=== PATIENT | female | born 1950 | race Two or more races ===

== ENCOUNTER 2016-11-23 17:18 | Inpatient (IN) | payer OTHER ==
[~2016-11-23] VITALS: Ht 149.9 cm; Wt 98.1 kg
[~2016-11-23 17:18] MED LIST: ASPI-482 PO; CHOL200044 PO; CRESTOR10 MG PO; FERR-26 PO; FOLI400T2 PO; HYDR-2666 PO; INSU100I11 SQ; INSU100V13 SQ; LABE50DI IV; LEVO100T5 PO; PANT40TA5 PO; TORS20TA2 PO; WARF1TAB7 PO; WARF2TAB7 PO
[2016-11-23 19:59] LABS: BASO % 0 % (0-3); EOS % 3 % (0-3); HEMATOCRIT 30.9 % (36.0-47.0); HEMOGLOBIN 10.4 g/dL (12.0-15.5); LYMPH # 0.9 x10^3/uL (1.0-4.8); LYMPH % 7 % (24-48); MEAN CORPUSCULAR HEMOGLOBIN 34 pg (25-35); MEAN CORPUSCULAR HGB CONC 34 g/dL (31-37); MEAN CORPUSCULAR VOLUME 101 fL (79-100); MONO % 6 % (0-9); NEUT % 85 % (31-73); PLATELET COUNT 206 x10^3/uL (140-400); RED BLOOD COUNT 3.06 x10^6/uL (3.50-5.40); RED CELL DISTRIBUTION WIDTH 13.7 % (11.5-14.5); WHITE BLOOD COUNT 13.1 x10^3/uL (4.0-11.0)
[2016-11-23 20:12] LABS: CALCIUM 7.7 mg/dL (8.5-10.1); CREATININE 8.5 mg/dL (0.6-1.0); GFR 4.7; POTASSIUM 3.7 mmol/L (3.5-5.1)
--- NOTE | 2016-11-23 20:47 | PHYS DOC ---
Past Medical History Past Medical History: CAD, Diabetes-Type II, Hypertension, Additional Disease Additional Past Medical Histor: KIDNEY FAILURE, DIALSYS PT Past Surgical History: Other Additional Past Surgical Histo: CABG, L ARM FISTULA, R ANTERIOR CHEST DIALYSIS SHUNT Alcohol Use: None Drug Use: None Adult General Chief Complaint Chief Complaint: DIALYSIS PROBLEM HPI HPI Patient is a 66 year old female who presents with clotted dialysis AV fistula. Patient went to her dialysis session this afternoon, however the nurses were not able to access to fistula in her left upper arm as it is apparently clotted. Her only complaint at this time is fatigue. She did have full dialysis session on Saturday. Review of Systems Review of Systems Constitutional: Fatigue. Denies fever or chills Respiratory: Denies cough or shortness of breath Cardiovascular: Denies chest pain GI: Denies abdominal pain, nausea, vomiting, or diarrhea Musculoskeletal: Denies back pain or joint pain Neurologic: Denies headache, focal weakness or sensory changes Allergies Allergies Allergies Coded Allergies Type Severity Reaction Last Updated Verified No Known Drug Allergies 07/10/13 No Physical Exam Physical Exam Constitutional: Well developed, well nourished, no acute distress, non-toxic appearance HENT: Normocephalic, atraumatic, bilateral external ears normal Eyes: EOMI, conjunctiva normal, no discharge Neck: Normal range of motion, no stridor Cardiovascular: Heart rate normal, regular rhythm, no murmur; AV fisutla L upper arm, no thrill appreciated; 2+ L radial pulse, sensation to light touch and motor function fully preserved Lungs & Thorax: Bilateral breath sounds clear to auscultation Abdomen: Bowel sounds normal, soft, non-distended, no TTP Skin: Warm, dry, no erythema, no rash Extremities: No obvious deformity, no edema Neurologic: Alert and oriented X 3, no gross deficits noted Current Patient Data Vital Signs Vital Signs Date Time Temp Pulse Resp B/P Pulse Ox O2 Delivery O2 Flow Rate FiO2 11/23/16 20:30 72 16 92 Room Air 11/23/16 20:00 126/56 11/23/16 17:35 97.5 97.5 Lab Values Laboratory Tests Test 11/23/16 19:55 White Blood Count 13.1x10^3/uL (4.0-11.0) H Red Blood Count 3.06x10^6/uL (3.50-5.40) L Hemoglobin 10.4g/dL (12.0-15.5) L Hematocrit 30.9% (36.0-47.0) L Mean Corpuscular Volume 101fL (79-100) H Mean Corpuscular Hemoglobin 34pg (25-35) Mean Corpuscular Hemoglobin Concent 34g/dL (31-37) Red Cell Distribution Width 13.7% (11.5-14.5) Platelet Count 206x10^3/uL (140-400) Neutrophils (%) (Auto) 85% (31-73) H Lymphocytes (%) (Auto) 7% (24-48) L Monocytes (%) (Auto) 6% (0-9) Eosinophils (%) (Auto) 3% (0-3) Basophils (%) (Auto) 0% (0-3) Neutrophils # (Auto) 11.1x10^3uL (1.8-7.7) H Lymphocytes # (Auto) 0.9x10^3/uL (1.0-4.8) L Monocytes # (Auto) 0.7x10^3/uL (0.0-1.1) Eosinophils # (Auto) 0.4x10^3/uL (0.0-0.7) Basophils # (Auto) 0.0x10^3/uL (0.0-0.2) Sodium Level 137mmol/L (136-145) Potassium Level 3.7mmol/L (3.5-5.1) Chloride Level 98mmol/L (98-107) Carbon Dioxide Level 24mmol/L (21-32) Anion Gap 15 (6-14) H Blood Urea Nitrogen 74mg/dL (7-20) H Creatinine 8.5mg/dL (0.6-1.0) H Estimated GFR (Cockcroft-Gault) 4.7 Glucose Level 115mg/dL (70-99) H Calcium Level 7.7mg/dL (8.5-10.1) L Laboratory Tests 11/23/16 19:55 Laboratory Tests 11/23/16 19:55 EKG EKG [] Radiology/Procedures Radiology/Procedures [] Course & Med Decision Making Course & Med Decision Making Pertinent Labs and Imaging studies reviewed. (See chart for details) Patient is 66-year-old female who presents with AV fistula problem. Basic labs ordered; potassium within normal limits. I discussed with Dr. 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 Discussed plan with patient, who is agreeable. I spoke with Dr. Arauz, will admit under his care for further evaluation and treatment. Dragon Disclaimer Dragon Disclaimer This electronic medical record was generated, in whole or in part, using a voice recognition dictation system. Departure Departure Impression: Primary Impression: Dialysis AV fistula malfunction Disposition: ADMITTED INPATIENT Admitting Physician: Irena Arauz Condition: STABLE Referrals: ELIAS EAGLE MD (PCP) RUDY LUO MD Nov 23, 2016 20:47
[2016-11-23] MEDS ORDERED: ACETAMINOPHEN 325 MG TABLET. PO PRN (21:00)
[2016-11-23] MEDS ORDERED: MORPHINE SULFATE 2 MG/ML DISP.SYRIN. IV PRN (21:00)
[2016-11-23] MEDS ORDERED: ONDANSETRON PF 4 MG/2 ML VIAL. IV PRN (21:00)
[2016-11-23] MEDS ORDERED: LEVO75TA5 PO (22:29)
[2016-11-23] MEDS ORDERED: INSU100V13 SQ ×2 (22:29)
[2016-11-23] MEDS ORDERED: INSU100V SQ (22:29)
--- NOTE | 2016-11-23 22:31 | PDOC1 ---
History and Physical Date of Admission Date of Admission DATE: 11/23/16 TIME: 22:29 Source Source: Chart review, Patient History of Present Illness History of Present Illness pt came to ER when she was unable to have dialysis today, Left upper arm fistula was unable to flow, thrill very diminished, thought clotted, sent to the ER< no pain, some dyspnea, she reports 4 kg over dry weight, little urine output, does not normally take lasix Renal MD winsome Linn s Past Medical History Cardiovascular: HTN, Mitral valve stenosis ([facility] valve) GI: Diverticulosis Musculoskeletal: low back pain Renal/: Chronic renal failure, UTI Endocrine: Diabetes Past Surgical History Past Surgical History: Hysterectomy, Other (mechanical heart valve) Family History Family History: No Significant Social History Smoke: No ALCOHOL: none Drugs: Ecstasy Current Problem List Problem List Problems Medical Problems: (1) Dialysis AV fistula malfunction Status: Acute Problems: Current Medications Current Medications Current Medications Ondansetron HCl (Zofran) 4 mg PRN Q8HRS PRN IV NAUSEA/VOMITING; Start 11/23/16 at 21:00; Stop 11/24/16 at 20:59 Morphine Sulfate 2 mg PRN Q2HR PRN IV PAIN; Start 11/23/16 at 21:00; Stop 11/24 at 20:59 Acetaminophen (Tylenol) 650 mg PRN Q4HRS PRN PO FEVER; Start 11/23/16 at 21:00 ; Stop 11/24/16 at 20:59 Active Scripts Active Reported Aspir 81 (Aspirin) 81 Mg Tablet.dr 81 Mg PO DAILY D3-2000 (Cholecalciferol (Vitamin D3)) 2,000 Unit Capsule 2,000 Unit PO DAILY Ferrous Sulfate 325 Mg Tablet 325 Mg PO BID Humalog (Insulin Lispro) 100 Unit/1 Ml Insuln.pen 12 Unit SQ TIDAC Levemir (Insulin Detemir) 100 Unit/1 Ml Vial 45 Unit SQ HS Hydrocodon-Acetaminophen 5-325 (Hydrocodone Bit/Acetaminophen) 1 Each Tablet 1 Each PO Q6HRS PRN Levothyroxine Sodium 100 Mcg Tablet 100 Mcg PO DAILY Pantoprazole Sodium 40 Mg Tablet.dr 40 Mg PO BID Warfarin Sodium 2 Mg Tablet 2 Mg PO DAILY Warfarin Sodium 1 Mg Tablet 1 Mg PO DAILY Crestor (Rosuvastatin Calcium) 10 Mg Tablet 10 Mg PO DAILY 30 Days Labetalol Hcl 50 Mg/10 Ml Disp.syrin 50 Mg IV BID 30 Days Torsemide 20 Mg Tablet 20 Mg PO DAILY B-Complex With Vit C Caplet (Folic Acid/Vitamin B Comp W-C) 400 Mcg Tablet 400 Mcg PO DAILY 7 Days Allergies Allergies: Coded Allergies: No Known Drug Allergies (Unverified , 07/10/13) ROS General: No: Appetite, Chills, Fatigue, Malaise, Night Sweats, Other PSYCHOLOGICAL ROS: No: Anxiety, Behavioral Disorder, Concentration difficultie , Decreased libido, Depression, Disorientation, Hallucinations, Hostility, Irritablity, Memory difficulties, Mood Swings, Obsessive thoughts, Other, Physical abuse, Sexual abuse, Sleep disturbances, Suicidal ideation Eyes: No Blurry vision, No Decreased vision, No Double vision, No Dry eyes, No Excessive tearing, No Eye Pain, No Itchy Eyes, No Loss of vision, No Other, No Photophobia, No Scotomata, No Uses contacts, No Uses glasses HEENT: No: Epistaxis, Heacaches, Hearing change, Nasal congestion, Nasal discharge, Oral lesions, Other, Sinus pain, Sneezing, Snoring, Sore Throat, Tinnitus, Vertigo, Visual Changes, Vocal changes Respiratory: No: Cough, Hemoptysis, Orthopnea, Other, Pleuritic Pain, SOB with excertion, Shortness of breath, Sputum Changes, Stridor, Tachypnea, Wheezing Cardiovascular: No Chest Pain, No Edema, No Lt Headedness, No Orthopnea, No Other, No Palpitations, No Paroxysmal Noc. Dyspnea Gastrointestinal: No Abdominal Pain, No Constipation, No Diarrhea, No Hematochezia, No Melena, No Nausea, No Other, No Vomiting Genitourinary: No , No , No , No , No , No , No , No Discharge, No Dysuria, No Flank Pain, No Frequency, No Hematuria, No Incontinence, No Other, No Pain, No Retention, No Urgency Musculoskeletal: No Gait Disturbance, No Joint Pain, No Joint Stiffness, No Joint Swelling, No Muscle Pain, No Muscular Weakness, No Other, No Pain In:, No Swelling In: Neurological: No Behavorial Changes, No Bowel/Bladder ControlChng, No Confusion , No Dizziness, No Gait Disturbance, No Headaches, No Impaired Coord/balance, No Memory Loss, No Numbness/Tingling, No Other, No Seizures, No Speech Problems , No Tremors, No Visual Changes, No Weakness Skin: No Acne, No Dry Skin, No Eczema, No Hair Changes, No Lumps, No Mole Changes, No Mottling, No Nail Changes, No Other, No Pruritus, No Rash, No Skin Lesion Changes Physical Exam General: Alert, Oriented X3, Cooperative, No acute distress HEENT: Atraumatic, PERRLA, EOMI, Mucous membr. moist/pink Lungs: Clear to auscultation, Normal air movement Heart: no gallops, no murmurs, other (mechanical click) Abdomen: Normal bowel sounds, Soft (obese, ) Rectal Exam: not examined, deferred Extremities: No clubbing, No edema, Normal pulses Skin: No rashes, No significant lesion Neuro: Normal speech, Normal tone, Cranial nerves 3-12 NL Psych/Mental Status: Mental status NL, Mood NL Vitals Vitals Vital Signs Date Time Temp Pulse Resp B/P Pulse Ox O2 Delivery O2 Flow Rate FiO2 11/23/16 21:45 72 22 127/60 96 Room Air 11/23/16 17:35 97.5 97.5 Labs Labs Laboratory Tests Test 11/23/16 19:55 White Blood Count 13.1x10^3/uL (4.0-11.0) Red Blood Count 3.06x10^6/uL (3.50-5.40) Hemoglobin 10.4g/dL (12.0-15.5) Hematocrit 30.9% (36.0-47.0) Mean Corpuscular Volume 101fL (79-100) Mean Corpuscular Hemoglobin 34pg (25-35) Mean Corpuscular Hemoglobin Concent 34g/dL (31-37) Red Cell Distribution Width 13.7% (11.5-14.5) Platelet Count 206x10^3/uL (140-400) Neutrophils (%) (Auto) 85% (31-73) Lymphocytes (%) (Auto) 7% (24-48) Monocytes (%) (Auto) 6% (0-9) Eosinophils (%) (Auto) 3% (0-3) Basophils (%) (Auto) 0% (0-3) Neutrophils # (Auto) 11.1x10^3uL (1.8-7.7) Lymphocytes # (Auto) 0.9x10^3/uL (1.0-4.8) Monocytes # (Auto) 0.7x10^3/uL (0.0-1.1) Eosinophils # (Auto) 0.4x10^3/uL (0.0-0.7) Basophils # (Auto) 0.0x10^3/uL (0.0-0.2) Sodium Level 137mmol/L (136-145) Potassium Level 3.7mmol/L (3.5-5.1) Chloride Level 98mmol/L (98-107) Carbon Dioxide Level 24mmol/L (21-32) Anion Gap 15 (6-14) Blood Urea Nitrogen 74mg/dL (7-20) Creatinine 8.5mg/dL (0.6-1.0) Estimated GFR (Cockcroft-Gault) 4.7 Glucose Level 115mg/dL (70-99) Calcium Level 7.7mg/dL (8.5-10.1) Laboratory Tests Test 11/23/16 19:55 White Blood Count 13.1x10^3/uL (4.0-11.0) Red Blood Count 3.06x10^6/uL (3.50-5.40) Hemoglobin 10.4g/dL (12.0-15.5) Hematocrit 30.9% (36.0-47.0) Mean Corpuscular Volume 101fL (79-100) Mean Corpuscular Hemoglobin 34pg (25-35) Mean Corpuscular Hemoglobin Concent 34g/dL (31-37) Red Cell Distribution Width 13.7% (11.5-14.5) Platelet Count 206x10^3/uL (140-400) Neutrophils (%) (Auto) 85% (31-73) Lymphocytes (%) (Auto) 7% (24-48) Monocytes (%) (Auto) 6% (0-9) Eosinophils (%) (Auto) 3% (0-3) Basophils (%) (Auto) 0% (0-3) Neutrophils # (Auto) 11.1x10^3uL (1.8-7.7) Lymphocytes # (Auto) 0.9x10^3/uL (1.0-4.8) Monocytes # (Auto) 0.7x10^3/uL (0.0-1.1) Eosinophils # (Auto) 0.4x10^3/uL (0.0-0.7) Basophils # (Auto) 0.0x10^3/uL (0.0-0.2) Sodium Level 137mmol/L (136-145) Potassium Level 3.7mmol/L (3.5-5.1) Chloride Level 98mmol/L (98-107) Carbon Dioxide Level 24mmol/L (21-32) Anion Gap 15 (6-14) Blood Urea Nitrogen 74mg/dL (7-20) Creatinine 8.5mg/dL (0.6-1.0) Estimated GFR (Cockcroft-Gault) 4.7 Glucose Level 115mg/dL (70-99) Calcium Level 7.7mg/dL (8.5-10.1) VTE Prophylaxis Ordered VTE Prophylaxis Devices: No VTE Pharmacological Prophylaxi: Yes Assessment/Plan Assessment/Plan CHF, acute on chronic diastolic , fluid overload from ESRD ESRD, 4kg over dry, will give large dose IV lasix, fluid restrict, consult IR, consult renal consult , [facility] valve, on coumadin, check INR in AM morbid obesity, BMI 43 gap acidosis, uremia leukocytosis, NOS, not SIRS, tachypnea from above check UA, CXR admit GIANCARLO SAVAGE MD Nov 23, 2016 22:31
[2016-11-23 23:00] VITALS: BP 113/50
[2016-11-23] MEDS ORDERED: FUROSEMIDE 100 MG/10 ML VIAL. IVP ONE (23:15)
[2016-11-24 05:24] LABS: BASO # 0.1 x10^3/uL (0.0-0.2); BASO % 1 % (0-3); EOS % 3 % (0-3); HEMATOCRIT 28.3 % (36.0-47.0); HEMOGLOBIN 9.5 g/dL (12.0-15.5); LYMPH # 0.7 x10^3/uL (1.0-4.8); LYMPH % 6 % (24-48); MEAN CORPUSCULAR HEMOGLOBIN 34 pg (25-35); MEAN CORPUSCULAR HGB CONC 34 g/dL (31-37); MEAN CORPUSCULAR VOLUME 101 fL (79-100); MONO % 7 % (0-9); NEUT % 84 % (31-73); PLATELET COUNT 176 x10^3/uL (140-400); RED CELL DISTRIBUTION WIDTH 13.8 % (11.5-14.5); WHITE BLOOD COUNT 12.3 x10^3/uL (4.0-11.0)
[2016-11-24 05:26] LABS: INR 2.5 (0.8-1.1); PROTHROMBIN TIME PATIENT 25.7 SEC (11.7-14.0)
[2016-11-24] MEDS: LEVOTHYROXINE 75 MCG TABLET PO SCH (05:36)
[2016-11-24 05:37] LABS: CALCIUM 7.5 mg/dL (8.5-10.1); GFR 4.4; POTASSIUM 4.2 mmol/L (3.5-5.1)
[2016-11-24 05:46] LABS: MAGNESIUM 2.7 mg/dL (1.8-2.4); PHOSPHORUS 8.3 mg/dL (2.6-4.7)
[2016-11-24 06:51] LABS: BILIRUBIN,URINE MODERATE (NEG); GLUCOSE,URINE NEGATIVE (NEG); NITRITE,URINE NEGATIVE (NEG); PROTEIN,URINE 100 mg/dL (NEG-TRACE)
[2016-11-24 07:00] VITALS: BP 138/63
[2016-11-24 07:26] LABS: BACTERIA,URINE FEW /HPF (0-FEW); SQUAMOUS EPITHELIAL CELL,UR MANY /LPF; WBC,URINE >40 /HPF (0-4); YEAST,URINE PRESENT /HPF
[2016-11-24] MEDS: INSULIN ASPART 300 UNITS/3 ML INSULN.PEN SQ SCH ×6 (07:30→17:00)
[2016-11-24] MEDS ORDERED: DEXTROSE 50% 25 GM / 50ML DISP.SYRIN. IV PRN (07:30)
--- NOTE | 2016-11-24 08:37 | PDOC ---
PROGRESS NOTES Chief Complaint Chief Complaint 1. Clotted AV fistula, left arm 2. ESRD on HD MWF 3. Hypothyroidism 4. DYslipidemia on statin 5. DM 2 History of Present Illness History of Present Illness Missed Sat HD bec of clotted access Was not able to finish sat session per pt account HAs happened before, nov? in [facility] Claims her face is now swollen bec she has missed HD WBC 12.3, CRea 9.o VS ok Pulses good on left arm, hard to appreciate palpable bruit PLAN: Ir consulted, Renal on board Resume home meds SSI Vitals Vitals Vital Signs Date Time Temp Pulse Resp B/P Pulse Ox O2 Delivery O2 Flow Rate FiO2 11/24/16 07:00 97.4 82 16 138/63 92 Room Air 97.4 Physical Exam General: Alert, Oriented X3, Cooperative, No acute distress Abdomen: Normal bowel sounds, Soft (obese, ) Extremities: No clubbing, No edema, Normal pulses Skin: No rashes, No significant lesion Labs LABS Laboratory Tests Test 11/23/16 19:55 11/23/16 23:24 11/24/16 02:00 11/24/16 03:33 White Blood Count 13.1x10^3/uL (4.0-11.0) Red Blood Count 3.06x10^6/uL (3.50-5.40) Hemoglobin 10.4g/dL (12.0-15.5) Hematocrit 30.9% (36.0-47.0) Mean Corpuscular Volume 101fL (79-100) Mean Corpuscular Hemoglobin 34pg (25-35) Mean Corpuscular Hemoglobin Concent 34g/dL (31-37) Red Cell Distribution Width 13.7% (11.5-14.5) Platelet Count 206x10^3/uL (140-400) Neutrophils (%) (Auto) 85% (31-73) Lymphocytes (%) (Auto) 7% (24-48) Monocytes (%) (Auto) 6% (0-9) Eosinophils (%) (Auto) 3% (0-3) Basophils (%) (Auto) 0% (0-3) Neutrophils # (Auto) 11.1x10^3uL (1.8-7.7) Lymphocytes # (Auto) 0.9x10^3/uL (1.0-4.8) Monocytes # (Auto) 0.7x10^3/uL (0.0-1.1) Eosinophils # (Auto) 0.4x10^3/uL (0.0-0.7) Basophils # (Auto) 0.0x10^3/uL (0.0-0.2) Sodium Level 137mmol/L (136-145) 138mmol/L (136-145) Potassium Level 3.7mmol/L (3.5-5.1) 4.2mmol/L (3.5-5.1) Chloride Level 98mmol/L (98-107) 98mmol/L (98-107) Carbon Dioxide Level 24mmol/L (21-32) 23mmol/L (21-32) Anion Gap 15 (6-14) 17 (6-14) Blood Urea Nitrogen 74mg/dL (7-20) 76mg/dL (7-20) Creatinine 8.5mg/dL (0.6-1.0) 9.0mg/dL (0.6-1.0) Estimated GFR (Cockcroft-Gault) 4.7 4.4 Glucose Level 115mg/dL (70-99) 168mg/dL (70-99) Calcium Level 7.7mg/dL (8.5-10.1) 7.5mg/dL (8.5-10.1) Glucose (Fingerstick) 187mg/dL (70-99) Urine Collection Type Unknown Urine Color Sindhu Urine Clarity Turbid Urine pH 5.0 Urine Specific Sarita 1.020 Urine Protein 100mg/dL (NEG-TRACE) Urine Glucose (UA) Negativemg/dL (NEG) Urine Ketones (Stick) Tracemg/dL (NEG) Urine Blood Moderate (NEG) Urine Nitrite Negative (NEG) Urine Bilirubin Moderate (NEG) Urine Urobilinogen Dipstick 1.0mg/dL (0.2 mg/dL) Urine Leukocyte Esterase Moderate (NEG) Urine RBC 6-10/HPF (0-2) Urine WBC >40/HPF (0-4) Urine Squamous Epithelial Cells Many/LPF Urine Bacteria Few/HPF (0-FEW) Urine Mucus Mod/LPF Urine Yeast Present/HPF Prothrombin Time 25.7SEC (11.7-14.0) Prothromb Time International Ratio 2.5 (0.8-1.1) Phosphorus Level 8.3mg/dL (2.6-4.7) Magnesium Level 2.7mg/dL (1.8-2.4) Test 11/24/16 03:53 White Blood Count 12.3x10^3/uL (4.0-11.0) Red Blood Count 2.80x10^6/uL (3.50-5.40) Hemoglobin 9.5g/dL (12.0-15.5) Hematocrit 28.3% (36.0-47.0) Mean Corpuscular Volume 101fL (79-100) Mean Corpuscular Hemoglobin 34pg (25-35) Mean Corpuscular Hemoglobin Concent 34g/dL (31-37) Red Cell Distribution Width 13.8% (11.5-14.5) Platelet Count 176x10^3/uL (140-400) Neutrophils (%) (Auto) 84% (31-73) Lymphocytes (%) (Auto) 6% (24-48) Monocytes (%) (Auto) 7% (0-9) Eosinophils (%) (Auto) 3% (0-3) Basophils (%) (Auto) 1% (0-3) Neutrophils # (Auto) 10.4x10^3uL (1.8-7.7) Lymphocytes # (Auto) 0.7x10^3/uL (1.0-4.8) Monocytes # (Auto) 0.8x10^3/uL (0.0-1.1) Eosinophils # (Auto) 0.3x10^3/uL (0.0-0.7) Basophils # (Auto) 0.1x10^3/uL (0.0-0.2) Review of Systems Review of Systems no cp.n.v.d Assessment and Plan Assessmemt and Plan Problems Medical Problems: (1) Dialysis AV fistula malfunction Status: Acute Problems: Comment Review of Relevant I have reviewed the following items sofi (where applicable) has been applied. Labs Laboratory Tests Test 11/23/16 19:55 11/23/16 23:24 11/24/16 02:00 11/24/16 03:33 White Blood Count 13.1x10^3/uL (4.0-11.0) Red Blood Count 3.06x10^6/uL (3.50-5.40) Hemoglobin 10.4g/dL (12.0-15.5) Hematocrit 30.9% (36.0-47.0) Mean Corpuscular Volume 101fL (79-100) Mean Corpuscular Hemoglobin 34pg (25-35) Mean Corpuscular Hemoglobin Concent 34g/dL (31-37) Red Cell Distribution Width 13.7% (11.5-14.5) Platelet Count 206x10^3/uL (140-400) Neutrophils (%) (Auto) 85% (31-73) Lymphocytes (%) (Auto) 7% (24-48) Monocytes (%) (Auto) 6% (0-9) Eosinophils (%) (Auto) 3% (0-3) Basophils (%) (Auto) 0% (0-3) Neutrophils # (Auto) 11.1x10^3uL (1.8-7.7) Lymphocytes # (Auto) 0.9x10^3/uL (1.0-4.8) Monocytes # (Auto) 0.7x10^3/uL (0.0-1.1) Eosinophils # (Auto) 0.4x10^3/uL (0.0-0.7) Basophils # (Auto) 0.0x10^3/uL (0.0-0.2) Sodium Level 137mmol/L (136-145) 138mmol/L (136-145) Potassium Level 3.7mmol/L (3.5-5.1) 4.2mmol/L (3.5-5.1) Chloride Level 98mmol/L (98-107) 98mmol/L (98-107) Carbon Dioxide Level 24mmol/L (21-32) 23mmol/L (21-32) Anion Gap 15 (6-14) 17 (6-14) Blood Urea Nitrogen 74mg/dL (7-20) 76mg/dL (7-20) Creatinine 8.5mg/dL (0.6-1.0) 9.0mg/dL (0.6-1.0) Estimated GFR (Cockcroft-Gault) 4.7 4.4 Glucose Level 115mg/dL (70-99) 168mg/dL (70-99) Calcium Level 7.7mg/dL (8.5-10.1) 7.5mg/dL (8.5-10.1) Glucose (Fingerstick) 187mg/dL (70-99) Urine Collection Type Unknown Urine Color Sindhu Urine Clarity Turbid Urine pH 5.0 Urine Specific [place] 1.020 Urine Protein 100mg/dL (NEG-TRACE) Urine Glucose (UA) Negativemg/dL (NEG) Urine Ketones (Stick) Tracemg/dL (NEG) Urine Blood Moderate (NEG) Urine Nitrite Negative (NEG) Urine Bilirubin Moderate (NEG) Urine Urobilinogen Dipstick 1.0mg/dL (0.2 mg/dL) Urine Leukocyte Esterase Moderate (NEG) Urine RBC 6-10/HPF (0-2) Urine WBC >40/HPF (0-4) Urine Squamous Epithelial Cells Many/LPF Urine Bacteria Few/HPF (0-FEW) Urine Mucus Mod/LPF Urine Yeast Present/HPF Prothrombin Time 25.7SEC (11.7-14.0) Prothromb Time International Ratio 2.5 (0.8-1.1) Phosphorus Level 8.3mg/dL (2.6-4.7) Magnesium Level 2.7mg/dL (1.8-2.4) Test 11/24/16 03:53 White Blood Count 12.3x10^3/uL (4.0-11.0) Red Blood Count 2.80x10^6/uL (3.50-5.40) Hemoglobin 9.5g/dL (12.0-15.5) Hematocrit 28.3% (36.0-47.0) Mean Corpuscular Volume 101fL (79-100) Mean Corpuscular Hemoglobin 34pg (25-35) Mean Corpuscular Hemoglobin Concent 34g/dL (31-37) Red Cell Distribution Width 13.8% (11.5-14.5) Platelet Count 176x10^3/uL (140-400) Neutrophils (%) (Auto) 84% (31-73) Lymphocytes (%) (Auto) 6% (24-48) Monocytes (%) (Auto) 7% (0-9) Eosinophils (%) (Auto) 3% (0-3) Basophils (%) (Auto) 1% (0-3) Neutrophils # (Auto) 10.4x10^3uL (1.8-7.7) Lymphocytes # (Auto) 0.7x10^3/uL (1.0-4.8) Monocytes # (Auto) 0.8x10^3/uL (0.0-1.1) Eosinophils # (Auto) 0.3x10^3/uL (0.0-0.7) Basophils # (Auto) 0.1x10^3/uL (0.0-0.2) Laboratory Tests Test 11/23/16 19:55 11/23/16 23:24 11/24/16 02:00 11/24/16 03:33 White Blood Count 13.1x10^3/uL (4.0-11.0) Red Blood Count 3.06x10^6/uL (3.50-5.40) Hemoglobin 10.4g/dL (12.0-15.5) Hematocrit 30.9% (36.0-47.0) Mean Corpuscular Volume 101fL (79-100) Mean Corpuscular Hemoglobin 34pg (25-35) Mean Corpuscular Hemoglobin Concent 34g/dL (31-37) Red Cell Distribution Width 13.7% (11.5-14.5) Platelet Count 206x10^3/uL (140-400) Neutrophils (%) (Auto) 85% (31-73) Lymphocytes (%) (Auto) 7% (24-48) Monocytes (%) (Auto) 6% (0-9) Eosinophils (%) (Auto) 3% (0-3) Basophils (%) (Auto) 0% (0-3) Neutrophils # (Auto) 11.1x10^3uL (1.8-7.7) Lymphocytes # (Auto) 0.9x10^3/uL (1.0-4.8) Monocytes # (Auto) 0.7x10^3/uL (0.0-1.1) Eosinophils # (Auto) 0.4x10^3/uL (0.0-0.7) Basophils # (Auto) 0.0x10^3/uL (0.0-0.2) Sodium Level 137mmol/L (136-145) 138mmol/L (136-145) Potassium Level 3.7mmol/L (3.5-5.1) 4.2mmol/L (3.5-5.1) Chloride Level 98mmol/L (98-107) 98mmol/L (98-107) Carbon Dioxide Level 24mmol/L (21-32) 23mmol/L (21-32) Anion Gap 15 (6-14) 17 (6-14) Blood Urea Nitrogen 74mg/dL (7-20) 76mg/dL (7-20) Creatinine 8.5mg/dL (0.6-1.0) 9.0mg/dL (0.6-1.0) Estimated GFR (Cockcroft-Gault) 4.7 4.4 Glucose Level 115mg/dL (70-99) 168mg/dL (70-99) Calcium Level 7.7mg/dL (8.5-10.1) 7.5mg/dL (8.5-10.1) Glucose (Fingerstick) 187mg/dL (70-99) Urine Collection Type Unknown Urine Color Sindhu Urine Clarity Turbid Urine pH 5.0 Urine Specific Sarita 1.020 Urine Protein 100mg/dL (NEG-TRACE) Urine Glucose (UA) Negativemg/dL (NEG) Urine Ketones (Stick) Tracemg/dL (NEG) Urine Blood Moderate (NEG) Urine Nitrite Negative (NEG) Urine Bilirubin Moderate (NEG) Urine Urobilinogen Dipstick 1.0mg/dL (0.2 mg/dL) Urine Leukocyte Esterase Moderate (NEG) Urine RBC 6-10/HPF (0-2) Urine WBC >40/HPF (0-4) Urine Squamous Epithelial Cells Many/LPF Urine Bacteria Few/HPF (0-FEW) Urine Mucus Mod/LPF Urine Yeast Present/HPF Prothrombin Time 25.7SEC (11.7-14.0) Prothromb Time International Ratio 2.5 (0.8-1.1) Phosphorus Level 8.3mg/dL (2.6-4.7) Magnesium Level 2.7mg/dL (1.8-2.4) Test 11/24/16 03:53 White Blood Count 12.3x10^3/uL (4.0-11.0) Red Blood Count 2.80x10^6/uL (3.50-5.40) Hemoglobin 9.5g/dL (12.0-15.5) Hematocrit 28.3% (36.0-47.0) Mean Corpuscular Volume 101fL (79-100) Mean Corpuscular Hemoglobin 34pg (25-35) Mean Corpuscular Hemoglobin Concent 34g/dL (31-37) Red Cell Distribution Width 13.8% (11.5-14.5) Platelet Count 176x10^3/uL (140-400) Neutrophils (%) (Auto) 84% (31-73) Lymphocytes (%) (Auto) 6% (24-48) Monocytes (%) (Auto) 7% (0-9) Eosinophils (%) (Auto) 3% (0-3) Basophils (%) (Auto) 1% (0-3) Neutrophils # (Auto) 10.4x10^3uL (1.8-7.7) Lymphocytes # (Auto) 0.7x10^3/uL (1.0-4.8) Monocytes # (Auto) 0.8x10^3/uL (0.0-1.1) Eosinophils # (Auto) 0.3x10^3/uL (0.0-0.7) Basophils # (Auto) 0.1x10^3/uL (0.0-0.2) Medications Current Medications Ondansetron HCl (Zofran) 4 mg PRN Q8HRS PRN IV NAUSEA/VOMITING; Start 11/23/16 at 21:00; Stop 11/24/16 at 07:25; Status DC Morphine Sulfate 2 mg PRN Q2HR PRN IV PAIN; Start 11/23/16 at 21:00; Stop 11/24 at 20:59 Acetaminophen (Tylenol) 650 mg PRN Q4HRS PRN PO FEVER; Start 11/23/16 at 21:00 ; Stop 11/24/16 at 20:59 Furosemide (Lasix) 100 mg 1X ONCE IVP Last administered on 11/24/16t 01:15; Start 11/23/16 at 23:15; Stop 11/23/16 at 23:17; Status DC Levothyroxine Sodium (Synthroid) 75 mcg DAILY07 PO ; Start 11/24/16 at 07:00 Pantoprazole Sodium (Protonix) 40 mg BIDAC PO ; Start 11/24/16 at 07:30 Warfarin Sodium (Coumadin) 1 mg DAILY16 PO ; Start 11/24/16 at 16:00 Warfarin Sodium (Coumadin) 2 mg DAILY16 PO ; Start 11/24/16 at 16:00 Vitamin D (Vitamin D3) 2,000 unit DAILY PO ; Start 11/24/16 at 09:00 Insulin Detemir (Levemir) 66 units QHS SQ ; Start 11/24/16 at 21:00 Insulin Aspart (Novolog) 20 units TIDAC SQ ; Start 11/24/16 at 07:30 Atorvastatin Calcium (Lipitor) 40 mg HS PO ; Start 11/24/16 at 21:00 Warfarin Sodium (Coumadin Per Physician) 1 each PRN DAILY PRN MC SEE COMMENTS; Start 11/24/16 at 16:00 Ondansetron HCl (Zofran) 4 mg PRN Q6HRS PRN IV NAUSEA/VOMITING; Start 11/24/16 at 07:23 Insulin Aspart (Novolog) 0-9 UNITS TIDWMEALS SQ ; Start 11/24/16 at 08:00 Dextrose (Dextrose 50%-Water Syringe) 12.5 gm PRN Q15MIN PRN IV SEE COMMENTS; Start 11/24/16 at 07:30 Active Scripts Active Reported Humalog (Insulin Lispro) 100 Unit/1 Ml Vial 20 Unit SQ TIDAC Levothyroxine Sodium 75 Mcg Tablet 75 Mcg PO DAILYAC Levemir (Insulin Detemir) 100 Unit/1 Ml Vial 66 Unit SQ QHS Levemir (Insulin Detemir) 100 Unit/1 Ml Vial 70 Unit SQ DAILY D3-2000 (Cholecalciferol (Vitamin D3)) 2,000 Unit Capsule 2,000 Unit PO DAILY Pantoprazole Sodium 40 Mg Tablet.dr 40 Mg PO BID Warfarin Sodium 2 Mg Tablet 2 Mg PO DAILY Warfarin Sodium 1 Mg Tablet 1 Mg PO DAILY Crestor (Rosuvastatin Calcium) 10 Mg Tablet 10 Mg PO DAILY 30 Days Vitals/I & O Vital Sign - Last 24 Hours 11/23/16 11/23/16 11/23/16 11/23/16 17:35 19:00 19:30 20:00 Temp 97.5 97.5 Pulse 79 68 74 76 Resp 16 27 31 B/P 121/51 103/47 126/56 Pulse Ox 98 98 94 O2 Delivery Room Air Room Air Room Air 11/23/16 11/23/16 11/23/16 11/23/16 20:30 20:45 21:15 21:45 Pulse 72 72 74 72 Resp 16 13 20 22 B/P 103/49 113/57 127/60 Pulse Ox 92 91 97 96 O2 Delivery Room Air Room Air Room Air Room Air 11/23/16 11/23/16 11/24/16 23:00 23:22 07:00 Temp 98.3 97.4 98.3 97.4 Pulse 73 82 Resp 18 16 B/P 113/50 138/63 Pulse Ox 92 92 O2 Delivery Room Air Room Air Room Air Intake and Output 11/23/16 11/23/16 11/24/16 15:00 23:00 07:00 Intake Total 30 ml Output Total 30 ml Balance 0 ml FROILAN FLEMING MD Nov 24, 2016 08:37
[2016-11-24] MEDS: CHOLECALCIFEROL (VITAMIN D3) 1,000 UNIT TABLET PO SCH (08:45)
[2016-11-24] MEDS: PANTOPRAZOLE 40 MG TABLET.DR. PO SCH ×2 (08:45→16:30)
--- NOTE | 2016-11-24 09:28 | RAD ---
AP portable chest radiograph 11/24/2016 Clinical History: End-stage renal disease and leukocytosis. An AP portable erect digital radiograph of the chest was obtained. Comparison study is dated 12/21/2012. The patient is status post median sternotomy. The cardiac silhouette is mildly enlarged. Thoracic aorta is minimally tortuous. Atherosclerotic calcification of the thoracic aorta is seen. No acute pulmonary infiltrate is noted. No pneumothorax or pleural effusion is seen. The osseous structures are unchanged. Impression: Mild cardiomegaly. No acute pulmonary infiltrate is seen.
[2016-11-24 11:00] VITALS: BP 111/40
--- NOTE | 2016-11-24 12:10 | PDOC2 ---
CONSULT Date of Consult Date of Consult DATE: 11/24/16 TIME: 12:05 Reason for Consult Reason for Consult: ESRD PT Referring Physician Referring Physician: HUSSEIN Identification/Chief Complaint Chief Complaint CANT DIALYZE AND SOME SOB Source Source: Chart review, Patient History of Present Illness Reason for Visit: THIS IS A 66 YR OLD ADMITTED WITH SOME SOB. SHE HAS HYPERVOLEMIA. SHE HAS ESRD AND IS ON OP HD ON MWF. SHE WENT TO HER HD SHIFT LATE IN THE AFTERNOON YESTERDAY AND WAS NOTED TO HAVE A THROMBOSED AVG. IT APPEARS TO BE A BRACHIO- BASILIC GRAFT. SHE WAS UNABLE TO DIALYZE AND CAME TO THE ER. HER LABS ARE C/W ESRD BUT NO HYPERKALEMIA OR MET ACIDOSIS NOTED Past Medical History Cardiovascular: [facility], [facility] GI: Diverticulosis Heme/Onc: Anemia NOS Musculoskeletal: low back pain Renal/: Chronic renal failure, UTI Endocrine: Diabetes, Hyperparathyroidism Past Surgical History Past Surgical History: Hysterectomy, Other (mechanical heart valve) Family History Family History: No Significant Social History No ALCOHOL: none Drugs: Ecstasy Lives: with Family Current Problem List Problem List Problems Medical Problems: (1) Dialysis AV fistula malfunction Status: Acute Current Medications Current Medications Current Medications Ondansetron HCl (Zofran) 4 mg PRN Q8HRS PRN IV NAUSEA/VOMITING; Start 11/23/16 at 21:00; Stop 11/24/16 at 07:25; Status DC Morphine Sulfate 2 mg PRN Q2HR PRN IV PAIN; Start 11/23/16 at 21:00; Stop 11/24 at 20:59 Acetaminophen (Tylenol) 650 mg PRN Q4HRS PRN PO FEVER Last administered on 11/24 08:46; Start 11/23/16 at 21:00; Stop 11/24/16 at 20:59 Furosemide (Lasix) 100 mg 1X ONCE IVP Last administered on 11/24/16 01:15; Start 11/23/16 at 23:15; Stop 11/23/16 at 23:17; Status DC Levothyroxine Sodium (Synthroid) 75 mcg DAILY07 PO ; Start 11/24/16 at 07:00 Pantoprazole Sodium (Protonix) 40 mg BIDAC PO Last administered on 11/24/16 08 :45; Start 11/24/16 at 07:30 Warfarin Sodium (Coumadin) 1 mg DAILY16 PO ; Start 11/24/16 at 16:00 Warfarin Sodium (Coumadin) 2 mg DAILY16 PO ; Start 11/24/16 at 16:00 Vitamin D (Vitamin D3) 2,000 unit DAILY PO Last administered on 11/24/16t 08:45 ; Start 11/24/16 at 09:00 Insulin Detemir (Levemir) 66 units QHS SQ ; Start 11/24/16 at 21:00 Insulin Aspart (Novolog) 20 units TIDAC SQ ; Start 11/24/16 at 07:30 Atorvastatin Calcium (Lipitor) 40 mg HS PO ; Start 11/24/16 at 21:00 Warfarin Sodium (Coumadin Per Physician) 1 each PRN DAILY PRN MC SEE COMMENTS; Start 11/24/16 at 16:00 Ondansetron HCl (Zofran) 4 mg PRN Q6HRS PRN IV NAUSEA/VOMITING; Start 11/24/16 at 07:23 Insulin Aspart (Novolog) 0-9 UNITS TIDWMEALS SQ ; Start 11/24/16 at 08:00 Dextrose (Dextrose 50%-Water Syringe) 12.5 gm PRN Q15MIN PRN IV SEE COMMENTS; Start 11/24/16 at 07:30 Active Scripts Active Reported Humalog (Insulin Lispro) 100 Unit/1 Ml Vial 20 Unit SQ TIDAC Levothyroxine Sodium 75 Mcg Tablet 75 Mcg PO DAILYAC Levemir (Insulin Detemir) 100 Unit/1 Ml Vial 66 Unit SQ QHS Levemir (Insulin Detemir) 100 Unit/1 Ml Vial 70 Unit SQ DAILY D3-2000 (Cholecalciferol (Vitamin D3)) 2,000 Unit Capsule 2,000 Unit PO DAILY Pantoprazole Sodium 40 Mg Tablet.dr 40 Mg PO BID Warfarin Sodium 2 Mg Tablet 2 Mg PO DAILY Warfarin Sodium 1 Mg Tablet 1 Mg PO DAILY Crestor (Rosuvastatin Calcium) 10 Mg Tablet 10 Mg PO DAILY 30 Days Allergies Allergies: Coded Allergies: No Known Drug Allergies (Unverified , 07/10/13) ROS General: YES: Appetite PSYCHOLOGICAL ROS: YES: Behavioral Disorder Eyes: Yes Decreased vision HEENT: YES: Heacaches Respiratory: YES: Cough, Shortness of breath Gastrointestinal: Yes Constipation Genitourinary: YES Other (ANURIA) Musculoskeletal: Yes Joint Stiffness, Yes Muscular Weakness Skin: Yes Dry Skin Physical Exam General: Alert, Cooperative, No acute distress HEENT: Atraumatic, PERRLA Lungs: Clear to auscultation Heart: Regular rate, Normal S2 Abdomen: Normal bowel sounds, Soft, No tenderness Extremities: No clubbing Skin: No breakdown Neuro: Normal speech, Cranial nerves 3-12 NL Psych/Mental Status: Mental status NL, Mood NL MUSCULOSKELETAL: No joint tenderness, No deformity, No swelling Vitals VITALS Vital Signs Date Time Temp Pulse Resp B/P Pulse Ox O2 Delivery O2 Flow Rate FiO2 11/24/16 11:00 97.6 69 16 111/40 95 Room Air 97.6 Labs Labs Laboratory Tests Test 11/23/16 19:55 11/23/16 23:24 11/24/16 02:00 11/24/16 03:33 White Blood Count 13.1x10^3/uL (4.0-11.0) Red Blood Count 3.06x10^6/uL (3.50-5.40) Hemoglobin 10.4g/dL (12.0-15.5) Hematocrit 30.9% (36.0-47.0) Mean Corpuscular Volume 101fL (79-100) Mean Corpuscular Hemoglobin 34pg (25-35) Mean Corpuscular Hemoglobin Concent 34g/dL (31-37) Red Cell Distribution Width 13.7% (11.5-14.5) Platelet Count 206x10^3/uL (140-400) Neutrophils (%) (Auto) 85% (31-73) Lymphocytes (%) (Auto) 7% (24-48) Monocytes (%) (Auto) 6% (0-9) Eosinophils (%) (Auto) 3% (0-3) Basophils (%) (Auto) 0% (0-3) Neutrophils # (Auto) 11.1x10^3uL (1.8-7.7) Lymphocytes # (Auto) 0.9x10^3/uL (1.0-4.8) Monocytes # (Auto) 0.7x10^3/uL (0.0-1.1) Eosinophils # (Auto) 0.4x10^3/uL (0.0-0.7) Basophils # (Auto) 0.0x10^3/uL (0.0-0.2) Sodium Level 137mmol/L (136-145) 138mmol/L (136-145) Potassium Level 3.7mmol/L (3.5-5.1) 4.2mmol/L (3.5-5.1) Chloride Level 98mmol/L (98-107) 98mmol/L (98-107) Carbon Dioxide Level 24mmol/L (21-32) 23mmol/L (21-32) Anion Gap 15 (6-14) 17 (6-14) Blood Urea Nitrogen 74mg/dL (7-20) 76mg/dL (7-20) Creatinine 8.5mg/dL (0.6-1.0) 9.0mg/dL (0.6-1.0) Estimated GFR (Cockcroft-Gault) 4.7 4.4 Glucose Level 115mg/dL (70-99) 168mg/dL (70-99) Calcium Level 7.7mg/dL (8.5-10.1) 7.5mg/dL (8.5-10.1) Glucose (Fingerstick) 187mg/dL (70-99) Urine Collection Type Unknown Urine Color Sindhu Urine Clarity Turbid Urine pH 5.0 Urine Specific [place] 1.020 Urine Protein 100mg/dL (NEG-TRACE) Urine Glucose (UA) Negativemg/dL (NEG) Urine Ketones (Stick) Tracemg/dL (NEG) Urine Blood Moderate (NEG) Urine Nitrite Negative (NEG) Urine Bilirubin Moderate (NEG) Urine Urobilinogen Dipstick 1.0mg/dL (0.2 mg/dL) Urine Leukocyte Esterase Moderate (NEG) Urine RBC 6-10/HPF (0-2) Urine WBC >40/HPF (0-4) Urine Squamous Epithelial Cells Many/LPF Urine Bacteria Few/HPF (0-FEW) Urine Mucus Mod/LPF Urine Yeast Present/HPF Prothrombin Time 25.7SEC (11.7-14.0) Prothromb Time International Ratio 2.5 (0.8-1.1) Phosphorus Level 8.3mg/dL (2.6-4.7) Magnesium Level 2.7mg/dL (1.8-2.4) Test 11/24/16 03:53 11/24/16 08:33 White Blood Count 12.3x10^3/uL (4.0-11.0) Red Blood Count 2.80x10^6/uL (3.50-5.40) Hemoglobin 9.5g/dL (12.0-15.5) Hematocrit 28.3% (36.0-47.0) Mean Corpuscular Volume 101fL (79-100) Mean Corpuscular Hemoglobin 34pg (25-35) Mean Corpuscular Hemoglobin Concent 34g/dL (31-37) Red Cell Distribution Width 13.8% (11.5-14.5) Platelet Count 176x10^3/uL (140-400) Neutrophils (%) (Auto) 84% (31-73) Lymphocytes (%) (Auto) 6% (24-48) Monocytes (%) (Auto) 7% (0-9) Eosinophils (%) (Auto) 3% (0-3) Basophils (%) (Auto) 1% (0-3) Neutrophils # (Auto) 10.4x10^3uL (1.8-7.7) Lymphocytes # (Auto) 0.7x10^3/uL (1.0-4.8) Monocytes # (Auto) 0.8x10^3/uL (0.0-1.1) Eosinophils # (Auto) 0.3x10^3/uL (0.0-0.7) Basophils # (Auto) 0.1x10^3/uL (0.0-0.2) Glucose (Fingerstick) 180mg/dL (70-99) Laboratory Tests Test 11/23/16 19:55 11/23/16 23:24 11/24/16 02:00 11/24/16 03:33 White Blood Count 13.1x10^3/uL (4.0-11.0) Red Blood Count 3.06x10^6/uL (3.50-5.40) Hemoglobin 10.4g/dL (12.0-15.5) Hematocrit 30.9% (36.0-47.0) Mean Corpuscular Volume 101fL (79-100) Mean Corpuscular Hemoglobin 34pg (25-35) Mean Corpuscular Hemoglobin Concent 34g/dL (31-37) Red Cell Distribution Width 13.7% (11.5-14.5) Platelet Count 206x10^3/uL (140-400) Neutrophils (%) (Auto) 85% (31-73) Lymphocytes (%) (Auto) 7% (24-48) Monocytes (%) (Auto) 6% (0-9) Eosinophils (%) (Auto) 3% (0-3) Basophils (%) (Auto) 0% (0-3) Neutrophils # (Auto) 11.1x10^3uL (1.8-7.7) Lymphocytes # (Auto) 0.9x10^3/uL (1.0-4.8) Monocytes # (Auto) 0.7x10^3/uL (0.0-1.1) Eosinophils # (Auto) 0.4x10^3/uL (0.0-0.7) Basophils # (Auto) 0.0x10^3/uL (0.0-0.2) Sodium Level 137mmol/L (136-145) 138mmol/L (136-145) Potassium Level 3.7mmol/L (3.5-5.1) 4.2mmol/L (3.5-5.1) Chloride Level 98mmol/L (98-107) 98mmol/L (98-107) Carbon Dioxide Level 24mmol/L (21-32) 23mmol/L (21-32) Anion Gap 15 (6-14) 17 (6-14) Blood Urea Nitrogen 74mg/dL (7-20) 76mg/dL (7-20) Creatinine 8.5mg/dL (0.6-1.0) 9.0mg/dL (0.6-1.0) Estimated GFR (Cockcroft-Gault) 4.7 4.4 Glucose Level 115mg/dL (70-99) 168mg/dL (70-99) Calcium Level 7.7mg/dL (8.5-10.1) 7.5mg/dL (8.5-10.1) Glucose (Fingerstick) 187mg/dL (70-99) Urine Collection Type Unknown Urine Color Sindhu Urine Clarity Turbid Urine pH 5.0 Urine Specific [place] 1.020 Urine Protein 100mg/dL (NEG-TRACE) Urine Glucose (UA) Negativemg/dL (NEG) Urine Ketones (Stick) Tracemg/dL (NEG) Urine Blood Moderate (NEG) Urine Nitrite Negative (NEG) Urine Bilirubin Moderate (NEG) Urine Urobilinogen Dipstick 1.0mg/dL (0.2 mg/dL) Urine Leukocyte Esterase Moderate (NEG) Urine RBC 6-10/HPF (0-2) Urine WBC >40/HPF (0-4) Urine Squamous Epithelial Cells Many/LPF Urine Bacteria Few/HPF (0-FEW) Urine Mucus Mod/LPF Urine Yeast Present/HPF Prothrombin Time 25.7SEC (11.7-14.0) Prothromb Time International Ratio 2.5 (0.8-1.1) Phosphorus Level 8.3mg/dL (2.6-4.7) Magnesium Level 2.7mg/dL (1.8-2.4) Test 11/24/16 03:53 11/24/16 08:33 White Blood Count 12.3x10^3/uL (4.0-11.0) Red Blood Count 2.80x10^6/uL (3.50-5.40) Hemoglobin 9.5g/dL (12.0-15.5) Hematocrit 28.3% (36.0-47.0) Mean Corpuscular Volume 101fL (79-100) Mean Corpuscular Hemoglobin 34pg (25-35) Mean Corpuscular Hemoglobin Concent 34g/dL (31-37) Red Cell Distribution Width 13.8% (11.5-14.5) Platelet Count 176x10^3/uL (140-400) Neutrophils (%) (Auto) 84% (31-73) Lymphocytes (%) (Auto) 6% (24-48) Monocytes (%) (Auto) 7% (0-9) Eosinophils (%) (Auto) 3% (0-3) Basophils (%) (Auto) 1% (0-3) Neutrophils # (Auto) 10.4x10^3uL (1.8-7.7) Lymphocytes # (Auto) 0.7x10^3/uL (1.0-4.8) Monocytes # (Auto) 0.8x10^3/uL (0.0-1.1) Eosinophils # (Auto) 0.3x10^3/uL (0.0-0.7) Basophils # (Auto) 0.1x10^3/uL (0.0-0.2) Glucose (Fingerstick) 180mg/dL (70-99) Assessment/Plan Assessment/Plan IMP ANEMIA ESRD-MWF THROMBOSED LEFT ARM GRAFT HYPERVOLEMIA-UP MORE 4.9KG PLAN THROMBECTOMY WHEN POSSIBLE WILL HAVE IR PLACE TEMP HD CATHETER TO FACILITATED HD HD TODAY UF TO DW START FRANK ORANTES MD Nov 24, 2016 12:10
[2016-11-24 14:54] VITALS: BP 120/48
[2016-11-24] MEDS ORDERED: WARFARIN 2 MG TABLET. PO SCH (16:00)
[2016-11-24] MEDS ORDERED: WARFARIN 1 MG TABLET. PO SCH (16:00)
--- NOTE | 2016-11-24 16:09 | PDOC2 ---
CONSULT Date of Consult Date of Consult DATE: 11/24/16 TIME: 16:03 Reason for Consult Reason for Consult: Heart history Referring Physician Referring Physician: Dr. Arauz Identification/Chief Complaint Chief Complaint Thrombosed shunt History of Present Illness Reason for Visit: This patient is a pleasant 66-year-old lady with a known history of end-stage renal disease that is on dialysis. She has a long history of cardiac problems with mitral valvular disease and had a mechanical valve in the mitral position done in the past. She usually follows with Dr. John and Dr. Solorzano in . The patient was having dialysis when they started having problems and she was referred to the emergency room with an occluded shunt. She denied having any cardiac problems. After admission she was found to have an occluded shunt and has not been able to complete her dialysis. The patient is starting to complain of fatigue as well as dyspnea. No chest pains. No palpitations. No other cardiac complaints. Past Medical History Cardiovascular: HTN, Mitral valve stenosis (mech valve) GI: Diverticulosis Heme/Onc: Anemia NOS Musculoskeletal: low back pain Renal/: Chronic renal failure, UTI Endocrine: Diabetes, Hyperparathyroidism Past Surgical History Past Surgical History: Hysterectomy, Other (mechanical heart valve) Family History Family History: No Significant Social History No ALCOHOL: none Drugs: Ecstasy Lives: with Family Current Problem List Problem List Problems Medical Problems: (1) Dialysis AV fistula malfunction Status: Acute Current Medications Current Medications Current Medications Ondansetron HCl (Zofran) 4 mg PRN Q8HRS PRN IV NAUSEA/VOMITING; Start 11/23/16 at 21:00; Stop 11/24/16 at 07:25; Status DC Morphine Sulfate 2 mg PRN Q2HR PRN IV PAIN; Start 11/23/16 at 21:00; Stop 11/24 at 20:59 Acetaminophen (Tylenol) 650 mg PRN Q4HRS PRN PO FEVER Last administered on 11/24 08:46; Start 11/23/16 at 21:00; Stop 11/24/16 at 20:59 Furosemide (Lasix) 100 mg 1X ONCE IVP Last administered on 11/24/16 01:15; Start 11/23/16 at 23:15; Stop 11/23/16 at 23:17; Status DC Levothyroxine Sodium (Synthroid) 75 mcg DAILY07 PO ; Start 11/24/16 at 07:00 Pantoprazole Sodium (Protonix) 40 mg BIDAC PO Last administered on 11/24/16 08 :45; Start 11/24/16 at 07:30 Warfarin Sodium (Coumadin) 1 mg DAILY16 PO ; Start 11/24/16 at 16:00 Warfarin Sodium (Coumadin) 2 mg DAILY16 PO ; Start 11/24/16 at 16:00 Vitamin D (Vitamin D3) 2,000 unit DAILY PO Last administered on 11/24/16 08:45 ; Start 11/24/16 at 09:00 Insulin Detemir (Levemir) 66 units QHS SQ ; Start 11/24/16 at 21:00 Insulin Aspart (Novolog) 20 units TIDAC SQ ; Start 11/24/16 at 07:30 Atorvastatin Calcium (Lipitor) 40 mg HS PO ; Start 11/24/16 at 21:00 Warfarin Sodium (Coumadin Per Physician) 1 each PRN DAILY PRN MC SEE COMMENTS Last administered on 11/24/16 15:33; Start 11/24/16 at 16:00 Ondansetron HCl (Zofran) 4 mg PRN Q6HRS PRN IV NAUSEA/VOMITING; Start 11/24/16 at 07:23 Insulin Aspart (Novolog) 0-9 UNITS TIDWMEALS SQ Last administered on 11/24/16 13:10; Start 11/24/16 at 08:00 Dextrose (Dextrose 50%-Water Syringe) 12.5 gm PRN Q15MIN PRN IV SEE COMMENTS; Start 11/24/16 at 07:30 Darbepoetin Surendra (Aranesp) 60 mcg WEEKLYHS SQ ; Start 11/24/16 at 21:00 Active Scripts Active Reported Humalog (Insulin Lispro) 100 Unit/1 Ml Vial 20 Unit SQ TIDAC Levothyroxine Sodium 75 Mcg Tablet 75 Mcg PO DAILYAC Levemir (Insulin Detemir) 100 Unit/1 Ml Vial 66 Unit SQ QHS Levemir (Insulin Detemir) 100 Unit/1 Ml Vial 70 Unit SQ DAILY D3-2000 (Cholecalciferol (Vitamin D3)) 2,000 Unit Capsule 2,000 Unit PO DAILY Pantoprazole Sodium 40 Mg Tablet.dr 40 Mg PO BID Warfarin Sodium 2 Mg Tablet 2 Mg PO DAILY Warfarin Sodium 1 Mg Tablet 1 Mg PO DAILY Crestor (Rosuvastatin Calcium) 10 Mg Tablet 10 Mg PO DAILY 30 Days Allergies Allergies: Coded Allergies: No Known Drug Allergies (Unverified , 07/10/13) Physical Exam General: Alert, Oriented X3, Cooperative HEENT: Atraumatic, PERRLA Lungs: Clear to auscultation Heart: Regular rate, Other (S1-S2 no S3 no S4. Positive click present.) Abdomen: Normal bowel sounds, Soft Extremities: Other (no significant edema. At the time that I examined her the shunt that she has in the left arm is not showing any significant pulsations) Neuro: Normal speech Psych/Mental Status: Mental status NL Vitals VITALS Vital Signs Date Time Temp Pulse Resp B/P Pulse Ox O2 Delivery O2 Flow Rate FiO2 11/24/16 14:54 98.1 69 16 120/48 96 Room Air 98.1 Labs Labs Laboratory Tests Test 11/23/16 19:55 11/23/16 23:24 11/24/16 02:00 11/24/16 03:33 White Blood Count 13.1x10^3/uL (4.0-11.0) Red Blood Count 3.06x10^6/uL (3.50-5.40) Hemoglobin 10.4g/dL (12.0-15.5) Hematocrit 30.9% (36.0-47.0) Mean Corpuscular Volume 101fL (79-100) Mean Corpuscular Hemoglobin 34pg (25-35) Mean Corpuscular Hemoglobin Concent 34g/dL (31-37) Red Cell Distribution Width 13.7% (11.5-14.5) Platelet Count 206x10^3/uL (140-400) Neutrophils (%) (Auto) 85% (31-73) Lymphocytes (%) (Auto) 7% (24-48) Monocytes (%) (Auto) 6% (0-9) Eosinophils (%) (Auto) 3% (0-3) Basophils (%) (Auto) 0% (0-3) Neutrophils # (Auto) 11.1x10^3uL (1.8-7.7) Lymphocytes # (Auto) 0.9x10^3/uL (1.0-4.8) Monocytes # (Auto) 0.7x10^3/uL (0.0-1.1) Eosinophils # (Auto) 0.4x10^3/uL (0.0-0.7) Basophils # (Auto) 0.0x10^3/uL (0.0-0.2) Sodium Level 137mmol/L (136-145) 138mmol/L (136-145) Potassium Level 3.7mmol/L (3.5-5.1) 4.2mmol/L (3.5-5.1) Chloride Level 98mmol/L (98-107) 98mmol/L (98-107) Carbon Dioxide Level 24mmol/L (21-32) 23mmol/L (21-32) Anion Gap 15 (6-14) 17 (6-14) Blood Urea Nitrogen 74mg/dL (7-20) 76mg/dL (7-20) Creatinine 8.5mg/dL (0.6-1.0) 9.0mg/dL (0.6-1.0) Estimated GFR (Cockcroft-Gault) 4.7 4.4 Glucose Level 115mg/dL (70-99) 168mg/dL (70-99) Calcium Level 7.7mg/dL (8.5-10.1) 7.5mg/dL (8.5-10.1) Glucose (Fingerstick) 187mg/dL (70-99) Urine Collection Type Unknown Urine Color Sindhu Urine Clarity Turbid Urine pH 5.0 Urine Specific [place] 1.020 Urine Protein 100mg/dL (NEG-TRACE) Urine Glucose (UA) Negativemg/dL (NEG) Urine Ketones (Stick) Tracemg/dL (NEG) Urine Blood Moderate (NEG) Urine Nitrite Negative (NEG) Urine Bilirubin Moderate (NEG) Urine Urobilinogen Dipstick 1.0mg/dL (0.2 mg/dL) Urine Leukocyte Esterase Moderate (NEG) Urine RBC 6-10/HPF (0-2) Urine WBC >40/HPF (0-4) Urine Squamous Epithelial Cells Many/LPF Urine Bacteria Few/HPF (0-FEW) Urine Mucus Mod/LPF Urine Yeast Present/HPF Prothrombin Time 25.7SEC (11.7-14.0) Prothromb Time International Ratio 2.5 (0.8-1.1) Phosphorus Level 8.3mg/dL (2.6-4.7) Magnesium Level 2.7mg/dL (1.8-2.4) Test 11/24/16 03:53 11/24/16 08:33 11/24/16 11:52 White Blood Count 12.3x10^3/uL (4.0-11.0) Red Blood Count 2.80x10^6/uL (3.50-5.40) Hemoglobin 9.5g/dL (12.0-15.5) Hematocrit 28.3% (36.0-47.0) Mean Corpuscular Volume 101fL (79-100) Mean Corpuscular Hemoglobin 34pg (25-35) Mean Corpuscular Hemoglobin Concent 34g/dL (31-37) Red Cell Distribution Width 13.8% (11.5-14.5) Platelet Count 176x10^3/uL (140-400) Neutrophils (%) (Auto) 84% (31-73) Lymphocytes (%) (Auto) 6% (24-48) Monocytes (%) (Auto) 7% (0-9) Eosinophils (%) (Auto) 3% (0-3) Basophils (%) (Auto) 1% (0-3) Neutrophils # (Auto) 10.4x10^3uL (1.8-7.7) Lymphocytes # (Auto) 0.7x10^3/uL (1.0-4.8) Monocytes # (Auto) 0.8x10^3/uL (0.0-1.1) Eosinophils # (Auto) 0.3x10^3/uL (0.0-0.7) Basophils # (Auto) 0.1x10^3/uL (0.0-0.2) Glucose (Fingerstick) 180mg/dL (70-99) 216mg/dL (70-99) Laboratory Tests Test 11/23/16 19:55 11/23/16 23:24 11/24/16 02:00 11/24/16 03:33 White Blood Count 13.1x10^3/uL (4.0-11.0) Red Blood Count 3.06x10^6/uL (3.50-5.40) Hemoglobin 10.4g/dL (12.0-15.5) Hematocrit 30.9% (36.0-47.0) Mean Corpuscular Volume 101fL (79-100) Mean Corpuscular Hemoglobin 34pg (25-35) Mean Corpuscular Hemoglobin Concent 34g/dL (31-37) Red Cell Distribution Width 13.7% (11.5-14.5) Platelet Count 206x10^3/uL (140-400) Neutrophils (%) (Auto) 85% (31-73) Lymphocytes (%) (Auto) 7% (24-48) Monocytes (%) (Auto) 6% (0-9) Eosinophils (%) (Auto) 3% (0-3) Basophils (%) (Auto) 0% (0-3) Neutrophils # (Auto) 11.1x10^3uL (1.8-7.7) Lymphocytes # (Auto) 0.9x10^3/uL (1.0-4.8) Monocytes # (Auto) 0.7x10^3/uL (0.0-1.1) Eosinophils # (Auto) 0.4x10^3/uL (0.0-0.7) Basophils # (Auto) 0.0x10^3/uL (0.0-0.2) Sodium Level 137mmol/L (136-145) 138mmol/L (136-145) Potassium Level 3.7mmol/L (3.5-5.1) 4.2mmol/L (3.5-5.1) Chloride Level 98mmol/L (98-107) 98mmol/L (98-107) Carbon Dioxide Level 24mmol/L (21-32) 23mmol/L (21-32) Anion Gap 15 (6-14) 17 (6-14) Blood Urea Nitrogen 74mg/dL (7-20) 76mg/dL (7-20) Creatinine 8.5mg/dL (0.6-1.0) 9.0mg/dL (0.6-1.0) Estimated GFR (Cockcroft-Gault) 4.7 4.4 Glucose Level 115mg/dL (70-99) 168mg/dL (70-99) Calcium Level 7.7mg/dL (8.5-10.1) 7.5mg/dL (8.5-10.1) Glucose (Fingerstick) 187mg/dL (70-99) Urine Collection Type Unknown Urine Color Sindhu Urine Clarity Turbid Urine pH 5.0 Urine Specific [place] 1.020 Urine Protein 100mg/dL (NEG-TRACE) Urine Glucose (UA) Negativemg/dL (NEG) Urine Ketones (Stick) Tracemg/dL (NEG) Urine Blood Moderate (NEG) Urine Nitrite Negative (NEG) Urine Bilirubin Moderate (NEG) Urine Urobilinogen Dipstick 1.0mg/dL (0.2 mg/dL) Urine Leukocyte Esterase Moderate (NEG) Urine RBC 6-10/HPF (0-2) Urine WBC >40/HPF (0-4) Urine Squamous Epithelial Cells Many/LPF Urine Bacteria Few/HPF (0-FEW) Urine Mucus Mod/LPF Urine Yeast Present/HPF Prothrombin Time 25.7SEC (11.7-14.0) Prothromb Time International Ratio 2.5 (0.8-1.1) Phosphorus Level 8.3mg/dL (2.6-4.7) Magnesium Level 2.7mg/dL (1.8-2.4) Test 11/24/16 03:53 11/24/16 08:33 11/24/16 11:52 White Blood Count 12.3x10^3/uL (4.0-11.0) Red Blood Count 2.80x10^6/uL (3.50-5.40) Hemoglobin 9.5g/dL (12.0-15.5) Hematocrit 28.3% (36.0-47.0) Mean Corpuscular Volume 101fL (79-100) Mean Corpuscular Hemoglobin 34pg (25-35) Mean Corpuscular Hemoglobin Concent 34g/dL (31-37) Red Cell Distribution Width 13.8% (11.5-14.5) Platelet Count 176x10^3/uL (140-400) Neutrophils (%) (Auto) 84% (31-73) Lymphocytes (%) (Auto) 6% (24-48) Monocytes (%) (Auto) 7% (0-9) Eosinophils (%) (Auto) 3% (0-3) Basophils (%) (Auto) 1% (0-3) Neutrophils # (Auto) 10.4x10^3uL (1.8-7.7) Lymphocytes # (Auto) 0.7x10^3/uL (1.0-4.8) Monocytes # (Auto) 0.8x10^3/uL (0.0-1.1) Eosinophils # (Auto) 0.3x10^3/uL (0.0-0.7) Basophils # (Auto) 0.1x10^3/uL (0.0-0.2) Glucose (Fingerstick) 180mg/dL (70-99) 216mg/dL (70-99) Assessment/Plan Assessment/Plan Patient with end-stage renal disease needs dialysis and has an occluded shunt. She is going to get a temporary catheter implanted to be able to resume dialysis and eventually we will get declotting of that shunt otherwise she may need to have a new shunt put in. From a cardiac standpoint she appears to be compensated but she needs to have dialysis before she gets into trouble with heart failure and due to the mechanical mitral valve she will need to continue with her anticoagulation. Thank you very much for asking me to participate in the care of this patient. EDDA MOLINA MD Nov 24, 2016 16:09
[2016-11-24] MEDS ORDERED: LIDOCAINE 1% / SOD BICARB 8.4% 20 ML VIAL. IJ ONE ×2 (16:58→17:15)
[2016-11-24] MEDS ORDERED: HEPARIN for IV BOLUS 10,000 UNIT/10 ML VIAL. ONE (16:58)
--- NOTE | 2016-11-24 17:40 | PDOC ---
Exam Tapper Bit Tapper Bit Alix Pre-Procedure Diagnosis Pre-Procedure Diagnosis ESRD. NEEDS DIALYSIS ACCESS Post-Procedure Diagnosis Post-Procedure Diagnosis SAME Procedure Performed Procedure Performed Placement of left IJ temp dialysis catheter Type of Anesthesia Type of Anesthesia local Estimated Blood Loss EBL: 3 Specimens Specimans none Drain/Tubes Drains/Tubes Left IJ 20 cm schon temp dialysis cath Condition of Patient Condition of Patient stable Disposition Disposition Right IJ vein hypoplastic Left IJ small but patent. Cath with tip at cavoatrial junction Cath works normally DAVINA BERRY MD Nov 24, 2016 17:40
--- NOTE | 2016-11-24 17:57 | RAD ---
Procedure: Temporary hemodialysis catheter placement under fluoroscopy Clinical Indication: End-stage renal disease. Sedation: Local only Antibiotics: None Fluoro Time: Approximately 3 minutes Exposures: 2 Contrast: None Sterility: All elements of maximal sterile barrier technique including the use of a cap, mask, sterile gown, sterile gloves, large sterile sheet, appropriate hand hygiene, and 2% chlorhexidine for cutaneous antisepsis (or acceptable alternative antiseptic per current guidelines) were followed for this procedure. Consent: The procedure was explained in its entirety to the patient or the patients designated screening representative by a member of the treatment team, including a discussion of the risks, benefits and commonly accepted alternatives to the procedure, as well as the expected consequences of no therapy whatsoever. Discussion of the risks included, but was not limited to, those that are most frequent and those that are rare but possibly severe or life-threatening, as well as the possibility of unforeseen complications. Technique and Findings: Following informed consent, the patient was prepped and draped in the usual sterile fashion. Ultrasound interrogation of the left neck revealed patency and compressibility of the left internal jugular vein. A 21-gauge micropuncture needle was used to gain access to this vein after 1% Lidocaine was used to achieve local anesthesia. A hardcopy ultrasound image was recorded. The needle was exchanged over a wire for serial dilators followed by a 20 cm temporary hemodialysis catheter which was deployed under fluoroscopic guidance such that the distal tip resided in the cavoatrial junction. The catheter flow rates were assessed manually and found to be excellent. The catheter was then flushed, packed with Heparin, capped, and sutured to the skin. Complications: No immediate Impression: Ultrasound and fluoroscopic guided placement of a temporary hemodialysis catheter which exhibits excellent manual flow rates as described.
[2016-11-24] MEDS: ATORVASTATIN CALCIUM 40 MG TABLET. PO SCH (22:38)
[2016-11-24] MEDS: DARBEPOETIN ALFA 60 MCG/0.3 ML DISP.SYRIN. SQ SCH (22:39)
[2016-11-24] MEDS: INSULIN DETEMIR 300 UNITS/3 ML INSULN.PEN. SQ SCH (22:49)
[2016-11-24 23:00] VITALS: BP 109/35
[2016-11-24] MEDS ORDERED: IV NORMAL SALINE 1000ML BAG 1,000 ML IV PRN (23:45)
[2016-11-24] MEDS ORDERED: 0.9 % SODIUM CHLORIDE 10 ML DISP.SYRIN. IV PRN ×2 (23:45)
[2016-11-24] MEDS ORDERED: DIALYSIS PATIENT. MC PRN (23:45)
[2016-11-24 23:50] VITALS: BP 103/45
[2016-11-25] VITALS (16 sets, daily range): BP systolic 90–140; BP diastolic 37–65
[2016-11-25] MEDS: PANTOPRAZOLE 40 MG TABLET.DR. PO SCH ×2 (05:38→17:47)
[2016-11-25] MEDS: LEVOTHYROXINE 75 MCG TABLET PO SCH (05:38)
[2016-11-25] MEDS: HYDROCODONE/APAP 5/325MG TABLET. PO PRN (05:38)
[2016-11-25] MEDS: INSULIN ASPART 300 UNITS/3 ML INSULN.PEN SQ SCH ×10 (05:44→17:51)
[2016-11-25] MEDS: CHOLECALCIFEROL (VITAMIN D3) 1,000 UNIT TABLET PO SCH (08:52)
[2016-11-25 10:11] LABS: INR 2.4 (0.8-1.1); PROTHROMBIN TIME PATIENT 24.7 SEC (11.7-14.0)
--- NOTE | 2016-11-25 10:33 | PDOC ---
Renal-Progress Notes Subjective Notes Notes NO COMPLAINTS History of Present Illness Hx of present illness STABLE Vitals Vitals Vital Signs Date Time Temp Pulse Resp B/P Pulse Ox O2 Delivery O2 Flow Rate FiO2 11/25/16 07:55 Room Air 11/25/16 07:00 97.7 80 20 109/37 94 97.7 Weight Weight [ ] I.O. Intake and Output Intake and Output 11/25/16 07:00 Output Total 1 ml Balance -1 ml Output Urine Total 0 ml Urine/Stool Mix 1 ml # Voids 2 # Bowel Movements 1 Labs Labs Laboratory Tests Test 11/24/16 11:52 11/24/16 16:28 11/24/16 22:38 11/25/16 04:28 Glucose (Fingerstick) 216mg/dL (70-99) 115mg/dL (70-99) 127mg/dL (70-99) 373mg/dL (70-99) Test 11/25/16 07:10 Glucose (Fingerstick) 258mg/dL (70-99) Review of Systems Constitutional: yes: alert, oriented, weakness Ears/Nose/Throat: Yes: no symptom reported Eyes: Yes: no symptom reported Pulmonary: Yes no symptom reported Cardiovascular: Yes no symptom reported Gastrointestional: Yes: no symptom reported Genitourinary: Yes: no symptom reported Musculoskeletal: Yes: no symptom reported Skin: Yes no symptom reported Physical Exam General Appearance: no apparent distress Skin: warm Respiratory: bilateral CTA Heart: S1S2 Abdomen: soft Extremities: pulses present Neurology: alert, oriented Assessment Assessment IMP THROMBOSED LEFT ARM BB GRAFT ESRD-OP SCHEDULE MWF ANEMIA S/P TEMP HD CATHETER YESTERDAY FOLLOWED BY HD HYPERVOLEMIA - RESOLVED PLAN THROMBECTOMY TOMORROW HD TOMORROW SHOULD BE ABLE TO D/C AFTER HD TOMORROW LABS IN AM FRANK PEREZ MD Nov 25, 2016 10:33
--- NOTE | 2016-11-25 10:57 | PDOC ---
PROGRESS NOTES Chief Complaint Chief Complaint 1. Clotted AV fistula, left arm 2. ESRD on HD MWF 3. Hypothyroidism 4. DYslipidemia on statin 5. DM 2 6. New temp HD cath left subclavian (11/24/16) History of Present Illness History of Present Illness NOw has a left subclavian temp HD cath bec of the clotted AV graft on left arm Had HD yesterday saturday (missed sat session and did not finish sat session bec of clotted av graft) Plnaned for iR intervention/thrombolysis on saturday INR 2.4 today - on warf for heart valve (hence cards on case) \Dw IR, would prefer INR lower - agreed with heparin gtt interim and holding heparin 3 hrs before IR procedure PLAN: Viatmin K 5 PO now FFP 2 bags now, rpt inr 2 hrs post FFP Rpty INR robina AM Gola is < 1.7, 0r 1,.2 Heparin gtt interim bec of heart valce - hold 3 hrs pre IR procedure Dw RN Yenny Vitals Vitals Vital Signs Date Time Temp Pulse Resp B/P Pulse Ox O2 Delivery O2 Flow Rate FiO2 11/25/16 07:55 Room Air 11/25/16 07:00 97.7 80 20 109/37 94 97.7 Physical Exam General: Alert, Oriented X3, Cooperative Heart: Regular rate, Other (S1-S2 no S3 no S4. Positive click present.) Abdomen: Normal bowel sounds, Soft Extremities: Other (no significant edema. At the time that I examined her the shunt that she has in the left arm is not showing any significant pulsations) Skin: No breakdown Labs LABS Laboratory Tests Test 11/24/16 11:52 11/24/16 16:28 11/24/16 22:38 11/25/16 04:28 Glucose (Fingerstick) 216mg/dL (70-99) 115mg/dL (70-99) 127mg/dL (70-99) 373mg/dL (70-99) Test 11/25/16 07:10 11/25/16 09:20 Glucose (Fingerstick) 258mg/dL (70-99) Prothrombin Time 24.7SEC (11.7-14.0) Prothromb Time International Ratio 2.4 (0.8-1.1) Review of Systems Review of Systems all to 14 pt systems Assessment and Plan Assessmemt and Plan Problems Medical Problems: (1) Dialysis AV fistula malfunction Status: Acute Problems: Comment Review of Relevant I have reviewed the following items sofi (where applicable) has been applied. Labs Laboratory Tests Test 11/23/16 19:55 11/23/16 23:24 11/24/16 02:00 11/24/16 03:33 White Blood Count 13.1x10^3/uL (4.0-11.0) Red Blood Count 3.06x10^6/uL (3.50-5.40) Hemoglobin 10.4g/dL (12.0-15.5) Hematocrit 30.9% (36.0-47.0) Mean Corpuscular Volume 101fL (79-100) Mean Corpuscular Hemoglobin 34pg (25-35) Mean Corpuscular Hemoglobin Concent 34g/dL (31-37) Red Cell Distribution Width 13.7% (11.5-14.5) Platelet Count 206x10^3/uL (140-400) Neutrophils (%) (Auto) 85% (31-73) Lymphocytes (%) (Auto) 7% (24-48) Monocytes (%) (Auto) 6% (0-9) Eosinophils (%) (Auto) 3% (0-3) Basophils (%) (Auto) 0% (0-3) Neutrophils # (Auto) 11.1x10^3uL (1.8-7.7) Lymphocytes # (Auto) 0.9x10^3/uL (1.0-4.8) Monocytes # (Auto) 0.7x10^3/uL (0.0-1.1) Eosinophils # (Auto) 0.4x10^3/uL (0.0-0.7) Basophils # (Auto) 0.0x10^3/uL (0.0-0.2) Sodium Level 137mmol/L (136-145) 138mmol/L (136-145) Potassium Level 3.7mmol/L (3.5-5.1) 4.2mmol/L (3.5-5.1) Chloride Level 98mmol/L (98-107) 98mmol/L (98-107) Carbon Dioxide Level 24mmol/L (21-32) 23mmol/L (21-32) Anion Gap 15 (6-14) 17 (6-14) Blood Urea Nitrogen 74mg/dL (7-20) 76mg/dL (7-20) Creatinine 8.5mg/dL (0.6-1.0) 9.0mg/dL (0.6-1.0) Estimated GFR (Cockcroft-Gault) 4.7 4.4 Glucose Level 115mg/dL (70-99) 168mg/dL (70-99) Calcium Level 7.7mg/dL (8.5-10.1) 7.5mg/dL (8.5-10.1) Glucose (Fingerstick) 187mg/dL (70-99) Urine Collection Type Unknown Urine Color Sindhu Urine Clarity Turbid Urine pH 5.0 Urine Specific [place] 1.020 Urine Protein 100mg/dL (NEG-TRACE) Urine Glucose (UA) Negativemg/dL (NEG) Urine Ketones (Stick) Tracemg/dL (NEG) Urine Blood Moderate (NEG) Urine Nitrite Negative (NEG) Urine Bilirubin Moderate (NEG) Urine Urobilinogen Dipstick 1.0mg/dL (0.2 mg/dL) Urine Leukocyte Esterase Moderate (NEG) Urine RBC 6-10/HPF (0-2) Urine WBC >40/HPF (0-4) Urine Squamous Epithelial Cells Many/LPF Urine Bacteria Few/HPF (0-FEW) Urine Mucus Mod/LPF Urine Yeast Present/HPF Prothrombin Time 25.7SEC (11.7-14.0) Prothromb Time International Ratio 2.5 (0.8-1.1) Phosphorus Level 8.3mg/dL (2.6-4.7) Magnesium Level 2.7mg/dL (1.8-2.4) Test 11/24/16 03:53 11/24/16 08:33 11/24/16 11:52 11/24/16 16:28 White Blood Count 12.3x10^3/uL (4.0-11.0) Red Blood Count 2.80x10^6/uL (3.50-5.40) Hemoglobin 9.5g/dL (12.0-15.5) Hematocrit 28.3% (36.0-47.0) Mean Corpuscular Volume 101fL (79-100) Mean Corpuscular Hemoglobin 34pg (25-35) Mean Corpuscular Hemoglobin Concent 34g/dL (31-37) Red Cell Distribution Width 13.8% (11.5-14.5) Platelet Count 176x10^3/uL (140-400) Neutrophils (%) (Auto) 84% (31-73) Lymphocytes (%) (Auto) 6% (24-48) Monocytes (%) (Auto) 7% (0-9) Eosinophils (%) (Auto) 3% (0-3) Basophils (%) (Auto) 1% (0-3) Neutrophils # (Auto) 10.4x10^3uL (1.8-7.7) Lymphocytes # (Auto) 0.7x10^3/uL (1.0-4.8) Monocytes # (Auto) 0.8x10^3/uL (0.0-1.1) Eosinophils # (Auto) 0.3x10^3/uL (0.0-0.7) Basophils # (Auto) 0.1x10^3/uL (0.0-0.2) Glucose (Fingerstick) 180mg/dL (70-99) 216mg/dL (70-99) 115mg/dL (70-99) Test 11/24/16 22:38 11/25/16 04:28 11/25/16 07:10 11/25/16 09:20 Glucose (Fingerstick) 127mg/dL (70-99) 373mg/dL (70-99) 258mg/dL (70-99) Prothrombin Time 24.7SEC (11.7-14.0) Prothromb Time International Ratio 2.4 (0.8-1.1) Laboratory Tests Test 11/24/16 11:52 11/24/16 16:28 11/24/16 22:38 11/25/16 04:28 Glucose (Fingerstick) 216mg/dL (70-99) 115mg/dL (70-99) 127mg/dL (70-99) 373mg/dL (70-99) Test 11/25/16 07:10 11/25/16 09:20 Glucose (Fingerstick) 258mg/dL (70-99) Prothrombin Time 24.7SEC (11.7-14.0) Prothromb Time International Ratio 2.4 (0.8-1.1) Medications Current Medications Ondansetron HCl (Zofran) 4 mg PRN Q8HRS PRN IV NAUSEA/VOMITING; Start 11/23/16 at 21:00; Stop 11/24/16 at 07:25; Status DC Morphine Sulfate 2 mg PRN Q2HR PRN IV PAIN; Start 11/23/16 at 21:00; Stop 11/24 at 20:59; Status DC Acetaminophen (Tylenol) 650 mg PRN Q4HRS PRN PO FEVER Last administered on 11/24 08:46; Start 11/23/16 at 21:00; Stop 11/24/16 at 20:59; Status DC Furosemide (Lasix) 100 mg 1X ONCE IVP Last administered on 11/24/16 01:15; Start 11/23/16 at 23:15; Stop 11/23/16 at 23:17; Status DC Levothyroxine Sodium (Synthroid) 75 mcg DAILY07 PO Last administered on 05:38; Start 11/24/16 at 07:00 Pantoprazole Sodium (Protonix) 40 mg BIDAC PO Last administered on 11/25/16 05 :38; Start 11/24/16 at 07:30 Warfarin Sodium (Coumadin) 1 mg DAILY16 PO ; Start 11/24/16 at 16:00; Stop 11/25 at 09:01; Status DC Warfarin Sodium (Coumadin) 2 mg DAILY16 PO Last administered on 11/24/16 22:38 ; Start 11/24/16 at 16:00; Stop 11/25/16 at 09:01; Status DC Vitamin D (Vitamin D3) 2,000 unit DAILY PO Last administered on 11/25/16 08:52 ; Start 11/24/16 at 09:00 Insulin Detemir (Levemir) 66 units QHS SQ Last administered on 11/24/16 22:49 ; Start 11/24/16 at 21:00 Insulin Aspart (Novolog) 20 units TIDAC SQ Last administered on 11/25/16 09:11 ; Start 11/24/16 at 07:30 Atorvastatin Calcium (Lipitor) 40 mg HS PO Last administered on 11/24/16 22:38 ; Start 11/24/16 at 21:00 Warfarin Sodium (Coumadin Per Physician) 1 each PRN DAILY PRN MC SEE COMMENTS Last administered on 11/24/16 15:33; Start 11/24/16 at 16:00; Stop 11/25/16 at 09:01; Status DC Ondansetron HCl (Zofran) 4 mg PRN Q6HRS PRN IV NAUSEA/VOMITING; Start 11/24/16 at 07:23 Insulin Aspart (Novolog) 0-9 UNITS TIDWMEALS SQ Last administered on 11/25/16 09:10; Start 11/24/16 at 08:00 Dextrose (Dextrose 50%-Water Syringe) 12.5 gm PRN Q15MIN PRN IV SEE COMMENTS; Start 11/24/16 at 07:30 Darbepoetin Surendra (Aranesp) 60 mcg WEEKLYHS SQ Last administered on 11/24/16 22 :39; Start 11/24/16 at 21:00 Heparin Sodium (Porcine) (Heparin Sodium) 10,000 unit STK-MED ONCE .ROUTE ; Start 11/24/16 at 16:58; Stop 11/24/16 at 16:59; Status DC Lidocaine/Sodium Bicarbonate 20 ml 20 ml STK-MED ONCE IJ ; Start 11/24/16 at 16: 58; Stop 11/24/16 at 16:59; Status DC Heparin Sodium/ Sodium Chloride 500 ml @ As Directed STK-MED ONCE .ROUTE ; Start 11/24/16 at 16:58; Stop 11/24/16 at 16:59; Status DC Lidocaine/Sodium Bicarbonate (Buffered Lidocaine 1%) 3 ml 1X ONCE IJ Last administered on 11/24/16 17:44; Start 11/24/16 at 17:15; Stop 11/24/16 at 17:16 ; Status DC Heparin Sodium/ Sodium Chloride 60 unit 1X ONCE IV Last administered on 17:15; Start 11/24/16 at 17:15; Stop 11/24/16 at 17:16; Status DC Heparin Sodium (Porcine) (Heparin Sodium) 2,500 unit 1X ONCE INT CAT Last administered on 11/24/16 17:15; Start 11/24/16 at 17:15; Stop 11/24/16 at 17:16 ; Status DC Sodium Chloride (Normal Saline Flush) 10 ml 1X PRN PRN IV AP catheter pack; Start 11/24/16 at 23:45; Stop 11/25/16 at 23:44 Sodium Chloride 10 ml 10 ml 1X PRN PRN IV CREDIT INVESTIGATOR catheter pack; Start 11/24/16 at 23:45; Stop 11/25/16 at 23:44 Sodium Chloride (Iv Sodium Chloride 0.9% 1000ml Bag) 1,000 ml @ 400 mls/hr Q2H30M PRN IV PATENCY; Start 11/24/16 at 23:45; Stop 11/25/16 at 11:44 Info (PHARMACY MONITORING -- do not chart) 1 each PRN DAILY PRN MC SEE COMMENTS ; Start 11/24/16 at 23:45 Acetaminophen/ Hydrocodone Bitart (Lortab 5/325) 1 tab PRN Q4HRS PRN PO PAIN Last administered on 11/25/16 05:38; Start 11/25/16 at 05:15 Insulin Aspart (Novolog) 9 units TIDAC SQ Last administered on 11/25/16 05:44 ; Start 11/25/16 at 05:15 Active Scripts Active Reported Humalog (Insulin Lispro) 100 Unit/1 Ml Vial 20 Unit SQ TIDAC Levothyroxine Sodium 75 Mcg Tablet 75 Mcg PO DAILYAC Levemir (Insulin Detemir) 100 Unit/1 Ml Vial 66 Unit SQ QHS Levemir (Insulin Detemir) 100 Unit/1 Ml Vial 70 Unit SQ DAILY D3-2000 (Cholecalciferol (Vitamin D3)) 2,000 Unit Capsule 2,000 Unit PO DAILY Pantoprazole Sodium 40 Mg Tablet.dr 40 Mg PO BID Warfarin Sodium 2 Mg Tablet 2 Mg PO DAILY Warfarin Sodium 1 Mg Tablet 1 Mg PO DAILY Crestor (Rosuvastatin Calcium) 10 Mg Tablet 10 Mg PO DAILY 30 Days Vitals/I & O Vital Sign - Last 24 Hours 11/24/16 11/24/16 11/24/16 11/24/16 11:00 14:54 20:00 23:00 Temp 97.6 98.1 97.5 97.6 98.1 97.5 Pulse 69 69 81 Resp 16 16 20 B/P 111/40 120/48 109/35 Pulse Ox 95 96 92 O2 Delivery Room Air Room Air Room Air Room Air 11/24/16 11/25/16 11/25/16 11/25/16 23:50 03:59 05:38 06:33 Temp 98.1 98.1 Pulse 85 85 Resp 20 B/P 103/45 90/44 Pulse Ox 92 92 92 O2 Delivery Room Air Room Air Room Air 11/25/16 11/25/16 07:00 07:55 Temp 97.7 97.7 Pulse 80 Resp 20 B/P 109/37 Pulse Ox 94 O2 Delivery Room Air Room Air Intake and Output 11/24/16 11/24/16 11/25/16 15:00 23:00 07:00 Output Total 1 ml 0 ml Balance -1 ml 0 ml FROILAN FLEMING MD Nov 25, 2016 10:57
[2016-11-25] MEDS ORDERED: PHYTONADIONE (VIT K1) 5 MG TABLET PO ONE (11:00)
[2016-11-25] MEDS ORDERED: NITR100C PO (14:25)
[2016-11-25] MEDS ORDERED: FOLI0.8T3 PO (14:25)
[2016-11-25] MEDS ORDERED: ERGO500012 PO (14:25)
[2016-11-25] MEDS ORDERED: GABA-586 PO (14:25)
--- NOTE | 2016-11-25 14:51 | PDOC ---
Provider Note Provider Note Covering for Dr. Duenas. He underwent dialysis yesterday. He feels better and is not short of breath. Lungs are clear. DALE TATE MD Nov 25, 2016 14:51
[2016-11-25] MEDS: diphenhydrAMINE 50 MG/ML VIAL IVP PRN (18:20)
[2016-11-25] MEDS: ATORVASTATIN CALCIUM 40 MG TABLET. PO SCH (21:33)
[2016-11-25] MEDS: INSULIN DETEMIR 300 UNITS/3 ML INSULN.PEN. SQ SCH (21:36)
[2016-11-26] VITALS (8 sets, daily range): BP systolic 93–118; BP diastolic 28–54
[2016-11-26 05:09] LABS: INR 1.5 (0.8-1.1); PROTHROMBIN TIME PATIENT 16.8 SEC (11.7-14.0)
[2016-11-26 05:31] LABS: CALCIUM 7.7 mg/dL (8.5-10.1); CREATININE 8.9 mg/dL (0.6-1.0); GFR 4.4; POTASSIUM 4.4 mmol/L (3.5-5.1)
[2016-11-26] MEDS: LEVOTHYROXINE 75 MCG TABLET PO SCH (07:00)
[2016-11-26] MEDS ORDERED: IV NORMAL SALINE 1000ML BAG 1,000 ML IV PRN ×2 (07:26)
[2016-11-26] MEDS: INSULIN ASPART 300 UNITS/3 ML INSULN.PEN SQ SCH ×10 (07:30→17:24)
[2016-11-26] MEDS: PANTOPRAZOLE 40 MG TABLET.DR. PO SCH ×2 (07:30→17:21)
[2016-11-26] MEDS ORDERED: DIALYSIS PATIENT. MC PRN (07:30)
[2016-11-26] MEDS ORDERED: 0.9 % SODIUM CHLORIDE 10 ML DISP.SYRIN. IV PRN ×2 (07:30)
[2016-11-26] MEDS: CHOLECALCIFEROL (VITAMIN D3) 1,000 UNIT TABLET PO SCH (09:00)
[2016-11-26] MEDS: HYDROCODONE/APAP 5/325MG TABLET. PO PRN ×2 (11:50→20:53)
--- NOTE | 2016-11-26 12:01 | PDOC ---
PROGRESS NOTES Chief Complaint Chief Complaint cc: gram clot A/P Mechanical Mitral valve THROMBOSED LEFT ARM BB GRAFT ESRD-OP SCHEDULE MWF ANEMIA S/P TEMP HD CATHETER Plan IR consulted, planning for thrombolysis today Start heparin gtt per pharmacy INR in am HD per nephrology labs reviewed Monitor hemoglobin History of Present Illness History of Present Illness d/w RN Start heparin no complaints no chest pain Vitals Vitals Vital Signs Date Time Temp Pulse Resp B/P Pulse Ox O2 Delivery O2 Flow Rate FiO2 11/26/16 11:50 Room Air 11/26/16 11:39 97.7 86 16 94/40 97.7 11/26/16 03:35 94 Physical Exam General: Alert, Oriented X3, Cooperative, Other (obese) Heart: Regular rate, Normal S1, Normal S2, Other Lungs: Clear Abdomen: Normal bowel sounds, Soft Extremities: Other Skin: No breakdown Labs LABS Laboratory Tests Test 11/25/16 16:17 11/25/16 21:01 11/26/16 04:35 11/26/16 11:27 Glucose (Fingerstick) 185mg/dL (70-99) 164mg/dL (70-99) 138mg/dL (70-99) Prothrombin Time 16.8SEC (11.7-14.0) Prothromb Time International Ratio 1.5 (0.8-1.1) Sodium Level 136mmol/L (136-145) Potassium Level 4.4mmol/L (3.5-5.1) Chloride Level 95mmol/L (98-107) Carbon Dioxide Level 25mmol/L (21-32) Anion Gap 16 (6-14) Blood Urea Nitrogen 69mg/dL (7-20) Creatinine 8.9mg/dL (0.6-1.0) Estimated GFR (Cockcroft-Gault) 4.4 Glucose Level 256mg/dL (70-99) Calcium Level 7.7mg/dL (8.5-10.1) Assessment and Plan Assessmemt and Plan Problems Medical Problems: (1) Dialysis AV fistula malfunction Status: Acute Problems: Comment Review of Relevant I have reviewed the following items sofi (where applicable) has been applied. Labs Laboratory Tests Test 11/24/16 16:28 11/24/16 22:38 11/25/16 04:28 11/25/16 07:10 Glucose (Fingerstick) 115mg/dL (70-99) 127mg/dL (70-99) 373mg/dL (70-99) 258mg/dL (70-99) Test 11/25/16 09:20 11/25/16 10:36 11/25/16 16:17 11/25/16 21:01 Prothrombin Time 24.7SEC (11.7-14.0) Prothromb Time International Ratio 2.4 (0.8-1.1) Glucose (Fingerstick) 245mg/dL (70-99) 185mg/dL (70-99) 164mg/dL (70-99) Test 11/26/16 04:35 11/26/16 11:27 Prothrombin Time 16.8SEC (11.7-14.0) Prothromb Time International Ratio 1.5 (0.8-1.1) Sodium Level 136mmol/L (136-145) Potassium Level 4.4mmol/L (3.5-5.1) Chloride Level 95mmol/L (98-107) Carbon Dioxide Level 25mmol/L (21-32) Anion Gap 16 (6-14) Blood Urea Nitrogen 69mg/dL (7-20) Creatinine 8.9mg/dL (0.6-1.0) Estimated GFR (Cockcroft-Gault) 4.4 Glucose Level 256mg/dL (70-99) Calcium Level 7.7mg/dL (8.5-10.1) Glucose (Fingerstick) 138mg/dL (70-99) Laboratory Tests Test 11/25/16 16:17 11/25/16 21:01 11/26/16 04:35 11/26/16 11:27 Glucose (Fingerstick) 185mg/dL (70-99) 164mg/dL (70-99) 138mg/dL (70-99) Prothrombin Time 16.8SEC (11.7-14.0) Prothromb Time International Ratio 1.5 (0.8-1.1) Sodium Level 136mmol/L (136-145) Potassium Level 4.4mmol/L (3.5-5.1) Chloride Level 95mmol/L (98-107) Carbon Dioxide Level 25mmol/L (21-32) Anion Gap 16 (6-14) Blood Urea Nitrogen 69mg/dL (7-20) Creatinine 8.9mg/dL (0.6-1.0) Estimated GFR (Cockcroft-Gault) 4.4 Glucose Level 256mg/dL (70-99) Calcium Level 7.7mg/dL (8.5-10.1) Medications Current Medications Ondansetron HCl (Zofran) 4 mg PRN Q8HRS PRN IV NAUSEA/VOMITING; Start 11/23/16 at 21:00; Stop 11/24/16 at 07:25; Status DC Morphine Sulfate 2 mg PRN Q2HR PRN IV PAIN; Start 11/23/16 at 21:00; Stop 11/24 at 20:59; Status DC Acetaminophen (Tylenol) 650 mg PRN Q4HRS PRN PO FEVER Last administered on 11/24 08:46; Start 11/23/16 at 21:00; Stop 11/24/16 at 20:59; Status DC Furosemide (Lasix) 100 mg 1X ONCE IVP Last administered on 11/24/16 01:15; Start 11/23/16 at 23:15; Stop 11/23/16 at 23:17; Status DC Levothyroxine Sodium (Synthroid) 75 mcg DAILY07 PO Last administered on 05:38; Start 11/24/16 at 07:00 Pantoprazole Sodium (Protonix) 40 mg BIDAC PO Last administered on 11/25/16 17 :47; Start 11/24/16 at 07:30 Warfarin Sodium (Coumadin) 1 mg DAILY16 PO ; Start 11/24/16 at 16:00; Stop 11/25 at 09:01; Status DC Warfarin Sodium (Coumadin) 2 mg DAILY16 PO Last administered on 11/24/16 22:38 ; Start 11/24/16 at 16:00; Stop 11/25/16 at 09:01; Status DC Vitamin D (Vitamin D3) 2,000 unit DAILY PO Last administered on 11/25/16 08:52 ; Start 11/24/16 at 09:00 Insulin Detemir (Levemir) 66 units QHS SQ Last administered on 11/25/16 21:36 ; Start 11/24/16 at 21:00 Insulin Aspart (Novolog) 20 units TIDAC SQ Last administered on 11/25/16 17:51 ; Start 11/24/16 at 07:30 Atorvastatin Calcium (Lipitor) 40 mg HS PO Last administered on 11/25/16 21:33 ; Start 11/24/16 at 21:00 Warfarin Sodium (Coumadin Per Physician) 1 each PRN DAILY PRN MC SEE COMMENTS Last administered on 11/24/16 15:33; Start 11/24/16 at 16:00; Stop 11/25/16 at 09:01; Status DC Ondansetron HCl (Zofran) 4 mg PRN Q6HRS PRN IV NAUSEA/VOMITING; Start 11/24/16 at 07:23 Insulin Aspart (Novolog) 0-9 UNITS TIDWMEALS SQ Last administered on 11/25/16 17:50; Start 11/24/16 at 08:00 Dextrose (Dextrose 50%-Water Syringe) 12.5 gm PRN Q15MIN PRN IV SEE COMMENTS; Start 11/24/16 at 07:30 Darbepoetin Surendra (Aranesp) 60 mcg WEEKLYHS SQ Last administered on 11/24/16 22 :39; Start 11/24/16 at 21:00 Heparin Sodium (Porcine) (Heparin Sodium) 10,000 unit STK-MED ONCE .ROUTE ; Start 11/24/16 at 16:58; Stop 11/24/16 at 16:59; Status DC Lidocaine/Sodium Bicarbonate 20 ml 20 ml STK-MED ONCE IJ ; Start 11/24/16 at 16: 58; Stop 11/24/16 at 16:59; Status DC Heparin Sodium/ Sodium Chloride 500 ml @ As Directed STK-MED ONCE .ROUTE ; Start 11/24/16 at 16:58; Stop 11/24/16 at 16:59; Status DC Lidocaine/Sodium Bicarbonate (Buffered Lidocaine 1%) 3 ml 1X ONCE IJ Last administered on 11/24/16 17:44; Start 11/24/16 at 17:15; Stop 11/24/16 at 17:16 ; Status DC Heparin Sodium/ Sodium Chloride 60 unit 1X ONCE IV Last administered on 17:15; Start 11/24/16 at 17:15; Stop 11/24/16 at 17:16; Status DC Heparin Sodium (Porcine) (Heparin Sodium) 2,500 unit 1X ONCE INT CAT Last administered on 11/24/16 17:15; Start 11/24/16 at 17:15; Stop 11/24/16 at 17:16 ; Status DC Sodium Chloride (Normal Saline Flush) 10 ml 1X PRN PRN IV AP catheter pack; Start 11/24/16 at 23:45; Stop 11/25/16 at 23:44; Status DC Sodium Chloride 10 ml 10 ml 1X PRN PRN IV THERAPIST RESPIRATORY catheter pack; Start 11/24/16 at 23:45; Stop 11/25/16 at 23:44; Status DC Sodium Chloride (Iv Sodium Chloride 0.9% 1000ml Bag) 1,000 ml @ 400 mls/hr Q2H30M PRN IV PATENCY; Start 11/24/16 at 23:45; Stop 11/25/16 at 11:44; Status DC Info (PHARMACY MONITORING -- do not chart) 1 each PRN DAILY PRN MC SEE COMMENTS ; Start 11/24/16 at 23:45; Stop 11/26/16 at 07:32; Status DC Acetaminophen/ Hydrocodone Bitart (Lortab 5/325) 1 tab PRN Q4HRS PRN PO PAIN Last administered on 11/26/16 11:50; Start 11/25/16 at 05:15 Insulin Aspart (Novolog) 9 units TIDAC SQ Last administered on 11/25/16 05:44 ; Start 11/25/16 at 05:15 Phytonadione (Mephyton) 5 mg 1X ONCE PO Last administered on 11/25/16 12:15; Start 11/25/16 at 11:00; Stop 11/25/16 at 11:01; Status DC Diphenhydramine HCl 25 mg 25 mg PRN Q6HRS PRN IVP ITCHING Last administered on 11/25/16 18:20; Start 11/25/16 at 18:15 Sodium Chloride (Iv Sodium Chloride 0.9% 1000ml Bag) 1,000 ml @ 1,000 mls/hr Q1H PRN IV hypotension; Start 11/26/16 at 07:26; Stop 11/26/16 at 13:25 Sodium Chloride (Normal Saline Flush) 10 ml 1X PRN PRN IV AP catheter pack; Start 11/26/16 at 07:30; Stop 11/27/16 at 07:29 Sodium Chloride 10 ml 10 ml 1X PRN PRN IV THERAPIST RESPIRATORY catheter pack; Start 11/26/16 at 07:30; Stop 11/27/16 at 07:29 Sodium Chloride (Iv Sodium Chloride 0.9% 1000ml Bag) 1,000 ml @ 400 mls/hr Q2H30M PRN IV PATENCY; Start 11/26/16 at 07:26; Stop 11/26/16 at 19:25 Info (PHARMACY MONITORING -- do not chart) 1 each PRN DAILY PRN MC SEE COMMENTS ; Start 11/26/16 at 07:30 Active Scripts Active Reported Nitrofurantoin (Nitrofurantoin Macrocrystal) 100 Mg Capsule 1 Cap PO BID Vitamin D2 (Ergocalciferol (Vitamin D2)) 50,000 Unit Capsule 1 Cap PO WEEKLY Gabapentin 300 Mg Capsule 300 Mg PO HS Nephro-Della Tablet (Folic Acid/Vitamin B Comp W-C) 0.8 Mg Tablet 1 Tab PO DAILY Humalog (Insulin Lispro) 100 Unit/1 Ml Vial 20 Unit SQ TIDAC Levothyroxine Sodium 75 Mcg Tablet 75 Mcg PO DAILYAC Levemir (Insulin Detemir) 100 Unit/1 Ml Vial 66 Unit SQ QHS Levemir (Insulin Detemir) 100 Unit/1 Ml Vial 70 Unit SQ DAILY D3-2000 (Cholecalciferol (Vitamin D3)) 2,000 Unit Capsule 2,000 Unit PO DAILY Pantoprazole Sodium 40 Mg Tablet.dr 40 Mg PO BID Warfarin Sodium 2 Mg Tablet 2 Mg PO DAILY Warfarin Sodium 1 Mg Tablet 1 Mg PO DAILY Crestor (Rosuvastatin Calcium) 10 Mg Tablet 10 Mg PO DAILY 30 Days Vitals/I & O Vital Sign - Last 24 Hours 11/25/16 11/25/16 11/25/16 11/25/16 14:49 16:24 16:39 17:40 Temp 97.9 97.9 97.5 97.5 97.9 97.9 97.5 97.5 Pulse 81 76 74 77 Resp 20 18 18 20 B/P 122/52 130/57 131/65 124/43 Pulse Ox 95 O2 Delivery Room Air 11/25/16 11/25/16 11/25/16 11/25/16 18:30 19:00 19:30 20:00 Temp 97.5 98.6 98.6 97.5 98.6 98.6 Pulse 80 77 77 Resp 18 16 16 B/P 140/51 112/58 112/58 Pulse Ox 96 O2 Delivery Room Air Room Air 11/25/16 11/25/16 11/25/16 11/25/16 22:38 22:56 23:00 23:15 Temp 96.7 98.7 98.0 98.2 96.7 98.7 98.0 98.2 Pulse 75 76 76 72 Resp 20 20 B/P 114/45 113/40 120/59 119/53 Pulse Ox 93 O2 Delivery Room Air 11/25/16 11/25/16 11/26/16 11/26/16 23:30 23:45 00:45 01:45 Temp 97.6 97.8 97.0 97.4 97.6 97.8 97.0 97.4 Pulse 76 74 70 76 Resp 20 B/P 117/56 122/54 115/50 118/50 11/26/16 11/26/16 11/26/16 11/26/16 02:15 03:17 03:35 11:39 Temp 97.0 98.7 97.7 97.0 98.7 97.7 Pulse 68 78 86 Resp 16 B/P 115/54 114/53 94/40 Pulse Ox 94 O2 Delivery Room Air Room Air Room Air 11/26/16 11:50 O2 Delivery Room Air Intake and Output 11/25/16 11/25/16 11/26/16 15:00 23:00 07:00 Intake Total 300 ml 2930 ml 1020 ml Output Total 1000 ml Balance 300 ml 2930 ml 20 ml AJ LOPEZ MD Nov 26, 2016 12:01
--- NOTE | 2016-11-26 13:11 | PDOC ---
PROGRESS NOTES Subjective Subjective Pt is an 66 year old female with ESRD receiving dialysis. Pt was seen today after she returned from dialysis. Pt denies having any CP/SOB. Pt reported feeling tired. Per nurse, the evaluation of the occluded shunt was to take place this afternoon. Objective Objective Vital Signs Date Time Temp Pulse Resp B/P Pulse Ox O2 Delivery O2 Flow Rate FiO2 11/26/16 11:50 Room Air 11/26/16 11:39 97.7 86 16 94/40 97.7 11/26/16 03:35 94 Intake and Output 11/26/16 07:00 Intake Total 4250 ml Output Total 1000 ml Balance 3250 ml Intake Oral 1020 ml Blood Product 510 ml Blood Product IV Normal Saline Flush 2720 ml Output Urine Total 1000 ml # Voids 3 # Bowel Movements 1 Physical Exam Abdomen: Normal bowel sounds, Soft, No tenderness Heart: Normal S1, Normal S2, Other (mechanical click) Extremities: No clubbing, No edema General: Alert, Oriented X3, Cooperative HEENT: Atraumatic, PERRLA Lungs: Clear to auscultation, Normal air movement Assessment Assessment Problems Medical Problems: (1) Dialysis AV fistula malfunction Status: Acute - ESRD, occluded shunt - HTN - Mitral valve stenosis (mech valve) - Diabetes Plan Plan of Care - Patient with end-stage renal disease needs dialysis and has an occluded shunt. Pt received dialysis today and on Saturday. - From a cardiac standpoint she appears to be compensated but she needs to have dialysis before she gets into trouble with heart failure and due to the mechanical mitral valve she will need to continue with her anticoagulation. - From a cardiac standpoint, I am ok with whatever IR needs to do for her to take care of the occluded shunt - Will continue to monitor her while she is in the hospital. Thank you very much for asking me to participate in the care of this patient! Comment Review of Relevant I have reviewed the following items sofi (where applicable) has been applied. Labs Laboratory Tests Test 11/24/16 16:28 11/24/16 22:38 11/25/16 04:28 11/25/16 07:10 Glucose (Fingerstick) 115mg/dL (70-99) 127mg/dL (70-99) 373mg/dL (70-99) 258mg/dL (70-99) Test 11/25/16 09:20 11/25/16 10:36 11/25/16 16:17 11/25/16 21:01 Prothrombin Time 24.7SEC (11.7-14.0) Prothromb Time International Ratio 2.4 (0.8-1.1) Glucose (Fingerstick) 245mg/dL (70-99) 185mg/dL (70-99) 164mg/dL (70-99) Test 11/26/16 04:35 11/26/16 11:27 Prothrombin Time 16.8SEC (11.7-14.0) Prothromb Time International Ratio 1.5 (0.8-1.1) Sodium Level 136mmol/L (136-145) Potassium Level 4.4mmol/L (3.5-5.1) Chloride Level 95mmol/L (98-107) Carbon Dioxide Level 25mmol/L (21-32) Anion Gap 16 (6-14) Blood Urea Nitrogen 69mg/dL (7-20) Creatinine 8.9mg/dL (0.6-1.0) Estimated GFR (Cockcroft-Gault) 4.4 Glucose Level 256mg/dL (70-99) Calcium Level 7.7mg/dL (8.5-10.1) Glucose (Fingerstick) 138mg/dL (70-99) Laboratory Tests Test 11/25/16 16:17 11/25/16 21:01 11/26/16 04:35 11/26/16 11:27 Glucose (Fingerstick) 185mg/dL (70-99) 164mg/dL (70-99) 138mg/dL (70-99) Prothrombin Time 16.8SEC (11.7-14.0) Prothromb Time International Ratio 1.5 (0.8-1.1) Sodium Level 136mmol/L (136-145) Potassium Level 4.4mmol/L (3.5-5.1) Chloride Level 95mmol/L (98-107) Carbon Dioxide Level 25mmol/L (21-32) Anion Gap 16 (6-14) Blood Urea Nitrogen 69mg/dL (7-20) Creatinine 8.9mg/dL (0.6-1.0) Estimated GFR (Cockcroft-Gault) 4.4 Glucose Level 256mg/dL (70-99) Calcium Level 7.7mg/dL (8.5-10.1) Medications Current Medications Ondansetron HCl (Zofran) 4 mg PRN Q8HRS PRN IV NAUSEA/VOMITING; Start 11/23/16 at 21:00; Stop 11/24/16 at 07:25; Status DC Morphine Sulfate 2 mg PRN Q2HR PRN IV PAIN; Start 11/23/16 at 21:00; Stop 11/24 at 20:59; Status DC Acetaminophen (Tylenol) 650 mg PRN Q4HRS PRN PO FEVER Last administered on 11/24 08:46; Start 11/23/16 at 21:00; Stop 11/24/16 at 20:59; Status DC Furosemide (Lasix) 100 mg 1X ONCE IVP Last administered on 11/24/16 01:15; Start 11/23/16 at 23:15; Stop 11/23/16 at 23:17; Status DC Levothyroxine Sodium (Synthroid) 75 mcg DAILY07 PO Last administered on 05:38; Start 11/24/16 at 07:00 Pantoprazole Sodium (Protonix) 40 mg BIDAC PO Last administered on 11/25/16 17 :47; Start 11/24/16 at 07:30 Warfarin Sodium (Coumadin) 1 mg DAILY16 PO ; Start 11/24/16 at 16:00; Stop 11/25 at 09:01; Status DC Warfarin Sodium (Coumadin) 2 mg DAILY16 PO Last administered on 11/24/16 22:38 ; Start 11/24/16 at 16:00; Stop 11/25/16 at 09:01; Status DC Vitamin D (Vitamin D3) 2,000 unit DAILY PO Last administered on 11/25/16 08:52 ; Start 11/24/16 at 09:00 Insulin Detemir (Levemir) 66 units QHS SQ Last administered on 11/25/16 21:36 ; Start 11/24/16 at 21:00 Insulin Aspart (Novolog) 20 units TIDAC SQ Last administered on 11/25/16 17:51 ; Start 11/24/16 at 07:30 Atorvastatin Calcium (Lipitor) 40 mg HS PO Last administered on 11/25/16 21:33 ; Start 11/24/16 at 21:00 Warfarin Sodium (Coumadin Per Physician) 1 each PRN DAILY PRN MC SEE COMMENTS Last administered on 11/24/16 15:33; Start 11/24/16 at 16:00; Stop 11/25/16 at 09:01; Status DC Ondansetron HCl (Zofran) 4 mg PRN Q6HRS PRN IV NAUSEA/VOMITING; Start 11/24/16 at 07:23 Insulin Aspart (Novolog) 0-9 UNITS TIDWMEALS SQ Last administered on 11/25/16 17:50; Start 11/24/16 at 08:00 Dextrose (Dextrose 50%-Water Syringe) 12.5 gm PRN Q15MIN PRN IV SEE COMMENTS; Start 11/24/16 at 07:30 Darbepoetin Surendra (Aranesp) 60 mcg WEEKLYHS SQ Last administered on 11/24/16 22 :39; Start 11/24/16 at 21:00 Heparin Sodium (Porcine) (Heparin Sodium) 10,000 unit STK-MED ONCE .ROUTE ; Start 11/24/16 at 16:58; Stop 11/24/16 at 16:59; Status DC Lidocaine/Sodium Bicarbonate 20 ml 20 ml STK-MED ONCE IJ ; Start 11/24/16 at 16: 58; Stop 11/24/16 at 16:59; Status DC Heparin Sodium/ Sodium Chloride 500 ml @ As Directed STK-MED ONCE .ROUTE ; Start 11/24/16 at 16:58; Stop 11/24/16 at 16:59; Status DC Lidocaine/Sodium Bicarbonate (Buffered Lidocaine 1%) 3 ml 1X ONCE IJ Last administered on 11/24/16 17:44; Start 11/24/16 at 17:15; Stop 11/24/16 at 17:16 ; Status DC Heparin Sodium/ Sodium Chloride 60 unit 1X ONCE IV Last administered on 17:15; Start 11/24/16 at 17:15; Stop 11/24/16 at 17:16; Status DC Heparin Sodium (Porcine) (Heparin Sodium) 2,500 unit 1X ONCE INT CAT Last administered on 11/24/16 17:15; Start 11/24/16 at 17:15; Stop 11/24/16 at 17:16 ; Status DC Sodium Chloride (Normal Saline Flush) 10 ml 1X PRN PRN IV AP catheter pack; Start 11/24/16 at 23:45; Stop 11/25/16 at 23:44; Status DC Sodium Chloride 10 ml 10 ml 1X PRN PRN IV BUSINESS SUPPORT ASSISTANT catheter pack; Start 11/24/16 at 23:45; Stop 11/25/16 at 23:44; Status DC Sodium Chloride (Iv Sodium Chloride 0.9% 1000ml Bag) 1,000 ml @ 400 mls/hr Q2H30M PRN IV PATENCY; Start 11/24/16 at 23:45; Stop 11/25/16 at 11:44; Status DC Info (PHARMACY MONITORING -- do not chart) 1 each PRN DAILY PRN MC SEE COMMENTS ; Start 11/24/16 at 23:45; Stop 11/26/16 at 07:32; Status DC Acetaminophen/ Hydrocodone Bitart (Lortab 5/325) 1 tab PRN Q4HRS PRN PO PAIN Last administered on 11/26/16 11:50; Start 11/25/16 at 05:15 Insulin Aspart (Novolog) 9 units TIDAC SQ Last administered on 11/25/16 05:44 ; Start 11/25/16 at 05:15 Phytonadione (Mephyton) 5 mg 1X ONCE PO Last administered on 11/25/16 12:15; Start 11/25/16 at 11:00; Stop 11/25/16 at 11:01; Status DC Diphenhydramine HCl 25 mg 25 mg PRN Q6HRS PRN IVP ITCHING Last administered on 11/25/16 18:20; Start 11/25/16 at 18:15 Sodium Chloride (Iv Sodium Chloride 0.9% 1000ml Bag) 1,000 ml @ 1,000 mls/hr Q1H PRN IV hypotension; Start 11/26/16 at 07:26; Stop 11/26/16 at 13:25 Sodium Chloride (Normal Saline Flush) 10 ml 1X PRN PRN IV AP catheter pack; Start 11/26/16 at 07:30; Stop 11/27/16 at 07:29 Sodium Chloride 10 ml 10 ml 1X PRN PRN IV BUSINESS SUPPORT ASSISTANT catheter pack; Start 11/26/16 at 07:30; Stop 11/27/16 at 07:29 Sodium Chloride (Iv Sodium Chloride 0.9% 1000ml Bag) 1,000 ml @ 400 mls/hr Q2H30M PRN IV PATENCY; Start 11/26/16 at 07:26; Stop 11/26/16 at 19:25 Info (PHARMACY MONITORING -- do not chart) 1 each PRN DAILY PRN MC SEE COMMENTS ; Start 11/26/16 at 07:30 Active Scripts Active Reported Nitrofurantoin (Nitrofurantoin Macrocrystal) 100 Mg Capsule 1 Cap PO BID Vitamin D2 (Ergocalciferol (Vitamin D2)) 50,000 Unit Capsule 1 Cap PO WEEKLY Gabapentin 300 Mg Capsule 300 Mg PO HS Nephro-Della Tablet (Folic Acid/Vitamin B Comp W-C) 0.8 Mg Tablet 1 Tab PO DAILY Humalog (Insulin Lispro) 100 Unit/1 Ml Vial 20 Unit SQ TIDAC Levothyroxine Sodium 75 Mcg Tablet 75 Mcg PO DAILYAC Levemir (Insulin Detemir) 100 Unit/1 Ml Vial 66 Unit SQ QHS Levemir (Insulin Detemir) 100 Unit/1 Ml Vial 70 Unit SQ DAILY D3-2000 (Cholecalciferol (Vitamin D3)) 2,000 Unit Capsule 2,000 Unit PO DAILY Pantoprazole Sodium 40 Mg Tablet.dr 40 Mg PO BID Warfarin Sodium 2 Mg Tablet 2 Mg PO DAILY Warfarin Sodium 1 Mg Tablet 1 Mg PO DAILY Crestor (Rosuvastatin Calcium) 10 Mg Tablet 10 Mg PO DAILY 30 Days Vitals/I & O Vital Sign - Last 24 Hours 11/25/16 11/25/16 11/25/16 11/25/16 14:49 16:24 16:39 17:40 Temp 97.9 97.9 97.5 97.5 97.9 97.9 97.5 97.5 Pulse 81 76 74 77 Resp 20 18 18 20 B/P 122/52 130/57 131/65 124/43 Pulse Ox 95 O2 Delivery Room Air 11/25/16 11/25/16 11/25/16 11/25/16 18:30 19:00 19:30 20:00 Temp 97.5 98.6 98.6 97.5 98.6 98.6 Pulse 80 77 77 Resp 18 16 16 B/P 140/51 112/58 112/58 Pulse Ox 96 O2 Delivery Room Air Room Air 11/25/16 11/25/16 11/25/16 11/25/16 22:38 22:56 23:00 23:15 Temp 96.7 98.7 98.0 98.2 96.7 98.7 98.0 98.2 Pulse 75 76 76 72 Resp 20 17 20 20 B/P 114/45 113/40 120/59 119/53 Pulse Ox 93 O2 Delivery Room Air 11/25/16 11/25/16 11/26/16 11/26/16 23:30 23:45 00:45 01:45 Temp 97.6 97.8 97.0 97.4 97.6 97.8 97.0 97.4 Pulse 76 74 70 76 Resp 20 20 20 20 B/P 117/56 122/54 115/50 118/50 11/26/16 11/26/16 11/26/16 11/26/16 02:15 03:17 03:35 11:39 Temp 97.0 98.7 97.7 97.0 98.7 97.7 Pulse 68 78 86 Resp 20 14 16 B/P 115/54 114/53 94/40 Pulse Ox 94 O2 Delivery Room Air Room Air Room Air 11/26/16 11:50 O2 Delivery Room Air Intake and Output 11/25/16 11/25/16 11/26/16 15:00 23:00 07:00 Intake Total 300 ml 2930 ml 1020 ml Output Total 1000 ml Balance 300 ml 2930 ml 20 ml EDDA MOLINA MD Nov 26, 2016 13:11
[2016-11-26] MEDS ORDERED: LIDOCAINE 1% / SOD BICARB 8.4% 20 ML VIAL. IJ ONE (14:06)
[2016-11-26] MEDS ORDERED: IODIXANOL 320 MG/ML 100 ML VIAL. ONE (14:07)
[2016-11-26] MEDS ORDERED: HEPARIN for IV BOLUS 10,000 UNIT/10 ML VIAL. IV PRN ×2 (15:30)
[2016-11-26] MEDS: HEPARIN 25,000UTS/500ML PREMIX 500 ML IV PRN (15:50)
[2016-11-26] MEDS: diphenhydrAMINE 50 MG/ML VIAL IVP PRN (15:55)
[2016-11-26] MEDS ORDERED: WARFARIN 4 MG TABLET. PO ONE (16:00)
[2016-11-26] MEDS: GABAPENTIN 300 MG CAPSULE. PO SCH (20:52)
[2016-11-26] MEDS: ATORVASTATIN CALCIUM 40 MG TABLET. PO SCH (20:52)
[2016-11-26] MEDS: INSULIN DETEMIR 300 UNITS/3 ML INSULN.PEN. SQ SCH (20:59)
--- NOTE | 2016-11-26 23:48 | PDOC ---
Provider Note Provider Note RENAL F/U: MICHAEL. S : No new c/o O : Alert. VSS. Afebrile. Somnolent. Neck : Supple Lungs : Decreased bases CVS : RRR Abd: Soft, benign in appearance. Portly Ext: Stable edema Neuro : Grossly intact. A/P: ESRD ANEMIA CLOTTED SHUNT Supportive care Labs better/stable. HD in am. . CPM. LORENA RODRIGUEZ MD Nov 26, 2016 23:48
[2016-11-27 02:49] VITALS: BP 110/52
[2016-11-27 05:15] LABS: INR 1.3 (0.8-1.1); PROTHROMBIN TIME PATIENT 15.3 SEC (11.7-14.0)
[2016-11-27] MEDS: LEVOTHYROXINE 75 MCG TABLET PO SCH (05:55)
[2016-11-27 07:00] VITALS: BP 121/85
[2016-11-27] MEDS: INSULIN ASPART 300 UNITS/3 ML INSULN.PEN SQ SCH ×9 (07:30→17:04)
[2016-11-27] MEDS: PANTOPRAZOLE 40 MG TABLET.DR. PO SCH ×2 (07:30→17:01)
[2016-11-27] MEDS: INSULIN DETEMIR 300 UNITS/3 ML INSULN.PEN. SQ SCH ×2 (08:41→21:00)
[2016-11-27] MEDS ORDERED: ALTEPLASE 2 MG VIAL INT CAT ONE (08:45)
--- NOTE | 2016-11-27 09:51 | PDOC ---
SUBJECTIVE ROS ESRD Doign OK overall CVS: no Orthopnea, no CP RESP: no SOB, no GARCIA GI: no Nausea, n Vomiting : o Dysuria, no Urgency OBJECTIVE Vital Signs Vital Signs Date Time Temp Pulse Resp B/P Pulse Ox O2 Delivery O2 Flow Rate FiO2 11/27/16 07:00 98.4 78 16 121/85 93 Room Air 98.4 I & 0 Intake and Output 11/27/16 07:00 Intake Total 480 ml Output Total 300 ml Balance 180 ml Intake Oral 480 ml Output Urine Total 300 ml PHYSICAL EXAM Physical Exam GEN: Awake, Oriented x 3, In no distress EYES: Vision Unchanged, Conjunctiva Normal EN: No EN Drainage, Mucous Membranes moist NECK: no JVD, min JVP, Supple, no Thyromegaly CVS: S1S2, ? Murmur, No Gallop, No Rub,tr Edema RESP: no Rales, no Rhonchi,no Acc. Muscle Use GI: BS + ve, NO Bruit, Non Tender, Non Distended - obese : no CVA tenderness, no Suprapubic Tenderness DIAGNOSIS/ASSESSMENT Assessment & Plan ESRD: Current fluid and E-lyte status does not necessitate emergent need for dialysis. Will re-evaluate for dialysis in the am and continue on MWF schedule. ANEMIA; Aranap as ordered, Transfuse with next HD as needed HTN: Current BP meds as reviewed. See orders for changes. BONE & MINERAL: check Phos and follow trend Clotted AV Access - for declott today Discussed Plan of Care with pt at bedside Problems: COMMENT/RELEVANT DATA Meds Current Medications Medications (Trade) Dose Ordered Sig/Kiet Start Time Stop Time Status Last Admin Dose Admin Acetaminophen (Tylenol) 650 mg PRN Q4HRS PRN 11/23/16 21:00 11/24/16 20:59 DC 11/24/16 08:46 650 MG Acetaminophen/ Hydrocodone Bitart (Lortab 5/325) 1 tab PRN Q4HRS PRN 11/25/16 05:15 11/26/16 20:53 1 TAB Alteplase, Recombinant (Cathflo) 4 mg 1X ONCE 11/27/16 08:45 11/27/16 08:46 DC Atorvastatin Calcium (Lipitor) 40 mg HS 11/24/16 21:00 11/26/16 20:52 40 MG Darbepoetin Surendra (Aranesp) 60 mcg WEEKLYHS 11/24/16 21:00 11/24/16 22:39 60 MCG Dextrose (Dextrose 50%-Water Syringe) 12.5 gm PRN Q15MIN PRN 11/24/16 07:30 Diphenhydramine HCl (Benadryl) 25 mg PRN Q6HRS PRN 11/25/16 18:15 11/26/16 15:55 25 MG Furosemide (Lasix) 100 mg 1X ONCE 11/23/16 23:15 11/23/16 23:17 DC 11/24/16 01:15 100 MG Gabapentin (Neurontin) 300 mg HS 11/26/16 21:00 11/26/16 20:52 300 MG Heparin Sodium (Porcine) (Heparin Sodium) 1,450 unit PRN Q6HRS PRN 11/26/16 15:30 Heparin Sodium/ Dextrose 500 ml @ 0 mls/hr CONT PRN 11/26/16 15:30 11/26/16 15:50 0 MLS/HR Heparin Sodium/ Sodium Chloride 500 ml @ As Directed STK-MED ONCE 11/26/16 14:06 11/26/16 14:07 DC Info (PHARMACY MONITORING -- do not chart) 1 each PRN DAILY PRN 11/26/16 07:30 Insulin Aspart (Novolog) 9 units TIDAC 11/25/16 05:15 11/25/16 05:44 9 UNITS Insulin Detemir (Levemir) 66 units QHS 11/24/16 21:00 11/26/16 20:59 66 UNITS Insulin Detemir 70 units 70 units DAILY 11/27/16 09:00 11/27/16 08:41 35 UNITS Iodixanol 100 ml 100 ml STK-MED ONCE 11/26/16 14:07 11/26/16 14:08 DC Levofloxacin/ Dextrose (LEVAQUIN 500mg PREMIX) 100 ml @ 100 mls/hr Q48H 11/26/16 20:00 11/26/16 20:52 100 MLS/HR Levothyroxine Sodium (Synthroid) 75 mcg DAILY07 11/24/16 07:00 11/25/16 05:38 75 MCG Lidocaine/Sodium Bicarbonate (Buffered Lidocaine 1%) 3 ml 1X ONCE 11/24/16 17:15 11/24/16 17:16 DC 11/24/16 17:44 3 ML Lidocaine/Sodium Bicarbonate 20 ml 20 ml STK-MED ONCE 11/26/16 14:06 11/26/16 14:07 DC Morphine Sulfate 2 mg PRN Q2HR PRN 11/23/16 21:00 11/24/16 20:59 DC Ondansetron HCl (Zofran) 4 mg PRN Q6HRS PRN 11/24/16 07:23 Pantoprazole Sodium (Protonix) 40 mg BIDAC 11/24/16 07:30 11/26/16 17:21 40 MG Phytonadione (Mephyton) 5 mg 1X ONCE 11/25/16 11:00 11/25/16 11:01 DC 11/25/16 12:15 5 MG Sodium Chloride (Iv Sodium Chloride 0.9% 1000ml Bag) 1,000 ml @ 400 mls/hr Q2H30M PRN 11/26/16 07:26 11/26/16 19:25 DC Sodium Chloride (Normal Saline Flush) 10 ml 1X PRN PRN 11/26/16 07:30 11/27/16 07:29 DC Sodium Chloride 10 ml 10 ml 1X PRN PRN 11/26/16 07:30 11/27/16 07:29 DC Vitamin B Complex/ Vitamin C (Anahy-Della) 1 tab DAILY 11/27/16 09:00 Vitamin D (Vitamin D3) 2,000 unit DAILY 11/24/16 09:00 11/25/16 08:52 2,000 UNIT Warfarin Sodium (Coumadin Per Pharmacy) 1 each PRN DAILY PRN 11/26/16 15:30 11/26/16 15:27 1 EACH Warfarin Sodium (Coumadin Per Physician) 1 each PRN DAILY PRN 11/24/16 16:00 11/25/16 09:01 DC 11/24/16 15:33 1 EACH Warfarin Sodium (Coumadin) 4 mg 1X WARF ONCE 11/26/16 16:00 11/26/16 16:01 DC Lab Laboratory Tests Test 11/26/16 11:27 11/26/16 14:56 11/26/16 17:15 11/26/16 20:39 Glucose (Fingerstick) 138mg/dL (70-99) 132mg/dL (70-99) 354mg/dL (70-99) 353mg/dL (70-99) Test 11/26/16 21:58 11/27/16 04:25 11/27/16 07:56 Heparin Anti-Xa Act, Unfractionated < 0.10IU/mL (0.30-0.70) Prothrombin Time 15.3SEC (11.7-14.0) Prothromb Time International Ratio 1.3 (0.8-1.1) Glucose (Fingerstick) 421mg/dL (70-99) NATHALY BENTLEY MD Nov 27, 2016 09:50
[2016-11-27] MEDS ORDERED: MAGNESIUM SULFATE 2GM 50 ML IV PRN (10:15)
[2016-11-27] MEDS ORDERED: IODIXANOL 320 MG/ML 100 ML VIAL. ONE (11:14)
[2016-11-27] MEDS ORDERED: LIDOCAINE 1% / SOD BICARB 8.4% 20 ML VIAL. IJ ONE ×2 (11:14→11:45)
[2016-11-27] MEDS ORDERED: fentaNYL PF VIAL 250 MCG/5 ML VIAL ONE (11:29)
[2016-11-27] MEDS ORDERED: MIDAZOLAM HCL/PF 5 MG/5 ML VIAL. ONE (11:29)
[2016-11-27] MEDS ORDERED: IODIXANOL 320 MG/ML 100 ML VIAL. IART ONE (11:45)
[2016-11-27] MEDS ORDERED: CONTRAST GIVEN MC PRN (11:45)
[2016-11-27] MEDS ORDERED: MIDAZOLAM HCL/PF 5 MG/5 ML VIAL. IV ONE (11:45)
[2016-11-27] MEDS ORDERED: fentaNYL PF VIAL 250 MCG/5 ML VIAL IV ONE (11:45)
[2016-11-27] MEDS ORDERED: HEPARIN for IV BOLUS 10,000 UNIT/10 ML VIAL. IV ONE (13:30)
[2016-11-27 13:31] VITALS: BP 155/74
[2016-11-27] MEDS: FOLIC/VIT B COMP W-C (RENAL) TABLET. PO SCH (14:32)
[2016-11-27] MEDS: CHOLECALCIFEROL (VITAMIN D3) 1,000 UNIT TABLET PO SCH (14:33)
--- NOTE | 2016-11-27 14:34 | PDOC ---
MODERATE SEDATION ASSESSMENT RISKS/ALTERNATIVES Risks/Alternatives Risks and alternatives of this type of sedation and procedure discussed with: RISK/ALTERNATIVES: Patient H & P ON CHART H & P H & P on chart and reviewed for co-morbid conditions and appropriate labs. H&P ON CHART: Yes STATUS PREG STATUS ASSESSED: N/A MEDS/ALLERGIES REVIEWED Meds/Allergies Reviewed Medications and Allergies including time and route of recently administered narcotics and sedatives. MEDS/ALLERGIES REVIEWED: Yes ASA RATING ASA RATING: III AIRWAY ASSESSMENT Airway Assessment Airway patency, oral function limitations, presence of caps, crowns, dentures, partials, and ability to extend neck assessed. AIRWAY ASSESSMENT: Yes MALLAMPATI SCORE MALLAMPATI SCORE: III PRE-SEDATION ASSESSMENT PRE-SEDATION ASSESSMENT: Yes MERCEDES LOPEZ MD Nov 27, 2016 14:34
--- NOTE | 2016-11-27 14:41 | PDOC ---
Exam Fabric Sourcer Fabric Sourcer [place] Dispatcher City Dispatcher B Cates Pre-Procedure Diagnosis Pre-Procedure Diagnosis 66 YO female with ESRD and thrombosed left upper arm AVG Post-Procedure Diagnosis Post-Procedure Diagnosis Same. 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 Procedure Performed Procedure Performed t-PA declot left upper arm AVG SUPERVISOR MAINTENANCE entire graft from AA thru VA. Viabahn stent placement at VA Type of Anesthesia Type of Anesthesia Local + Mod sedation Estimated Blood Loss EBL: 50 cc Condition of Patient Condition of Patient Stable. No apparent complication. Disposition Disposition From to [facility] for recovery. AVG patent, but multifocal areas of residual eccentric calcific narrowing, with suboptimal thrill----skilled nursing or even short term patency is questionable. OK to attempt HD thru AVG in AM. F/u with Dr Ly. Full report to follow. MERCEDES LOPEZ MD Nov 27, 2016 14:41
[2016-11-27 15:00] VITALS: BP 132/47
[2016-11-27] MEDS: ANTI-COAG MONITOR BY PHARMACY. MC PRN (15:19)
[2016-11-27] MEDS ORDERED: WARFARIN 5 MG TABLET. PO ONE (16:00)
[2016-11-27] MEDS: HEPARIN 25,000UTS/500ML PREMIX 500 ML IV PRN (16:01)
[2016-11-27] MEDS ORDERED: INSULIN ASPART 300 UNITS/3 ML INSULN.PEN SQ ONE (16:15)
--- NOTE | 2016-11-27 17:58 | PDOC ---
PROGRESS NOTES Objective Objective Vital Signs Date Time Temp Pulse Resp B/P Pulse Ox O2 Delivery O2 Flow Rate FiO2 11/27/16 15:00 97.9 84 16 132/47 90 Room Air 97.9 11/27/16 13:41 3.0 Intake and Output 11/27/16 07:00 Intake Total 480 ml Output Total 300 ml Balance 180 ml Intake Oral 480 ml Output Urine Total 300 ml Assessment Assessment The pt is stable cardiac rivers. Agree with present plan. Will sign off unless further cardiac problems develop. Problems Medical Problems: (1) Dialysis AV fistula malfunction Status: Acute Comment Review of Relevant I have reviewed the following items sofi (where applicable) has been applied. Labs Laboratory Tests Test 11/25/16 21:01 11/26/16 04:35 11/26/16 11:27 11/26/16 14:56 Glucose (Fingerstick) 164mg/dL (70-99) 138mg/dL (70-99) 132mg/dL (70-99) Prothrombin Time 16.8SEC (11.7-14.0) Prothromb Time International Ratio 1.5 (0.8-1.1) Sodium Level 136mmol/L (136-145) Potassium Level 4.4mmol/L (3.5-5.1) Chloride Level 95mmol/L (98-107) Carbon Dioxide Level 25mmol/L (21-32) Anion Gap 16 (6-14) Blood Urea Nitrogen 69mg/dL (7-20) Creatinine 8.9mg/dL (0.6-1.0) Estimated GFR (Cockcroft-Gault) 4.4 Glucose Level 256mg/dL (70-99) Calcium Level 7.7mg/dL (8.5-10.1) Test 11/26/16 17:15 11/26/16 20:39 11/26/16 21:58 11/27/16 04:25 Glucose (Fingerstick) 354mg/dL (70-99) 353mg/dL (70-99) Heparin Anti-Xa Act, Unfractionated < 0.10IU/mL (0.30-0.70) Prothrombin Time 15.3SEC (11.7-14.0) Prothromb Time International Ratio 1.3 (0.8-1.1) Test 11/27/16 07:56 11/27/16 13:59 Glucose (Fingerstick) 421mg/dL (70-99) 397mg/dL (70-99) Laboratory Tests Test 11/26/16 20:39 11/26/16 21:58 11/27/16 04:25 11/27/16 07:56 Glucose (Fingerstick) 353mg/dL (70-99) 421mg/dL (70-99) Heparin Anti-Xa Act, Unfractionated < 0.10IU/mL (0.30-0.70) Prothrombin Time 15.3SEC (11.7-14.0) Prothromb Time International Ratio 1.3 (0.8-1.1) Test 11/27/16 13:59 Glucose (Fingerstick) 397mg/dL (70-99) Microbiology 11/24/16 Urine Culture - Final, Complete 11/24/16 Urine Culture Result 1 (ELEAZAR) - Final, Complete Medications Current Medications Ondansetron HCl (Zofran) 4 mg PRN Q8HRS PRN IV NAUSEA/VOMITING; Start 11/23/16 at 21:00; Stop 11/24/16 at 07:25; Status DC Morphine Sulfate 2 mg PRN Q2HR PRN IV PAIN; Start 11/23/16 at 21:00; Stop 11/24 at 20:59; Status DC Acetaminophen (Tylenol) 650 mg PRN Q4HRS PRN PO FEVER Last administered on 11/24 08:46; Start 11/23/16 at 21:00; Stop 11/24/16 at 20:59; Status DC Furosemide (Lasix) 100 mg 1X ONCE IVP Last administered on 11/24/16 01:15; Start 11/23/16 at 23:15; Stop 11/23/16 at 23:17; Status DC Levothyroxine Sodium (Synthroid) 75 mcg DAILY07 PO Last administered on 05:38; Start 11/24/16 at 07:00 Pantoprazole Sodium (Protonix) 40 mg BIDAC PO Last administered on 11/27/16 17 :01; Start 11/24/16 at 07:30 Warfarin Sodium (Coumadin) 1 mg DAILY16 PO ; Start 11/24/16 at 16:00; Stop 11/25 at 09:01; Status DC Warfarin Sodium (Coumadin) 2 mg DAILY16 PO Last administered on 11/24/16 22:38 ; Start 11/24/16 at 16:00; Stop 11/25/16 at 09:01; Status DC Vitamin D (Vitamin D3) 2,000 unit DAILY PO Last administered on 11/27/16 14:33 ; Start 11/24/16 at 09:00 Insulin Detemir (Levemir) 66 units QHS SQ Last administered on 11/26/16 20:59 ; Start 11/24/16 at 21:00 Insulin Aspart (Novolog) 20 units TIDAC SQ Last administered on 11/27/16 17:03 ; Start 11/24/16 at 07:30 Atorvastatin Calcium (Lipitor) 40 mg HS PO Last administered on 11/26/16 20:52 ; Start 11/24/16 at 21:00 Warfarin Sodium (Coumadin Per Physician) 1 each PRN DAILY PRN MC SEE COMMENTS Last administered on 11/24/16 15:33; Start 11/24/16 at 16:00; Stop 11/25/16 at 09:01; Status DC Ondansetron HCl (Zofran) 4 mg PRN Q6HRS PRN IV NAUSEA/VOMITING; Start 11/24/16 at 07:23 Insulin Aspart (Novolog) 0-9 UNITS TIDWMEALS SQ Last administered on 11/27/16 14:38; Start 11/24/16 at 08:00 Dextrose (Dextrose 50%-Water Syringe) 12.5 gm PRN Q15MIN PRN IV SEE COMMENTS; Start 11/24/16 at 07:30 Darbepoetin Surendra (Aranesp) 60 mcg WEEKLYHS SQ Last administered on 11/24/16 22 :39; Start 11/24/16 at 21:00 Heparin Sodium (Porcine) (Heparin Sodium) 10,000 unit STK-MED ONCE .ROUTE ; Start 11/24/16 at 16:58; Stop 11/24/16 at 16:59; Status DC Lidocaine/Sodium Bicarbonate 20 ml 20 ml STK-MED ONCE IJ ; Start 11/24/16 at 16: 58; Stop 11/24/16 at 16:59; Status DC Heparin Sodium/ Sodium Chloride 500 ml @ As Directed STK-MED ONCE .ROUTE ; Start 11/24/16 at 16:58; Stop 11/24/16 at 16:59; Status DC Lidocaine/Sodium Bicarbonate (Buffered Lidocaine 1%) 3 ml 1X ONCE IJ Last administered on 11/24/16 17:44; Start 11/24/16 at 17:15; Stop 11/24/16 at 17:16 ; Status DC Heparin Sodium/ Sodium Chloride 60 unit 1X ONCE IV Last administered on 17:15; Start 11/24/16 at 17:15; Stop 11/24/16 at 17:16; Status DC Heparin Sodium (Porcine) (Heparin Sodium) 2,500 unit 1X ONCE INT CAT Last administered on 11/24/16 17:15; Start 11/24/16 at 17:15; Stop 11/24/16 at 17:16 ; Status DC Sodium Chloride (Normal Saline Flush) 10 ml 1X PRN PRN IV AP catheter pack; Start 11/24/16 at 23:45; Stop 11/25/16 at 23:44; Status DC Sodium Chloride 10 ml 10 ml 1X PRN PRN IV [employer] catheter pack; Start 11/24/16 at 23:45; Stop 11/25/16 at 23:44; Status DC Sodium Chloride (Iv Sodium Chloride 0.9% 1000ml Bag) 1,000 ml @ 400 mls/hr Q2H30M PRN IV PATENCY; Start 11/24/16 at 23:45; Stop 11/25/16 at 11:44; Status DC Info (PHARMACY MONITORING -- do not chart) 1 each PRN DAILY PRN MC SEE COMMENTS ; Start 11/24/16 at 23:45; Stop 11/26/16 at 07:32; Status DC Acetaminophen/ Hydrocodone Bitart (Lortab 5/325) 1 tab PRN Q4HRS PRN PO PAIN Last administered on 11/26/16 20:53; Start 11/25/16 at 05:15 Insulin Aspart (Novolog) 9 units TIDAC SQ Last administered on 11/27/16 17:04 ; Start 11/25/16 at 05:15 Phytonadione (Mephyton) 5 mg 1X ONCE PO Last administered on 11/25/16 12:15; Start 11/25/16 at 11:00; Stop 11/25/16 at 11:01; Status DC Diphenhydramine HCl 25 mg 25 mg PRN Q6HRS PRN IVP ITCHING Last administered on 11/26/16 15:55; Start 11/25/16 at 18:15 Sodium Chloride (Iv Sodium Chloride 0.9% 1000ml Bag) 1,000 ml @ 1,000 mls/hr Q1H PRN IV hypotension; Start 11/26/16 at 07:26; Stop 11/26/16 at 13:25; Status DC Sodium Chloride (Normal Saline Flush) 10 ml 1X PRN PRN IV AP catheter pack; Start 11/26/16 at 07:30; Stop 11/27/16 at 07:29; Status DC Sodium Chloride 10 ml 10 ml 1X PRN PRN IV [employer] catheter pack; Start 11/26/16 at 07:30; Stop 11/27/16 at 07:29; Status DC Sodium Chloride (Iv Sodium Chloride 0.9% 1000ml Bag) 1,000 ml @ 400 mls/hr Q2H30M PRN IV PATENCY; Start 11/26/16 at 07:26; Stop 11/26/16 at 19:25; Status DC Info (PHARMACY MONITORING -- do not chart) 1 each PRN DAILY PRN MC SEE COMMENTS ; Start 11/26/16 at 07:30 Lidocaine/Sodium Bicarbonate 20 ml 20 ml STK-MED ONCE IJ ; Start 11/26/16 at 14: 06; Stop 11/26/16 at 14:07; Status DC Heparin Sodium/ Sodium Chloride 500 ml @ As Directed STK-MED ONCE .ROUTE ; Start 11/26/16 at 14:06; Stop 11/26/16 at 14:07; Status DC Iodixanol 100 ml 100 ml STK-MED ONCE .ROUTE ; Start 11/26/16 at 14:07; Stop at 14:08; Status DC Heparin Sodium/ Dextrose 500 ml @ 0 mls/hr CONT PRN IV SEE I/O RECORD Last administered on 11/27/16 16:01; Start 11/26/16 at 15:30 Heparin Sodium (Porcine) (Heparin Sodium) 2,900 unit PRN Q6HRS PRN IV FOR UFH LEVEL LESS THAN 0.2 Last administered on 11/27/16 07:21; Start 11/26/16 at 15: 30 Heparin Sodium (Porcine) (Heparin Sodium) 1,450 unit PRN Q6HRS PRN IV FOR UFH LEVEL 0.2 - 0.29; Start 11/26/16 at 15:30 Warfarin Sodium (Coumadin Per Pharmacy) 1 each PRN DAILY PRN MC PER PROTOCOL Last administered on 11/27/16 15:02; Start 11/26/16 at 15:30 Warfarin Sodium (Coumadin) 4 mg 1X WARF ONCE PO ; Start 11/26/16 at 16:00; Stop 11/26/16 at 16:01; Status DC Vitamin B Complex/ Vitamin C (Anahy-Della) 1 tab DAILY PO Last administered on 14:32; Start 11/27/16 at 09:00 Gabapentin (Neurontin) 300 mg HS PO Last administered on 11/26/16 20:52; Start 11/26/16 at 21:00 Insulin Detemir 70 units 70 units DAILY SQ Last administered on 11/27/16 08:41 ; Start 11/27/16 at 09:00 Levofloxacin/ Dextrose (LEVAQUIN 500mg PREMIX) 100 ml @ 100 mls/hr Q48H IV Last administered on 11/26/16 20:52; Start 11/26/16 at 20:00 Alteplase, Recombinant 4 mg 4 mg 1X ONCE INT CAT Last administered on 13:38; Start 11/27/16 at 08:45; Stop 11/27/16 at 08:46; Status DC Magnesium Sulfate/ Dextrose (Magnesium Sulfate PREMIX 2GM) 50 ml @ 25 mls/hr PRN DAILY PRN IV for Mag < 1.7 on am labs; Start 11/27/16 at 10:15 Lidocaine/Sodium Bicarbonate 20 ml 20 ml STK-MED ONCE IJ ; Start 11/27/16 at 11: 14; Stop 11/27/16 at 11:15; Status DC Heparin Sodium/ Sodium Chloride 500 ml @ As Directed STK-MED ONCE .ROUTE ; Start 11/27/16 at 11:14; Stop 11/27/16 at 11:15; Status DC Iodixanol (Visipaque 320) 100 ml STK-MED ONCE .ROUTE ; Start 11/27/16 at 11:14; Stop 11/27/16 at 11:15; Status DC Midazolam HCl (Versed) 5 mg STK-MED ONCE .ROUTE ; Start 11/27/16 at 11:29; Stop 11/27/16 at 11:30; Status DC Fentanyl Citrate (Fentanyl 5ml Vial) 250 mcg STK-MED ONCE .ROUTE ; Start at 11:29; Stop 11/27/16 at 11:30; Status DC Heparin Sodium/ Sodium Chloride 1,000 unit 1X ONCE IART Last administered on 13:39; Start 11/27/16 at 11:45; Stop 11/27/16 at 11:46; Status DC Lidocaine/Sodium Bicarbonate (Buffered Lidocaine 1%) 20 ml 1X ONCE IJ Last administered on 11/27/16 13:40; Start 11/27/16 at 11:45; Stop 11/27/16 at 11:46 ; Status DC Midazolam HCl (Versed) 5 mg 1X ONCE IV Last administered on 11/27/16 13:41; Start 11/27/16 at 11:45; Stop 11/27/16 at 11:46; Status DC Fentanyl Citrate (Fentanyl 5ml Vial) 250 mcg 1X ONCE IV Last administered on 13:41; Start 11/27/16 at 11:45; Stop 11/27/16 at 11:46; Status DC Iodixanol (Visipaque 320) 100 ml 1X ONCE IART Last administered on 11/27/16 13:39; Start 11/27/16 at 11:45; Stop 11/27/16 at 11:46; Status DC Info (Do NOT chart on this entry -- for MONITORING) 1 each PRN DAILY PRN MC SEE COMMENTS; Start 11/27/16 at 11:45; Stop 11/29/16 at 11:44 Heparin Sodium (Porcine) (Heparin Sodium) 5,000 unit 1X ONCE IV Last administered on 11/27/16 13:48; Start 11/27/16 at 13:30; Stop 11/27/16 at 13:31 ; Status DC Info (Anti-Coagulation Monitoring By Pharmacy) 1 each PRN DAILY PRN MC SEE COMMENTS Last administered on 11/27/16 15:19; Start 11/27/16 at 13:30 Warfarin Sodium (Coumadin) 5 mg 1X WARF ONCE PO Last administered on 15:50; Start 11/27/16 at 16:00; Stop 11/27/16 at 16:01; Status DC Insulin Aspart (Novolog) 10 units 1X ONCE SQ Last administered on 11/27/16t 16 :16; Start 11/27/16 at 16:15; Stop 11/27/16 at 16:16; Status DC Active Scripts Active Reported Nitrofurantoin (Nitrofurantoin Macrocrystal) 100 Mg Capsule 1 Cap PO BID Vitamin D2 (Ergocalciferol (Vitamin D2)) 50,000 Unit Capsule 1 Cap PO WEEKLY Gabapentin 300 Mg Capsule 300 Mg PO HS Nephro-Della Tablet (Folic Acid/Vitamin B Comp W-C) 0.8 Mg Tablet 1 Tab PO DAILY Humalog (Insulin Lispro) 100 Unit/1 Ml Vial 20 Unit SQ TIDAC Levothyroxine Sodium 75 Mcg Tablet 75 Mcg PO DAILYAC Levemir (Insulin Detemir) 100 Unit/1 Ml Vial 66 Unit SQ QHS Levemir (Insulin Detemir) 100 Unit/1 Ml Vial 70 Unit SQ DAILY D3-2000 (Cholecalciferol (Vitamin D3)) 2,000 Unit Capsule 2,000 Unit PO DAILY Pantoprazole Sodium 40 Mg Tablet.dr 40 Mg PO BID Warfarin Sodium 2 Mg Tablet 2 Mg PO DAILY Warfarin Sodium 1 Mg Tablet 1 Mg PO DAILY Crestor (Rosuvastatin Calcium) 10 Mg Tablet 10 Mg PO DAILY 30 Days Vitals/I & O Vital Sign - Last 24 Hours 11/26/16 11/26/16 11/26/16 11/26/16 19:00 19:17 20:53 21:59 Temp 98.1 98.1 Pulse 82 Resp 18 18 18 B/P 108/53 Pulse Ox 92 O2 Delivery Room Air Room Air Room Air Room Air 11/26/16 11/27/16 11/27/16 11/27/16 22:30 02:49 07:00 08:00 Temp 98.4 98.3 98.4 98.4 98.3 98.4 Pulse 76 78 78 Resp 20 19 16 B/P 110/50 110/52 121/85 Pulse Ox 97 94 93 O2 Delivery Room Air Room Air Room Air Room Air 11/27/16 11/27/16 11/27/16 11/27/16 11:00 13:31 13:41 14:46 Pulse 80 Resp 18 12 Pulse Ox 100 100 O2 Delivery off unit Nasal Cannula Nasal Cannula Room Air O2 Flow Rate 3.0 3.0 11/27/16 15:00 Temp 97.9 97.9 Pulse 84 Resp 16 B/P 132/47 Pulse Ox 90 O2 Delivery Room Air Intake and Output 11/26/16 11/26/16 11/27/16 15:00 23:00 07:00 Intake Total 480 ml 0 ml Output Total 300 ml Balance 480 ml -300 ml Nutrition Consultation Dietary Evaluation: Recommendations by RD: Dietary education by RD, Increase Calorie Intake, Protein supplementation Comments: [facility] renal BID for increased nutrient needs of ESRD on HD Provided handout on renal diet and left at pt bedside Expected Outcomes/Goals: to meet >75% est nutr needs Malnutrition Findings: Weight Status: Morbidly Obese EDDA MOLINA MD Nov 27, 2016 17:58
[2016-11-27 19:00] VITALS: BP 121/44
[2016-11-27] MEDS: GABAPENTIN 300 MG CAPSULE. PO SCH (20:56)
[2016-11-27] MEDS: ATORVASTATIN CALCIUM 40 MG TABLET. PO SCH (20:56)
--- NOTE | 2016-11-27 22:47 | PDOC ---
PROGRESS NOTES Chief Complaint Chief Complaint cc: gram clot A/P Mechanical Mitral valve THROMBOSED LEFT ARM BB GRAFTs/p thrombolysis ESRD-OP SCHEDULE MWF ANEMIA S/P TEMP HD CATHETER CAD Plan S/P thrombolysis Start heparin gtt per pharmacy INR IN AM HD per nephrology labs reviewed Monitor hemoglobin History of Present Illness History of Present Illness NO BLEEDING NO FEVER Vitals Vitals Vital Signs Date Time Temp Pulse Resp B/P Pulse Ox O2 Delivery O2 Flow Rate FiO2 11/27/16 20:00 Room Air 11/27/16 19:00 97.9 79 18 121/44 93 97.9 11/27/16 13:41 3.0 Physical Exam General: Alert, Oriented X3, Cooperative, Other (obese) Heart: Regular rate, Normal S1, Normal S2, Other Lungs: Clear Abdomen: Normal bowel sounds, Soft, No tenderness Extremities: Other Skin: No breakdown Labs LABS Laboratory Tests Test 11/27/16 04:25 11/27/16 07:56 11/27/16 13:59 11/27/16 20:32 Prothrombin Time 15.3SEC (11.7-14.0) Prothromb Time International Ratio 1.3 (0.8-1.1) Glucose (Fingerstick) 421mg/dL (70-99) 397mg/dL (70-99) 362mg/dL (70-99) Test 11/27/16 21:48 Heparin Anti-Xa Act, Unfractionated 0.69IU/mL (0.30-0.70) Assessment and Plan Assessmemt and Plan Problems Medical Problems: (1) Dialysis AV fistula malfunction Status: Acute Problems: Comment Review of Relevant I have reviewed the following items sofi (where applicable) has been applied. Labs Laboratory Tests Test 11/26/16 04:35 11/26/16 11:27 11/26/16 14:56 11/26/16 17:15 Prothrombin Time 16.8SEC (11.7-14.0) Prothromb Time International Ratio 1.5 (0.8-1.1) Sodium Level 136mmol/L (136-145) Potassium Level 4.4mmol/L (3.5-5.1) Chloride Level 95mmol/L (98-107) Carbon Dioxide Level 25mmol/L (21-32) Anion Gap 16 (6-14) Blood Urea Nitrogen 69mg/dL (7-20) Creatinine 8.9mg/dL (0.6-1.0) Estimated GFR (Cockcroft-Gault) 4.4 Glucose Level 256mg/dL (70-99) Calcium Level 7.7mg/dL (8.5-10.1) Glucose (Fingerstick) 138mg/dL (70-99) 132mg/dL (70-99) 354mg/dL (70-99) Test 11/26/16 20:39 11/26/16 21:58 11/27/16 04:25 11/27/16 07:56 Glucose (Fingerstick) 353mg/dL (70-99) 421mg/dL (70-99) Heparin Anti-Xa Act, Unfractionated < 0.10IU/mL (0.30-0.70) Prothrombin Time 15.3SEC (11.7-14.0) Prothromb Time International Ratio 1.3 (0.8-1.1) Test 11/27/16 13:59 11/27/16 20:32 11/27/16 21:48 Glucose (Fingerstick) 397mg/dL (70-99) 362mg/dL (70-99) Heparin Anti-Xa Act, Unfractionated 0.69IU/mL (0.30-0.70) Laboratory Tests Test 11/27/16 04:25 11/27/16 07:56 11/27/16 13:59 11/27/16 20:32 Prothrombin Time 15.3SEC (11.7-14.0) Prothromb Time International Ratio 1.3 (0.8-1.1) Glucose (Fingerstick) 421mg/dL (70-99) 397mg/dL (70-99) 362mg/dL (70-99) Test 11/27/16 21:48 Heparin Anti-Xa Act, Unfractionated 0.69IU/mL (0.30-0.70) Microbiology 11/24/16 Urine Culture - Final, Complete 11/24/16 Urine Culture Result 1 (ELEAZAR) - Final, Complete Medications Current Medications Ondansetron HCl (Zofran) 4 mg PRN Q8HRS PRN IV NAUSEA/VOMITING; Start 11/23/16 at 21:00; Stop 11/24/16 at 07:25; Status DC Morphine Sulfate 2 mg PRN Q2HR PRN IV PAIN; Start 11/23/16 at 21:00; Stop 11/24 at 20:59; Status DC Acetaminophen (Tylenol) 650 mg PRN Q4HRS PRN PO FEVER Last administered on 11/24 08:46; Start 11/23/16 at 21:00; Stop 11/24/16 at 20:59; Status DC Furosemide (Lasix) 100 mg 1X ONCE IVP Last administered on 11/24/16 01:15; Start 11/23/16 at 23:15; Stop 11/23/16 at 23:17; Status DC Levothyroxine Sodium (Synthroid) 75 mcg DAILY07 PO Last administered on 05:38; Start 11/24/16 at 07:00 Pantoprazole Sodium (Protonix) 40 mg BIDAC PO Last administered on 11/27/16 17 :01; Start 11/24/16 at 07:30 Warfarin Sodium (Coumadin) 1 mg DAILY16 PO ; Start 11/24/16 at 16:00; Stop 11/25 at 09:01; Status DC Warfarin Sodium (Coumadin) 2 mg DAILY16 PO Last administered on 11/24/16 22:38 ; Start 11/24/16 at 16:00; Stop 11/25/16 at 09:01; Status DC Vitamin D (Vitamin D3) 2,000 unit DAILY PO Last administered on 11/27/16 14:33 ; Start 11/24/16 at 09:00 Insulin Detemir (Levemir) 66 units QHS SQ Last administered on 11/27/16 21:00 ; Start 11/24/16 at 21:00 Insulin Aspart (Novolog) 20 units TIDAC SQ Last administered on 11/27/16 17:03 ; Start 11/24/16 at 07:30 Atorvastatin Calcium (Lipitor) 40 mg HS PO Last administered on 11/27/16 20:56 ; Start 11/24/16 at 21:00 Warfarin Sodium (Coumadin Per Physician) 1 each PRN DAILY PRN MC SEE COMMENTS Last administered on 11/24/16 15:33; Start 11/24/16 at 16:00; Stop 11/25/16 at 09:01; Status DC Ondansetron HCl (Zofran) 4 mg PRN Q6HRS PRN IV NAUSEA/VOMITING; Start 11/24/16 at 07:23 Insulin Aspart (Novolog) 0-9 UNITS TIDWMEALS SQ Last administered on 11/27/16 14:38; Start 11/24/16 at 08:00 Dextrose (Dextrose 50%-Water Syringe) 12.5 gm PRN Q15MIN PRN IV SEE COMMENTS; Start 11/24/16 at 07:30 Darbepoetin Surendra (Aranesp) 60 mcg WEEKLYHS SQ Last administered on 11/24/16 22 :39; Start 11/24/16 at 21:00 Heparin Sodium (Porcine) (Heparin Sodium) 10,000 unit STK-MED ONCE .ROUTE ; Start 11/24/16 at 16:58; Stop 11/24/16 at 16:59; Status DC Lidocaine/Sodium Bicarbonate 20 ml 20 ml STK-MED ONCE IJ ; Start 11/24/16 at 16: 58; Stop 11/24/16 at 16:59; Status DC Heparin Sodium/ Sodium Chloride 500 ml @ As Directed STK-MED ONCE .ROUTE ; Start 11/24/16 at 16:58; Stop 11/24/16 at 16:59; Status DC Lidocaine/Sodium Bicarbonate (Buffered Lidocaine 1%) 3 ml 1X ONCE IJ Last administered on 11/24/16 17:44; Start 11/24/16 at 17:15; Stop 11/24/16 at 17:16 ; Status DC Heparin Sodium/ Sodium Chloride 60 unit 1X ONCE IV Last administered on 17:15; Start 11/24/16 at 17:15; Stop 11/24/16 at 17:16; Status DC Heparin Sodium (Porcine) (Heparin Sodium) 2,500 unit 1X ONCE INT CAT Last administered on 11/24/16 17:15; Start 11/24/16 at 17:15; Stop 11/24/16 at 17:16 ; Status DC Sodium Chloride (Normal Saline Flush) 10 ml 1X PRN PRN IV AP catheter pack; Start 11/24/16 at 23:45; Stop 11/25/16 at 23:44; Status DC Sodium Chloride 10 ml 10 ml 1X PRN PRN IV CREW CHIEF catheter pack; Start 11/24/16 at 23:45; Stop 11/25/16 at 23:44; Status DC Sodium Chloride (Iv Sodium Chloride 0.9% 1000ml Bag) 1,000 ml @ 400 mls/hr Q2H30M PRN IV PATENCY; Start 11/24/16 at 23:45; Stop 11/25/16 at 11:44; Status DC Info (PHARMACY MONITORING -- do not chart) 1 each PRN DAILY PRN MC SEE COMMENTS ; Start 11/24/16 at 23:45; Stop 11/26/16 at 07:32; Status DC Acetaminophen/ Hydrocodone Bitart (Lortab 5/325) 1 tab PRN Q4HRS PRN PO PAIN Last administered on 11/26/16 20:53; Start 11/25/16 at 05:15 Insulin Aspart (Novolog) 9 units TIDAC SQ Last administered on 11/27/16 17:04 ; Start 11/25/16 at 05:15 Phytonadione (Mephyton) 5 mg 1X ONCE PO Last administered on 11/25/16 12:15; Start 11/25/16 at 11:00; Stop 11/25/16 at 11:01; Status DC Diphenhydramine HCl 25 mg 25 mg PRN Q6HRS PRN IVP ITCHING Last administered on 11/26/16 15:55; Start 11/25/16 at 18:15 Sodium Chloride (Iv Sodium Chloride 0.9% 1000ml Bag) 1,000 ml @ 1,000 mls/hr Q1H PRN IV hypotension; Start 11/26/16 at 07:26; Stop 11/26/16 at 13:25; Status DC Sodium Chloride (Normal Saline Flush) 10 ml 1X PRN PRN IV AP catheter pack; Start 11/26/16 at 07:30; Stop 11/27/16 at 07:29; Status DC Sodium Chloride 10 ml 10 ml 1X PRN PRN IV CREW CHIEF catheter pack; Start 11/26/16 at 07:30; Stop 11/27/16 at 07:29; Status DC Sodium Chloride (Iv Sodium Chloride 0.9% 1000ml Bag) 1,000 ml @ 400 mls/hr Q2H30M PRN IV PATENCY; Start 11/26/16 at 07:26; Stop 11/26/16 at 19:25; Status DC Info (PHARMACY MONITORING -- do not chart) 1 each PRN DAILY PRN MC SEE COMMENTS ; Start 11/26/16 at 07:30 Lidocaine/Sodium Bicarbonate 20 ml 20 ml STK-MED ONCE IJ ; Start 11/26/16 at 14: 06; Stop 11/26/16 at 14:07; Status DC Heparin Sodium/ Sodium Chloride 500 ml @ As Directed STK-MED ONCE .ROUTE ; Start 11/26/16 at 14:06; Stop 11/26/16 at 14:07; Status DC Iodixanol 100 ml 100 ml STK-MED ONCE .ROUTE ; Start 11/26/16 at 14:07; Stop at 14:08; Status DC Heparin Sodium/ Dextrose 500 ml @ 0 mls/hr CONT PRN IV SEE I/O RECORD Last administered on 11/27/16 16:01; Start 11/26/16 at 15:30 Heparin Sodium (Porcine) (Heparin Sodium) 2,900 unit PRN Q6HRS PRN IV FOR UFH LEVEL LESS THAN 0.2 Last administered on 11/27/16 07:21; Start 11/26/16 at 15: 30 Heparin Sodium (Porcine) (Heparin Sodium) 1,450 unit PRN Q6HRS PRN IV FOR UFH LEVEL 0.2 - 0.29; Start 11/26/16 at 15:30 Warfarin Sodium (Coumadin Per Pharmacy) 1 each PRN DAILY PRN MC PER PROTOCOL Last administered on 11/27/16 15:02; Start 11/26/16 at 15:30 Warfarin Sodium (Coumadin) 4 mg 1X WARF ONCE PO ; Start 11/26/16 at 16:00; Stop 11/26/16 at 16:01; Status DC Vitamin B Complex/ Vitamin C (Anahy-Della) 1 tab DAILY PO Last administered on 14:32; Start 11/27/16 at 09:00 Gabapentin (Neurontin) 300 mg HS PO Last administered on 11/27/16 20:56; Start 11/26/16 at 21:00 Insulin Detemir 70 units 70 units DAILY SQ Last administered on 11/27/16 08:41 ; Start 11/27/16 at 09:00 Levofloxacin/ Dextrose (LEVAQUIN 500mg PREMIX) 100 ml @ 100 mls/hr Q48H IV Last administered on 11/26/16 20:52; Start 11/26/16 at 20:00 Alteplase, Recombinant 4 mg 4 mg 1X ONCE INT CAT Last administered on 13:38; Start 11/27/16 at 08:45; Stop 11/27/16 at 08:46; Status DC Magnesium Sulfate/ Dextrose (Magnesium Sulfate PREMIX 2GM) 50 ml @ 25 mls/hr PRN DAILY PRN IV for Mag < 1.7 on am labs; Start 11/27/16 at 10:15 Lidocaine/Sodium Bicarbonate 20 ml 20 ml STK-MED ONCE IJ ; Start 11/27/16 at 11: 14; Stop 11/27/16 at 11:15; Status DC Heparin Sodium/ Sodium Chloride 500 ml @ As Directed STK-MED ONCE .ROUTE ; Start 11/27/16 at 11:14; Stop 11/27/16 at 11:15; Status DC Iodixanol (Visipaque 320) 100 ml STK-MED ONCE .ROUTE ; Start 11/27/16 at 11:14; Stop 11/27/16 at 11:15; Status DC Midazolam HCl (Versed) 5 mg STK-MED ONCE .ROUTE ; Start 11/27/16 at 11:29; Stop 11/27/16 at 11:30; Status DC Fentanyl Citrate (Fentanyl 5ml Vial) 250 mcg STK-MED ONCE .ROUTE ; Start at 11:29; Stop 11/27/16 at 11:30; Status DC Heparin Sodium/ Sodium Chloride 1,000 unit 1X ONCE IART Last administered on 13:39; Start 11/27/16 at 11:45; Stop 11/27/16 at 11:46; Status DC Lidocaine/Sodium Bicarbonate (Buffered Lidocaine 1%) 20 ml 1X ONCE IJ Last administered on 11/27/16 13:40; Start 11/27/16 at 11:45; Stop 11/27/16 at 11:46 ; Status DC Midazolam HCl (Versed) 5 mg 1X ONCE IV Last administered on 11/27/16 13:41; Start 11/27/16 at 11:45; Stop 11/27/16 at 11:46; Status DC Fentanyl Citrate (Fentanyl 5ml Vial) 250 mcg 1X ONCE IV Last administered on 13:41; Start 11/27/16 at 11:45; Stop 11/27/16 at 11:46; Status DC Iodixanol (Visipaque 320) 100 ml 1X ONCE IART Last administered on 11/27/16 13:39; Start 11/27/16 at 11:45; Stop 11/27/16 at 11:46; Status DC Info (Do NOT chart on this entry -- for MONITORING) 1 each PRN DAILY PRN MC SEE COMMENTS; Start 11/27/16 at 11:45; Stop 11/29/16 at 11:44 Heparin Sodium (Porcine) (Heparin Sodium) 5,000 unit 1X ONCE IV Last administered on 11/27/16 13:48; Start 11/27/16 at 13:30; Stop 11/27/16 at 13:31 ; Status DC Info (Anti-Coagulation Monitoring By Pharmacy) 1 each PRN DAILY PRN MC SEE COMMENTS Last administered on 11/27/16 15:19; Start 11/27/16 at 13:30 Warfarin Sodium (Coumadin) 5 mg 1X WARF ONCE PO Last administered on 15:50; Start 11/27/16 at 16:00; Stop 11/27/16 at 16:01; Status DC Insulin Aspart (Novolog) 10 units 1X ONCE SQ Last administered on 11/27/16 16 :16; Start 11/27/16 at 16:15; Stop 11/27/16 at 16:16; Status DC Active Scripts Active Reported Nitrofurantoin (Nitrofurantoin Macrocrystal) 100 Mg Capsule 1 Cap PO BID Vitamin D2 (Ergocalciferol (Vitamin D2)) 50,000 Unit Capsule 1 Cap PO WEEKLY Gabapentin 300 Mg Capsule 300 Mg PO HS Nephro-Della Tablet (Folic Acid/Vitamin B Comp W-C) 0.8 Mg Tablet 1 Tab PO DAILY Humalog (Insulin Lispro) 100 Unit/1 Ml Vial 20 Unit SQ TIDAC Levothyroxine Sodium 75 Mcg Tablet 75 Mcg PO DAILYAC Levemir (Insulin Detemir) 100 Unit/1 Ml Vial 66 Unit SQ QHS Levemir (Insulin Detemir) 100 Unit/1 Ml Vial 70 Unit SQ DAILY D3-2000 (Cholecalciferol (Vitamin D3)) 2,000 Unit Capsule 2,000 Unit PO DAILY Pantoprazole Sodium 40 Mg Tablet.dr 40 Mg PO BID Warfarin Sodium 2 Mg Tablet 2 Mg PO DAILY Warfarin Sodium 1 Mg Tablet 1 Mg PO DAILY Crestor (Rosuvastatin Calcium) 10 Mg Tablet 10 Mg PO DAILY 30 Days Vitals/I & O Vital Sign - Last 24 Hours 11/27/16 11/27/16 11/27/16 11/27/16 02:49 07:00 08:00 11:00 Temp 98.3 98.4 98.3 98.4 Pulse 78 78 Resp 19 16 B/P 110/52 121/85 Pulse Ox 94 93 O2 Delivery Room Air Room Air Room Air off unit 11/27/16 11/27/16 11/27/16 11/27/16 13:31 13:41 14:46 15:00 Temp 97.9 97.9 Pulse 80 84 Resp 18 12 16 B/P 132/47 Pulse Ox 100 100 90 O2 Delivery Nasal Cannula Nasal Cannula Room Air Room Air O2 Flow Rate 3.0 3.0 11/27/16 11/27/16 19:00 20:00 Temp 97.9 97.9 Pulse 79 Resp 18 B/P 121/44 Pulse Ox 93 O2 Delivery Room Air Room Air Intake and Output 11/26/16 11/26/16 11/27/16 15:00 23:00 07:00 Intake Total 480 ml 0 ml Output Total 300 ml Balance 480 ml -300 ml Nutrition Consultation Dietary Evaluation: Recommendations by RD: Dietary education by RD, Increase Calorie Intake, Protein supplementation Comments: [facility] renal BID for increased nutrient needs of ESRD on HD Provided handout on renal diet and left at pt bedside Expected Outcomes/Goals: to meet >75% est nutr needs Malnutrition Findings: Weight Status: Morbidly Obese AJ LOPEZ MD Nov 27, 2016 22:46
[2016-11-27 22:48] VITALS: BP 98/53
[2016-11-28 03:07] VITALS: BP 114/44
[2016-11-28 04:33] LABS: HEMATOCRIT 28.4 % (36.0-47.0); HEMOGLOBIN 9.8 g/dL (12.0-15.5); RED BLOOD COUNT 2.84 x10^6/uL (3.50-5.40); RED CELL DISTRIBUTION WIDTH 13.3 % (11.5-14.5); WHITE BLOOD COUNT 8.1 x10^3/uL (4.0-11.0)
[2016-11-28 04:53] LABS: INR 1.3 (0.8-1.1); PROTHROMBIN TIME PATIENT 15.6 SEC (11.7-14.0)
[2016-11-28] MEDS: LEVOTHYROXINE 75 MCG TABLET PO SCH (05:28)
[2016-11-28 05:32] LABS: ALBUMIN 3.2 g/dL (3.4-5.0); CALCIUM 7.8 mg/dL (8.5-10.1); CREATININE 9.4 mg/dL (0.6-1.0); GFR 4.2; PHOSPHORUS 7.7 mg/dL (2.6-4.7)
[2016-11-28 05:33] LABS: POTASSIUM 5.2 mmol/L (3.5-5.1)
[2016-11-28 07:00] VITALS: BP 100/58
[2016-11-28] MEDS: PANTOPRAZOLE 40 MG TABLET.DR. PO SCH ×2 (07:30→17:50)
[2016-11-28] MEDS: INSULIN ASPART 300 UNITS/3 ML INSULN.PEN SQ SCH ×7 (08:00→17:57)
[2016-11-28] MEDS ORDERED: IV NORMAL SALINE 1000ML BAG 1,000 ML IV PRN ×2 (08:45)
[2016-11-28] MEDS ORDERED: ACETAMINOPHEN 500 MG TABLET PO PRN (08:45)
[2016-11-28] MEDS ORDERED: diphenhydrAMINE 50 MG/ML VIAL IV PRN ×2 (08:45)
[2016-11-28] MEDS ORDERED: cloNIDine HCL 0.1 MG TABLET PO PRN (08:45)
[2016-11-28] MEDS ORDERED: LABETALOL 20 MG/4 ML DISP.SYRIN. IVP PRN (08:45)
[2016-11-28] MEDS ORDERED: DIALYSIS PATIENT. MC PRN (08:45)
[2016-11-28] MEDS ORDERED: ALBUMIN HUMAN 25% 200 ML IV PRN (08:45)
[2016-11-28] MEDS: FOLIC/VIT B COMP W-C (RENAL) TABLET. PO SCH (09:00)
[2016-11-28] MEDS: CHOLECALCIFEROL (VITAMIN D3) 1,000 UNIT TABLET PO SCH (09:00)
[2016-11-28] MEDS ORDERED: LIDOCAINE 1% PF 2 ML VIAL. ONE (09:00)
[2016-11-28] MEDS: INSULIN DETEMIR 300 UNITS/3 ML INSULN.PEN. SQ SCH ×2 (09:19→20:45)
--- NOTE | 2016-11-28 09:34 | PDOC ---
Dialysis Progress Note Dialysis Note Dialysis Note Seen on Hemodialysis, tolerating treatment Well Vitals on Hemodialysis: 144/60 77 afeb General Appearance: Awake: Alert Oriented x 3 Neck: No JVD or JVP Chest: CTA Tino Heart: S1 S2 Abdomen - Soft NTND Extremities - No Edema ESRD: Dialysis as below F 180 NR 3.5 Hrs 2 K 2.5 Ca 140 Na 35 HC03 Qb 350 + Qd 500+ Heparin on gtt Uf 4 Kgs or to dry weight as tolerated May give 25-50 gms of 25% Albumin if needed to maintain Hemodynamic stability Treatment plan reviewed and discussed with utility agent Vitals Vital Signs Vital Signs Date Time Temp Pulse Resp B/P Pulse Ox O2 Delivery O2 Flow Rate FiO2 11/28/16 03:07 97.4 79 17 114/44 96 Room Air 97.4 11/27/16 13:41 3.0 Labs Last Labs Laboratory Tests Test 11/26/16 11:27 11/26/16 14:56 11/26/16 17:15 11/26/16 20:39 Glucose (Fingerstick) 138mg/dL (70-99) 132mg/dL (70-99) 354mg/dL (70-99) 353mg/dL (70-99) Test 11/26/16 21:58 11/27/16 04:25 11/27/16 07:56 11/27/16 13:59 Heparin Anti-Xa Act, Unfractionated < 0.10IU/mL (0.30-0.70) Prothrombin Time 15.3SEC (11.7-14.0) Prothromb Time International Ratio 1.3 (0.8-1.1) Glucose (Fingerstick) 421mg/dL (70-99) 397mg/dL (70-99) Test 11/27/16 15:59 11/27/16 20:32 11/27/16 21:48 11/28/16 03:40 Glucose (Fingerstick) 395mg/dL (70-99) 362mg/dL (70-99) Heparin Anti-Xa Act, Unfractionated 0.69IU/mL (0.30-0.70) 0.99IU/mL (0.30-0.70) White Blood Count 8.1x10^3/uL (4.0-11.0) Red Blood Count 2.84x10^6/uL (3.50-5.40) Hemoglobin 9.8g/dL (12.0-15.5) Hematocrit 28.4% (36.0-47.0) Mean Corpuscular Volume 100fL (79-100) Mean Corpuscular Hemoglobin 34pg (25-35) Mean Corpuscular Hemoglobin Concent 34g/dL (31-37) Red Cell Distribution Width 13.3% (11.5-14.5) Platelet Count 171x10^3/uL (140-400) Prothrombin Time 15.6SEC (11.7-14.0) Prothromb Time International Ratio 1.3 (0.8-1.1) Sodium Level 130mmol/L (136-145) Potassium Level 5.2mmol/L (3.5-5.1) Chloride Level 88mmol/L (98-107) Carbon Dioxide Level 25mmol/L (21-32) Anion Gap 17 (6-14) Blood Urea Nitrogen 74mg/dL (7-20) Creatinine 9.4mg/dL (0.6-1.0) Estimated GFR (Cockcroft-Gault) 4.2 Glucose Level 391mg/dL (70-99) Calcium Level 7.8mg/dL (8.5-10.1) Phosphorus Level 7.7mg/dL (2.6-4.7) Magnesium Level 1.8mg/dL (1.8-2.4) Albumin 3.2g/dL (3.4-5.0) Test 11/28/16 07:42 Glucose (Fingerstick) 467mg/dL (70-99) Laboratory Tests Test 11/27/16 13:59 11/27/16 15:59 11/27/16 20:32 11/27/16 21:48 Glucose (Fingerstick) 397mg/dL (70-99) 395mg/dL (70-99) 362mg/dL (70-99) Heparin Anti-Xa Act, Unfractionated 0.69IU/mL (0.30-0.70) Test 11/28/16 03:40 11/28/16 07:42 White Blood Count 8.1x10^3/uL (4.0-11.0) Red Blood Count 2.84x10^6/uL (3.50-5.40) Hemoglobin 9.8g/dL (12.0-15.5) Hematocrit 28.4% (36.0-47.0) Mean Corpuscular Volume 100fL (79-100) Mean Corpuscular Hemoglobin 34pg (25-35) Mean Corpuscular Hemoglobin Concent 34g/dL (31-37) Red Cell Distribution Width 13.3% (11.5-14.5) Platelet Count 171x10^3/uL (140-400) Prothrombin Time 15.6SEC (11.7-14.0) Prothromb Time International Ratio 1.3 (0.8-1.1) Heparin Anti-Xa Act, Unfractionated 0.99IU/mL (0.30-0.70) Sodium Level 130mmol/L (136-145) Potassium Level 5.2mmol/L (3.5-5.1) Chloride Level 88mmol/L (98-107) Carbon Dioxide Level 25mmol/L (21-32) Anion Gap 17 (6-14) Blood Urea Nitrogen 74mg/dL (7-20) Creatinine 9.4mg/dL (0.6-1.0) Estimated GFR (Cockcroft-Gault) 4.2 Glucose Level 391mg/dL (70-99) Calcium Level 7.8mg/dL (8.5-10.1) Phosphorus Level 7.7mg/dL (2.6-4.7) Magnesium Level 1.8mg/dL (1.8-2.4) Albumin 3.2g/dL (3.4-5.0) Glucose (Fingerstick) 467mg/dL (70-99) Assessment Assessment Problems Medical Problems: (1) Dialysis AV fistula malfunction Status: Acute Problems: Plan Plan of Care Problems Medical Problems: (1) Dialysis AV fistula malfunction Status: Acute NATHALY BENTLEY MD Nov 28, 2016 09:34
[2016-11-28] MEDS ORDERED: LIDOCAINE 1% PF 2 ML VIAL. INJ ONE (10:15)
[2016-11-28] MEDS: HEPARIN 25,000UTS/500ML PREMIX 500 ML IV PRN (14:04)
[2016-11-28] MEDS: ANTI-COAG MONITOR BY PHARMACY. MC PRN (14:40)
[2016-11-28 15:00] VITALS: BP 110/51
--- NOTE | 2016-11-28 15:51 | PDOC ---
PROGRESS NOTES Chief Complaint Chief Complaint cc: gram clot A/P Mechanical Mitral valve THROMBOSED LEFT ARM BB GRAFTs/p thrombolysis ESRD-OP SCHEDULE MWF ANEMIA S/P TEMP HD CATHETER CAD Plan S/P thrombolysis INR not therapeutic, bridge with heparin, warfarin per pharmacy, INR goal 2.5- 3.5 INR IN AM HD per nephrology labs reviewed Monitor hemoglobin History of Present Illness History of Present Illness NO BLEEDING NO FEVER Vitals Vitals Vital Signs Date Time Temp Pulse Resp B/P Pulse Ox O2 Delivery O2 Flow Rate FiO2 11/28/16 07:00 97.8 72 18 100/58 97 Room Air 97.8 11/27/16 13:41 3.0 Physical Exam General: Alert, Oriented X3, Cooperative, Other (obese) Heart: Regular rate, Normal S1, Normal S2, Other Lungs: Clear Abdomen: Normal bowel sounds, Soft, No tenderness Extremities: Other Skin: No breakdown Labs LABS Laboratory Tests Test 11/27/16 15:59 11/27/16 20:32 11/27/16 21:48 11/28/16 03:40 Glucose (Fingerstick) 395mg/dL (70-99) 362mg/dL (70-99) Heparin Anti-Xa Act, Unfractionated 0.69IU/mL (0.30-0.70) 0.99IU/mL (0.30-0.70) White Blood Count 8.1x10^3/uL (4.0-11.0) Red Blood Count 2.84x10^6/uL (3.50-5.40) Hemoglobin 9.8g/dL (12.0-15.5) Hematocrit 28.4% (36.0-47.0) Mean Corpuscular Volume 100fL (79-100) Mean Corpuscular Hemoglobin 34pg (25-35) Mean Corpuscular Hemoglobin Concent 34g/dL (31-37) Red Cell Distribution Width 13.3% (11.5-14.5) Platelet Count 171x10^3/uL (140-400) Prothrombin Time 15.6SEC (11.7-14.0) Prothromb Time International Ratio 1.3 (0.8-1.1) Sodium Level 130mmol/L (136-145) Potassium Level 5.2mmol/L (3.5-5.1) Chloride Level 88mmol/L (98-107) Carbon Dioxide Level 25mmol/L (21-32) Anion Gap 17 (6-14) Blood Urea Nitrogen 74mg/dL (7-20) Creatinine 9.4mg/dL (0.6-1.0) Estimated GFR (Cockcroft-Gault) 4.2 Glucose Level 391mg/dL (70-99) Calcium Level 7.8mg/dL (8.5-10.1) Phosphorus Level 7.7mg/dL (2.6-4.7) Magnesium Level 1.8mg/dL (1.8-2.4) Albumin 3.2g/dL (3.4-5.0) Test 11/28/16 07:42 11/28/16 13:30 11/28/16 15:10 Glucose (Fingerstick) 467mg/dL (70-99) 154mg/dL (70-99) Heparin Anti-Xa Act, Unfractionated 0.57IU/mL (0.30-0.70) Assessment and Plan Assessmemt and Plan Problems Medical Problems: (1) Dialysis AV fistula malfunction Status: Acute Problems: Comment Review of Relevant I have reviewed the following items sofi (where applicable) has been applied. Labs Laboratory Tests Test 11/26/16 17:15 11/26/16 20:39 11/26/16 21:58 11/27/16 04:25 Glucose (Fingerstick) 354mg/dL (70-99) 353mg/dL (70-99) Heparin Anti-Xa Act, Unfractionated < 0.10IU/mL (0.30-0.70) Prothrombin Time 15.3SEC (11.7-14.0) Prothromb Time International Ratio 1.3 (0.8-1.1) Test 11/27/16 07:56 11/27/16 13:59 11/27/16 15:59 11/27/16 20:32 Glucose (Fingerstick) 421mg/dL (70-99) 397mg/dL (70-99) 395mg/dL (70-99) 362mg/dL (70-99) Test 11/27/16 21:48 11/28/16 03:40 11/28/16 07:42 11/28/16 13:30 Heparin Anti-Xa Act, Unfractionated 0.69IU/mL (0.30-0.70) 0.99IU/mL (0.30-0.70) White Blood Count 8.1x10^3/uL (4.0-11.0) Red Blood Count 2.84x10^6/uL (3.50-5.40) Hemoglobin 9.8g/dL (12.0-15.5) Hematocrit 28.4% (36.0-47.0) Mean Corpuscular Volume 100fL (79-100) Mean Corpuscular Hemoglobin 34pg (25-35) Mean Corpuscular Hemoglobin Concent 34g/dL (31-37) Red Cell Distribution Width 13.3% (11.5-14.5) Platelet Count 171x10^3/uL (140-400) Prothrombin Time 15.6SEC (11.7-14.0) Prothromb Time International Ratio 1.3 (0.8-1.1) Sodium Level 130mmol/L (136-145) Potassium Level 5.2mmol/L (3.5-5.1) Chloride Level 88mmol/L (98-107) Carbon Dioxide Level 25mmol/L (21-32) Anion Gap 17 (6-14) Blood Urea Nitrogen 74mg/dL (7-20) Creatinine 9.4mg/dL (0.6-1.0) Estimated GFR (Cockcroft-Gault) 4.2 Glucose Level 391mg/dL (70-99) Calcium Level 7.8mg/dL (8.5-10.1) Phosphorus Level 7.7mg/dL (2.6-4.7) Magnesium Level 1.8mg/dL (1.8-2.4) Albumin 3.2g/dL (3.4-5.0) Glucose (Fingerstick) 467mg/dL (70-99) 154mg/dL (70-99) Test 11/28/16 15:10 Heparin Anti-Xa Act, Unfractionated 0.57IU/mL (0.30-0.70) Laboratory Tests Test 11/27/16 15:59 11/27/16 20:32 11/27/16 21:48 11/28/16 03:40 Glucose (Fingerstick) 395mg/dL (70-99) 362mg/dL (70-99) Heparin Anti-Xa Act, Unfractionated 0.69IU/mL (0.30-0.70) 0.99IU/mL (0.30-0.70) White Blood Count 8.1x10^3/uL (4.0-11.0) Red Blood Count 2.84x10^6/uL (3.50-5.40) Hemoglobin 9.8g/dL (12.0-15.5) Hematocrit 28.4% (36.0-47.0) Mean Corpuscular Volume 100fL (79-100) Mean Corpuscular Hemoglobin 34pg (25-35) Mean Corpuscular Hemoglobin Concent 34g/dL (31-37) Red Cell Distribution Width 13.3% (11.5-14.5) Platelet Count 171x10^3/uL (140-400) Prothrombin Time 15.6SEC (11.7-14.0) Prothromb Time International Ratio 1.3 (0.8-1.1) Sodium Level 130mmol/L (136-145) Potassium Level 5.2mmol/L (3.5-5.1) Chloride Level 88mmol/L (98-107) Carbon Dioxide Level 25mmol/L (21-32) Anion Gap 17 (6-14) Blood Urea Nitrogen 74mg/dL (7-20) Creatinine 9.4mg/dL (0.6-1.0) Estimated GFR (Cockcroft-Gault) 4.2 Glucose Level 391mg/dL (70-99) Calcium Level 7.8mg/dL (8.5-10.1) Phosphorus Level 7.7mg/dL (2.6-4.7) Magnesium Level 1.8mg/dL (1.8-2.4) Albumin 3.2g/dL (3.4-5.0) Test 11/28/16 07:42 11/28/16 13:30 11/28/16 15:10 Glucose (Fingerstick) 467mg/dL (70-99) 154mg/dL (70-99) Heparin Anti-Xa Act, Unfractionated 0.57IU/mL (0.30-0.70) Microbiology 11/24/16 Urine Culture - Final, Complete 11/24/16 Urine Culture Result 1 (ELEAZAR) - Final, Complete Medications Current Medications Ondansetron HCl (Zofran) 4 mg PRN Q8HRS PRN IV NAUSEA/VOMITING; Start 11/23/16 at 21:00; Stop 11/24/16 at 07:25; Status DC Morphine Sulfate 2 mg PRN Q2HR PRN IV PAIN; Start 11/23/16 at 21:00; Stop 11/24 at 20:59; Status DC Acetaminophen (Tylenol) 650 mg PRN Q4HRS PRN PO FEVER Last administered on 11/24 08:46; Start 11/23/16 at 21:00; Stop 11/24/16 at 20:59; Status DC Furosemide (Lasix) 100 mg 1X ONCE IVP Last administered on 11/24/16 01:15; Start 11/23/16 at 23:15; Stop 11/23/16 at 23:17; Status DC Levothyroxine Sodium (Synthroid) 75 mcg DAILY07 PO Last administered on 05:28; Start 11/24/16 at 07:00 Pantoprazole Sodium (Protonix) 40 mg BIDAC PO Last administered on 11/27/16 17 :01; Start 11/24/16 at 07:30 Warfarin Sodium (Coumadin) 1 mg DAILY16 PO ; Start 11/24/16 at 16:00; Stop 11/25 at 09:01; Status DC Warfarin Sodium (Coumadin) 2 mg DAILY16 PO Last administered on 11/24/16 22:38 ; Start 11/24/16 at 16:00; Stop 11/25/16 at 09:01; Status DC Vitamin D (Vitamin D3) 2,000 unit DAILY PO Last administered on 11/27/16 14:33 ; Start 11/24/16 at 09:00 Insulin Detemir (Levemir) 66 units QHS SQ Last administered on 11/27/16 21:00 ; Start 11/24/16 at 21:00 Insulin Aspart (Novolog) 20 units TIDAC SQ Last administered on 11/28/16 09:17 ; Start 11/24/16 at 07:30 Atorvastatin Calcium (Lipitor) 40 mg HS PO Last administered on 11/27/16 20:56 ; Start 11/24/16 at 21:00 Warfarin Sodium (Coumadin Per Physician) 1 each PRN DAILY PRN MC SEE COMMENTS Last administered on 11/24/16 15:33; Start 11/24/16 at 16:00; Stop 11/25/16 at 09:01; Status DC Ondansetron HCl (Zofran) 4 mg PRN Q6HRS PRN IV NAUSEA/VOMITING; Start 11/24/16 at 07:23 Insulin Aspart (Novolog) 0-9 UNITS TIDWMEALS SQ Last administered on 11/27/16 14:38; Start 11/24/16 at 08:00 Dextrose (Dextrose 50%-Water Syringe) 12.5 gm PRN Q15MIN PRN IV SEE COMMENTS; Start 11/24/16 at 07:30 Darbepoetin Surendra (Aranesp) 60 mcg WEEKLYHS SQ Last administered on 11/24/16 22 :39; Start 11/24/16 at 21:00 Heparin Sodium (Porcine) (Heparin Sodium) 10,000 unit STK-MED ONCE .ROUTE ; Start 11/24/16 at 16:58; Stop 11/24/16 at 16:59; Status DC Lidocaine/Sodium Bicarbonate 20 ml 20 ml STK-MED ONCE IJ ; Start 11/24/16 at 16: 58; Stop 11/24/16 at 16:59; Status DC Heparin Sodium/ Sodium Chloride 500 ml @ As Directed STK-MED ONCE .ROUTE ; Start 11/24/16 at 16:58; Stop 11/24/16 at 16:59; Status DC Lidocaine/Sodium Bicarbonate (Buffered Lidocaine 1%) 3 ml 1X ONCE IJ Last administered on 11/24/16 17:44; Start 11/24/16 at 17:15; Stop 11/24/16 at 17:16 ; Status DC Heparin Sodium/ Sodium Chloride 60 unit 1X ONCE IV Last administered on 17:15; Start 11/24/16 at 17:15; Stop 11/24/16 at 17:16; Status DC Heparin Sodium (Porcine) (Heparin Sodium) 2,500 unit 1X ONCE INT CAT Last administered on 11/24/16 17:15; Start 11/24/16 at 17:15; Stop 11/24/16 at 17:16 ; Status DC Sodium Chloride (Normal Saline Flush) 10 ml 1X PRN PRN IV AP catheter pack; Start 11/24/16 at 23:45; Stop 11/25/16 at 23:44; Status DC Sodium Chloride 10 ml 10 ml 1X PRN PRN IV [employer]ENDENT catheter pack; Start 11/24/16 at 23:45; Stop 11/25/16 at 23:44; Status DC Sodium Chloride (Iv Sodium Chloride 0.9% 1000ml Bag) 1,000 ml @ 400 mls/hr Q2H30M PRN IV PATENCY; Start 11/24/16 at 23:45; Stop 11/25/16 at 11:44; Status DC Info (PHARMACY MONITORING -- do not chart) 1 each PRN DAILY PRN MC SEE COMMENTS ; Start 11/24/16 at 23:45; Stop 11/26/16 at 07:32; Status DC Acetaminophen/ Hydrocodone Bitart (Lortab 5/325) 1 tab PRN Q4HRS PRN PO PAIN Last administered on 11/26/16 20:53; Start 11/25/16 at 05:15 Insulin Aspart (Novolog) 9 units TIDAC SQ Last administered on 11/28/16 09:18 ; Start 11/25/16 at 05:15; Stop 11/28/16 at 14:10; Status DC Phytonadione (Mephyton) 5 mg 1X ONCE PO Last administered on 11/25/16 12:15; Start 11/25/16 at 11:00; Stop 11/25/16 at 11:01; Status DC Diphenhydramine HCl 25 mg 25 mg PRN Q6HRS PRN IVP ITCHING Last administered on 11/26/16 15:55; Start 11/25/16 at 18:15 Sodium Chloride (Iv Sodium Chloride 0.9% 1000ml Bag) 1,000 ml @ 1,000 mls/hr Q1H PRN IV hypotension; Start 11/26/16 at 07:26; Stop 11/26/16 at 13:25; Status DC Sodium Chloride (Normal Saline Flush) 10 ml 1X PRN PRN IV AP catheter pack; Start 11/26/16 at 07:30; Stop 11/27/16 at 07:29; Status DC Sodium Chloride 10 ml 10 ml 1X PRN PRN IV S[employer] SU[employer]ENDENT catheter pack; Start 11/26/16 at 07:30; Stop 11/27/16 at 07:29; Status DC Sodium Chloride (Iv Sodium Chloride 0.9% 1000ml Bag) 1,000 ml @ 400 mls/hr Q2H30M PRN IV PATENCY; Start 11/26/16 at 07:26; Stop 11/26/16 at 19:25; Status DC Info (PHARMACY MONITORING -- do not chart) 1 each PRN DAILY PRN MC SEE COMMENTS ; Start 11/26/16 at 07:30; Status Cancel Lidocaine/Sodium Bicarbonate 20 ml 20 ml STK-MED ONCE IJ ; Start 11/26/16 at 14: 06; Stop 11/26/16 at 14:07; Status DC Heparin Sodium/ Sodium Chloride 500 ml @ As Directed STK-MED ONCE .ROUTE ; Start 11/26/16 at 14:06; Stop 11/26/16 at 14:07; Status DC Iodixanol 100 ml 100 ml STK-MED ONCE .ROUTE ; Start 11/26/16 at 14:07; Stop at 14:08; Status DC Heparin Sodium/ Dextrose 500 ml @ 0 mls/hr CONT PRN IV SEE I/O RECORD Last administered on 11/28/16 14:04; Start 11/26/16 at 15:30 Heparin Sodium (Porcine) (Heparin Sodium) 2,900 unit PRN Q6HRS PRN IV FOR UFH LEVEL LESS THAN 0.2 Last administered on 11/27/16 07:21; Start 11/26/16 at 15: 30 Heparin Sodium (Porcine) (Heparin Sodium) 1,450 unit PRN Q6HRS PRN IV FOR UFH LEVEL 0.2 - 0.29; Start 11/26/16 at 15:30 Warfarin Sodium (Coumadin Per Pharmacy) 1 each PRN DAILY PRN MC PER PROTOCOL Last administered on 11/28/16 14:37; Start 11/26/16 at 15:30 Warfarin Sodium (Coumadin) 4 mg 1X WARF ONCE PO ; Start 11/26/16 at 16:00; Stop 11/26/16 at 16:01; Status DC Vitamin B Complex/ Vitamin C (Anahy-Della) 1 tab DAILY PO Last administered on 14:32; Start 11/27/16 at 09:00 Gabapentin (Neurontin) 300 mg HS PO Last administered on 11/27/16 20:56; Start 11/26/16 at 21:00 Insulin Detemir 70 units 70 units DAILY SQ Last administered on 11/28/16 09:19 ; Start 11/27/16 at 09:00 Levofloxacin/ Dextrose (LEVAQUIN 500mg PREMIX) 100 ml @ 100 mls/hr Q48H IV Last administered on 11/26/16 20:52; Start 11/26/16 at 20:00; Stop 11/27/16 at 22:48; Status DC Alteplase, Recombinant 4 mg 4 mg 1X ONCE INT CAT Last administered on 13:38; Start 11/27/16 at 08:45; Stop 11/27/16 at 08:46; Status DC Magnesium Sulfate/ Dextrose (Magnesium Sulfate PREMIX 2GM) 50 ml @ 25 mls/hr PRN DAILY PRN IV for Mag < 1.7 on am labs; Start 11/27/16 at 10:15 Lidocaine/Sodium Bicarbonate 20 ml 20 ml STK-MED ONCE IJ ; Start 11/27/16 at 11: 14; Stop 11/27/16 at 11:15; Status DC Heparin Sodium/ Sodium Chloride 500 ml @ As Directed STK-MED ONCE .ROUTE ; Start 11/27/16 at 11:14; Stop 11/27/16 at 11:15; Status DC Iodixanol (Visipaque 320) 100 ml STK-MED ONCE .ROUTE ; Start 11/27/16 at 11:14; Stop 11/27/16 at 11:15; Status DC Midazolam HCl (Versed) 5 mg STK-MED ONCE .ROUTE ; Start 11/27/16 at 11:29; Stop 11/27/16 at 11:30; Status DC Fentanyl Citrate (Fentanyl 5ml Vial) 250 mcg STK-MED ONCE .ROUTE ; Start at 11:29; Stop 11/27/16 at 11:30; Status DC Heparin Sodium/ Sodium Chloride 1,000 unit 1X ONCE IART Last administered on 13:39; Start 11/27/16 at 11:45; Stop 11/27/16 at 11:46; Status DC Lidocaine/Sodium Bicarbonate (Buffered Lidocaine 1%) 20 ml 1X ONCE IJ Last administered on 11/27/16 13:40; Start 11/27/16 at 11:45; Stop 11/27/16 at 11:46 ; Status DC Midazolam HCl (Versed) 5 mg 1X ONCE IV Last administered on 11/27/16 13:41; Start 11/27/16 at 11:45; Stop 11/27/16 at 11:46; Status DC Fentanyl Citrate (Fentanyl 5ml Vial) 250 mcg 1X ONCE IV Last administered on 13:41; Start 11/27/16 at 11:45; Stop 11/27/16 at 11:46; Status DC Iodixanol (Visipaque 320) 100 ml 1X ONCE IART Last administered on 11/27/16 13:39; Start 11/27/16 at 11:45; Stop 11/27/16 at 11:46; Status DC Info (Do NOT chart on this entry -- for MONITORING) 1 each PRN DAILY PRN MC SEE COMMENTS; Start 11/27/16 at 11:45; Stop 11/29/16 at 11:44 Heparin Sodium (Porcine) (Heparin Sodium) 5,000 unit 1X ONCE IV Last administered on 11/27/16 13:48; Start 11/27/16 at 13:30; Stop 11/27/16 at 13:31 ; Status DC Info (Anti-Coagulation Monitoring By Pharmacy) 1 each PRN DAILY PRN MC SEE COMMENTS Last administered on 11/28/16 14:40; Start 11/27/16 at 13:30 Warfarin Sodium (Coumadin) 5 mg 1X WARF ONCE PO Last administered on 15:50; Start 11/27/16 at 16:00; Stop 11/27/16 at 16:01; Status DC Insulin Aspart 10 units 10 units 1X ONCE SQ Last administered on 11/27/16 16: 16; Start 11/27/16 at 16:15; Stop 11/27/16 at 16:16; Status DC Sodium Chloride 1,000 ml @ 1,000 mls/hr Q1H PRN IV hypotension; Start 11/28/16 at 08:45; Stop 11/28/16 at 14:44; Status DC Albumin Human (Albuminar) 200 ml @ 200 mls/hr 1X PRN PRN IV Hypotension; Start 11/28/16 at 08:45; Stop 11/28/16 at 14:44; Status DC Acetaminophen (Tylenol) 500 mg 1X PRN PRN PO MILD PAIN / TEMP; Start 11/28/16 at 08:45; Stop 11/29/16 at 08:44 Diphenhydramine HCl (Benadryl) 25 mg 1X PRN PRN IV ITCHING; Start 11/28/16 at 08:45; Stop 11/29/16 at 08:44 Diphenhydramine HCl (Benadryl) 25 mg 1X PRN PRN IV ITCHING; Start 11/28/16 at 08:45; Stop 11/29/16 at 08:44 Labetalol HCl (Normodyne) 10 mg PRN Q1HR PRN IVP SBP > 180; Start 11/28/16 at 08:45; Stop 11/29/16 at 08:44 Clonidine HCl 0.1 mg 0.1 mg 1X PRN PRN PO SBP > 180; Start 11/28/16 at 08:45; Stop 11/29/16 at 08:44 Sodium Chloride (Iv Sodium Chloride 0.9% 1000ml Bag) 1,000 ml @ 400 mls/hr Q2H30M PRN IV PATENCY; Start 11/28/16 at 08:45; Stop 11/28/16 at 20:44 Info (PHARMACY MONITORING -- do not chart) 1 each PRN DAILY PRN MC SEE COMMENTS ; Start 11/28/16 at 08:45 Lidocaine HCl (Xylocaine-Mpf 1% Vial) 2 ml STK-MED ONCE .ROUTE ; Start 11/28/16 at 09:00; Stop 11/28/16 at 09:01; Status DC Lidocaine HCl (Xylocaine-Mpf 1% Vial) 2 ml 1X ONCE INJ Last administered on t 10:15; Start 11/28/16 at 10:15; Stop 11/28/16 at 10:16; Status DC Warfarin Sodium (Coumadin) 7.5 mg 1X WARF ONCE PO ; Start 11/28/16 at 16:00; Stop 11/28/16 at 16:01 Active Scripts Active Reported Nitrofurantoin (Nitrofurantoin Macrocrystal) 100 Mg Capsule 1 Cap PO BID Vitamin D2 (Ergocalciferol (Vitamin D2)) 50,000 Unit Capsule 1 Cap PO WEEKLY Gabapentin 300 Mg Capsule 300 Mg PO HS Nephro-Della Tablet (Folic Acid/Vitamin B Comp W-C) 0.8 Mg Tablet 1 Tab PO DAILY Humalog (Insulin Lispro) 100 Unit/1 Ml Vial 20 Unit SQ TIDAC Levothyroxine Sodium 75 Mcg Tablet 75 Mcg PO DAILYAC Levemir (Insulin Detemir) 100 Unit/1 Ml Vial 66 Unit SQ QHS Levemir (Insulin Detemir) 100 Unit/1 Ml Vial 70 Unit SQ DAILY D3-2000 (Cholecalciferol (Vitamin D3)) 2,000 Unit Capsule 2,000 Unit PO DAILY Pantoprazole Sodium 40 Mg Tablet.dr 40 Mg PO BID Warfarin Sodium 2 Mg Tablet 2 Mg PO DAILY Warfarin Sodium 1 Mg Tablet 1 Mg PO DAILY Crestor (Rosuvastatin Calcium) 10 Mg Tablet 10 Mg PO DAILY 30 Days Vitals/I & O Vital Sign - Last 24 Hours 11/27/16 11/27/16 11/27/16 11/28/16 19:00 20:00 22:48 03:07 Temp 97.9 97.5 97.4 97.9 97.5 97.4 Pulse 79 74 79 Resp B/P 121/44 98/53 114/44 Pulse Ox 93 96 96 O2 Delivery Room Air Room Air Room Air Room Air 11/28/16 07:00 Temp 97.8 97.8 Pulse 72 Resp 18 B/P 100/58 Pulse Ox 97 O2 Delivery Room Air Intake and Output 11/27/16 11/27/16 11/28/16 14:59 22:59 06:59 Intake Total 340 ml 800 ml Balance 340 ml 800 ml Nutrition Consultation Dietary Evaluation: Recommendations by RD: Dietary education by RD, Increase Calorie Intake, Protein supplementation Comments: [facility] renal BID for increased nutrient needs of ESRD on HD Provided handout on renal diet and left at pt bedside Expected Outcomes/Goals: to meet >75% est nutr needs Malnutrition Findings: Weight Status: Morbidly Obese AJ LOPEZ MD Nov 28, 2016 15:51
[2016-11-28] MEDS ORDERED: WARFARIN 7.5 MG TABLET. PO ONE (16:00)
[2016-11-28] MEDS: ONDANSETRON PF 4 MG/2 ML VIAL. IV PRN (18:01)
[2016-11-28 19:00] VITALS: BP 119/46
[2016-11-28] MEDS: ATORVASTATIN CALCIUM 40 MG TABLET. PO SCH (20:38)
[2016-11-28] MEDS: GABAPENTIN 300 MG CAPSULE. PO SCH (20:38)
[2016-11-28] MEDS: HYDROCODONE/APAP 5/325MG TABLET. PO PRN (20:38)
[2016-11-28 23:00] VITALS: BP 116/43
[2016-11-28] MEDS ORDERED: diphenhydrAMINE HCL 25 MG CAPSULE PO ONE (23:00)
[2016-11-29] MEDS: HEPARIN 25,000UTS/500ML PREMIX 500 ML IV PRN (03:41)
[2016-11-29 04:12] LABS: ALBUMIN 3.2 g/dL (3.4-5.0); CALCIUM 7.9 mg/dL (8.5-10.1); GFR 5.8; PHOSPHORUS 5.7 mg/dL (2.6-4.7); POTASSIUM 5.1 mmol/L (3.5-5.1)
[2016-11-29 04:30] LABS: INR 1.2 (0.8-1.1); PROTHROMBIN TIME PATIENT 14.8 SEC (11.7-14.0)
[2016-11-29] MEDS ORDERED: DEXTROSE 50% 25 GM / 50ML DISP.SYRIN. IV PRN (04:45)
[2016-11-29] MEDS: INSULIN REGULAR VIAL 150 UNIT in 0.9 % SODIUM CHLORIDE 150ML 150 ML IV PRN ×3 (05:19→20:45)
[2016-11-29] MEDS: LEVOTHYROXINE 75 MCG TABLET PO SCH (05:32)
[2016-11-29 07:00] VITALS: BP 119/47
[2016-11-29] MEDS: INSULIN ASPART 300 UNITS/3 ML INSULN.PEN SQ SCH ×6 (07:30→17:00)
--- NOTE | 2016-11-29 07:53 | RAD ---
Alteplase declot AV graft AV shuntogram CUSTOM BOOKBINDER with covered stent at venous anastomosis Indication: 66-year-old female with end stage renal disease and with thrombosed left upper arm AV graft. Declot procedure has been requested by nephrology. Fluoroscopy time: 20.8 minutes Kerma-area product: 42 Gycm2 Moderate sedation: 121 minutes moderate sedation was provided utilizing a total of 4 mg Versed and 225 mcg fentanyl, IV. The patient was appropriately monitored by a qualified independent observer throughout the time of moderate sedation. Contrast material: 85 cc Visipaque 320 Sterility: All elements of maximal sterile barrier technique, including the use of a cap, mask, sterile gown, sterile gloves, large sterile sheet, appropriate hand hygiene, and 2% chlorhexidine for cutaneous antisepsis (or acceptable alternative antiseptic per current guidelines) were utilized. Anticoagulation: A total of 5000 is heparin was given IV during the course of the procedure. Procedure: Informed consent was obtained from the patient. She was placed supine on the angiography table. Conscious sedation was provided with IV Versed and fentanyl. Left forearm was prepped and draped in the usual sterile fashion, utilizing all elements of maximal sterile barrier technique, as described above. Alteplase declot AV graft: Preliminary ultrasound examination over the patient's left upper arm AV graft confirmed complete graft thrombosis. A site suitable for ultrasound-guided insertion of a venous limb access sheath was selected--- this site was documented with a single hard copy ultrasound image. Using aseptic technique, local anesthesia, and direct ultrasound guidance, a 21-gauge micropuncture needle was successfully introduced into proximal venous limb of the thrombosed AV graft, with its tip directed peripherally. The micropuncture needle was exchanged over a guidewire for a 5 Albanian sheath. A second skin site suitable for ultrasound-guided insertion of a proximal arterial limb access sheath was then selected--- this site was documented with a single hard copy ultrasound image. Using aseptic technique, local anesthesia, and direct ultrasound guidance, a 21-gauge micropuncture needle was successfully introduced into proximal arterial limb of the AV graft, with its tip directed centrally. This needle was then exchanged over a guidewire for a 6 Albanian sheath. A 5 Albanian SpeedLyser catheter was then advanced through the sheath, and was positioned with its infusion length extending from proximal arterial limb through the previously stented venous anastomosis. A total of 4 mg t-PA was then forcibly laced through the speed Lyster catheter. The SpeedLyser catheter was then removed through the 6 Albanian sheath. The t-PA was allowed to dwell for 10 minutes. AV shuntogram: Following tPA thrombolysis, a small volume of Visipaque was gently injected through the proximal arterial limb sheath, and a fluoroscopic spot image was obtained, which revealed only a small amount of residual intraluminal thrombus within the treated mid segment and venous limb of the AV graft, followed by high-grade stricture within the previously placed venous anastomotic covered stent. A 4 Albanian angled glide catheter was then advanced through the arterial limb sheath and was successfully directed through the venous anastomotic in-stent stricture and was positioned within left subclavian vein. Visipaque was injected through the angle glide catheter, and "pulll-back" AV shuntogram DSA images were obtained. Those images revealed wide patency of left axillary vein, subclavian vein , innominate vein, and superior vena cava. The basilic or brachial outflow vein above the venous anastomotic stent also appears widely patent. CUSTOM BOOKBINDER with stent venous anastomosis: Following the diagnostic AV shuntogram, attention was turned to the venous anastomotic high-grade in-stent stricture. The 4 Albanian angled glide catheter, utilized for the AV shuntogram, was removed over a grand slam microguidewire, which was positioned with its tip within left axillary vein. A 6 mm x 80 mm Cordis chocolate CUSTOM BOOKBINDER balloon was then inserted through the arterial limb sheath over the grand slam wire and was utilized to perform balloon angioplasty of the venous anastomotic in-stent stricture as well as venous limb of the AV graft. This balloon was inflated to a peak pressure of 14 burton. Post angioplasty DSA images were then obtained, which revealed persistent, focal obstruction related to central and the venous anastomotic stent. Therefore, the 6 Albanian arterial limb sheath was exchanged over the grand slam wire for a 7 mm x 50 mm Viabahn covered stent, which was advanced bareback under fluoroscopic control, and was utilized to re-line the previously placed venous anastomotic stent, extending both below and above the previously stent, with successful exclusion of the area of residual obstruction. The Viabahn delivery sheath was then re-exchanged over the grand slam wire for the 6 Albanian arterial limb sheath, through which a 7 mm x 80 mm conquest high-pressure CUSTOM BOOKBINDER balloon was advanced, and was utilized to perform post dilatation of the Viabahn covered stent. This 7 mm conquest CUSTOM BOOKBINDER balloon was also utilized to perform balloon dilatation of venous limb and mid segment of the AV graft. Attention was then turned to arterial limb of graft and arterial anastomosis. A 4 Albanian angled glide catheter was inserted through the 5 Albanian venous limb sheath and was successfully directed across arterial limb and arterial anastomosis into mid left brachial artery. Visipaque 320 was then injected through the glide catheter and DSA images were obtained. Those images revealed widely patent left brachial artery above and below arterial anastomosis. Moderate residual intraluminal thrombus was noted within juxta anastomotic arterial limb. The angle glide catheter was then exchanged over a grand slam wire for a 4 mm x 40 mm chocolate CUSTOM BOOKBINDER balloon, which was utilized to perform preliminary balloon dilatation of arterial anastomosis and juxta anastomotic segment. The 5 Albanian venous limb sheath was exchanged over the grand slam wire for a 6 mm x 40 mm chocolate CUSTOM BOOKBINDER balloon which was advanced bareback, and was utilized to perform further balloon dilatation of juxta anastomotic segment to a peak pressure of 12 burton. Finally, the 6 mm chocolate CUSTOM BOOKBINDER balloon was exchanged over the grand slam wire for a 6 mm x 40 mm conquest CUSTOM BOOKBINDER balloon, which also was advanced bareback, and was utilized to perform further balloon dilatation of juxta anastomotic segment to a peak pressure of 15 burton. The conquest CUSTOM BOOKBINDER balloon was then re-exchanged over the grand slam wire for the 5 Albanian venous limb sheath. The 4 Albanian angled glide catheter was reintroduced through the 5 Albanian sheath over the grand slam wire into distal left brachial artery. Visipaque 320 was injected and completion DSA images were obtained. Those images revealed brisk antegrade flow through the AV graft, with resolution of the venous anastomotic stricture, but with several areas of residual mild eccentric narrowing, refractory to thrombolysis and balloon angioplasty. Mild pseudoaneurysmal dilatation of mid venous limb was also noted. Patient tolerated the procedure well without apparent complication. Hemostasis was achieved at the arterial and venous limb puncture site utilizing 2-0 silk in a pursestring fashion. Impression: Successful, uneventful left upper arm AV graft thrombolysis, AV shuntogram, and venous anastomotic angioplasty and stenting, as described.
[2016-11-29] MEDS: FOLIC/VIT B COMP W-C (RENAL) TABLET. PO SCH (08:38)
[2016-11-29] MEDS: PANTOPRAZOLE 40 MG TABLET.DR. PO SCH ×2 (08:38→18:06)
[2016-11-29] MEDS: CHOLECALCIFEROL (VITAMIN D3) 1,000 UNIT TABLET PO SCH (08:38)
[2016-11-29] MEDS: INSULIN DETEMIR 300 UNITS/3 ML INSULN.PEN. SQ SCH ×2 (08:40→19:56)
[2016-11-29] MEDS: HYDROCODONE/APAP 5/325MG TABLET. PO PRN (09:53)
[2016-11-29 10:50] VITALS: BP 123/56
--- NOTE | 2016-11-29 10:52 | PDOC ---
SUBJECTIVE ROS ESRD doing and feeling well, asking about going home CVS: no Orthopnea, no CP RESP: no SOB, no GARCIA GI: no Nausea, no Vomiting : no Dysuria, no Urgency OBJECTIVE Vital Signs Vital Signs Date Time Temp Pulse Resp B/P Pulse Ox O2 Delivery O2 Flow Rate FiO2 11/29/16 07:00 98.0 71 18 119/47 92 Room Air 98.0 I & 0 Intake and Output 11/29/16 06:59 Intake Total 1020 ml Output Total 300 ml Balance 720 ml Intake Oral 1020 ml Output Urine Total 300 ml PHYSICAL EXAM Physical Exam GEN: Awake, Oriented x 3, In no distress EYES: Vision Unchanged, Conjunctiva Normal EN: No EN Drainage, Mucous Membranes moist NECK: no JVD, min JVP, Supple, no Thyromegaly CVS: S1S2, ? Murmur, No Gallop, No Rub,tr Edema RESP: no Rales, no Rhonchi,no Acc. Muscle Use GI: BS + ve, NO Bruit, Non Tender, Non Distended - obese : no CVA tenderness, no Suprapubic Tenderness DIAGNOSIS/ASSESSMENT Assessment & Plan ESRD: Current fluid and E-lyte status does not necessitate emergent need for dialysis. Will re-evaluate for dialysis in the am and continue on MWF schedule. ANEMIA; Aranesp as ordered, Transfuse with next HD as needed HTN: Current BP meds as reviewed. See orders for changes. BONE & MINERAL: check Phos and follow trend Clotted AV Access - s/p Declott and worked well yest. Probably needs new AV Access per IR Discussed Plan of Care with pt at bedside COMMENT/RELEVANT DATA Meds Current Medications Medications (Trade) Dose Ordered Sig/Kiet Start Time Stop Time Status Last Admin Dose Admin Acetaminophen (Tylenol) 500 mg 1X PRN PRN 11/28/16 08:45 11/29/16 08:44 DC Acetaminophen/ Hydrocodone Bitart (Lortab 5/325) 1 tab PRN Q4HRS PRN 11/25/16 05:15 11/29/16 09:53 1 TAB Albumin Human (Albuminar) 200 ml @ 200 mls/hr 1X PRN PRN 11/28/16 08:45 11/28/16 14:44 DC Alteplase, Recombinant 4 mg 4 mg 1X ONCE 11/27/16 08:45 11/27/16 08:46 DC 11/27/16 13:38 4 MG Atorvastatin Calcium (Lipitor) 40 mg HS 11/24/16 21:00 11/28/16 20:38 40 MG Clonidine HCl 0.1 mg 0.1 mg 1X PRN PRN 11/28/16 08:45 11/29/16 08:44 DC Darbepoetin Surendra (Aranesp) 60 mcg WEEKLYHS 11/24/16 21:00 11/24/16 22:39 60 MCG Dextrose (Dextrose 50%-Water Syringe) 12.5 gm PRN Q15MIN PRN 11/29/16 04:45 Diphenhydramine HCl (Benadryl) 25 mg 1X PRN PRN 11/28/16 08:45 11/29/16 08:44 DC Diphenhydramine HCl 25 mg 25 mg 1X ONCE 11/28/16 23:00 11/28/16 23:01 DC 11/28/16 22:57 25 MG Fentanyl Citrate (Fentanyl 5ml Vial) 250 mcg 1X ONCE 11/27/16 11:45 11/27/16 11:46 DC 11/27/16 13:41 225 MCG Furosemide (Lasix) 100 mg 1X ONCE 11/23/16 23:15 11/23/16 23:17 DC 11/24/16 01:15 100 MG Gabapentin (Neurontin) 300 mg HS 11/26/16 21:00 11/28/16 20:38 300 MG Heparin Sodium (Porcine) (Heparin Sodium) 5,000 unit 1X ONCE 11/27/16 13:30 11/27/16 13:31 DC 11/27/16 13:48 5,000 UNIT Heparin Sodium/ Dextrose 500 ml @ 0 mls/hr CONT PRN 11/26/16 15:30 11/29/16 03:41 27.3 MLS/HR Heparin Sodium/ Sodium Chloride 1,000 unit 1X ONCE 11/27/16 11:45 11/27/16 11:46 DC 11/27/16 13:39 1,000 UNIT Info (Anti-Coagulation Monitoring By Pharmacy) 1 each PRN DAILY PRN 11/27/16 13:30 11/28/16 14:40 1 EACH Info (Do NOT chart on this entry -- for MONITORING) 1 each PRN DAILY PRN 11/27/16 11:45 11/29/16 11:44 Info (PHARMACY MONITORING -- do not chart) 1 each PRN DAILY PRN 11/28/16 08:45 Insulin Aspart (Novolog) 9 units TIDAC 11/25/16 05:15 11/28/16 14:10 DC 11/28/16 09:18 9 UNITS Insulin Aspart 10 units 10 units 1X ONCE 11/27/16 16:15 11/27/16 16:16 DC 11/27/16 16:16 10 UNITS Insulin Detemir (Levemir) 66 units QHS 11/24/16 21:00 11/28/16 20:45 66 UNITS Insulin Detemir 70 units 70 units DAILY 11/27/16 09:00 11/28/16 09:19 70 UNITS Insulin Human Regular/Sodium Chloride (Novolin R Vial/ Iv Normal Saline 150ml) 151.5 ml @ 0 mls/hr CONT PRN 11/29/16 04:45 11/29/16 05:19 11.3 MLS/HR Iodixanol (Visipaque 320) 100 ml 1X ONCE 11/27/16 11:45 11/27/16 11:46 DC 11/27/16 13:39 85 ML Iodixanol 100 ml 100 ml STK-MED ONCE 11/26/16 14:07 11/26/16 14:08 DC Labetalol HCl (Normodyne) 10 mg PRN Q1HR PRN 11/28/16 08:45 11/29/16 08:44 DC Levofloxacin/ Dextrose (LEVAQUIN 500mg PREMIX) 100 ml @ 100 mls/hr Q48H 11/26/16 20:00 11/27/16 22:48 DC 11/26/16 20:52 100 MLS/HR Levothyroxine Sodium (Synthroid) 75 mcg DAILY07 11/24/16 07:00 11/29/16 05:32 75 MCG Lidocaine HCl (Xylocaine-Mpf 1% Vial) 2 ml 1X ONCE 11/28/16 10:15 11/28/16 10:16 DC 11/28/16 10:15 2 ML Lidocaine/Sodium Bicarbonate (Buffered Lidocaine 1%) 20 ml 1X ONCE 11/27/16 11:45 11/27/16 11:46 DC 11/27/16 13:40 3 ML Magnesium Sulfate/ Dextrose (Magnesium Sulfate PREMIX 2GM) 50 ml @ 25 mls/hr PRN DAILY PRN 11/27/16 10:15 Midazolam HCl (Versed) 5 mg 1X ONCE 11/27/16 11:45 11/27/16 11:46 DC 11/27/16 13:41 4 MG Morphine Sulfate 2 mg PRN Q2HR PRN 11/23/16 21:00 11/24/16 20:59 DC Ondansetron HCl (Zofran) 4 mg PRN Q6HRS PRN 11/24/16 07:23 11/28/16 18:01 4 MG Pantoprazole Sodium (Protonix) 40 mg BIDAC 11/24/16 07:30 11/29/16 08:38 40 MG Phytonadione (Mephyton) 5 mg 1X ONCE 11/25/16 11:00 11/25/16 11:01 DC 11/25/16 12:15 5 MG Sodium Chloride (Iv Sodium Chloride 0.9% 1000ml Bag) 1,000 ml @ 400 mls/hr Q2H30M PRN 11/28/16 08:45 11/28/16 20:44 DC Sodium Chloride (Normal Saline Flush) 10 ml 1X PRN PRN 11/26/16 07:30 11/27/16 07:29 DC Vitamin B Complex/ Vitamin C (Anahy-Della) 1 tab DAILY 11/27/16 09:00 11/29/16 08:38 1 TAB Vitamin D (Vitamin D3) 2,000 unit DAILY 11/24/16 09:00 11/29/16 08:38 2,000 UNIT Warfarin Sodium (Coumadin Per Pharmacy) 1 each PRN DAILY PRN 11/28/16 16:00 Cancel Warfarin Sodium (Coumadin Per Physician) 1 each PRN DAILY PRN 11/24/16 16:00 11/25/16 09:01 DC 11/24/16 15:33 1 EACH Warfarin Sodium (Coumadin) 7.5 mg 1X WARF ONCE 11/28/16 16:00 11/28/16 16:01 DC 11/28/16 17:50 7.5 MG Lab Laboratory Tests Test 11/28/16 13:30 11/28/16 15:10 11/28/16 16:25 11/28/16 21:00 Glucose (Fingerstick) 154mg/dL (70-99) 444mg/dL (70-99) Heparin Anti-Xa Act, Unfractionated 0.57IU/mL (0.30-0.70) 0.81IU/mL (0.30-0.70) Test 11/28/16 21:45 11/29/16 03:45 11/29/16 05:46 11/29/16 06:40 Glucose Level 605mg/dL (70-99) 626mg/dL (70-99) Prothrombin Time 14.8SEC (11.7-14.0) Prothromb Time International Ratio 1.2 (0.8-1.1) Heparin Anti-Xa Act, Unfractionated 0.65IU/mL (0.30-0.70) Sodium Level 127mmol/L (136-145) Potassium Level 5.1mmol/L (3.5-5.1) Chloride Level 88mmol/L (98-107) Carbon Dioxide Level 28mmol/L (21-32) Anion Gap 11 (6-14) Blood Urea Nitrogen 57mg/dL (7-20) Creatinine 7.0mg/dL (0.6-1.0) Estimated GFR (Cockcroft-Gault) 5.8 Calcium Level 7.9mg/dL (8.5-10.1) Phosphorus Level 5.7mg/dL (2.6-4.7) Magnesium Level 1.8mg/dL (1.8-2.4) Albumin 3.2g/dL (3.4-5.0) Glucose (Fingerstick) 590mg/dL (70-99) 595mg/dL (70-99) Test 11/29/16 07:20 11/29/16 08:27 11/29/16 09:30 11/29/16 10:25 Glucose (Fingerstick) 538mg/dL (70-99) 375mg/dL (70-99) 408mg/dL (70-99) 388mg/dL (70-99) NATHALY BENTLEY MD Nov 29, 2016 10:52
[2016-11-29] MEDS ORDERED: MAGNESIUM SULFATE 2GM 50 ML IV PRN (11:00)
--- NOTE | 2016-11-29 12:47 | PDOC ---
PROGRESS NOTES Chief Complaint Chief Complaint cc: gram clot A/P Mechanical Mitral valve DM uncontrolled, THROMBOSED LEFT ARM BB GRAFTs/p thrombolysis ESRD-OP SCHEDULE MWF ANEMIA S/P TEMP HD CATHETER CAD Plan S/P thrombolysis uneventful INR not therapeutic, bridge with heparin gtt, warfarin per pharmacy, INR goal 2.5-3.5 On insulin gtt, monitor BS q1-2 hrs, avoid NovoLog and Levemir. d/w RN INR daily, DC planning based on INR levels. HD per nephrology labs reviewed Monitor hemoglobin Not READY FOR DC. History of Present Illness History of Present Illness NO BLEEDING NO FEVER Vitals Vitals Vital Signs Date Time Temp Pulse Resp B/P Pulse Ox O2 Delivery O2 Flow Rate FiO2 11/29/16 10:50 97.6 71 16 123/56 96 Room Air 97.6 Physical Exam General: Alert, Oriented X3, Cooperative, Other (obese) Heart: Regular rate, Normal S1, Normal S2, Other Lungs: Clear Abdomen: Normal bowel sounds, Soft, No tenderness Extremities: Other Skin: No breakdown Labs LABS Laboratory Tests Test 11/28/16 13:30 11/28/16 15:10 11/28/16 16:25 11/28/16 21:00 Glucose (Fingerstick) 154mg/dL (70-99) 444mg/dL (70-99) Heparin Anti-Xa Act, Unfractionated 0.57IU/mL (0.30-0.70) 0.81IU/mL (0.30-0.70) Test 11/28/16 21:45 11/29/16 03:45 11/29/16 05:46 11/29/16 06:40 Glucose Level 605mg/dL (70-99) 626mg/dL (70-99) Prothrombin Time 14.8SEC (11.7-14.0) Prothromb Time International Ratio 1.2 (0.8-1.1) Heparin Anti-Xa Act, Unfractionated 0.65IU/mL (0.30-0.70) Sodium Level 127mmol/L (136-145) Potassium Level 5.1mmol/L (3.5-5.1) Chloride Level 88mmol/L (98-107) Carbon Dioxide Level 28mmol/L (21-32) Anion Gap 11 (6-14) Blood Urea Nitrogen 57mg/dL (7-20) Creatinine 7.0mg/dL (0.6-1.0) Estimated GFR (Cockcroft-Gault) 5.8 Calcium Level 7.9mg/dL (8.5-10.1) Phosphorus Level 5.7mg/dL (2.6-4.7) Magnesium Level 1.8mg/dL (1.8-2.4) Albumin 3.2g/dL (3.4-5.0) Glucose (Fingerstick) 590mg/dL (70-99) 595mg/dL (70-99) Test 11/29/16 07:20 11/29/16 08:27 11/29/16 09:30 11/29/16 10:25 Glucose (Fingerstick) 538mg/dL (70-99) 375mg/dL (70-99) 408mg/dL (70-99) 388mg/dL (70-99) Test 11/29/16 11:30 11/29/16 12:38 Glucose (Fingerstick) 252mg/dL (70-99) 293mg/dL (70-99) Assessment and Plan Assessmemt and Plan Problems Medical Problems: (1) Dialysis AV fistula malfunction Status: Acute Problems: Comment Review of Relevant I have reviewed the following items sofi (where applicable) has been applied. Labs Laboratory Tests Test 11/27/16 13:59 11/27/16 15:59 11/27/16 20:32 11/27/16 21:48 Glucose (Fingerstick) 397mg/dL (70-99) 395mg/dL (70-99) 362mg/dL (70-99) Heparin Anti-Xa Act, Unfractionated 0.69IU/mL (0.30-0.70) Test 11/28/16 03:40 11/28/16 07:42 11/28/16 13:30 11/28/16 15:10 White Blood Count 8.1x10^3/uL (4.0-11.0) Red Blood Count 2.84x10^6/uL (3.50-5.40) Hemoglobin 9.8g/dL (12.0-15.5) Hematocrit 28.4% (36.0-47.0) Mean Corpuscular Volume 100fL (79-100) Mean Corpuscular Hemoglobin 34pg (25-35) Mean Corpuscular Hemoglobin Concent 34g/dL (31-37) Red Cell Distribution Width 13.3% (11.5-14.5) Platelet Count 171x10^3/uL (140-400) Prothrombin Time 15.6SEC (11.7-14.0) Prothromb Time International Ratio 1.3 (0.8-1.1) Heparin Anti-Xa Act, Unfractionated 0.99IU/mL (0.30-0.70) 0.57IU/mL (0.30-0.70) Sodium Level 130mmol/L (136-145) Potassium Level 5.2mmol/L (3.5-5.1) Chloride Level 88mmol/L (98-107) Carbon Dioxide Level 25mmol/L (21-32) Anion Gap 17 (6-14) Blood Urea Nitrogen 74mg/dL (7-20) Creatinine 9.4mg/dL (0.6-1.0) Estimated GFR (Cockcroft-Gault) 4.2 Glucose Level 391mg/dL (70-99) Calcium Level 7.8mg/dL (8.5-10.1) Phosphorus Level 7.7mg/dL (2.6-4.7) Magnesium Level 1.8mg/dL (1.8-2.4) Albumin 3.2g/dL (3.4-5.0) Glucose (Fingerstick) 467mg/dL (70-99) 154mg/dL (70-99) Test 11/28/16 16:25 11/28/16 21:00 11/28/16 21:45 11/29/16 03:45 Glucose (Fingerstick) 444mg/dL (70-99) Heparin Anti-Xa Act, Unfractionated 0.81IU/mL (0.30-0.70) 0.65IU/mL (0.30-0.70) Glucose Level 605mg/dL (70-99) 626mg/dL (70-99) Prothrombin Time 14.8SEC (11.7-14.0) Prothromb Time International Ratio 1.2 (0.8-1.1) Sodium Level 127mmol/L (136-145) Potassium Level 5.1mmol/L (3.5-5.1) Chloride Level 88mmol/L (98-107) Carbon Dioxide Level 28mmol/L (21-32) Anion Gap 11 (6-14) Blood Urea Nitrogen 57mg/dL (7-20) Creatinine 7.0mg/dL (0.6-1.0) Estimated GFR (Cockcroft-Gault) 5.8 Calcium Level 7.9mg/dL (8.5-10.1) Phosphorus Level 5.7mg/dL (2.6-4.7) Magnesium Level 1.8mg/dL (1.8-2.4) Albumin 3.2g/dL (3.4-5.0) Test 11/29/16 05:46 11/29/16 06:40 11/29/16 07:20 11/29/16 08:27 Glucose (Fingerstick) 590mg/dL (70-99) 595mg/dL (70-99) 538mg/dL (70-99) 375mg/dL (70-99) Test 11/29/16 09:30 11/29/16 10:25 11/29/16 11:30 11/29/16 12:38 Glucose (Fingerstick) 408mg/dL (70-99) 388mg/dL (70-99) 252mg/dL (70-99) 293mg/dL (70-99) Laboratory Tests Test 11/28/16 13:30 11/28/16 15:10 11/28/16 16:25 11/28/16 21:00 Glucose (Fingerstick) 154mg/dL (70-99) 444mg/dL (70-99) Heparin Anti-Xa Act, Unfractionated 0.57IU/mL (0.30-0.70) 0.81IU/mL (0.30-0.70) Test 11/28/16 21:45 11/29/16 03:45 11/29/16 05:46 11/29/16 06:40 Glucose Level 605mg/dL (70-99) 626mg/dL (70-99) Prothrombin Time 14.8SEC (11.7-14.0) Prothromb Time International Ratio 1.2 (0.8-1.1) Heparin Anti-Xa Act, Unfractionated 0.65IU/mL (0.30-0.70) Sodium Level 127mmol/L (136-145) Potassium Level 5.1mmol/L (3.5-5.1) Chloride Level 88mmol/L (98-107) Carbon Dioxide Level 28mmol/L (21-32) Anion Gap 11 (6-14) Blood Urea Nitrogen 57mg/dL (7-20) Creatinine 7.0mg/dL (0.6-1.0) Estimated GFR (Cockcroft-Gault) 5.8 Calcium Level 7.9mg/dL (8.5-10.1) Phosphorus Level 5.7mg/dL (2.6-4.7) Magnesium Level 1.8mg/dL (1.8-2.4) Albumin 3.2g/dL (3.4-5.0) Glucose (Fingerstick) 590mg/dL (70-99) 595mg/dL (70-99) Test 11/29/16 07:20 11/29/16 08:27 11/29/16 09:30 11/29/16 10:25 Glucose (Fingerstick) 538mg/dL (70-99) 375mg/dL (70-99) 408mg/dL (70-99) 388mg/dL (70-99) Test 11/29/16 11:30 11/29/16 12:38 Glucose (Fingerstick) 252mg/dL (70-99) 293mg/dL (70-99) Microbiology 11/24/16 Urine Culture - Final, Complete 11/24/16 Urine Culture Result 1 (ELEAZAR) - Final, Complete Medications Current Medications Ondansetron HCl (Zofran) 4 mg PRN Q8HRS PRN IV NAUSEA/VOMITING; Start 11/23/16 at 21:00; Stop 11/24/16 at 07:25; Status DC Morphine Sulfate 2 mg PRN Q2HR PRN IV PAIN; Start 11/23/16 at 21:00; Stop 11/24 at 20:59; Status DC Acetaminophen (Tylenol) 650 mg PRN Q4HRS PRN PO FEVER Last administered on 11/24t 08:46; Start 11/23/16 at 21:00; Stop 11/24/16 at 20:59; Status DC Furosemide (Lasix) 100 mg 1X ONCE IVP Last administered on 11/24/16 01:15; Start 11/23/16 at 23:15; Stop 11/23/16 at 23:17; Status DC Levothyroxine Sodium (Synthroid) 75 mcg DAILY07 PO Last administered on 05:32; Start 11/24/16 at 07:00 Pantoprazole Sodium (Protonix) 40 mg BIDAC PO Last administered on 11/29/16 08 :38; Start 11/24/16 at 07:30 Warfarin Sodium (Coumadin) 1 mg DAILY16 PO ; Start 11/24/16 at 16:00; Stop 11/25 at 09:01; Status DC Warfarin Sodium (Coumadin) 2 mg DAILY16 PO Last administered on 11/24/16 22:38 ; Start 11/24/16 at 16:00; Stop 11/25/16 at 09:01; Status DC Vitamin D (Vitamin D3) 2,000 unit DAILY PO Last administered on 11/29/16 08:38 ; Start 11/24/16 at 09:00 Insulin Detemir (Levemir) 66 units QHS SQ Last administered on 11/28/16 20:45 ; Start 11/24/16 at 21:00 Insulin Aspart (Novolog) 20 units TIDAC SQ Last administered on 11/28/16 17:57 ; Start 11/24/16 at 07:30 Atorvastatin Calcium (Lipitor) 40 mg HS PO Last administered on 11/28/16 20:38 ; Start 11/24/16 at 21:00 Warfarin Sodium (Coumadin Per Physician) 1 each PRN DAILY PRN MC SEE COMMENTS Last administered on 11/24/16 15:33; Start 11/24/16 at 16:00; Stop 11/25/16 at 09:01; Status DC Ondansetron HCl (Zofran) 4 mg PRN Q6HRS PRN IV NAUSEA/VOMITING Last administered on 11/28/16 18:01; Start 11/24/16 at 07:23 Insulin Aspart (Novolog) 0-9 UNITS TIDWMEALS SQ Last administered on 11/28/16 17:57; Start 11/24/16 at 08:00 Dextrose (Dextrose 50%-Water Syringe) 12.5 gm PRN Q15MIN PRN IV SEE COMMENTS; Start 11/24/16 at 07:30; Stop 11/29/16 at 04:44; Status DC Darbepoetin Surendra (Aranesp) 60 mcg WEEKLYHS SQ Last administered on 11/24/16 22 :39; Start 11/24/16 at 21:00 Heparin Sodium (Porcine) (Heparin Sodium) 10,000 unit STK-MED ONCE .ROUTE ; Start 11/24/16 at 16:58; Stop 11/24/16 at 16:59; Status DC Lidocaine/Sodium Bicarbonate 20 ml 20 ml STK-MED ONCE IJ ; Start 11/24/16 at 16: 58; Stop 11/24/16 at 16:59; Status DC Heparin Sodium/ Sodium Chloride 500 ml @ As Directed STK-MED ONCE .ROUTE ; Start 11/24/16 at 16:58; Stop 11/24/16 at 16:59; Status DC Lidocaine/Sodium Bicarbonate (Buffered Lidocaine 1%) 3 ml 1X ONCE IJ Last administered on 11/24/16 17:44; Start 11/24/16 at 17:15; Stop 11/24/16 at 17:16 ; Status DC Heparin Sodium/ Sodium Chloride 60 unit 1X ONCE IV Last administered on 17:15; Start 11/24/16 at 17:15; Stop 11/24/16 at 17:16; Status DC Heparin Sodium (Porcine) (Heparin Sodium) 2,500 unit 1X ONCE INT CAT Last administered on 11/24/16 17:15; Start 11/24/16 at 17:15; Stop 11/24/16 at 17:16 ; Status DC Sodium Chloride (Normal Saline Flush) 10 ml 1X PRN PRN IV AP catheter pack; Start 11/24/16 at 23:45; Stop 11/25/16 at 23:44; Status DC Sodium Chloride 10 ml 10 ml 1X PRN PRN IV PAYLOADER MACHINE OPERATOR catheter pack; Start 11/24/16 at 23:45; Stop 11/25/16 at 23:44; Status DC Sodium Chloride (Iv Sodium Chloride 0.9% 1000ml Bag) 1,000 ml @ 400 mls/hr Q2H30M PRN IV PATENCY; Start 11/24/16 at 23:45; Stop 11/25/16 at 11:44; Status DC Info (PHARMACY MONITORING -- do not chart) 1 each PRN DAILY PRN MC SEE COMMENTS ; Start 11/24/16 at 23:45; Stop 11/26/16 at 07:32; Status DC Acetaminophen/ Hydrocodone Bitart (Lortab 5/325) 1 tab PRN Q4HRS PRN PO PAIN Last administered on 11/29/16 09:53; Start 11/25/16 at 05:15 Insulin Aspart (Novolog) 9 units TIDAC SQ Last administered on 11/28/16 09:18 ; Start 11/25/16 at 05:15; Stop 11/28/16 at 14:10; Status DC Phytonadione (Mephyton) 5 mg 1X ONCE PO Last administered on 11/25/16 12:15; Start 11/25/16 at 11:00; Stop 11/25/16 at 11:01; Status DC Diphenhydramine HCl 25 mg 25 mg PRN Q6HRS PRN IVP ITCHING Last administered on 11/26/16 15:55; Start 11/25/16 at 18:15 Sodium Chloride (Iv Sodium Chloride 0.9% 1000ml Bag) 1,000 ml @ 1,000 mls/hr Q1H PRN IV hypotension; Start 11/26/16 at 07:26; Stop 11/26/16 at 13:25; Status DC Sodium Chloride (Normal Saline Flush) 10 ml 1X PRN PRN IV AP catheter pack; Start 11/26/16 at 07:30; Stop 11/27/16 at 07:29; Status DC Sodium Chloride 10 ml 10 ml 1X PRN PRN IV PAYLOADER MACHINE OPERATOR catheter pack; Start 11/26/16 at 07:30; Stop 11/27/16 at 07:29; Status DC Sodium Chloride (Iv Sodium Chloride 0.9% 1000ml Bag) 1,000 ml @ 400 mls/hr Q2H30M PRN IV PATENCY; Start 11/26/16 at 07:26; Stop 11/26/16 at 19:25; Status DC Info (PHARMACY MONITORING -- do not chart) 1 each PRN DAILY PRN MC SEE COMMENTS ; Start 11/26/16 at 07:30; Status Cancel Lidocaine/Sodium Bicarbonate 20 ml 20 ml STK-MED ONCE IJ ; Start 11/26/16 at 14: 06; Stop 11/26/16 at 14:07; Status DC Heparin Sodium/ Sodium Chloride 500 ml @ As Directed STK-MED ONCE .ROUTE ; Start 11/26/16 at 14:06; Stop 11/26/16 at 14:07; Status DC Iodixanol 100 ml 100 ml STK-MED ONCE .ROUTE ; Start 11/26/16 at 14:07; Stop at 14:08; Status DC Heparin Sodium/ Dextrose 500 ml @ 0 mls/hr CONT PRN IV SEE I/O RECORD Last administered on 11/29/16 03:41; Start 11/26/16 at 15:30 Heparin Sodium (Porcine) (Heparin Sodium) 2,900 unit PRN Q6HRS PRN IV FOR UFH LEVEL LESS THAN 0.2 Last administered on 11/27/16 07:21; Start 11/26/16 at 15: 30 Heparin Sodium (Porcine) (Heparin Sodium) 1,450 unit PRN Q6HRS PRN IV FOR UFH LEVEL 0.2 - 0.29; Start 11/26/16 at 15:30 Warfarin Sodium (Coumadin Per Pharmacy) 1 each PRN DAILY PRN MC PER PROTOCOL Last administered on 11/28/16 14:37; Start 11/26/16 at 15:30 Warfarin Sodium (Coumadin) 4 mg 1X WARF ONCE PO ; Start 11/26/16 at 16:00; Stop 11/26/16 at 16:01; Status DC Vitamin B Complex/ Vitamin C (Anahy-Della) 1 tab DAILY PO Last administered on 08:38; Start 11/27/16 at 09:00 Gabapentin (Neurontin) 300 mg HS PO Last administered on 11/28/16 20:38; Start 11/26/16 at 21:00 Insulin Detemir 70 units 70 units DAILY SQ Last administered on 11/28/16 09:19 ; Start 11/27/16 at 09:00 Levofloxacin/ Dextrose (LEVAQUIN 500mg PREMIX) 100 ml @ 100 mls/hr Q48H IV Last administered on 11/26/16 20:52; Start 11/26/16 at 20:00; Stop 11/27/16 at 22:48; Status DC Alteplase, Recombinant 4 mg 4 mg 1X ONCE INT CAT Last administered on 13:38; Start 11/27/16 at 08:45; Stop 11/27/16 at 08:46; Status DC Magnesium Sulfate/ Dextrose (Magnesium Sulfate PREMIX 2GM) 50 ml @ 25 mls/hr PRN DAILY PRN IV for Mag < 1.7 on am labs; Start 11/27/16 at 10:15; Stop at 10:54; Status DC Lidocaine/Sodium Bicarbonate 20 ml 20 ml STK-MED ONCE IJ ; Start 11/27/16 at 11: 14; Stop 11/27/16 at 11:15; Status DC Heparin Sodium/ Sodium Chloride 500 ml @ As Directed STK-MED ONCE .ROUTE ; Start 11/27/16 at 11:14; Stop 11/27/16 at 11:15; Status DC Iodixanol (Visipaque 320) 100 ml STK-MED ONCE .ROUTE ; Start 11/27/16 at 11:14; Stop 11/27/16 at 11:15; Status DC Midazolam HCl (Versed) 5 mg STK-MED ONCE .ROUTE ; Start 11/27/16 at 11:29; Stop 11/27/16 at 11:30; Status DC Fentanyl Citrate (Fentanyl 5ml Vial) 250 mcg STK-MED ONCE .ROUTE ; Start at 11:29; Stop 11/27/16 at 11:30; Status DC Heparin Sodium/ Sodium Chloride 1,000 unit 1X ONCE IART Last administered on 13:39; Start 11/27/16 at 11:45; Stop 11/27/16 at 11:46; Status DC Lidocaine/Sodium Bicarbonate (Buffered Lidocaine 1%) 20 ml 1X ONCE IJ Last administered on 11/27/16 13:40; Start 11/27/16 at 11:45; Stop 11/27/16 at 11:46 ; Status DC Midazolam HCl (Versed) 5 mg 1X ONCE IV Last administered on 11/27/16 13:41; Start 11/27/16 at 11:45; Stop 11/27/16 at 11:46; Status DC Fentanyl Citrate (Fentanyl 5ml Vial) 250 mcg 1X ONCE IV Last administered on 13:41; Start 11/27/16 at 11:45; Stop 11/27/16 at 11:46; Status DC Iodixanol (Visipaque 320) 100 ml 1X ONCE IART Last administered on 11/27/16 13:39; Start 11/27/16 at 11:45; Stop 11/27/16 at 11:46; Status DC Info (Do NOT chart on this entry -- for MONITORING) 1 each PRN DAILY PRN MC SEE COMMENTS; Start 11/27/16 at 11:45; Stop 11/29/16 at 11:44; Status DC Heparin Sodium (Porcine) (Heparin Sodium) 5,000 unit 1X ONCE IV Last administered on 11/27/16 13:48; Start 11/27/16 at 13:30; Stop 11/27/16 at 13:31 ; Status DC Info (Anti-Coagulation Monitoring By Pharmacy) 1 each PRN DAILY PRN MC SEE COMMENTS Last administered on 11/28/16 14:40; Start 11/27/16 at 13:30 Warfarin Sodium (Coumadin) 5 mg 1X WARF ONCE PO Last administered on 15:50; Start 11/27/16 at 16:00; Stop 11/27/16 at 16:01; Status DC Insulin Aspart 10 units 10 units 1X ONCE SQ Last administered on 11/27/16 16: 16; Start 11/27/16 at 16:15; Stop 11/27/16 at 16:16; Status DC Sodium Chloride 1,000 ml @ 1,000 mls/hr Q1H PRN IV hypotension; Start 11/28/16 at 08:45; Stop 11/28/16 at 14:44; Status DC Albumin Human (Albuminar) 200 ml @ 200 mls/hr 1X PRN PRN IV Hypotension; Start 11/28/16 at 08:45; Stop 11/28/16 at 14:44; Status DC Acetaminophen (Tylenol) 500 mg 1X PRN PRN PO MILD PAIN / TEMP; Start 11/28/16 at 08:45; Stop 11/29/16 at 08:44; Status DC Diphenhydramine HCl (Benadryl) 25 mg 1X PRN PRN IV ITCHING; Start 11/28/16 at 08:45; Stop 11/29/16 at 08:44; Status DC Diphenhydramine HCl (Benadryl) 25 mg 1X PRN PRN IV ITCHING; Start 11/28/16 at 08:45; Stop 11/29/16 at 08:44; Status DC Labetalol HCl (Normodyne) 10 mg PRN Q1HR PRN IVP SBP > 180; Start 11/28/16 at 08:45; Stop 11/29/16 at 08:44; Status DC Clonidine HCl 0.1 mg 0.1 mg 1X PRN PRN PO SBP > 180; Start 11/28/16 at 08:45; Stop 11/29/16 at 08:44; Status DC Sodium Chloride (Iv Sodium Chloride 0.9% 1000ml Bag) 1,000 ml @ 400 mls/hr Q2H30M PRN IV PATENCY; Start 11/28/16 at 08:45; Stop 11/28/16 at 20:44; Status DC Info (PHARMACY MONITORING -- do not chart) 1 each PRN DAILY PRN MC SEE COMMENTS ; Start 11/28/16 at 08:45 Lidocaine HCl (Xylocaine-Mpf 1% Vial) 2 ml STK-MED ONCE .ROUTE ; Start 11/28/16 at 09:00; Stop 11/28/16 at 09:01; Status DC Lidocaine HCl (Xylocaine-Mpf 1% Vial) 2 ml 1X ONCE INJ Last administered on 10:15; Start 11/28/16 at 10:15; Stop 11/28/16 at 10:16; Status DC Warfarin Sodium (Coumadin) 7.5 mg 1X WARF ONCE PO Last administered on 17:50; Start 11/28/16 at 16:00; Stop 11/28/16 at 16:01; Status DC Warfarin Sodium (Coumadin Per Pharmacy) 1 each PRN DAILY PRN MC SEE COMMENTS; Start 11/28/16 at 16:00; Status Cancel Diphenhydramine HCl 25 mg 25 mg 1X ONCE PO Last administered on 11/28/16 22: 57; Start 11/28/16 at 23:00; Stop 11/28/16 at 23:01; Status DC Insulin Human Regular/Sodium Chloride (Novolin R Vial/ Iv Normal Saline 150ml) 151.5 ml @ 0 mls/hr CONT PRN IV SEE I/O RECORD Last administered on 11/29/16 05:19; Start 11/29/16 at 04:45 Dextrose 12.5 gm 12.5 gm PRN Q15MIN PRN IV LOW BLOOD SUGAR; Start 11/29/16 at 04:45 Magnesium Sulfate/ Dextrose (Magnesium Sulfate PREMIX 2GM) 50 ml @ 25 mls/hr PRN DAILY PRN IV for Mag < 1.7 on am labs; Start 11/29/16 at 11:00 Active Scripts Active Reported Nitrofurantoin (Nitrofurantoin Macrocrystal) 100 Mg Capsule 1 Cap PO BID Vitamin D2 (Ergocalciferol (Vitamin D2)) 50,000 Unit Capsule 1 Cap PO WEEKLY Gabapentin 300 Mg Capsule 300 Mg PO HS Nephro-Della Tablet (Folic Acid/Vitamin B Comp W-C) 0.8 Mg Tablet 1 Tab PO DAILY Humalog (Insulin Lispro) 100 Unit/1 Ml Vial 20 Unit SQ TIDAC Levothyroxine Sodium 75 Mcg Tablet 75 Mcg PO DAILYAC Levemir (Insulin Detemir) 100 Unit/1 Ml Vial 66 Unit SQ QHS Levemir (Insulin Detemir) 100 Unit/1 Ml Vial 70 Unit SQ DAILY D3-2000 (Cholecalciferol (Vitamin D3)) 2,000 Unit Capsule 2,000 Unit PO DAILY Pantoprazole Sodium 40 Mg Tablet.dr 40 Mg PO BID Warfarin Sodium 2 Mg Tablet 2 Mg PO DAILY Warfarin Sodium 1 Mg Tablet 1 Mg PO DAILY Crestor (Rosuvastatin Calcium) 10 Mg Tablet 10 Mg PO DAILY 30 Days Vitals/I & O Vital Sign - Last 24 Hours 11/28/16 11/28/16 11/28/16 11/28/16 15:00 19:00 19:54 20:38 Temp 97.4 97.4 97.4 97.4 Pulse 87 82 Resp 22 20 20 B/P 110/51 119/46 Pulse Ox 98 92 O2 Delivery Room Air Room Air Room Air Room Air 11/28/16 11/28/16 11/29/16 11/29/16 21:36 23:00 07:00 10:50 Temp 98.2 98.0 97.6 98.2 98.0 97.6 Pulse 76 71 71 Resp 18 20 18 16 B/P 116/43 119/47 123/56 Pulse Ox 92 92 96 O2 Delivery Room Air Room Air Room Air Room Air Intake and Output 11/28/16 11/28/16 11/29/16 15:00 23:00 07:00 Intake Total 360 ml 360 ml 300 ml Output Total 200 ml 100 ml Balance 160 ml 260 ml 300 ml Nutrition Consultation Dietary Evaluation: Recommendations by RD: Dietary education by RD, Increase Calorie Intake, Protein supplementation [facility] increased nutrient needs of ESRD on HD Provided handout on renal diet and left at pt bedside Expected Outcomes/Goals: to meet >75% est nutr needs Malnutrition Findings: Weight Status: Morbidly Obese AJ LOPEZ MD Nov 29, 2016 12:47
[2016-11-29 14:39] VITALS: BP 125/57
[2016-11-29] MEDS ORDERED: WARFARIN 7.5 MG TABLET. PO ONE (16:00)
[2016-11-29 19:00] VITALS: BP 119/58
[2016-11-29] MEDS: GABAPENTIN 300 MG CAPSULE. PO SCH (20:37)
[2016-11-29] MEDS: ATORVASTATIN CALCIUM 40 MG TABLET. PO SCH (20:37)
[2016-11-29 23:00] VITALS: BP 121/45
[2016-11-30] MEDS: INSULIN REGULAR VIAL 150 UNIT in 0.9 % SODIUM CHLORIDE 150ML 150 ML IV PRN ×2 (01:01→20:41)
[2016-11-30] MEDS: HEPARIN 25,000UTS/500ML PREMIX 500 ML IV PRN (01:02)
[2016-11-30 02:55] LABS: ALBUMIN 3.1 g/dL (3.4-5.0); CREATININE 8.6 mg/dL (0.6-1.0); GFR 4.6; PHOSPHORUS 5.9 mg/dL (2.6-4.7); POTASSIUM 3.8 mmol/L (3.5-5.1)
[2016-11-30 03:00] VITALS: BP 122/60
[2016-11-30 03:11] LABS: INR 1.5 (0.8-1.1); PROTHROMBIN TIME PATIENT 16.8 SEC (11.7-14.0)
[2016-11-30] MEDS: LEVOTHYROXINE 75 MCG TABLET PO SCH (06:34)
[2016-11-30 07:00] VITALS: BP 120/51
[2016-11-30] MEDS ORDERED: INSULIN DETEMIR 300 UNITS/3 ML INSULN.PEN. SQ ONE (07:00)
[2016-11-30] MEDS: PANTOPRAZOLE 40 MG TABLET.DR. PO SCH ×2 (07:30→20:22)
[2016-11-30] MEDS: INSULIN ASPART 300 UNITS/3 ML INSULN.PEN SQ SCH ×6 (07:30→18:30)
[2016-11-30] MEDS ORDERED: IV NORMAL SALINE 1000ML BAG 1,000 ML IV PRN ×2 (07:32)
[2016-11-30] MEDS ORDERED: DIALYSIS PATIENT. MC PRN (07:45)
[2016-11-30] MEDS ORDERED: ACETAMINOPHEN 500 MG TABLET PO PRN (07:45)
[2016-11-30] MEDS ORDERED: LABETALOL 20 MG/4 ML DISP.SYRIN. IVP PRN (07:45)
[2016-11-30] MEDS ORDERED: ALBUMIN HUMAN 25% 200 ML IV PRN (07:45)
[2016-11-30] MEDS ORDERED: cloNIDine HCL 0.1 MG TABLET PO PRN (07:45)
[2016-11-30] MEDS ORDERED: diphenhydrAMINE 50 MG/ML VIAL IV PRN ×2 (07:45)
[2016-11-30] MEDS: CHOLECALCIFEROL (VITAMIN D3) 1,000 UNIT TABLET PO SCH (07:56)
--- NOTE | 2016-11-30 09:56 | PDOC ---
Dialysis Progress Note Dialysis Note Dialysis Note Seen on Hemodialysis, tolerating treatment Well Vitals on Hemodialysis: 120/51 75 afeb General Appearance: Awake: Alert Oriented x 3 Neck: No JVD or JVP Chest: CTA Tino Heart: S1 S2 Abdomen - Soft NTND Extremities - No Edema ESRD: Dialysis as below F 180 NR 3.5 Hrs 3 K 2.5 Ca 140 Na 35 HC03 Qb 350 + Qd 500+ Heparin on gtt Uf 3.0 Kgs or to dry weight as tolerated May give 25-50 gms of 25% Albumin if needed to maintain Hemodynamic stability Treatment plan reviewed and discussed with circular sawyer stone Vitals Vital Signs Vital Signs Date Time Temp Pulse Resp B/P Pulse Ox O2 Delivery O2 Flow Rate FiO2 11/30/16 07:00 97.9 79 22 120/51 98 Room Air 97.9 11/30/16 03:00 94.0 Labs Last Labs Laboratory Tests Test 11/28/16 13:30 11/28/16 15:10 11/28/16 16:25 11/28/16 21:00 Glucose (Fingerstick) 154mg/dL (70-99) 444mg/dL (70-99) Heparin Anti-Xa Act, Unfractionated 0.57IU/mL (0.30-0.70) 0.81IU/mL (0.30-0.70) Test 11/28/16 21:45 11/29/16 03:45 11/29/16 05:46 11/29/16 06:40 Glucose Level 605mg/dL (70-99) 626mg/dL (70-99) Prothrombin Time 14.8SEC (11.7-14.0) Prothromb Time International Ratio 1.2 (0.8-1.1) Heparin Anti-Xa Act, Unfractionated 0.65IU/mL (0.30-0.70) Sodium Level 127mmol/L (136-145) Potassium Level 5.1mmol/L (3.5-5.1) Chloride Level 88mmol/L (98-107) Carbon Dioxide Level 28mmol/L (21-32) Anion Gap 11 (6-14) Blood Urea Nitrogen 57mg/dL (7-20) Creatinine 7.0mg/dL (0.6-1.0) Estimated GFR (Cockcroft-Gault) 5.8 Calcium Level 7.9mg/dL (8.5-10.1) Phosphorus Level 5.7mg/dL (2.6-4.7) Magnesium Level 1.8mg/dL (1.8-2.4) Albumin 3.2g/dL (3.4-5.0) Glucose (Fingerstick) 590mg/dL (70-99) 595mg/dL (70-99) Test 11/29/16 07:20 11/29/16 08:27 11/29/16 09:30 11/29/16 10:25 Glucose (Fingerstick) 538mg/dL (70-99) 375mg/dL (70-99) 408mg/dL (70-99) 388mg/dL (70-99) Test 11/29/16 11:30 11/29/16 12:35 11/29/16 12:38 11/29/16 13:41 Glucose (Fingerstick) 252mg/dL (70-99) 293mg/dL (70-99) 283mg/dL (70-99) Heparin Anti-Xa Act, Unfractionated 0.91IU/mL (0.30-0.70) Test 11/29/16 14:48 11/29/16 15:55 11/29/16 16:59 11/29/16 18:02 Glucose (Fingerstick) 319mg/dL (70-99) 351mg/dL (70-99) 273mg/dL (70-99) 283mg/dL (70-99) Test 11/29/16 19:00 11/29/16 19:16 11/29/16 20:24 11/29/16 21:20 Heparin Anti-Xa Act, Unfractionated 0.27IU/mL (0.30-0.70) Glucose (Fingerstick) 282mg/dL (70-99) 264mg/dL (70-99) 225mg/dL (70-99) Test 11/29/16 22:33 11/29/16 23:32 11/30/16 00:26 11/30/16 01:43 Glucose (Fingerstick) 263mg/dL (70-99) 238mg/dL (70-99) 232mg/dL (70-99) 244mg/dL (70-99) Test 11/30/16 02:15 11/30/16 02:29 11/30/16 03:46 11/30/16 04:39 Hemoglobin 10.0g/dL (12.0-15.5) Prothrombin Time 16.8SEC (11.7-14.0) Prothromb Time International Ratio 1.5 (0.8-1.1) Heparin Anti-Xa Act, Unfractionated 0.65IU/mL (0.30-0.70) Sodium Level 129mmol/L (136-145) Potassium Level 3.8mmol/L (3.5-5.1) Chloride Level 90mmol/L (98-107) Carbon Dioxide Level 27mmol/L (21-32) Anion Gap 12 (6-14) Blood Urea Nitrogen 76mg/dL (7-20) Creatinine 8.6mg/dL (0.6-1.0) Estimated GFR (Cockcroft-Gault) 4.6 Glucose Level 187mg/dL (70-99) Calcium Level 8.0mg/dL (8.5-10.1) Phosphorus Level 5.9mg/dL (2.6-4.7) Magnesium Level 1.5mg/dL (1.8-2.4) Albumin 3.1g/dL (3.4-5.0) Glucose (Fingerstick) 181mg/dL (70-99) 154mg/dL (70-99) 149mg/dL (70-99) Test 11/30/16 05:35 11/30/16 06:36 11/30/16 07:36 Glucose (Fingerstick) 138mg/dL (70-99) 119mg/dL (70-99) 112mg/dL (70-99) Laboratory Tests Test 11/29/16 10:25 11/29/16 11:30 11/29/16 12:35 11/29/16 12:38 Glucose (Fingerstick) 388mg/dL (70-99) 252mg/dL (70-99) 293mg/dL (70-99) Heparin Anti-Xa Act, Unfractionated 0.91IU/mL (0.30-0.70) Test 11/29/16 13:41 11/29/16 14:48 11/29/16 15:55 11/29/16 16:59 Glucose (Fingerstick) 283mg/dL (70-99) 319mg/dL (70-99) 351mg/dL (70-99) 273mg/dL (70-99) Test 11/29/16 18:02 11/29/16 19:00 11/29/16 19:16 11/29/16 20:24 Glucose (Fingerstick) 283mg/dL (70-99) 282mg/dL (70-99) 264mg/dL (70-99) Heparin Anti-Xa Act, Unfractionated 0.27IU/mL (0.30-0.70) Test 11/29/16 21:20 11/29/16 22:33 11/29/16 23:32 11/30/16 00:26 Glucose (Fingerstick) 225mg/dL (70-99) 263mg/dL (70-99) 238mg/dL (70-99) 232mg/dL (70-99) Test 11/30/16 01:43 11/30/16 02:15 11/30/16 02:29 11/30/16 03:46 Glucose (Fingerstick) 244mg/dL (70-99) 181mg/dL (70-99) 154mg/dL (70-99) Hemoglobin 10.0g/dL (12.0-15.5) Prothrombin Time 16.8SEC (11.7-14.0) Prothromb Time International Ratio 1.5 (0.8-1.1) Heparin Anti-Xa Act, Unfractionated 0.65IU/mL (0.30-0.70) Sodium Level 129mmol/L (136-145) Potassium Level 3.8mmol/L (3.5-5.1) Chloride Level 90mmol/L (98-107) Carbon Dioxide Level 27mmol/L (21-32) Anion Gap 12 (6-14) Blood Urea Nitrogen 76mg/dL (7-20) Creatinine 8.6mg/dL (0.6-1.0) Estimated GFR (Cockcroft-Gault) 4.6 Glucose Level 187mg/dL (70-99) Calcium Level 8.0mg/dL (8.5-10.1) Phosphorus Level 5.9mg/dL (2.6-4.7) Magnesium Level 1.5mg/dL (1.8-2.4) Albumin 3.1g/dL (3.4-5.0) Test 11/30/16 04:39 11/30/16 05:35 11/30/16 06:36 11/30/16 07:36 Glucose (Fingerstick) 149mg/dL (70-99) 138mg/dL (70-99) 119mg/dL (70-99) 112mg/dL (70-99) Assessment Assessment Problems Medical Problems: (1) Dialysis AV fistula malfunction Status: Acute Problems: Plan Plan of Care Problems Medical Problems: (1) Dialysis AV fistula malfunction Status: Acute NATHALY BENTLEY MD Nov 30, 2016 09:56
--- NOTE | 2016-11-30 11:30 | PDOC ---
PROGRESS NOTES Chief Complaint Chief Complaint cc: gram clot A/P Mechanical Mitral valve DM uncontrolled, THROMBOSED LEFT ARM BB GRAFTs/p thrombolysis ESRD-OP SCHEDULE MWF ANEMIA S/P TEMP HD CATHETER CAD Plan S/P thrombolysis uneventful INR not therapeutic, bridge with heparin gtt, warfarin per pharmacy, INR goal 2.5-3.5 On insulin gtt, monitor BS q1-2 hrs,stop insulin gtt this evening, start home Lantus, home dose, d/w pharmacy. stop Levemir. d/w RN INR daily, DC planning based on INR levels. HD per nephrology labs reviewed Monitor hemoglobin Not READY FOR DC. History of Present Illness History of Present Illness NO BLEEDING NO FEVER Vitals Vitals Vital Signs Date Time Temp Pulse Resp B/P Pulse Ox O2 Delivery O2 Flow Rate FiO2 11/30/16 07:00 97.9 79 22 120/51 98 Room Air 97.9 11/30/16 03:00 94.0 Physical Exam General: Alert, Oriented X3, Cooperative, Other (obese) Heart: Regular rate, Normal S1, Normal S2, Other Lungs: Clear Abdomen: Normal bowel sounds, Soft, No tenderness Extremities: Other Skin: No breakdown Labs LABS Laboratory Tests Test 11/29/16 12:35 11/29/16 12:38 11/29/16 13:41 11/29/16 14:48 Heparin Anti-Xa Act, Unfractionated 0.91IU/mL (0.30-0.70) Glucose (Fingerstick) 293mg/dL (70-99) 283mg/dL (70-99) 319mg/dL (70-99) Test 11/29/16 15:55 11/29/16 16:59 11/29/16 18:02 11/29/16 19:00 Glucose (Fingerstick) 351mg/dL (70-99) 273mg/dL (70-99) 283mg/dL (70-99) Heparin Anti-Xa Act, Unfractionated 0.27IU/mL (0.30-0.70) Test 11/29/16 19:16 11/29/16 20:24 11/29/16 21:20 11/29/16 22:33 Glucose (Fingerstick) 282mg/dL (70-99) 264mg/dL (70-99) 225mg/dL (70-99) 263mg/dL (70-99) Test 11/29/16 23:32 11/30/16 00:26 11/30/16 01:43 11/30/16 02:15 Glucose (Fingerstick) 238mg/dL (70-99) 232mg/dL (70-99) 244mg/dL (70-99) Hemoglobin 10.0g/dL (12.0-15.5) Prothrombin Time 16.8SEC (11.7-14.0) Prothromb Time International Ratio 1.5 (0.8-1.1) Heparin Anti-Xa Act, Unfractionated 0.65IU/mL (0.30-0.70) Sodium Level 129mmol/L (136-145) Potassium Level 3.8mmol/L (3.5-5.1) Chloride Level 90mmol/L (98-107) Carbon Dioxide Level 27mmol/L (21-32) Anion Gap 12 (6-14) Blood Urea Nitrogen 76mg/dL (7-20) Creatinine 8.6mg/dL (0.6-1.0) Estimated GFR (Cockcroft-Gault) 4.6 Glucose Level 187mg/dL (70-99) Calcium Level 8.0mg/dL (8.5-10.1) Phosphorus Level 5.9mg/dL (2.6-4.7) Magnesium Level 1.5mg/dL (1.8-2.4) Albumin 3.1g/dL (3.4-5.0) Test 11/30/16 02:29 11/30/16 03:46 11/30/16 04:39 11/30/16 05:35 Glucose (Fingerstick) 181mg/dL (70-99) 154mg/dL (70-99) 149mg/dL (70-99) 138mg/dL (70-99) Test 11/30/16 06:36 11/30/16 07:36 Glucose (Fingerstick) 119mg/dL (70-99) 112mg/dL (70-99) Assessment and Plan Assessmemt and Plan Problems Medical Problems: (1) Dialysis AV fistula malfunction Status: Acute Problems: Comment Review of Relevant I have reviewed the following items sofi (where applicable) has been applied. Labs Laboratory Tests Test 11/28/16 13:30 11/28/16 15:10 11/28/16 16:25 11/28/16 21:00 Glucose (Fingerstick) 154mg/dL (70-99) 444mg/dL (70-99) Heparin Anti-Xa Act, Unfractionated 0.57IU/mL (0.30-0.70) 0.81IU/mL (0.30-0.70) Test 11/28/16 21:45 11/29/16 03:45 11/29/16 05:46 11/29/16 06:40 Glucose Level 605mg/dL (70-99) 626mg/dL (70-99) Prothrombin Time 14.8SEC (11.7-14.0) Prothromb Time International Ratio 1.2 (0.8-1.1) Heparin Anti-Xa Act, Unfractionated 0.65IU/mL (0.30-0.70) Sodium Level 127mmol/L (136-145) Potassium Level 5.1mmol/L (3.5-5.1) Chloride Level 88mmol/L (98-107) Carbon Dioxide Level 28mmol/L (21-32) Anion Gap 11 (6-14) Blood Urea Nitrogen 57mg/dL (7-20) Creatinine 7.0mg/dL (0.6-1.0) Estimated GFR (Cockcroft-Gault) 5.8 Calcium Level 7.9mg/dL (8.5-10.1) Phosphorus Level 5.7mg/dL (2.6-4.7) Magnesium Level 1.8mg/dL (1.8-2.4) Albumin 3.2g/dL (3.4-5.0) Glucose (Fingerstick) 590mg/dL (70-99) 595mg/dL (70-99) Test 11/29/16 07:20 11/29/16 08:27 11/29/16 09:30 11/29/16 10:25 Glucose (Fingerstick) 538mg/dL (70-99) 375mg/dL (70-99) 408mg/dL (70-99) 388mg/dL (70-99) Test 11/29/16 11:30 11/29/16 12:35 11/29/16 12:38 11/29/16 13:41 Glucose (Fingerstick) 252mg/dL (70-99) 293mg/dL (70-99) 283mg/dL (70-99) Heparin Anti-Xa Act, Unfractionated 0.91IU/mL (0.30-0.70) Test 11/29/16 14:48 11/29/16 15:55 11/29/16 16:59 11/29/16 18:02 Glucose (Fingerstick) 319mg/dL (70-99) 351mg/dL (70-99) 273mg/dL (70-99) 283mg/dL (70-99) Test 11/29/16 19:00 11/29/16 19:16 11/29/16 20:24 11/29/16 21:20 Heparin Anti-Xa Act, Unfractionated 0.27IU/mL (0.30-0.70) Glucose (Fingerstick) 282mg/dL (70-99) 264mg/dL (70-99) 225mg/dL (70-99) Test 11/29/16 22:33 11/29/16 23:32 11/30/16 00:26 11/30/16 01:43 Glucose (Fingerstick) 263mg/dL (70-99) 238mg/dL (70-99) 232mg/dL (70-99) 244mg/dL (70-99) Test 11/30/16 02:15 11/30/16 02:29 11/30/16 03:46 11/30/16 04:39 Hemoglobin 10.0g/dL (12.0-15.5) Prothrombin Time 16.8SEC (11.7-14.0) Prothromb Time International Ratio 1.5 (0.8-1.1) Heparin Anti-Xa Act, Unfractionated 0.65IU/mL (0.30-0.70) Sodium Level 129mmol/L (136-145) Potassium Level 3.8mmol/L (3.5-5.1) Chloride Level 90mmol/L (98-107) Carbon Dioxide Level 27mmol/L (21-32) Anion Gap 12 (6-14) Blood Urea Nitrogen 76mg/dL (7-20) Creatinine 8.6mg/dL (0.6-1.0) Estimated GFR (Cockcroft-Gault) 4.6 Glucose Level 187mg/dL (70-99) Calcium Level 8.0mg/dL (8.5-10.1) Phosphorus Level 5.9mg/dL (2.6-4.7) Magnesium Level 1.5mg/dL (1.8-2.4) Albumin 3.1g/dL (3.4-5.0) Glucose (Fingerstick) 181mg/dL (70-99) 154mg/dL (70-99) 149mg/dL (70-99) Test 11/30/16 05:35 11/30/16 06:36 11/30/16 07:36 Glucose (Fingerstick) 138mg/dL (70-99) 119mg/dL (70-99) 112mg/dL (70-99) Laboratory Tests Test 11/29/16 12:35 11/29/16 12:38 11/29/16 13:41 11/29/16 14:48 Heparin Anti-Xa Act, Unfractionated 0.91IU/mL (0.30-0.70) Glucose (Fingerstick) 293mg/dL (70-99) 283mg/dL (70-99) 319mg/dL (70-99) Test 11/29/16 15:55 11/29/16 16:59 11/29/16 18:02 11/29/16 19:00 Glucose (Fingerstick) 351mg/dL (70-99) 273mg/dL (70-99) 283mg/dL (70-99) Heparin Anti-Xa Act, Unfractionated 0.27IU/mL (0.30-0.70) Test 11/29/16 19:16 11/29/16 20:24 11/29/16 21:20 11/29/16 22:33 Glucose (Fingerstick) 282mg/dL (70-99) 264mg/dL (70-99) 225mg/dL (70-99) 263mg/dL (70-99) Test 11/29/16 23:32 11/30/16 00:26 11/30/16 01:43 11/30/16 02:15 Glucose (Fingerstick) 238mg/dL (70-99) 232mg/dL (70-99) 244mg/dL (70-99) Hemoglobin 10.0g/dL (12.0-15.5) Prothrombin Time 16.8SEC (11.7-14.0) Prothromb Time International Ratio 1.5 (0.8-1.1) Heparin Anti-Xa Act, Unfractionated 0.65IU/mL (0.30-0.70) Sodium Level 129mmol/L (136-145) Potassium Level 3.8mmol/L (3.5-5.1) Chloride Level 90mmol/L (98-107) Carbon Dioxide Level 27mmol/L (21-32) Anion Gap 12 (6-14) Blood Urea Nitrogen 76mg/dL (7-20) Creatinine 8.6mg/dL (0.6-1.0) Estimated GFR (Cockcroft-Gault) 4.6 Glucose Level 187mg/dL (70-99) Calcium Level 8.0mg/dL (8.5-10.1) Phosphorus Level 5.9mg/dL (2.6-4.7) Magnesium Level 1.5mg/dL (1.8-2.4) Albumin 3.1g/dL (3.4-5.0) Test 11/30/16 02:29 11/30/16 03:46 11/30/16 04:39 11/30/16 05:35 Glucose (Fingerstick) 181mg/dL (70-99) 154mg/dL (70-99) 149mg/dL (70-99) 138mg/dL (70-99) Test 11/30/16 06:36 11/30/16 07:36 Glucose (Fingerstick) 119mg/dL (70-99) 112mg/dL (70-99) Microbiology 11/24/16 Urine Culture - Final, Complete 11/24/16 Urine Culture Result 1 (ELEAZAR) - Final, Complete Medications Current Medications Ondansetron HCl (Zofran) 4 mg PRN Q8HRS PRN IV NAUSEA/VOMITING; Start 11/23/16 at 21:00; Stop 11/24/16 at 07:25; Status DC Morphine Sulfate 2 mg PRN Q2HR PRN IV PAIN; Start 11/23/16 at 21:00; Stop 11/24 at 20:59; Status DC Acetaminophen (Tylenol) 650 mg PRN Q4HRS PRN PO FEVER Last administered on 11/24 08:46; Start 11/23/16 at 21:00; Stop 11/24/16 at 20:59; Status DC Furosemide (Lasix) 100 mg 1X ONCE IVP Last administered on 11/24/16 01:15; Start 11/23/16 at 23:15; Stop 11/23/16 at 23:17; Status DC Levothyroxine Sodium (Synthroid) 75 mcg DAILY07 PO Last administered on 06:34; Start 11/24/16 at 07:00 Pantoprazole Sodium (Protonix) 40 mg BIDAC PO Last administered on 11/29/16 18 :06; Start 11/24/16 at 07:30 Warfarin Sodium (Coumadin) 1 mg DAILY16 PO ; Start 11/24/16 at 16:00; Stop 11/25 at 09:01; Status DC Warfarin Sodium (Coumadin) 2 mg DAILY16 PO Last administered on 11/24/16 22:38 ; Start 11/24/16 at 16:00; Stop 11/25/16 at 09:01; Status DC Vitamin D (Vitamin D3) 2,000 unit DAILY PO Last administered on 11/29/16 08:38 ; Start 11/24/16 at 09:00 Insulin Detemir (Levemir) 66 units QHS SQ Last administered on 11/28/16 20:45 ; Start 11/24/16 at 21:00 Insulin Aspart (Novolog) 20 units TIDAC SQ Last administered on 11/28/16 17:57 ; Start 11/24/16 at 07:30; Stop 11/30/16 at 06:26; Status DC Atorvastatin Calcium (Lipitor) 40 mg HS PO Last administered on 11/29/16 20:37 ; Start 11/24/16 at 21:00 Warfarin Sodium (Coumadin Per Physician) 1 each PRN DAILY PRN MC SEE COMMENTS Last administered on 11/24/16 15:33; Start 11/24/16 at 16:00; Stop 11/25/16 at 09:01; Status DC Ondansetron HCl (Zofran) 4 mg PRN Q6HRS PRN IV NAUSEA/VOMITING Last administered on 11/28/16 18:01; Start 11/24/16 at 07:23 Insulin Aspart (Novolog) 0-9 UNITS TIDWMEALS SQ Last administered on 11/28/16 17:57; Start 11/24/16 at 08:00 Dextrose (Dextrose 50%-Water Syringe) 12.5 gm PRN Q15MIN PRN IV SEE COMMENTS; Start 11/24/16 at 07:30; Stop 11/29/16 at 04:44; Status DC Darbepoetin Surendra (Aranesp) 60 mcg WEEKLYHS SQ Last administered on 11/24/16 22 :39; Start 11/24/16 at 21:00 Heparin Sodium (Porcine) (Heparin Sodium) 10,000 unit STK-MED ONCE .ROUTE ; Start 11/24/16 at 16:58; Stop 11/24/16 at 16:59; Status DC Lidocaine/Sodium Bicarbonate 20 ml 20 ml STK-MED ONCE IJ ; Start 11/24/16 at 16: 58; Stop 11/24/16 at 16:59; Status DC Heparin Sodium/ Sodium Chloride 500 ml @ As Directed STK-MED ONCE .ROUTE ; Start 11/24/16 at 16:58; Stop 11/24/16 at 16:59; Status DC Lidocaine/Sodium Bicarbonate (Buffered Lidocaine 1%) 3 ml 1X ONCE IJ Last administered on 11/24/16 17:44; Start 11/24/16 at 17:15; Stop 11/24/16 at 17:16 ; Status DC Heparin Sodium/ Sodium Chloride 60 unit 1X ONCE IV Last administered on 17:15; Start 11/24/16 at 17:15; Stop 11/24/16 at 17:16; Status DC Heparin Sodium (Porcine) (Heparin Sodium) 2,500 unit 1X ONCE INT CAT Last administered on 11/24/16 17:15; Start 11/24/16 at 17:15; Stop 11/24/16 at 17:16 ; Status DC Sodium Chloride (Normal Saline Flush) 10 ml 1X PRN PRN IV AP catheter pack; Start 11/24/16 at 23:45; Stop 11/25/16 at 23:44; Status DC Sodium Chloride 10 ml 10 ml 1X PRN PRN IV [employer] catheter pack; Start 11/24/16 at 23:45; Stop 11/25/16 at 23:44; Status DC Sodium Chloride (Iv Sodium Chloride 0.9% 1000ml Bag) 1,000 ml @ 400 mls/hr Q2H30M PRN IV PATENCY; Start 11/24/16 at 23:45; Stop 11/25/16 at 11:44; Status DC Info (PHARMACY MONITORING -- do not chart) 1 each PRN DAILY PRN MC SEE COMMENTS ; Start 11/24/16 at 23:45; Stop 11/26/16 at 07:32; Status DC Acetaminophen/ Hydrocodone Bitart (Lortab 5/325) 1 tab PRN Q4HRS PRN PO PAIN Last administered on 11/29/16 09:53; Start 11/25/16 at 05:15 Insulin Aspart (Novolog) 9 units TIDAC SQ Last administered on 11/28/16 09:18 ; Start 11/25/16 at 05:15; Stop 11/28/16 at 14:10; Status DC Phytonadione (Mephyton) 5 mg 1X ONCE PO Last administered on 11/25/16 12:15; Start 11/25/16 at 11:00; Stop 11/25/16 at 11:01; Status DC Diphenhydramine HCl 25 mg 25 mg PRN Q6HRS PRN IVP ITCHING Last administered on 11/26/16 15:55; Start 11/25/16 at 18:15 Sodium Chloride (Iv Sodium Chloride 0.9% 1000ml Bag) 1,000 ml @ 1,000 mls/hr Q1H PRN IV hypotension; Start 11/26/16 at 07:26; Stop 11/26/16 at 13:25; Status DC Sodium Chloride (Normal Saline Flush) 10 ml 1X PRN PRN IV AP catheter pack; Start 11/26/16 at 07:30; Stop 11/27/16 at 07:29; Status DC Sodium Chloride 10 ml 10 ml 1X PRN PRN IV ASP[employer] catheter pack; Start 11/26/16 at 07:30; Stop 11/27/16 at 07:29; Status DC Sodium Chloride (Iv Sodium Chloride 0.9% 1000ml Bag) 1,000 ml @ 400 mls/hr Q2H30M PRN IV PATENCY; Start 11/26/16 at 07:26; Stop 11/26/16 at 19:25; Status DC Info (PHARMACY MONITORING -- do not chart) 1 each PRN DAILY PRN MC SEE COMMENTS ; Start 11/26/16 at 07:30; Status Cancel Lidocaine/Sodium Bicarbonate 20 ml 20 ml STK-MED ONCE IJ ; Start 11/26/16 at 14: 06; Stop 11/26/16 at 14:07; Status DC Heparin Sodium/ Sodium Chloride 500 ml @ As Directed STK-MED ONCE .ROUTE ; Start 11/26/16 at 14:06; Stop 11/26/16 at 14:07; Status DC Iodixanol 100 ml 100 ml STK-MED ONCE .ROUTE ; Start 11/26/16 at 14:07; Stop at 14:08; Status DC Heparin Sodium/ Dextrose 500 ml @ 0 mls/hr CONT PRN IV SEE I/O RECORD Last administered on 11/30/16 01:02; Start 11/26/16 at 15:30 Heparin Sodium (Porcine) (Heparin Sodium) 2,900 unit PRN Q6HRS PRN IV FOR UFH LEVEL LESS THAN 0.2 Last administered on 11/27/16 07:21; Start 11/26/16 at 15: 30 Heparin Sodium (Porcine) (Heparin Sodium) 1,450 unit PRN Q6HRS PRN IV FOR UFH LEVEL 0.2 - 0.29 Last administered on 11/29/16 20:44; Start 11/26/16 at 15:30 Warfarin Sodium (Coumadin Per Pharmacy) 1 each PRN DAILY PRN MC PER PROTOCOL Last administered on 11/29/16 15:32; Start 11/26/16 at 15:30 Warfarin Sodium (Coumadin) 4 mg 1X WARF ONCE PO ; Start 11/26/16 at 16:00; Stop 11/26/16 at 16:01; Status DC Vitamin B Complex/ Vitamin C (Anahy-Della) 1 tab DAILY PO Last administered on 08:38; Start 11/27/16 at 09:00 Gabapentin (Neurontin) 300 mg HS PO Last administered on 11/29/16 20:37; Start 11/26/16 at 21:00 Insulin Detemir 70 units 70 units DAILY SQ Last administered on 11/28/16 09:19 ; Start 11/27/16 at 09:00; Stop 11/30/16 at 06:31; Status DC Levofloxacin/ Dextrose (LEVAQUIN 500mg PREMIX) 100 ml @ 100 mls/hr Q48H IV Last administered on 11/26/16 20:52; Start 11/26/16 at 20:00; Stop 11/27/16 at 22:48; Status DC Alteplase, Recombinant 4 mg 4 mg 1X ONCE INT CAT Last administered on 13:38; Start 11/27/16 at 08:45; Stop 11/27/16 at 08:46; Status DC Magnesium Sulfate/ Dextrose (Magnesium Sulfate PREMIX 2GM) 50 ml @ 25 mls/hr PRN DAILY PRN IV for Mag < 1.7 on am labs; Start 11/27/16 at 10:15; Stop at 10:54; Status DC Lidocaine/Sodium Bicarbonate 20 ml 20 ml STK-MED ONCE IJ ; Start 11/27/16 at 11: 14; Stop 11/27/16 at 11:15; Status DC Heparin Sodium/ Sodium Chloride 500 ml @ As Directed STK-MED ONCE .ROUTE ; Start 11/27/16 at 11:14; Stop 11/27/16 at 11:15; Status DC Iodixanol (Visipaque 320) 100 ml STK-MED ONCE .ROUTE ; Start 11/27/16 at 11:14; Stop 11/27/16 at 11:15; Status DC Midazolam HCl (Versed) 5 mg STK-MED ONCE .ROUTE ; Start 11/27/16 at 11:29; Stop 11/27/16 at 11:30; Status DC Fentanyl Citrate (Fentanyl 5ml Vial) 250 mcg STK-MED ONCE .ROUTE ; Start at 11:29; Stop 11/27/16 at 11:30; Status DC Heparin Sodium/ Sodium Chloride 1,000 unit 1X ONCE IART Last administered on 13:39; Start 11/27/16 at 11:45; Stop 11/27/16 at 11:46; Status DC Lidocaine/Sodium Bicarbonate (Buffered Lidocaine 1%) 20 ml 1X ONCE IJ Last administered on 11/27/16 13:40; Start 11/27/16 at 11:45; Stop 11/27/16 at 11:46 ; Status DC Midazolam HCl (Versed) 5 mg 1X ONCE IV Last administered on 11/27/16 13:41; Start 11/27/16 at 11:45; Stop 11/27/16 at 11:46; Status DC Fentanyl Citrate (Fentanyl 5ml Vial) 250 mcg 1X ONCE IV Last administered on 13:41; Start 11/27/16 at 11:45; Stop 11/27/16 at 11:46; Status DC Iodixanol (Visipaque 320) 100 ml 1X ONCE IART Last administered on 11/27/16 13:39; Start 11/27/16 at 11:45; Stop 11/27/16 at 11:46; Status DC Info (Do NOT chart on this entry -- for MONITORING) 1 each PRN DAILY PRN MC SEE COMMENTS; Start 11/27/16 at 11:45; Stop 11/29/16 at 11:44; Status DC Heparin Sodium (Porcine) (Heparin Sodium) 5,000 unit 1X ONCE IV Last administered on 11/27/16 13:48; Start 11/27/16 at 13:30; Stop 11/27/16 at 13:31 ; Status DC Info (Anti-Coagulation Monitoring By Pharmacy) 1 each PRN DAILY PRN MC SEE COMMENTS Last administered on 11/28/16 14:40; Start 11/27/16 at 13:30 Warfarin Sodium (Coumadin) 5 mg 1X WARF ONCE PO Last administered on 15:50; Start 11/27/16 at 16:00; Stop 11/27/16 at 16:01; Status DC Insulin Aspart 10 units 10 units 1X ONCE SQ Last administered on 11/27/16 16: 16; Start 11/27/16 at 16:15; Stop 11/27/16 at 16:16; Status DC Sodium Chloride 1,000 ml @ 1,000 mls/hr Q1H PRN IV hypotension; Start 11/28/16 at 08:45; Stop 11/28/16 at 14:44; Status DC Albumin Human (Albuminar) 200 ml @ 200 mls/hr 1X PRN PRN IV Hypotension; Start 11/28/16 at 08:45; Stop 11/28/16 at 14:44; Status DC Acetaminophen (Tylenol) 500 mg 1X PRN PRN PO MILD PAIN / TEMP; Start 11/28/16 at 08:45; Stop 11/29/16 at 08:44; Status DC Diphenhydramine HCl (Benadryl) 25 mg 1X PRN PRN IV ITCHING; Start 11/28/16 at 08:45; Stop 11/29/16 at 08:44; Status DC Diphenhydramine HCl (Benadryl) 25 mg 1X PRN PRN IV ITCHING; Start 11/28/16 at 08:45; Stop 11/29/16 at 08:44; Status DC Labetalol HCl (Normodyne) 10 mg PRN Q1HR PRN IVP SBP > 180; Start 11/28/16 at 08:45; Stop 11/29/16 at 08:44; Status DC Clonidine HCl 0.1 mg 0.1 mg 1X PRN PRN PO SBP > 180; Start 11/28/16 at 08:45; Stop 11/29/16 at 08:44; Status DC Sodium Chloride (Iv Sodium Chloride 0.9% 1000ml Bag) 1,000 ml @ 400 mls/hr Q2H30M PRN IV PATENCY; Start 11/28/16 at 08:45; Stop 11/28/16 at 20:44; Status DC Info (PHARMACY MONITORING -- do not chart) 1 each PRN DAILY PRN MC SEE COMMENTS ; Start 11/28/16 at 08:45 Lidocaine HCl (Xylocaine-Mpf 1% Vial) 2 ml STK-MED ONCE .ROUTE ; Start 11/28/16 at 09:00; Stop 11/28/16 at 09:01; Status DC Lidocaine HCl (Xylocaine-Mpf 1% Vial) 2 ml 1X ONCE INJ Last administered on 10:15; Start 11/28/16 at 10:15; Stop 11/28/16 at 10:16; Status DC Warfarin Sodium (Coumadin) 7.5 mg 1X WARF ONCE PO Last administered on 17:50; Start 11/28/16 at 16:00; Stop 11/28/16 at 16:01; Status DC Warfarin Sodium (Coumadin Per Pharmacy) 1 each PRN DAILY PRN MC SEE COMMENTS; Start 11/28/16 at 16:00; Status Cancel Diphenhydramine HCl 25 mg 25 mg 1X ONCE PO Last administered on 11/28/16 22: 57; Start 11/28/16 at 23:00; Stop 11/28/16 at 23:01; Status DC Insulin Human Regular/Sodium Chloride (Novolin R Vial/ Iv Normal Saline 150ml) 151.5 ml @ 0 mls/hr CONT PRN IV SEE I/O RECORD Last administered on 11/30/16 01:01; Start 11/29/16 at 04:45 Dextrose 12.5 gm 12.5 gm PRN Q15MIN PRN IV LOW BLOOD SUGAR; Start 11/29/16 at 04:45 Magnesium Sulfate/ Dextrose (Magnesium Sulfate PREMIX 2GM) 50 ml @ 25 mls/hr PRN DAILY PRN IV for Mag < 1.7 on am labs; Start 11/29/16 at 11:00 Warfarin Sodium (Coumadin) 7.5 mg 1X WARF ONCE PO Last administered on 18:06; Start 11/29/16 at 16:00; Stop 11/29/16 at 16:01; Status DC Insulin Detemir (Levemir) 100 units 1X ONCE SQ Last administered on 11/30/16 06:39; Start 11/30/16 at 07:00; Stop 11/30/16 at 07:01; Status DC Insulin Aspart (Novolog) 40 units TIDAC SQ ; Start 11/30/16 at 07:30 Insulin Detemir 70 units 70 units DAILY SQ ; Start 12/01/16 at 09:00 Sodium Chloride 1,000 ml @ 1,000 mls/hr Q1H PRN IV hypotension; Start 11/30/16 at 07:32; Stop 11/30/16 at 13:31 Albumin Human (Albuminar) 200 ml @ 200 mls/hr 1X PRN PRN IV Hypotension; Start 11/30/16 at 07:45; Stop 11/30/16 at 13:44 Acetaminophen (Tylenol) 500 mg 1X PRN PRN PO MILD PAIN / TEMP; Start 11/30/16 at 07:45; Stop 12/01/16 at 07:44 Diphenhydramine HCl (Benadryl) 25 mg 1X PRN PRN IV ITCHING; Start 11/30/16 at 07:45; Stop 12/01/16 at 07:44 Diphenhydramine HCl (Benadryl) 25 mg 1X PRN PRN IV ITCHING; Start 11/30/16 at 07:45; Stop 12/01/16 at 07:44 Labetalol HCl (Normodyne) 10 mg PRN Q1HR PRN IVP SBP > 180; Start 11/30/16 at 07:45; Stop 12/01/16 at 07:44 Clonidine HCl 0.1 mg 0.1 mg 1X PRN PRN PO SBP > 180; Start 11/30/16 at 07:45; Stop 12/01/16 at 07:44 Sodium Chloride (Iv Sodium Chloride 0.9% 1000ml Bag) 1,000 ml @ 400 mls/hr Q2H30M PRN IV PATENCY; Start 11/30/16 at 07:32; Stop 11/30/16 at 19:31 Info (PHARMACY MONITORING -- do not chart) 1 each PRN DAILY PRN MC SEE COMMENTS ; Start 11/30/16 at 07:45; Status UNV Active Scripts Active Reported Nitrofurantoin (Nitrofurantoin Macrocrystal) 100 Mg Capsule 1 Cap PO BID Vitamin D2 (Ergocalciferol (Vitamin D2)) 50,000 Unit Capsule 1 Cap PO WEEKLY Gabapentin 300 Mg Capsule 300 Mg PO HS Nephro-Della Tablet (Folic Acid/Vitamin B Comp W-C) 0.8 Mg Tablet 1 Tab PO DAILY Humalog (Insulin Lispro) 100 Unit/1 Ml Vial 20 Unit SQ TIDAC Levothyroxine Sodium 75 Mcg Tablet 75 Mcg PO DAILYAC Levemir (Insulin Detemir) 100 Unit/1 Ml Vial 66 Unit SQ QHS Levemir (Insulin Detemir) 100 Unit/1 Ml Vial 70 Unit SQ DAILY D3-2000 (Cholecalciferol (Vitamin D3)) 2,000 Unit Capsule 2,000 Unit PO DAILY Pantoprazole Sodium 40 Mg Tablet.dr 40 Mg PO BID Warfarin Sodium 2 Mg Tablet 2 Mg PO DAILY Warfarin Sodium 1 Mg Tablet 1 Mg PO DAILY Crestor (Rosuvastatin Calcium) 10 Mg Tablet 10 Mg PO DAILY 30 Days Vitals/I & O Vital Sign - Last 24 Hours 11/29/16 11/29/16 11/29/16 11/29/16 14:39 19:00 20:00 23:00 Temp 97.4 97.4 97.9 97.4 97.4 97.9 Pulse 75 77 78 Resp 17 18 18 B/P 125/57 119/58 121/45 Pulse Ox 94 95 95 O2 Delivery Room Air Room Air 11/30/16 11/30/16 03:00 07:00 Temp 98.0 97.9 98.0 97.9 Pulse 81 79 Resp 16 22 B/P 122/60 120/51 Pulse Ox 98 O2 Delivery Room Air O2 Flow Rate 94.0 Intake and Output 11/29/16 11/29/16 11/30/16 15:00 23:00 07:00 Intake Total 240 ml 240 ml Balance 240 ml 240 ml Nutrition Consultation Dietary Evaluation: Recommendations by RD: Dietary education by RD, Increase Calorie Intake, Protein supplementation Comments: [facility] renal BID for increased nutrient needs of ESRD on HD Provided handout on renal diet and left at pt bedside Expected Outcomes/Goals: to meet >75% est nutr needs Malnutrition Findings: Weight Status: Morbidly Obese AJ LOPEZ MD Nov 30, 2016 11:30
[2016-11-30] MEDS: FOLIC/VIT B COMP W-C (RENAL) TABLET. PO SCH (12:46)
[2016-11-30] MEDS ORDERED: MAGNESIUM SULFATE 2GM 50 ML IV ONE (14:00)
[2016-11-30 15:00] VITALS: BP 115/54
[2016-11-30] MEDS ORDERED: WARFARIN 3 MG TABLET. PO ONE (16:00)
[2016-11-30] MEDS: HYDROCODONE/APAP 5/325MG TABLET. PO PRN ×2 (18:05→22:03)
[2016-11-30] MEDS: ONDANSETRON PF 4 MG/2 ML VIAL. IV PRN (18:12)
[2016-11-30 19:59] VITALS: BP 118/50
[2016-11-30] MEDS: GABAPENTIN 300 MG CAPSULE. PO SCH (20:22)
[2016-11-30] MEDS: ATORVASTATIN CALCIUM 40 MG TABLET. PO SCH (20:22)
[2016-11-30] MEDS ORDERED: LANTUS INSULIN SQ SCH (21:00)
[2016-11-30] MEDS: LANTUS INSULIN SQ SCH (22:08)
[2016-11-30 23:55] VITALS: BP 149/64
[2016-12-01] MEDS: HEPARIN 25,000UTS/500ML PREMIX 500 ML IV PRN (02:30)
[2016-12-01 03:41] LABS: INR 1.8 (0.8-1.1)
[2016-12-01 03:59] VITALS: BP 106/49
[2016-12-01 04:14] LABS: ALBUMIN 3.3 g/dL (3.4-5.0); CALCIUM 8.3 mg/dL (8.5-10.1); CREATININE 6.2 mg/dL (0.6-1.0); GFR 6.7; PHOSPHORUS 3.7 mg/dL (2.6-4.7); POTASSIUM 4.3 mmol/L (3.5-5.1)
[2016-12-01] MEDS: INSULIN REGULAR VIAL 150 UNIT in 0.9 % SODIUM CHLORIDE 150ML 150 ML IV PRN ×2 (04:58→18:41)
[2016-12-01 07:00] VITALS: BP 153/68
[2016-12-01] MEDS: INSULIN ASPART 300 UNITS/3 ML INSULN.PEN SQ SCH ×8 (07:30→17:09)
[2016-12-01] MEDS: CHOLECALCIFEROL (VITAMIN D3) 1,000 UNIT TABLET PO SCH (08:24)
[2016-12-01] MEDS: FOLIC/VIT B COMP W-C (RENAL) TABLET. PO SCH (08:25)
[2016-12-01] MEDS: LEVOTHYROXINE 75 MCG TABLET PO SCH (08:25)
[2016-12-01] MEDS: PANTOPRAZOLE 40 MG TABLET.DR. PO SCH ×2 (08:25→15:39)
[2016-12-01] MEDS: INSULIN GLARGINE SQ SCH (09:00)
[2016-12-01] MEDS ORDERED: INSULIN DETEMIR 300 UNITS/3 ML INSULN.PEN. SQ SCH (09:00)
[2016-12-01 11:00] VITALS: BP 125/78
--- NOTE | 2016-12-01 12:20 | PDOC ---
PROGRESS NOTES Chief Complaint Chief Complaint cc: gram clot A/P Mechanical Mitral valve DM uncontrolled, THROMBOSED LEFT ARM BB GRAFTs/p thrombolysis ESRD-OP SCHEDULE MWF ANEMIA S/P TEMP HD CATHETER CAD Plan S/P thrombolysis uneventful INR not therapeutic, bridge with heparin gtt, warfarin per pharmacy, INR goal 2.5-3.5 On insulin gtt, monitor BS q1-2 hrs,BS not controlled despite on home regimen, no fever, on insulin gtt. INR daily, DC planning based on INR levels. HD per nephrology labs reviewed Monitor hemoglobin Not READY FOR DC. History of Present Illness History of Present Illness NO BLEEDING NO FEVER Vitals Vitals Vital Signs Date Time Temp Pulse Resp B/P Pulse Ox O2 Delivery O2 Flow Rate FiO2 12/01/16 11:00 98.0 88 24 125/78 98 98.0 12/01/16 07:30 Room Air 11/30/16 22:03 2.0 Physical Exam General: Alert, Oriented X3, Cooperative, Other (obese) Heart: Regular rate, Normal S1, Normal S2, Other Lungs: Clear Abdomen: Normal bowel sounds, Soft, No tenderness Extremities: Other Skin: No breakdown Labs LABS Laboratory Tests Test 11/30/16 12:23 11/30/16 13:20 11/30/16 16:49 11/30/16 19:11 Glucose (Fingerstick) 254mg/dL (70-99) 557mg/dL (70-99) 592mg/dL (70-99) Heparin Anti-Xa Act, Unfractionated 1.02IU/mL (0.30-0.70) Test 11/30/16 20:55 11/30/16 23:05 12/01/16 01:45 12/01/16 03:28 Glucose Level 832mg/dL (70-99) 781mg/dL (70-99) 615mg/dL (70-99) Prothrombin Time 20.0SEC (11.7-14.0) Prothromb Time International Ratio 1.8 (0.8-1.1) Heparin Anti-Xa Act, Unfractionated 0.30IU/mL (0.30-0.70) Sodium Level 127mmol/L (136-145) Potassium Level 4.3mmol/L (3.5-5.1) Chloride Level 87mmol/L (98-107) Carbon Dioxide Level 27mmol/L (21-32) Anion Gap 13 (6-14) Blood Urea Nitrogen 50mg/dL (7-20) Creatinine 6.2mg/dL (0.6-1.0) Estimated GFR (Cockcroft-Gault) 6.7 Calcium Level 8.3mg/dL (8.5-10.1) Phosphorus Level 3.7mg/dL (2.6-4.7) Magnesium Level 2.4mg/dL (1.8-2.4) Albumin 3.3g/dL (3.4-5.0) Glucose (Fingerstick) 510mg/dL (70-99) Test 12/01/16 04:32 12/01/16 05:36 12/01/16 06:42 12/01/16 07:40 Glucose (Fingerstick) 427mg/dL (70-99) 356mg/dL (70-99) 335mg/dL (70-99) 274mg/dL (70-99) Test 12/01/16 08:10 12/01/16 08:51 12/01/16 09:51 12/01/16 10:57 Heparin Anti-Xa Act, Unfractionated 0.36IU/mL (0.30-0.70) Glucose (Fingerstick) 317mg/dL (70-99) 288mg/dL (70-99) 267mg/dL (70-99) Test 12/01/16 12:03 Glucose (Fingerstick) 366mg/dL (70-99) Assessment and Plan Assessmemt and Plan Problems Medical Problems: (1) Dialysis AV fistula malfunction Status: Acute Problems: Comment Review of Relevant I have reviewed the following items sofi (where applicable) has been applied. Labs Laboratory Tests Test 11/29/16 12:35 11/29/16 12:38 11/29/16 13:41 11/29/16 14:48 Heparin Anti-Xa Act, Unfractionated 0.91IU/mL (0.30-0.70) Glucose (Fingerstick) 293mg/dL (70-99) 283mg/dL (70-99) 319mg/dL (70-99) Test 11/29/16 15:55 11/29/16 16:59 11/29/16 18:02 11/29/16 19:00 Glucose (Fingerstick) 351mg/dL (70-99) 273mg/dL (70-99) 283mg/dL (70-99) Heparin Anti-Xa Act, Unfractionated 0.27IU/mL (0.30-0.70) Test 11/29/16 19:16 11/29/16 20:24 11/29/16 21:20 11/29/16 22:33 Glucose (Fingerstick) 282mg/dL (70-99) 264mg/dL (70-99) 225mg/dL (70-99) 263mg/dL (70-99) Test 11/29/16 23:32 11/30/16 00:26 11/30/16 01:43 11/30/16 02:15 Glucose (Fingerstick) 238mg/dL (70-99) 232mg/dL (70-99) 244mg/dL (70-99) Hemoglobin 10.0g/dL (12.0-15.5) Prothrombin Time 16.8SEC (11.7-14.0) Prothromb Time International Ratio 1.5 (0.8-1.1) Heparin Anti-Xa Act, Unfractionated 0.65IU/mL (0.30-0.70) Sodium Level 129mmol/L (136-145) Potassium Level 3.8mmol/L (3.5-5.1) Chloride Level 90mmol/L (98-107) Carbon Dioxide Level 27mmol/L (21-32) Anion Gap 12 (6-14) Blood Urea Nitrogen 76mg/dL (7-20) Creatinine 8.6mg/dL (0.6-1.0) Estimated GFR (Cockcroft-Gault) 4.6 Glucose Level 187mg/dL (70-99) Calcium Level 8.0mg/dL (8.5-10.1) Phosphorus Level 5.9mg/dL (2.6-4.7) Magnesium Level 1.5mg/dL (1.8-2.4) Albumin 3.1g/dL (3.4-5.0) Test 11/30/16 02:29 11/30/16 03:46 11/30/16 04:39 11/30/16 05:35 Glucose (Fingerstick) 181mg/dL (70-99) 154mg/dL (70-99) 149mg/dL (70-99) 138mg/dL (70-99) Test 11/30/16 06:36 11/30/16 07:36 11/30/16 12:23 11/30/16 13:20 Glucose (Fingerstick) 119mg/dL (70-99) 112mg/dL (70-99) 254mg/dL (70-99) Heparin Anti-Xa Act, Unfractionated 1.02IU/mL (0.30-0.70) Test 11/30/16 16:49 11/30/16 19:11 11/30/16 20:55 11/30/16 23:05 Glucose (Fingerstick) 557mg/dL (70-99) 592mg/dL (70-99) Glucose Level 832mg/dL (70-99) 781mg/dL (70-99) Test 12/01/16 01:45 12/01/16 03:28 12/01/16 04:32 12/01/16 05:36 Prothrombin Time 20.0SEC (11.7-14.0) Prothromb Time International Ratio 1.8 (0.8-1.1) Heparin Anti-Xa Act, Unfractionated 0.30IU/mL (0.30-0.70) Sodium Level 127mmol/L (136-145) Potassium Level 4.3mmol/L (3.5-5.1) Chloride Level 87mmol/L (98-107) Carbon Dioxide Level 27mmol/L (21-32) Anion Gap 13 (6-14) Blood Urea Nitrogen 50mg/dL (7-20) Creatinine 6.2mg/dL (0.6-1.0) Estimated GFR (Cockcroft-Gault) 6.7 Glucose Level 615mg/dL (70-99) Calcium Level 8.3mg/dL (8.5-10.1) Phosphorus Level 3.7mg/dL (2.6-4.7) Magnesium Level 2.4mg/dL (1.8-2.4) Albumin 3.3g/dL (3.4-5.0) Glucose (Fingerstick) 510mg/dL (70-99) 427mg/dL (70-99) 356mg/dL (70-99) Test 12/01/16 06:42 12/01/16 07:40 12/01/16 08:10 12/01/16 08:51 Glucose (Fingerstick) 335mg/dL (70-99) 274mg/dL (70-99) 317mg/dL (70-99) Heparin Anti-Xa Act, Unfractionated 0.36IU/mL (0.30-0.70) Test 12/01/16 09:51 12/01/16 10:57 12/01/16 12:03 Glucose (Fingerstick) 288mg/dL (70-99) 267mg/dL (70-99) 366mg/dL (70-99) Laboratory Tests Test 11/30/16 12:23 11/30/16 13:20 11/30/16 16:49 11/30/16 19:11 Glucose (Fingerstick) 254mg/dL (70-99) 557mg/dL (70-99) 592mg/dL (70-99) Heparin Anti-Xa Act, Unfractionated 1.02IU/mL (0.30-0.70) Test 11/30/16 20:55 11/30/16 23:05 12/01/16 01:45 12/01/16 03:28 Glucose Level 832mg/dL (70-99) 781mg/dL (70-99) 615mg/dL (70-99) Prothrombin Time 20.0SEC (11.7-14.0) Prothromb Time International Ratio 1.8 (0.8-1.1) Heparin Anti-Xa Act, Unfractionated 0.30IU/mL (0.30-0.70) Sodium Level 127mmol/L (136-145) Potassium Level 4.3mmol/L (3.5-5.1) Chloride Level 87mmol/L (98-107) Carbon Dioxide Level 27mmol/L (21-32) Anion Gap 13 (6-14) Blood Urea Nitrogen 50mg/dL (7-20) Creatinine 6.2mg/dL (0.6-1.0) Estimated GFR (Cockcroft-Gault) 6.7 Calcium Level 8.3mg/dL (8.5-10.1) Phosphorus Level 3.7mg/dL (2.6-4.7) Magnesium Level 2.4mg/dL (1.8-2.4) Albumin 3.3g/dL (3.4-5.0) Glucose (Fingerstick) 510mg/dL (70-99) Test 12/01/16 04:32 12/01/16 05:36 12/01/16 06:42 12/01/16 07:40 Glucose (Fingerstick) 427mg/dL (70-99) 356mg/dL (70-99) 335mg/dL (70-99) 274mg/dL (70-99) Test 12/01/16 08:10 12/01/16 08:51 12/01/16 09:51 12/01/16 10:57 Heparin Anti-Xa Act, Unfractionated 0.36IU/mL (0.30-0.70) Glucose (Fingerstick) 317mg/dL (70-99) 288mg/dL (70-99) 267mg/dL (70-99) Test 12/01/16 12:03 Glucose (Fingerstick) 366mg/dL (70-99) Microbiology 11/24/16 Urine Culture - Final, Complete 11/24/16 Urine Culture Result 1 (ELEAZAR) - Final, Complete Medications Current Medications Ondansetron HCl (Zofran) 4 mg PRN Q8HRS PRN IV NAUSEA/VOMITING; Start 11/23/16 at 21:00; Stop 11/24/16 at 07:25; Status DC Morphine Sulfate 2 mg PRN Q2HR PRN IV PAIN; Start 11/23/16 at 21:00; Stop 11/24 at 20:59; Status DC Acetaminophen (Tylenol) 650 mg PRN Q4HRS PRN PO FEVER Last administered on 11/24 08:46; Start 11/23/16 at 21:00; Stop 11/24/16 at 20:59; Status DC Furosemide (Lasix) 100 mg 1X ONCE IVP Last administered on 11/24/16 01:15; Start 11/23/16 at 23:15; Stop 11/23/16 at 23:17; Status DC Levothyroxine Sodium (Synthroid) 75 mcg DAILY07 PO Last administered on 08:25; Start 11/24/16 at 07:00 Pantoprazole Sodium (Protonix) 40 mg BIDAC PO Last administered on 12/01/16 08 :25; Start 11/24/16 at 07:30 Warfarin Sodium (Coumadin) 1 mg DAILY16 PO ; Start 11/24/16 at 16:00; Stop 11/25 at 09:01; Status DC Warfarin Sodium (Coumadin) 2 mg DAILY16 PO Last administered on 11/24/16 22:38 ; Start 11/24/16 at 16:00; Stop 11/25/16 at 09:01; Status DC Vitamin D (Vitamin D3) 2,000 unit DAILY PO Last administered on 12/01/16 08:24 ; Start 11/24/16 at 09:00 Insulin Detemir (Levemir) 66 units QHS SQ Last administered on 11/28/16 20:45 ; Start 11/24/16 at 21:00; Stop 11/30/16 at 20:55; Status DC Insulin Aspart (Novolog) 20 units TIDAC SQ Last administered on 11/28/16 17:57 ; Start 11/24/16 at 07:30; Stop 11/30/16 at 06:26; Status DC Atorvastatin Calcium (Lipitor) 40 mg HS PO Last administered on 11/30/16 20:22 ; Start 11/24/16 at 21:00 Warfarin Sodium (Coumadin Per Physician) 1 each PRN DAILY PRN MC SEE COMMENTS Last administered on 11/24/16 15:33; Start 11/24/16 at 16:00; Stop 11/25/16 at 09:01; Status DC Ondansetron HCl (Zofran) 4 mg PRN Q6HRS PRN IV NAUSEA/VOMITING Last administered on 11/30/16 18:12; Start 11/24/16 at 07:23 Insulin Aspart (Novolog) 0-9 UNITS TIDWMEALS SQ Last administered on 11/30/16 12:49; Start 11/24/16 at 08:00 Dextrose (Dextrose 50%-Water Syringe) 12.5 gm PRN Q15MIN PRN IV SEE COMMENTS; Start 11/24/16 at 07:30; Stop 11/29/16 at 04:44; Status DC Darbepoetin Surendra (Aranesp) 60 mcg WEEKLYHS SQ Last administered on 11/24/16 22 :39; Start 11/24/16 at 21:00 Heparin Sodium (Porcine) (Heparin Sodium) 10,000 unit STK-MED ONCE .ROUTE ; Start 11/24/16 at 16:58; Stop 11/24/16 at 16:59; Status DC Lidocaine/Sodium Bicarbonate 20 ml 20 ml STK-MED ONCE IJ ; Start 11/24/16 at 16: 58; Stop 11/24/16 at 16:59; Status DC Heparin Sodium/ Sodium Chloride 500 ml @ As Directed STK-MED ONCE .ROUTE ; Start 11/24/16 at 16:58; Stop 11/24/16 at 16:59; Status DC Lidocaine/Sodium Bicarbonate (Buffered Lidocaine 1%) 3 ml 1X ONCE IJ Last administered on 11/24/16 17:44; Start 11/24/16 at 17:15; Stop 11/24/16 at 17:16 ; Status DC Heparin Sodium/ Sodium Chloride 60 unit 1X ONCE IV Last administered on 17:15; Start 11/24/16 at 17:15; Stop 11/24/16 at 17:16; Status DC Heparin Sodium (Porcine) (Heparin Sodium) 2,500 unit 1X ONCE INT CAT Last administered on 11/24/16 17:15; Start 11/24/16 at 17:15; Stop 11/24/16 at 17:16 ; Status DC Sodium Chloride (Normal Saline Flush) 10 ml 1X PRN PRN IV AP catheter pack; Start 11/24/16 at 23:45; Stop 11/25/16 at 23:44; Status DC Sodium Chloride 10 ml 10 ml 1X PRN PRN IV LETTER CARRIER catheter pack; Start 11/24/16 at 23:45; Stop 11/25/16 at 23:44; Status DC Sodium Chloride (Iv Sodium Chloride 0.9% 1000ml Bag) 1,000 ml @ 400 mls/hr Q2H30M PRN IV PATENCY; Start 11/24/16 at 23:45; Stop 11/25/16 at 11:44; Status DC Info (PHARMACY MONITORING -- do not chart) 1 each PRN DAILY PRN MC SEE COMMENTS ; Start 11/24/16 at 23:45; Stop 11/26/16 at 07:32; Status DC Acetaminophen/ Hydrocodone Bitart (Lortab 5/325) 1 tab PRN Q4HRS PRN PO PAIN Last administered on 11/30/16 22:03; Start 11/25/16 at 05:15 Insulin Aspart (Novolog) 9 units TIDAC SQ Last administered on 11/28/16 09:18 ; Start 11/25/16 at 05:15; Stop 11/28/16 at 14:10; Status DC Phytonadione (Mephyton) 5 mg 1X ONCE PO Last administered on 11/25/16 12:15; Start 11/25/16 at 11:00; Stop 11/25/16 at 11:01; Status DC Diphenhydramine HCl 25 mg 25 mg PRN Q6HRS PRN IVP ITCHING Last administered on 11/26/16 15:55; Start 11/25/16 at 18:15 Sodium Chloride (Iv Sodium Chloride 0.9% 1000ml Bag) 1,000 ml @ 1,000 mls/hr Q1H PRN IV hypotension; Start 11/26/16 at 07:26; Stop 11/26/16 at 13:25; Status DC Sodium Chloride (Normal Saline Flush) 10 ml 1X PRN PRN IV AP catheter pack; Start 11/26/16 at 07:30; Stop 11/27/16 at 07:29; Status DC Sodium Chloride 10 ml 10 ml 1X PRN PRN IV LETTER CARRIER catheter pack; Start 11/26/16 at 07:30; Stop 11/27/16 at 07:29; Status DC Sodium Chloride (Iv Sodium Chloride 0.9% 1000ml Bag) 1,000 ml @ 400 mls/hr Q2H30M PRN IV PATENCY; Start 11/26/16 at 07:26; Stop 11/26/16 at 19:25; Status DC Info (PHARMACY MONITORING -- do not chart) 1 each PRN DAILY PRN MC SEE COMMENTS ; Start 11/26/16 at 07:30; Status Cancel Lidocaine/Sodium Bicarbonate 20 ml 20 ml STK-MED ONCE IJ ; Start 11/26/16 at 14: 06; Stop 11/26/16 at 14:07; Status DC Heparin Sodium/ Sodium Chloride 500 ml @ As Directed STK-MED ONCE .ROUTE ; Start 11/26/16 at 14:06; Stop 11/26/16 at 14:07; Status DC Iodixanol 100 ml 100 ml STK-MED ONCE .ROUTE ; Start 11/26/16 at 14:07; Stop at 14:08; Status DC Heparin Sodium/ Dextrose 500 ml @ 0 mls/hr CONT PRN IV SEE I/O RECORD Last administered on 12/01/16 02:30; Start 11/26/16 at 15:30 Heparin Sodium (Porcine) (Heparin Sodium) 2,900 unit PRN Q6HRS PRN IV FOR UFH LEVEL LESS THAN 0.2 Last administered on 11/27/16 07:21; Start 11/26/16 at 15: 30 Heparin Sodium (Porcine) (Heparin Sodium) 1,450 unit PRN Q6HRS PRN IV FOR UFH LEVEL 0.2 - 0.29 Last administered on 11/29/16 20:44; Start 11/26/16 at 15:30 Warfarin Sodium (Coumadin Per Pharmacy) 1 each PRN DAILY PRN MC PER PROTOCOL Last administered on 11/30/16 13:40; Start 11/26/16 at 15:30 Warfarin Sodium (Coumadin) 4 mg 1X WARF ONCE PO ; Start 11/26/16 at 16:00; Stop 11/26/16 at 16:01; Status DC Vitamin B Complex/ Vitamin C (Anahy-Della) 1 tab DAILY PO Last administered on 08:25; Start 11/27/16 at 09:00 Gabapentin (Neurontin) 300 mg HS PO Last administered on 11/30/16 20:22; Start 11/26/16 at 21:00 Insulin Detemir 70 units 70 units DAILY SQ Last administered on 11/28/16 09:19 ; Start 11/27/16 at 09:00; Stop 11/30/16 at 06:31; Status DC Levofloxacin/ Dextrose (LEVAQUIN 500mg PREMIX) 100 ml @ 100 mls/hr Q48H IV Last administered on 11/26/16 20:52; Start 11/26/16 at 20:00; Stop 11/27/16 at 22:48; Status DC Alteplase, Recombinant 4 mg 4 mg 1X ONCE INT CAT Last administered on 13:38; Start 11/27/16 at 08:45; Stop 11/27/16 at 08:46; Status DC Magnesium Sulfate/ Dextrose (Magnesium Sulfate PREMIX 2GM) 50 ml @ 25 mls/hr PRN DAILY PRN IV for Mag < 1.7 on am labs; Start 11/27/16 at 10:15; Stop at 10:54; Status DC Lidocaine/Sodium Bicarbonate 20 ml 20 ml STK-MED ONCE IJ ; Start 11/27/16 at 11: 14; Stop 11/27/16 at 11:15; Status DC Heparin Sodium/ Sodium Chloride 500 ml @ As Directed STK-MED ONCE .ROUTE ; Start 11/27/16 at 11:14; Stop 11/27/16 at 11:15; Status DC Iodixanol (Visipaque 320) 100 ml STK-MED ONCE .ROUTE ; Start 11/27/16 at 11:14; Stop 11/27/16 at 11:15; Status DC Midazolam HCl (Versed) 5 mg STK-MED ONCE .ROUTE ; Start 11/27/16 at 11:29; Stop 11/27/16 at 11:30; Status DC Fentanyl Citrate (Fentanyl 5ml Vial) 250 mcg STK-MED ONCE .ROUTE ; Start at 11:29; Stop 11/27/16 at 11:30; Status DC Heparin Sodium/ Sodium Chloride 1,000 unit 1X ONCE IART Last administered on 13:39; Start 11/27/16 at 11:45; Stop 11/27/16 at 11:46; Status DC Lidocaine/Sodium Bicarbonate (Buffered Lidocaine 1%) 20 ml 1X ONCE IJ Last administered on 11/27/16 13:40; Start 11/27/16 at 11:45; Stop 11/27/16 at 11:46 ; Status DC Midazolam HCl (Versed) 5 mg 1X ONCE IV Last administered on 11/27/16 13:41; Start 11/27/16 at 11:45; Stop 11/27/16 at 11:46; Status DC Fentanyl Citrate (Fentanyl 5ml Vial) 250 mcg 1X ONCE IV Last administered on 13:41; Start 11/27/16 at 11:45; Stop 11/27/16 at 11:46; Status DC Iodixanol (Visipaque 320) 100 ml 1X ONCE IART Last administered on 11/27/16 13:39; Start 11/27/16 at 11:45; Stop 11/27/16 at 11:46; Status DC Info (Do NOT chart on this entry -- for MONITORING) 1 each PRN DAILY PRN MC SEE COMMENTS; Start 11/27/16 at 11:45; Stop 11/29/16 at 11:44; Status DC Heparin Sodium (Porcine) (Heparin Sodium) 5,000 unit 1X ONCE IV Last administered on 11/27/16 13:48; Start 11/27/16 at 13:30; Stop 11/27/16 at 13:31 ; Status DC Info (Anti-Coagulation Monitoring By Pharmacy) 1 each PRN DAILY PRN MC SEE COMMENTS Last administered on 11/28/16 14:40; Start 11/27/16 at 13:30 Warfarin Sodium (Coumadin) 5 mg 1X WARF ONCE PO Last administered on 15:50; Start 11/27/16 at 16:00; Stop 11/27/16 at 16:01; Status DC Insulin Aspart 10 units 10 units 1X ONCE SQ Last administered on 11/27/16 16: 16; Start 11/27/16 at 16:15; Stop 11/27/16 at 16:16; Status DC Sodium Chloride 1,000 ml @ 1,000 mls/hr Q1H PRN IV hypotension; Start 11/28/16 at 08:45; Stop 11/28/16 at 14:44; Status DC Albumin Human (Albuminar) 200 ml @ 200 mls/hr 1X PRN PRN IV Hypotension; Start 11/28/16 at 08:45; Stop 11/28/16 at 14:44; Status DC Acetaminophen (Tylenol) 500 mg 1X PRN PRN PO MILD PAIN / TEMP; Start 11/28/16 at 08:45; Stop 11/29/16 at 08:44; Status DC Diphenhydramine HCl (Benadryl) 25 mg 1X PRN PRN IV ITCHING; Start 11/28/16 at 08:45; Stop 11/29/16 at 08:44; Status DC Diphenhydramine HCl (Benadryl) 25 mg 1X PRN PRN IV ITCHING; Start 11/28/16 at 08:45; Stop 11/29/16 at 08:44; Status DC Labetalol HCl (Normodyne) 10 mg PRN Q1HR PRN IVP SBP > 180; Start 11/28/16 at 08:45; Stop 11/29/16 at 08:44; Status DC Clonidine HCl 0.1 mg 0.1 mg 1X PRN PRN PO SBP > 180; Start 11/28/16 at 08:45; Stop 11/29/16 at 08:44; Status DC Sodium Chloride (Iv Sodium Chloride 0.9% 1000ml Bag) 1,000 ml @ 400 mls/hr Q2H30M PRN IV PATENCY; Start 11/28/16 at 08:45; Stop 11/28/16 at 20:44; Status DC Info (PHARMACY MONITORING -- do not chart) 1 each PRN DAILY PRN MC SEE COMMENTS ; Start 11/28/16 at 08:45 Lidocaine HCl (Xylocaine-Mpf 1% Vial) 2 ml STK-MED ONCE .ROUTE ; Start 11/28/16 at 09:00; Stop 11/28/16 at 09:01; Status DC Lidocaine HCl (Xylocaine-Mpf 1% Vial) 2 ml 1X ONCE INJ Last administered on 10:15; Start 11/28/16 at 10:15; Stop 11/28/16 at 10:16; Status DC Warfarin Sodium (Coumadin) 7.5 mg 1X WARF ONCE PO Last administered on 17:50; Start 11/28/16 at 16:00; Stop 11/28/16 at 16:01; Status DC Warfarin Sodium (Coumadin Per Pharmacy) 1 each PRN DAILY PRN MC SEE COMMENTS; Start 11/28/16 at 16:00; Status Cancel Diphenhydramine HCl 25 mg 25 mg 1X ONCE PO Last administered on 11/28/16 22: 57; Start 11/28/16 at 23:00; Stop 11/28/16 at 23:01; Status DC Insulin Human Regular/Sodium Chloride (Novolin R Vial/ Iv Normal Saline 150ml) 151.5 ml @ 0 mls/hr CONT PRN IV SEE I/O RECORD Last administered on 12/01/16 04:58; Start 11/29/16 at 04:45 Dextrose 12.5 gm 12.5 gm PRN Q15MIN PRN IV LOW BLOOD SUGAR; Start 11/29/16 at 04:45 Magnesium Sulfate/ Dextrose (Magnesium Sulfate PREMIX 2GM) 50 ml @ 25 mls/hr PRN DAILY PRN IV for Mag < 1.7 on am labs; Start 11/29/16 at 11:00 Warfarin Sodium (Coumadin) 7.5 mg 1X WARF ONCE PO Last administered on 18:06; Start 11/29/16 at 16:00; Stop 11/29/16 at 16:01; Status DC Insulin Detemir (Levemir) 100 units 1X ONCE SQ Last administered on 11/30/16 06:39; Start 11/30/16 at 07:00; Stop 11/30/16 at 07:01; Status DC Insulin Aspart (Novolog) 40 units TIDAC SQ Last administered on 11/30/16 18:30 ; Start 11/30/16 at 07:30 Insulin Detemir 70 units 70 units DAILY SQ ; Start 12/01/16 at 09:00; Stop 12/01 at 09:00; Status DC Sodium Chloride 1,000 ml @ 1,000 mls/hr Q1H PRN IV hypotension; Start 11/30/16 at 07:32; Stop 11/30/16 at 13:31; Status DC Albumin Human (Albuminar) 200 ml @ 200 mls/hr 1X PRN PRN IV Hypotension; Start 11/30/16 at 07:45; Stop 11/30/16 at 13:44; Status DC Acetaminophen (Tylenol) 500 mg 1X PRN PRN PO MILD PAIN / TEMP; Start 11/30/16 at 07:45; Stop 12/01/16 at 07:44; Status DC Diphenhydramine HCl (Benadryl) 25 mg 1X PRN PRN IV ITCHING; Start 11/30/16 at 07:45; Stop 12/01/16 at 07:44; Status DC Diphenhydramine HCl (Benadryl) 25 mg 1X PRN PRN IV ITCHING; Start 11/30/16 at 07:45; Stop 12/01/16 at 07:44; Status DC Labetalol HCl (Normodyne) 10 mg PRN Q1HR PRN IVP SBP > 180; Start 11/30/16 at 07:45; Stop 12/01/16 at 07:44; Status DC Clonidine HCl 0.1 mg 0.1 mg 1X PRN PRN PO SBP > 180; Start 11/30/16 at 07:45; Stop 12/01/16 at 07:44; Status DC Sodium Chloride (Iv Sodium Chloride 0.9% 1000ml Bag) 1,000 ml @ 400 mls/hr Q2H30M PRN IV PATENCY; Start 11/30/16 at 07:32; Stop 11/30/16 at 19:31; Status DC Info 1 each 1 each PRN DAILY PRN MC SEE COMMENTS; Start 11/30/16 at 07:45; Status UNV Magnesium Sulfate/ Dextrose (Magnesium Sulfate PREMIX 2GM) 50 ml @ 25 mls/hr 1X ONCE IV Last administered on 11/30/16 23:58; Start 11/30/16 at 14:00; Stop 11/30/16 at 15:59; Status DC Warfarin Sodium (Coumadin) 3 mg 1X WARF ONCE PO Last administered on 22:03; Start 11/30/16 at 16:00; Stop 11/30/16 at 16:01; Status DC Non-Formulary Medication 70 ea DAILY SQ Last administered on 12/01/16 09:00; Start 12/01/16 at 09:00 Non-Formulary Medication 66 ea QHS SQ ; Start 11/30/16 at 21:00; Stop 11/30/16 at 21:00; Status DC Non-Formulary Medication 66 ea QHS SQ Last administered on 11/30/16 22:08; Start 11/30/16 at 21:00 Active Scripts Active Reported Nitrofurantoin (Nitrofurantoin Macrocrystal) 100 Mg Capsule 1 Cap PO BID Vitamin D2 (Ergocalciferol (Vitamin D2)) 50,000 Unit Capsule 1 Cap PO WEEKLY Gabapentin 300 Mg Capsule 300 Mg PO HS Nephro-Della Tablet (Folic Acid/Vitamin B Comp W-C) 0.8 Mg Tablet 1 Tab PO DAILY Humalog (Insulin Lispro) 100 Unit/1 Ml Vial 20 Unit SQ TIDAC Levothyroxine Sodium 75 Mcg Tablet 75 Mcg PO DAILYAC Levemir (Insulin Detemir) 100 Unit/1 Ml Vial 66 Unit SQ QHS Levemir (Insulin Detemir) 100 Unit/1 Ml Vial 70 Unit SQ DAILY D3-2000 (Cholecalciferol (Vitamin D3)) 2,000 Unit Capsule 2,000 Unit PO DAILY Pantoprazole Sodium 40 Mg Tablet. 40 Mg PO BID Warfarin Sodium 2 Mg Tablet 2 Mg PO DAILY Warfarin Sodium 1 Mg Tablet 1 Mg PO DAILY Crestor (Rosuvastatin Calcium) 10 Mg Tablet 10 Mg PO DAILY 30 Days Vitals/I & O Vital Sign - Last 24 Hours 11/30/16 11/30/16 11/30/16 11/30/16 15:00 18:05 19:05 19:59 Temp 98.1 98.0 98.1 98.0 Pulse 82 71 Resp B/P 115/54 118/50 Pulse Ox 96 98 91 91 O2 Delivery Room Air Room Air Nasal Cannula Room Air O2 Flow Rate 2.0 11/30/16 11/30/16 11/30/16 12/01/16 20:00 22:03 23:55 03:59 Temp 97.7 98.5 97.7 98.5 Pulse 72 81 Resp B/P 149/64 106/49 Pulse Ox 91 92 95 O2 Delivery Nasal Cannula Nasal Cannula Room Air Room Air O2 Flow Rate 2.0 2.0 12/01/16 12/01/16 12/01/16 07:00 07:30 11:00 Temp 98.2 98.0 98.2 98.0 Pulse 83 88 Resp 24 B/P 153/68 125/78 Pulse Ox 97 98 O2 Delivery Room Air Room Air Intake and Output 11/30/16 11/30/16 12/01/16 15:00 23:00 07:00 Intake Total 635 ml 440 ml 500 ml Output Total 0 ml Balance 635 ml 440 ml 500 ml Nutrition Consultation Dietary Evaluation: Recommendations by RD: Dietary education by RD, Increase Calorie Intake, Protein supplementation Comments: [facility] renal BID for increased nutrient needs on HD Provided handout on renal diet and left at pt bedside Expected Outcomes/Goals: to meet >75% est nutr needs- met, goal ongoing Malnutrition Findings: Weight Status: Morbidly Obese AJ LOPEZ MD Dec 01, 2016 12:20
[2016-12-01] MEDS: ANTI-COAG MONITOR BY PHARMACY. MC PRN (13:32)
[2016-12-01 15:00] VITALS: BP 140/66
[2016-12-01] MEDS ORDERED: INSULIN ASPART 300 UNITS/3 ML INSULN.PEN SQ ONE ×3 (15:30→23:00)
[2016-12-01] MEDS: HYDROCODONE/APAP 5/325MG TABLET. PO PRN (15:39)
[2016-12-01] MEDS ORDERED: WARFARIN 3 MG TABLET. PO ONE (16:00)
--- NOTE | 2016-12-01 17:55 | PDOC ---
Provider Note Provider Note RENAL F/U : MICHAEL S : Doing better. No new issues reported. O : VSS Afebrile. Neck : Supple Lungs : Non labored. Few rhonchi. CVS : RRR Abd : Benign appearing. No major distention. Ext: No edema. Neuro : Intact Labs and meds reviewed. A/P : ESRD HTN w CKD DM II EDEMA CPM. Supportive care. Lorena Rodriguez M.D. LORENA RODRIGUEZ MD Dec 01, 2016 17:55
[2016-12-01] MEDS ORDERED: INSULIN REGULAR 100 UNIT/ML 10ML VIAL. IV ONE (18:15)
[2016-12-01] MEDS: GLIMEPIRIDE 2 MG TABLET. PO SCH (18:35)
[2016-12-01 19:59] VITALS: BP 149/78
[2016-12-01] MEDS: ATORVASTATIN CALCIUM 40 MG TABLET. PO SCH (20:43)
[2016-12-01] MEDS: GABAPENTIN 300 MG CAPSULE. PO SCH (20:43)
[2016-12-01] MEDS: DARBEPOETIN ALFA 60 MCG/0.3 ML DISP.SYRIN. SQ SCH (20:44)
[2016-12-01] MEDS: LANTUS INSULIN SQ SCH (20:58)
[2016-12-02] VITALS (7 sets, daily range): BP systolic 117–149; BP diastolic 50–72
[2016-12-02] MEDS ORDERED: INSULIN ASPART 300 UNITS/3 ML INSULN.PEN SQ ONE ×2 (01:00→21:30)
[2016-12-02] MEDS: HEPARIN 25,000UTS/500ML PREMIX 500 ML IV PRN (01:19)
[2016-12-02] MEDS: INSULIN REGULAR VIAL 150 UNIT in 0.9 % SODIUM CHLORIDE 150ML 150 ML IV PRN (02:54)
[2016-12-02 05:33] LABS: ALBUMIN 3.3 g/dL (3.4-5.0); CALCIUM 8.5 mg/dL (8.5-10.1); CREATININE 8.2 mg/dL (0.6-1.0); GFR 4.9; PHOSPHORUS 6.4 mg/dL (2.6-4.7); POTASSIUM 4.3 mmol/L (3.5-5.1)
[2016-12-02] MEDS: LEVOTHYROXINE 75 MCG TABLET PO SCH (06:00)
[2016-12-02 06:48] LABS: INR 2.4 (0.8-1.1); PROTHROMBIN TIME PATIENT 24.5 SEC (11.7-14.0)
[2016-12-02] MEDS: INSULIN ASPART 300 UNITS/3 ML INSULN.PEN SQ SCH ×6 (07:30→16:35)
[2016-12-02] MEDS: GLIMEPIRIDE 2 MG TABLET. PO SCH (07:58)
[2016-12-02] MEDS: INSULIN GLARGINE SQ SCH (07:58)
[2016-12-02] MEDS: PANTOPRAZOLE 40 MG TABLET.DR. PO SCH ×2 (07:58→16:30)
[2016-12-02] MEDS: CHOLECALCIFEROL (VITAMIN D3) 1,000 UNIT TABLET PO SCH (07:58)
[2016-12-02] MEDS: FOLIC/VIT B COMP W-C (RENAL) TABLET. PO SCH (07:58)
--- NOTE | 2016-12-02 08:24 | PDOC ---
SUBJECTIVE ROS ESRD doing well overall CVS: no Orthopnea, no CP RESP: no SOB, no GARCIA GI: no Nausea, no Vomiting : no Dysuria, no Urgency OBJECTIVE Vital Signs Vital Signs Date Time Temp Pulse Resp B/P Pulse Ox O2 Delivery O2 Flow Rate FiO2 12/02/16 03:59 98.3 80 20 117/50 92 Room Air 98.3 12/01/16 15:39 2.0 I & 0 Intake and Output 12/02/16 07:00 Intake Total 1500 ml Output Total 800 ml Balance 700 ml Intake Oral 1500 ml Output Urine Total 800 ml PHYSICAL EXAM Physical Exam GEN: Awake, Oriented x 3, In no distress EYES: Vision Unchanged, Conjunctiva Normal EN: No EN Drainage, Mucous Membranes moist NECK: no JVD, min JVP, Supple, no Thyromegaly CVS: S1S2, ? Murmur, No Gallop, No Rub,tr Edema RESP: no Rales, no Rhonchi,no Acc. Muscle Use GI: BS + ve, NO Bruit, Non Tender, Non Distended - obese : no CVA tenderness, no Suprapubic Tenderness DIAGNOSIS/ASSESSMENT Assessment & Plan ESRD: Current fluid and E-lyte status does not necessitate emergent need for dialysis. Will re-evaluate for dialysis in the am and continue on MWF schedule. ANEMIA; Aranesp as ordered, Transfuse with next HD as needed HTN: Current BP meds as reviewed. See orders for changes. BONE & MINERAL: check Phos and follow trend Clotted AV Access - s/p Declott and worked well so far. Probably needs new AV Access per IR - Vasc surgery eval as OP ^ed Phos - ^ binders Discussed Plan of Care with pt at bedside COMMENT/RELEVANT DATA Meds Current Medications Medications (Trade) Dose Ordered Sig/Kiet Start Time Stop Time Status Last Admin Dose Admin Acetaminophen (Tylenol) 500 mg 1X PRN PRN 11/30/16 07:45 12/01/16 07:44 DC Acetaminophen/ Hydrocodone Bitart (Lortab 5/325) 1 tab PRN Q4HRS PRN 11/25/16 05:15 12/01/16 15:39 1 TAB Albumin Human (Albuminar) 200 ml @ 200 mls/hr 1X PRN PRN 11/30/16 07:45 11/30/16 13:44 DC Alteplase, Recombinant (Cathflo) 4 mg 1X ONCE 11/27/16 08:45 11/27/16 08:46 DC 11/27/16 13:38 4 MG Atorvastatin Calcium (Lipitor) 40 mg HS 11/24/16 21:00 12/01/16 20:43 40 MG Clonidine HCl (Catapres) 0.1 mg 1X PRN PRN 11/28/16 08:45 11/29/16 08:44 DC Clonidine HCl 0.1 mg 0.1 mg 1X PRN PRN 11/30/16 07:45 12/01/16 07:44 DC Darbepoetin Surendra (Aranesp) 60 mcg WEEKLYHS 11/24/16 21:00 12/01/16 20:44 60 MCG Dextrose (Dextrose 50%-Water Syringe) 12.5 gm PRN Q15MIN PRN 11/29/16 04:45 Diphenhydramine HCl (Benadryl) 25 mg 1X PRN PRN 11/30/16 07:45 12/01/16 07:44 DC Diphenhydramine HCl 25 mg 25 mg 1X ONCE 11/28/16 23:00 11/28/16 23:01 DC 11/28/16 22:57 25 MG Fentanyl Citrate (Fentanyl 5ml Vial) 250 mcg 1X ONCE 11/27/16 11:45 11/27/16 11:46 DC 11/27/16 13:41 225 MCG Furosemide (Lasix) 100 mg 1X ONCE 11/23/16 23:15 11/23/16 23:17 DC 11/24/16 01:15 100 MG Gabapentin 300 mg 300 mg HS 11/26/16 21:00 12/01/16 20:43 300 MG Glimepiride (Amaryl) 4 mg DAILY 12/01/16 18:30 12/02/16 07:58 4 MG Heparin Sodium (Porcine) (Heparin Sodium) 5,000 unit 1X ONCE 11/27/16 13:30 11/27/16 13:31 DC 11/27/16 13:48 5,000 UNIT Heparin Sodium/ Dextrose 500 ml @ 0 mls/hr CONT PRN 11/26/16 15:30 12/02/16 01:19 0 MLS/HR Heparin Sodium/ Sodium Chloride 1,000 unit 1X ONCE 11/27/16 11:45 11/27/16 11:46 DC 11/27/16 13:39 1,000 UNIT Info (Anti-Coagulation Monitoring By Pharmacy) 1 each PRN DAILY PRN 11/27/16 13:30 12/01/16 13:32 1 EACH Info (Do NOT chart on this entry -- for MONITORING) 1 each PRN DAILY PRN 11/27/16 11:45 11/29/16 11:44 DC Info (PHARMACY MONITORING -- do not chart) 1 each PRN DAILY PRN 11/28/16 08:45 Info 1 each 1 each PRN DAILY PRN 11/30/16 07:45 UNV Insulin Aspart (Novolog) 30 units 1X ONCE 12/02/16 01:00 12/02/16 01:01 DC 12/02/16 01:14 30 UNITS Insulin Detemir (Levemir) 100 units 1X ONCE 11/30/16 07:00 11/30/16 07:01 DC 11/30/16 06:39 100 UNITS Insulin Detemir 70 units 70 units DAILY 12/01/16 09:00 12/01/16 09:00 DC Insulin Human Regular (Novolin R Vial) 20 unit 1X ONCE 12/01/16 18:15 12/01/16 18:23 DC 12/01/16 18:38 20 UNIT Insulin Human Regular/Sodium Chloride (Novolin R Vial/ Iv Normal Saline 150ml) 151.5 ml @ 0 mls/hr CONT PRN 11/29/16 04:45 12/02/16 02:54 24.8 MLS/HR Iodixanol (Visipaque 320) 100 ml 1X ONCE 11/27/16 11:45 11/27/16 11:46 DC 11/27/16 13:39 85 ML Iodixanol 100 ml 100 ml STK-MED ONCE 11/26/16 14:07 11/26/16 14:08 DC Labetalol HCl (Normodyne) 10 mg PRN Q1HR PRN 11/30/16 07:45 12/01/16 07:44 DC Levofloxacin/ Dextrose (LEVAQUIN 500mg PREMIX) 100 ml @ 100 mls/hr Q48H 11/26/16 20:00 11/27/16 22:48 DC 11/26/16 20:52 100 MLS/HR Levothyroxine Sodium (Synthroid) 75 mcg DAILY07 11/24/16 07:00 12/02/16 06:00 75 MCG Lidocaine HCl (Xylocaine-Mpf 1% Vial) 2 ml 1X ONCE 11/28/16 10:15 11/28/16 10:16 DC 11/28/16 10:15 2 ML Lidocaine/Sodium Bicarbonate (Buffered Lidocaine 1%) 20 ml 1X ONCE 11/27/16 11:45 11/27/16 11:46 DC 11/27/16 13:40 3 ML Magnesium Sulfate/ Dextrose (Magnesium Sulfate PREMIX 2GM) 50 ml @ 25 mls/hr 1X ONCE 11/30/16 14:00 11/30/16 15:59 DC 11/30/16 23:58 25 MLS/HR Midazolam HCl (Versed) 5 mg 1X ONCE 11/27/16 11:45 11/27/16 11:46 DC 11/27/16 13:41 4 MG Morphine Sulfate 2 mg PRN Q2HR PRN 11/23/16 21:00 11/24/16 20:59 DC Non-Formulary Medication 66 ea QHS 11/30/16 21:00 12/01/16 20:58 66 EA Ondansetron HCl (Zofran) 4 mg PRN Q6HRS PRN 11/24/16 07:23 11/30/16 18:12 4 MG Pantoprazole Sodium (Protonix) 40 mg BIDAC 11/24/16 07:30 12/02/16 07:58 40 MG Phytonadione (Mephyton) 5 mg 1X ONCE 11/25/16 11:00 11/25/16 11:01 DC 11/25/16 12:15 5 MG Sodium Chloride (Iv Sodium Chloride 0.9% 1000ml Bag) 1,000 ml @ 400 mls/hr Q2H30M PRN 11/30/16 07:32 11/30/16 19:31 DC Sodium Chloride (Normal Saline Flush) 10 ml 1X PRN PRN 11/26/16 07:30 11/27/16 07:29 DC Vitamin B Complex/ Vitamin C (Anahy-Della) 1 tab DAILY 11/27/16 09:00 12/02/16 07:58 1 TAB Vitamin D (Vitamin D3) 2,000 unit DAILY 11/24/16 09:00 12/02/16 07:58 2,000 UNIT Warfarin Sodium (Coumadin Per Pharmacy) 1 each PRN DAILY PRN 11/28/16 16:00 Cancel Warfarin Sodium (Coumadin Per Physician) 1 each PRN DAILY PRN 11/24/16 16:00 11/25/16 09:01 DC 11/24/16 15:33 1 EACH Warfarin Sodium (Coumadin) 3 mg 1X WARF ONCE 12/01/16 16:00 12/01/16 16:01 DC 12/01/16 15:39 3 MG Lab Laboratory Tests Test 12/01/16 08:51 12/01/16 09:51 12/01/16 10:57 12/01/16 12:03 Glucose (Fingerstick) 317mg/dL (70-99) 288mg/dL (70-99) 267mg/dL (70-99) 366mg/dL (70-99) Test 12/01/16 15:03 12/01/16 16:30 12/01/16 17:54 12/01/16 19:37 Glucose (Fingerstick) 583mg/dL (70-99) 563mg/dL (70-99) 507mg/dL (70-99) 473mg/dL (70-99) Test 12/01/16 22:23 12/02/16 00:14 12/02/16 02:46 12/02/16 03:27 Glucose (Fingerstick) 435mg/dL (70-99) 385mg/dL (70-99) 246mg/dL (70-99) Heparin Anti-Xa Act, Unfractionated 0.32IU/mL (0.30-0.70) Sodium Level 132mmol/L (136-145) Potassium Level 4.3mmol/L (3.5-5.1) Chloride Level 90mmol/L (98-107) Carbon Dioxide Level 25mmol/L (21-32) Anion Gap 17 (6-14) Blood Urea Nitrogen 74mg/dL (7-20) Creatinine 8.2mg/dL (0.6-1.0) Estimated GFR (Cockcroft-Gault) 4.9 Glucose Level 246mg/dL (70-99) Calcium Level 8.5mg/dL (8.5-10.1) Phosphorus Level 6.4mg/dL (2.6-4.7) Magnesium Level 2.4mg/dL (1.8-2.4) Albumin 3.3g/dL (3.4-5.0) Test 12/02/16 04:10 12/02/16 04:14 12/02/16 06:51 12/02/16 07:57 Prothrombin Time 24.5SEC (11.7-14.0) Prothromb Time International Ratio 2.4 (0.8-1.1) Glucose (Fingerstick) 211mg/dL (70-99) 139mg/dL (70-99) 128mg/dL (70-99) NATHALY BENTLEY MD Dec 02, 2016 08:24
--- NOTE | 2016-12-02 10:58 | PDOC ---
PROGRESS NOTES Chief Complaint Chief Complaint cc: gram clot A/P Mechanical Mitral valve DM uncontrolled, THROMBOSED LEFT ARM BB GRAFTs/p thrombolysis ESRD-OP SCHEDULE MWF ANEMIA S/P TEMP HD CATHETER CAD Plan S/P thrombolysis uneventful INR therapeutic, STOP bridge with heparin gtt, warfarin per pharmacy, INR goal 2.5-3.5 stop insulin gtt, monitor BS INR daily, DC planning in am HD per nephrology labs reviewed Monitor hemoglobin Not READY FOR DC. History of Present Illness History of Present Illness NO BLEEDING NO FEVER Vitals Vitals Vital Signs Date Time Temp Pulse Resp B/P Pulse Ox O2 Delivery O2 Flow Rate FiO2 12/02/16 08:00 Room Air 12/02/16 07:00 98.0 78 22 133/70 96 98.0 12/01/16 15:39 2.0 Physical Exam General: Alert, Oriented X3, Cooperative, Other (obese) Heart: Regular rate, Normal S1, Normal S2, Other Lungs: Clear Abdomen: Normal bowel sounds, Soft, No tenderness Extremities: Other Skin: No breakdown Labs LABS Laboratory Tests Test 12/01/16 12:03 12/01/16 15:03 12/01/16 16:30 12/01/16 17:54 Glucose (Fingerstick) 366mg/dL (70-99) 583mg/dL (70-99) 563mg/dL (70-99) 507mg/dL (70-99) Test 12/01/16 19:37 12/01/16 22:23 12/02/16 00:14 12/02/16 02:46 Glucose (Fingerstick) 473mg/dL (70-99) 435mg/dL (70-99) 385mg/dL (70-99) 246mg/dL (70-99) Test 12/02/16 03:27 12/02/16 04:10 12/02/16 04:14 12/02/16 06:51 Heparin Anti-Xa Act, Unfractionated 0.32IU/mL (0.30-0.70) Sodium Level 132mmol/L (136-145) Potassium Level 4.3mmol/L (3.5-5.1) Chloride Level 90mmol/L (98-107) Carbon Dioxide Level 25mmol/L (21-32) Anion Gap 17 (6-14) Blood Urea Nitrogen 74mg/dL (7-20) Creatinine 8.2mg/dL (0.6-1.0) Estimated GFR (Cockcroft-Gault) 4.9 Glucose Level 246mg/dL (70-99) Calcium Level 8.5mg/dL (8.5-10.1) Phosphorus Level 6.4mg/dL (2.6-4.7) Magnesium Level 2.4mg/dL (1.8-2.4) Albumin 3.3g/dL (3.4-5.0) Prothrombin Time 24.5SEC (11.7-14.0) Prothromb Time International Ratio 2.4 (0.8-1.1) Glucose (Fingerstick) 211mg/dL (70-99) 139mg/dL (70-99) Test 12/02/16 07:57 12/02/16 08:51 12/02/16 10:01 Glucose (Fingerstick) 128mg/dL (70-99) 152mg/dL (70-99) 162mg/dL (70-99) Assessment and Plan Assessmemt and Plan Problems Medical Problems: (1) Dialysis AV fistula malfunction Status: Acute Problems: Comment Review of Relevant I have reviewed the following items sofi (where applicable) has been applied. Labs Laboratory Tests Test 11/30/16 12:23 11/30/16 13:20 11/30/16 16:49 11/30/16 19:11 Glucose (Fingerstick) 254mg/dL (70-99) 557mg/dL (70-99) 592mg/dL (70-99) Heparin Anti-Xa Act, Unfractionated 1.02IU/mL (0.30-0.70) Test 11/30/16 20:55 11/30/16 23:05 12/01/16 01:45 12/01/16 03:28 Glucose Level 832mg/dL (70-99) 781mg/dL (70-99) 615mg/dL (70-99) Prothrombin Time 20.0SEC (11.7-14.0) Prothromb Time International Ratio 1.8 (0.8-1.1) Heparin Anti-Xa Act, Unfractionated 0.30IU/mL (0.30-0.70) Sodium Level 127mmol/L (136-145) Potassium Level 4.3mmol/L (3.5-5.1) Chloride Level 87mmol/L (98-107) Carbon Dioxide Level 27mmol/L (21-32) Anion Gap 13 (6-14) Blood Urea Nitrogen 50mg/dL (7-20) Creatinine 6.2mg/dL (0.6-1.0) Estimated GFR (Cockcroft-Gault) 6.7 Calcium Level 8.3mg/dL (8.5-10.1) Phosphorus Level 3.7mg/dL (2.6-4.7) Magnesium Level 2.4mg/dL (1.8-2.4) Albumin 3.3g/dL (3.4-5.0) Glucose (Fingerstick) 510mg/dL (70-99) Test 12/01/16 04:32 12/01/16 05:36 12/01/16 06:42 12/01/16 07:40 Glucose (Fingerstick) 427mg/dL (70-99) 356mg/dL (70-99) 335mg/dL (70-99) 274mg/dL (70-99) Test 12/01/16 08:10 12/01/16 08:51 12/01/16 09:51 12/01/16 10:57 Heparin Anti-Xa Act, Unfractionated 0.36IU/mL (0.30-0.70) Glucose (Fingerstick) 317mg/dL (70-99) 288mg/dL (70-99) 267mg/dL (70-99) Test 12/01/16 12:03 12/01/16 15:03 12/01/16 16:30 12/01/16 17:54 Glucose (Fingerstick) 366mg/dL (70-99) 583mg/dL (70-99) 563mg/dL (70-99) 507mg/dL (70-99) Test 12/01/16 19:37 12/01/16 22:23 12/02/16 00:14 12/02/16 02:46 Glucose (Fingerstick) 473mg/dL (70-99) 435mg/dL (70-99) 385mg/dL (70-99) 246mg/dL (70-99) Test 12/02/16 03:27 12/02/16 04:10 12/02/16 04:14 12/02/16 06:51 Heparin Anti-Xa Act, Unfractionated 0.32IU/mL (0.30-0.70) Sodium Level 132mmol/L (136-145) Potassium Level 4.3mmol/L (3.5-5.1) Chloride Level 90mmol/L (98-107) Carbon Dioxide Level 25mmol/L (21-32) Anion Gap 17 (6-14) Blood Urea Nitrogen 74mg/dL (7-20) Creatinine 8.2mg/dL (0.6-1.0) Estimated GFR (Cockcroft-Gault) 4.9 Glucose Level 246mg/dL (70-99) Calcium Level 8.5mg/dL (8.5-10.1) Phosphorus Level 6.4mg/dL (2.6-4.7) Magnesium Level 2.4mg/dL (1.8-2.4) Albumin 3.3g/dL (3.4-5.0) Prothrombin Time 24.5SEC (11.7-14.0) Prothromb Time International Ratio 2.4 (0.8-1.1) Glucose (Fingerstick) 211mg/dL (70-99) 139mg/dL (70-99) Test 12/02/16 07:57 12/02/16 08:51 12/02/16 10:01 Glucose (Fingerstick) 128mg/dL (70-99) 152mg/dL (70-99) 162mg/dL (70-99) Laboratory Tests Test 12/01/16 12:03 12/01/16 15:03 12/01/16 16:30 12/01/16 17:54 Glucose (Fingerstick) 366mg/dL (70-99) 583mg/dL (70-99) 563mg/dL (70-99) 507mg/dL (70-99) Test 12/01/16 19:37 12/01/16 22:23 12/02/16 00:14 12/02/16 02:46 Glucose (Fingerstick) 473mg/dL (70-99) 435mg/dL (70-99) 385mg/dL (70-99) 246mg/dL (70-99) Test 12/02/16 03:27 12/02/16 04:10 12/02/16 04:14 12/02/16 06:51 Heparin Anti-Xa Act, Unfractionated 0.32IU/mL (0.30-0.70) Sodium Level 132mmol/L (136-145) Potassium Level 4.3mmol/L (3.5-5.1) Chloride Level 90mmol/L (98-107) Carbon Dioxide Level 25mmol/L (21-32) Anion Gap 17 (6-14) Blood Urea Nitrogen 74mg/dL (7-20) Creatinine 8.2mg/dL (0.6-1.0) Estimated GFR (Cockcroft-Gault) 4.9 Glucose Level 246mg/dL (70-99) Calcium Level 8.5mg/dL (8.5-10.1) Phosphorus Level 6.4mg/dL (2.6-4.7) Magnesium Level 2.4mg/dL (1.8-2.4) Albumin 3.3g/dL (3.4-5.0) Prothrombin Time 24.5SEC (11.7-14.0) Prothromb Time International Ratio 2.4 (0.8-1.1) Glucose (Fingerstick) 211mg/dL (70-99) 139mg/dL (70-99) Test 12/02/16 07:57 12/02/16 08:51 12/02/16 10:01 Glucose (Fingerstick) 128mg/dL (70-99) 152mg/dL (70-99) 162mg/dL (70-99) Microbiology 11/24/16 Urine Culture - Final, Complete 11/24/16 Urine Culture Result 1 (ELEAZAR) - Final, Complete Medications Current Medications Ondansetron HCl (Zofran) 4 mg PRN Q8HRS PRN IV NAUSEA/VOMITING; Start 11/23/16 at 21:00; Stop 11/24/16 at 07:25; Status DC Morphine Sulfate 2 mg PRN Q2HR PRN IV PAIN; Start 11/23/16 at 21:00; Stop 11/24 at 20:59; Status DC Acetaminophen (Tylenol) 650 mg PRN Q4HRS PRN PO FEVER Last administered on 11/24 08:46; Start 11/23/16 at 21:00; Stop 11/24/16 at 20:59; Status DC Furosemide (Lasix) 100 mg 1X ONCE IVP Last administered on 11/24/16 01:15; Start 11/23/16 at 23:15; Stop 11/23/16 at 23:17; Status DC Levothyroxine Sodium (Synthroid) 75 mcg DAILY07 PO Last administered on 06:00; Start 11/24/16 at 07:00 Pantoprazole Sodium (Protonix) 40 mg BIDAC PO Last administered on 12/02/16 07 :58; Start 11/24/16 at 07:30 Warfarin Sodium (Coumadin) 1 mg DAILY16 PO ; Start 11/24/16 at 16:00; Stop 11/25 at 09:01; Status DC Warfarin Sodium (Coumadin) 2 mg DAILY16 PO Last administered on 11/24/16 22:38 ; Start 11/24/16 at 16:00; Stop 11/25/16 at 09:01; Status DC Vitamin D (Vitamin D3) 2,000 unit DAILY PO Last administered on 12/02/16 07:58 ; Start 11/24/16 at 09:00 Insulin Detemir (Levemir) 66 units QHS SQ Last administered on 11/28/16 20:45 ; Start 11/24/16 at 21:00; Stop 11/30/16 at 20:55; Status DC Insulin Aspart (Novolog) 20 units TIDAC SQ Last administered on 11/28/16 17:57 ; Start 11/24/16 at 07:30; Stop 11/30/16 at 06:26; Status DC Atorvastatin Calcium (Lipitor) 40 mg HS PO Last administered on 12/01/16 20:43 ; Start 11/24/16 at 21:00 Warfarin Sodium (Coumadin Per Physician) 1 each PRN DAILY PRN MC SEE COMMENTS Last administered on 11/24/16 15:33; Start 11/24/16 at 16:00; Stop 11/25/16 at 09:01; Status DC Ondansetron HCl (Zofran) 4 mg PRN Q6HRS PRN IV NAUSEA/VOMITING Last administered on 11/30/16 18:12; Start 11/24/16 at 07:23 Insulin Aspart (Novolog) 0-9 UNITS TIDWMEALS SQ Last administered on 11/30/16 12:49; Start 11/24/16 at 08:00 Dextrose (Dextrose 50%-Water Syringe) 12.5 gm PRN Q15MIN PRN IV SEE COMMENTS; Start 11/24/16 at 07:30; Stop 11/29/16 at 04:44; Status DC Darbepoetin Surendra (Aranesp) 60 mcg WEEKLYHS SQ Last administered on 12/01/16 20 :44; Start 11/24/16 at 21:00 Heparin Sodium (Porcine) (Heparin Sodium) 10,000 unit STK-MED ONCE .ROUTE ; Start 11/24/16 at 16:58; Stop 11/24/16 at 16:59; Status DC Lidocaine/Sodium Bicarbonate 20 ml 20 ml STK-MED ONCE IJ ; Start 11/24/16 at 16: 58; Stop 11/24/16 at 16:59; Status DC Heparin Sodium/ Sodium Chloride 500 ml @ As Directed STK-MED ONCE .ROUTE ; Start 11/24/16 at 16:58; Stop 11/24/16 at 16:59; Status DC Lidocaine/Sodium Bicarbonate (Buffered Lidocaine 1%) 3 ml 1X ONCE IJ Last administered on 11/24/16 17:44; Start 11/24/16 at 17:15; Stop 11/24/16 at 17:16 ; Status DC Heparin Sodium/ Sodium Chloride 60 unit 1X ONCE IV Last administered on 17:15; Start 11/24/16 at 17:15; Stop 11/24/16 at 17:16; Status DC Heparin Sodium (Porcine) (Heparin Sodium) 2,500 unit 1X ONCE INT CAT Last administered on 11/24/16 17:15; Start 11/24/16 at 17:15; Stop 11/24/16 at 17:16 ; Status DC Sodium Chloride (Normal Saline Flush) 10 ml 1X PRN PRN IV AP catheter pack; Start 11/24/16 at 23:45; Stop 11/25/16 at 23:44; Status DC Sodium Chloride 10 ml 10 ml 1X PRN PRN IV INSOLE BUFFER catheter pack; Start 11/24/16 at 23:45; Stop 11/25/16 at 23:44; Status DC Sodium Chloride (Iv Sodium Chloride 0.9% 1000ml Bag) 1,000 ml @ 400 mls/hr Q2H30M PRN IV PATENCY; Start 11/24/16 at 23:45; Stop 11/25/16 at 11:44; Status DC Info (PHARMACY MONITORING -- do not chart) 1 each PRN DAILY PRN MC SEE COMMENTS ; Start 11/24/16 at 23:45; Stop 11/26/16 at 07:32; Status DC Acetaminophen/ Hydrocodone Bitart (Lortab 5/325) 1 tab PRN Q4HRS PRN PO PAIN Last administered on 12/01/16 15:39; Start 11/25/16 at 05:15 Insulin Aspart (Novolog) 9 units TIDAC SQ Last administered on 11/28/16 09:18 ; Start 11/25/16 at 05:15; Stop 11/28/16 at 14:10; Status DC Phytonadione (Mephyton) 5 mg 1X ONCE PO Last administered on 11/25/16 12:15; Start 11/25/16 at 11:00; Stop 11/25/16 at 11:01; Status DC Diphenhydramine HCl 25 mg 25 mg PRN Q6HRS PRN IVP ITCHING Last administered on 11/26/16 15:55; Start 11/25/16 at 18:15 Sodium Chloride (Iv Sodium Chloride 0.9% 1000ml Bag) 1,000 ml @ 1,000 mls/hr Q1H PRN IV hypotension; Start 11/26/16 at 07:26; Stop 11/26/16 at 13:25; Status DC Sodium Chloride (Normal Saline Flush) 10 ml 1X PRN PRN IV AP catheter pack; Start 11/26/16 at 07:30; Stop 11/27/16 at 07:29; Status DC Sodium Chloride 10 ml 10 ml 1X PRN PRN IV INSOLE BUFFER catheter pack; Start 11/26/16 at 07:30; Stop 11/27/16 at 07:29; Status DC Sodium Chloride (Iv Sodium Chloride 0.9% 1000ml Bag) 1,000 ml @ 400 mls/hr Q2H30M PRN IV PATENCY; Start 11/26/16 at 07:26; Stop 11/26/16 at 19:25; Status DC Info (PHARMACY MONITORING -- do not chart) 1 each PRN DAILY PRN MC SEE COMMENTS ; Start 11/26/16 at 07:30; Status Cancel Lidocaine/Sodium Bicarbonate 20 ml 20 ml STK-MED ONCE IJ ; Start 11/26/16 at 14: 06; Stop 11/26/16 at 14:07; Status DC Heparin Sodium/ Sodium Chloride 500 ml @ As Directed STK-MED ONCE .ROUTE ; Start 11/26/16 at 14:06; Stop 11/26/16 at 14:07; Status DC Iodixanol 100 ml 100 ml STK-MED ONCE .ROUTE ; Start 11/26/16 at 14:07; Stop at 14:08; Status DC Heparin Sodium/ Dextrose 500 ml @ 0 mls/hr CONT PRN IV SEE I/O RECORD Last administered on 12/02/16 01:19; Start 11/26/16 at 15:30 Heparin Sodium (Porcine) (Heparin Sodium) 2,900 unit PRN Q6HRS PRN IV FOR UFH LEVEL LESS THAN 0.2 Last administered on 11/27/16 07:21; Start 11/26/16 at 15: 30 Heparin Sodium (Porcine) (Heparin Sodium) 1,450 unit PRN Q6HRS PRN IV FOR UFH LEVEL 0.2 - 0.29 Last administered on 11/29/16 20:44; Start 11/26/16 at 15:30 Warfarin Sodium (Coumadin Per Pharmacy) 1 each PRN DAILY PRN MC PER PROTOCOL Last administered on 12/01/16 13:17; Start 11/26/16 at 15:30 Warfarin Sodium (Coumadin) 4 mg 1X WARF ONCE PO ; Start 11/26/16 at 16:00; Stop 11/26/16 at 16:01; Status DC Vitamin B Complex/ Vitamin C (Anahy-Della) 1 tab DAILY PO Last administered on 07:58; Start 11/27/16 at 09:00 Gabapentin (Neurontin) 300 mg HS PO Last administered on 12/01/16 20:43; Start 11/26/16 at 21:00 Insulin Detemir 70 units 70 units DAILY SQ Last administered on 11/28/16 09:19 ; Start 11/27/16 at 09:00; Stop 11/30/16 at 06:31; Status DC Levofloxacin/ Dextrose (LEVAQUIN 500mg PREMIX) 100 ml @ 100 mls/hr Q48H IV Last administered on 11/26/16 20:52; Start 11/26/16 at 20:00; Stop 11/27/16 at 22:48; Status DC Alteplase, Recombinant 4 mg 4 mg 1X ONCE INT CAT Last administered on 13:38; Start 11/27/16 at 08:45; Stop 11/27/16 at 08:46; Status DC Magnesium Sulfate/ Dextrose (Magnesium Sulfate PREMIX 2GM) 50 ml @ 25 mls/hr PRN DAILY PRN IV for Mag < 1.7 on am labs; Start 11/27/16 at 10:15; Stop at 10:54; Status DC Lidocaine/Sodium Bicarbonate 20 ml 20 ml STK-MED ONCE IJ ; Start 11/27/16 at 11: 14; Stop 11/27/16 at 11:15; Status DC Heparin Sodium/ Sodium Chloride 500 ml @ As Directed STK-MED ONCE .ROUTE ; Start 11/27/16 at 11:14; Stop 11/27/16 at 11:15; Status DC Iodixanol (Visipaque 320) 100 ml STK-MED ONCE .ROUTE ; Start 11/27/16 at 11:14; Stop 11/27/16 at 11:15; Status DC Midazolam HCl (Versed) 5 mg STK-MED ONCE .ROUTE ; Start 11/27/16 at 11:29; Stop 11/27/16 at 11:30; Status DC Fentanyl Citrate (Fentanyl 5ml Vial) 250 mcg STK-MED ONCE .ROUTE ; Start at 11:29; Stop 11/27/16 at 11:30; Status DC Heparin Sodium/ Sodium Chloride 1,000 unit 1X ONCE IART Last administered on 13:39; Start 11/27/16 at 11:45; Stop 11/27/16 at 11:46; Status DC Lidocaine/Sodium Bicarbonate (Buffered Lidocaine 1%) 20 ml 1X ONCE IJ Last administered on 11/27/16 13:40; Start 11/27/16 at 11:45; Stop 11/27/16 at 11:46 ; Status DC Midazolam HCl (Versed) 5 mg 1X ONCE IV Last administered on 11/27/16 13:41; Start 11/27/16 at 11:45; Stop 11/27/16 at 11:46; Status DC Fentanyl Citrate (Fentanyl 5ml Vial) 250 mcg 1X ONCE IV Last administered on 13:41; Start 11/27/16 at 11:45; Stop 11/27/16 at 11:46; Status DC Iodixanol (Visipaque 320) 100 ml 1X ONCE IART Last administered on 11/27/16 13:39; Start 11/27/16 at 11:45; Stop 11/27/16 at 11:46; Status DC Info (Do NOT chart on this entry -- for MONITORING) 1 each PRN DAILY PRN MC SEE COMMENTS; Start 11/27/16 at 11:45; Stop 11/29/16 at 11:44; Status DC Heparin Sodium (Porcine) (Heparin Sodium) 5,000 unit 1X ONCE IV Last administered on 11/27/16 13:48; Start 11/27/16 at 13:30; Stop 11/27/16 at 13:31 ; Status DC Info (Anti-Coagulation Monitoring By Pharmacy) 1 each PRN DAILY PRN MC SEE COMMENTS Last administered on 12/01/16 13:32; Start 11/27/16 at 13:30 Warfarin Sodium (Coumadin) 5 mg 1X WARF ONCE PO Last administered on 15:50; Start 11/27/16 at 16:00; Stop 11/27/16 at 16:01; Status DC Insulin Aspart 10 units 10 units 1X ONCE SQ Last administered on 11/27/16 16: 16; Start 11/27/16 at 16:15; Stop 11/27/16 at 16:16; Status DC Sodium Chloride 1,000 ml @ 1,000 mls/hr Q1H PRN IV hypotension; Start 11/28/16 at 08:45; Stop 11/28/16 at 14:44; Status DC Albumin Human (Albuminar) 200 ml @ 200 mls/hr 1X PRN PRN IV Hypotension; Start 11/28/16 at 08:45; Stop 11/28/16 at 14:44; Status DC Acetaminophen (Tylenol) 500 mg 1X PRN PRN PO MILD PAIN / TEMP; Start 11/28/16 at 08:45; Stop 11/29/16 at 08:44; Status DC Diphenhydramine HCl (Benadryl) 25 mg 1X PRN PRN IV ITCHING; Start 11/28/16 at 08:45; Stop 11/29/16 at 08:44; Status DC Diphenhydramine HCl (Benadryl) 25 mg 1X PRN PRN IV ITCHING; Start 11/28/16 at 08:45; Stop 11/29/16 at 08:44; Status DC Labetalol HCl (Normodyne) 10 mg PRN Q1HR PRN IVP SBP > 180; Start 11/28/16 at 08:45; Stop 11/29/16 at 08:44; Status DC Clonidine HCl 0.1 mg 0.1 mg 1X PRN PRN PO SBP > 180; Start 11/28/16 at 08:45; Stop 11/29/16 at 08:44; Status DC Sodium Chloride (Iv Sodium Chloride 0.9% 1000ml Bag) 1,000 ml @ 400 mls/hr Q2H30M PRN IV PATENCY; Start 11/28/16 at 08:45; Stop 11/28/16 at 20:44; Status DC Info (PHARMACY MONITORING -- do not chart) 1 each PRN DAILY PRN MC SEE COMMENTS ; Start 11/28/16 at 08:45 Lidocaine HCl (Xylocaine-Mpf 1% Vial) 2 ml STK-MED ONCE .ROUTE ; Start 11/28/16 at 09:00; Stop 11/28/16 at 09:01; Status DC Lidocaine HCl (Xylocaine-Mpf 1% Vial) 2 ml 1X ONCE INJ Last administered on 10:15; Start 11/28/16 at 10:15; Stop 11/28/16 at 10:16; Status DC Warfarin Sodium (Coumadin) 7.5 mg 1X WARF ONCE PO Last administered on 17:50; Start 11/28/16 at 16:00; Stop 11/28/16 at 16:01; Status DC Warfarin Sodium (Coumadin Per Pharmacy) 1 each PRN DAILY PRN MC SEE COMMENTS; Start 11/28/16 at 16:00; Status Cancel Diphenhydramine HCl 25 mg 25 mg 1X ONCE PO Last administered on 11/28/16 22: 57; Start 11/28/16 at 23:00; Stop 11/28/16 at 23:01; Status DC Insulin Human Regular/Sodium Chloride (Novolin R Vial/ Iv Normal Saline 150ml) 151.5 ml @ 0 mls/hr CONT PRN IV SEE I/O RECORD Last administered on 12/02/16 02:54; Start 11/29/16 at 04:45 Dextrose 12.5 gm 12.5 gm PRN Q15MIN PRN IV LOW BLOOD SUGAR; Start 11/29/16 at 04:45 Magnesium Sulfate/ Dextrose (Magnesium Sulfate PREMIX 2GM) 50 ml @ 25 mls/hr PRN DAILY PRN IV for Mag < 1.7 on am labs; Start 11/29/16 at 11:00 Warfarin Sodium (Coumadin) 7.5 mg 1X WARF ONCE PO Last administered on 18:06; Start 11/29/16 at 16:00; Stop 11/29/16 at 16:01; Status DC Insulin Detemir (Levemir) 100 units 1X ONCE SQ Last administered on 11/30/16 06:39; Start 11/30/16 at 07:00; Stop 11/30/16 at 07:01; Status DC Insulin Aspart (Novolog) 40 units TIDAC SQ Last administered on 12/01/16 17:08 ; Start 11/30/16 at 07:30 Insulin Detemir 70 units 70 units DAILY SQ ; Start 12/01/16 at 09:00; Stop 12/01 at 09:00; Status DC Sodium Chloride 1,000 ml @ 1,000 mls/hr Q1H PRN IV hypotension; Start 11/30/16 at 07:32; Stop 11/30/16 at 13:31; Status DC Albumin Human (Albuminar) 200 ml @ 200 mls/hr 1X PRN PRN IV Hypotension; Start 11/30/16 at 07:45; Stop 11/30/16 at 13:44; Status DC Acetaminophen (Tylenol) 500 mg 1X PRN PRN PO MILD PAIN / TEMP; Start 11/30/16 at 07:45; Stop 12/01/16 at 07:44; Status DC Diphenhydramine HCl (Benadryl) 25 mg 1X PRN PRN IV ITCHING; Start 11/30/16 at 07:45; Stop 12/01/16 at 07:44; Status DC Diphenhydramine HCl (Benadryl) 25 mg 1X PRN PRN IV ITCHING; Start 11/30/16 at 07:45; Stop 12/01/16 at 07:44; Status DC Labetalol HCl (Normodyne) 10 mg PRN Q1HR PRN IVP SBP > 180; Start 11/30/16 at 07:45; Stop 12/01/16 at 07:44; Status DC Clonidine HCl 0.1 mg 0.1 mg 1X PRN PRN PO SBP > 180; Start 11/30/16 at 07:45; Stop 12/01/16 at 07:44; Status DC Sodium Chloride (Iv Sodium Chloride 0.9% 1000ml Bag) 1,000 ml @ 400 mls/hr Q2H30M PRN IV PATENCY; Start 11/30/16 at 07:32; Stop 11/30/16 at 19:31; Status DC Info 1 each 1 each PRN DAILY PRN MC SEE COMMENTS; Start 11/30/16 at 07:45; Status UNV Magnesium Sulfate/ Dextrose (Magnesium Sulfate PREMIX 2GM) 50 ml @ 25 mls/hr 1X ONCE IV Last administered on 11/30/16 23:58; Start 11/30/16 at 14:00; Stop 11/30/16 at 15:59; Status DC Warfarin Sodium (Coumadin) 3 mg 1X WARF ONCE PO Last administered on 22:03; Start 11/30/16 at 16:00; Stop 11/30/16 at 16:01; Status DC Non-Formulary Medication 70 ea DAILY SQ Last administered on 12/02/16 07:58; Start 12/01/16 at 09:00 Non-Formulary Medication 66 ea QHS SQ ; Start 11/30/16 at 21:00; Stop 11/30/16 at 21:00; Status DC Non-Formulary Medication 66 ea QHS SQ Last administered on 12/01/16 20:58; Start 11/30/16 at 21:00 Warfarin Sodium (Coumadin) 3 mg 1X WARF ONCE PO Last administered on 15:39; Start 12/01/16 at 16:00; Stop 12/01/16 at 16:01; Status DC Insulin Aspart (Novolog) 20 units 1X ONCE SQ Last administered on 12/01/16 15 :26; Start 12/01/16 at 15:30; Stop 12/01/16 at 15:31; Status DC Glimepiride (Amaryl) 4 mg DAILY PO Last administered on 12/02/16 07:58; Start 12/01/16 at 18:30 Insulin Human Regular (Novolin R Vial) 20 unit 1X ONCE IV Last administered on 12/01/16 18:38; Start 12/01/16 at 18:15; Stop 12/01/16 at 18:23; Status DC Insulin Aspart (Novolog) 20 units 1X ONCE SQ Last administered on 12/01/16 20 :58; Start 12/01/16 at 20:30; Stop 12/01/16 at 20:31; Status DC Insulin Aspart (Novolog) 30 units 1X ONCE SQ Last administered on 12/01/16 23 :12; Start 12/01/16 at 23:00; Stop 12/01/16 at 23:01; Status DC Insulin Aspart (Novolog) 30 units 1X ONCE SQ Last administered on 12/02/16 01 :14; Start 12/02/16 at 01:00; Stop 12/02/16 at 01:01; Status DC Calcium Acetate (Phoslo) 1,334 mg TIDWMEALS PO ; Start 12/02/16 at 12:00 Active Scripts Active Reported Nitrofurantoin (Nitrofurantoin Macrocrystal) 100 Mg Capsule 1 Cap PO BID Vitamin D2 (Ergocalciferol (Vitamin D2)) 50,000 Unit Capsule 1 Cap PO WEEKLY Gabapentin 300 Mg Capsule 300 Mg PO HS Nephro-Della Tablet (Folic Acid/Vitamin B Comp W-C) 0.8 Mg Tablet 1 Tab PO DAILY Humalog (Insulin Lispro) 100 Unit/1 Ml Vial 20 Unit SQ TIDAC Levothyroxine Sodium 75 Mcg Tablet 75 Mcg PO DAILYAC Levemir (Insulin Detemir) 100 Unit/1 Ml Vial 66 Unit SQ QHS Levemir (Insulin Detemir) 100 Unit/1 Ml Vial 70 Unit SQ DAILY D3-2000 (Cholecalciferol (Vitamin D3)) 2,000 Unit Capsule 2,000 Unit PO DAILY Pantoprazole Sodium 40 Mg Tablet.dr 40 Mg PO BID Warfarin Sodium 2 Mg Tablet 2 Mg PO DAILY Warfarin Sodium 1 Mg Tablet 1 Mg PO DAILY Crestor (Rosuvastatin Calcium) 10 Mg Tablet 10 Mg PO DAILY 30 Days Vitals/I & O Vital Sign - Last 24 Hours 12/01/16 12/01/16 12/01/16 12/01/16 11:00 15:00 15:39 19:59 Temp 98.0 97.6 97.9 98.0 97.6 97.9 Pulse 88 80 82 Resp 24 20 18 18 B/P 125/78 140/66 149/78 Pulse Ox 98 99 98 92 O2 Delivery Room Air Room Air O2 Flow Rate 2.0 12/01/16 12/02/16 12/02/16 12/02/16 20:00 00:00 03:59 07:00 Temp 97.5 98.3 98.0 97.5 98.3 98.0 Pulse 81 80 78 Resp 18 20 22 B/P 125/56 117/50 133/70 Pulse Ox 92 92 96 O2 Delivery Room Air Room Air Room Air Room Air 12/02/16 08:00 O2 Delivery Room Air Intake and Output 12/01/16 12/01/16 12/02/16 15:00 23:00 07:00 Intake Total 600 ml 900 ml 240 ml Output Total 800 ml 120 ml Balance 600 ml 100 ml 120 ml Nutrition Consultation Dietary Evaluation: Recommendations by RD: Dietary education by RD, Increase Calorie Intake, Protein supplementation Comments: Novasource renal BID for increased nutrient needs on HD Provided handout on renal diet and left at pt bedside Expected Outcomes/Goals: to meet >75% est nutr needs- met, goal ongoing Malnutrition Findings: Weight Status: Morbidly Obese AJ LOPEZ MD Dec 02, 2016 10:58
[2016-12-02] MEDS: CALCIUM ACETATE 667 MG CAPSULE PO SCH ×2 (11:51→16:32)
[2016-12-02] MEDS ORDERED: WARFARIN 3 MG TABLET. PO ONE (16:00)
[2016-12-02] MEDS: ATORVASTATIN CALCIUM 40 MG TABLET. PO SCH (21:45)
[2016-12-02] MEDS: GABAPENTIN 300 MG CAPSULE. PO SCH (21:45)
[2016-12-02] MEDS: HYDROCODONE/APAP 5/325MG TABLET. PO PRN (21:58)
[2016-12-02] MEDS: LANTUS INSULIN SQ SCH (21:59)
[2016-12-03 03:00] VITALS: BP 122/46
[2016-12-03 04:54] LABS: INR 3.1 (0.8-1.1); PROTHROMBIN TIME PATIENT 29.8 SEC (11.7-14.0)
[2016-12-03] MEDS: HYDROCODONE/APAP 5/325MG TABLET. PO PRN ×2 (04:56→23:30)
[2016-12-03 05:42] LABS: ALBUMIN 3.1 g/dL (3.4-5.0); CALCIUM 8.6 mg/dL (8.5-10.1); CREATININE 10.6 mg/dL (0.6-1.0); GFR 3.6
[2016-12-03 05:50] LABS: POTASSIUM 6.2 mmol/L (3.5-5.1)
[2016-12-03] MEDS: ONDANSETRON PF 4 MG/2 ML VIAL. IV PRN ×2 (05:52→15:32)
[2016-12-03 07:00] VITALS: BP 141/53
[2016-12-03] MEDS: LEVOTHYROXINE 75 MCG TABLET PO SCH (07:00)
[2016-12-03] MEDS: PANTOPRAZOLE 40 MG TABLET.DR. PO SCH ×2 (07:30→17:43)
[2016-12-03] MEDS: INSULIN ASPART 300 UNITS/3 ML INSULN.PEN SQ SCH ×6 (08:00→17:49)
[2016-12-03] MEDS: CALCIUM ACETATE 667 MG CAPSULE PO SCH ×3 (08:00→17:42)
[2016-12-03] MEDS: GLIMEPIRIDE 2 MG TABLET. PO SCH (09:00)
[2016-12-03] MEDS ORDERED: FLUCONAZOLE 100 MG TABLET. PO SCH (09:00)
[2016-12-03] MEDS: INSULIN GLARGINE SQ SCH (09:00)
[2016-12-03] MEDS: FOLIC/VIT B COMP W-C (RENAL) TABLET. PO SCH (09:00)
[2016-12-03] MEDS: CHOLECALCIFEROL (VITAMIN D3) 1,000 UNIT TABLET PO SCH (09:00)
--- NOTE | 2016-12-03 09:59 | PDOC ---
Dialysis Progress Note Dialysis Note Dialysis Note Seen on Hemodialysis, tolerating treatment Well Vitals on Hemodialysis: 113/42 67 afeb General Appearance: Awake: Alert Oriented x 3 Neck: No JVD or JVP Chest: CTA Tino Heart: S1 S2 Abdomen - Soft NTND Extremities - No Edema ESRD: Dialysis as below F 180 NR 3.5 Hrs 2 K 2.5 Ca 140 Na 35 HC03 Qb 350 + Qd 500+ Heparin on gtt Uf 3.0 - 3.5 Kgs or to dry weight as tolerated May give 25-50 gms of 25% Albumin if needed to maintain Hemodynamic stability Treatment plan reviewed and discussed with retail pharmacy technician Vitals Vital Signs Vital Signs Date Time Temp Pulse Resp B/P Pulse Ox O2 Delivery O2 Flow Rate FiO2 12/03/16 04:56 22 Room Air 12/03/16 03:00 98.7 89 122/46 95 98.7 12/01/16 15:39 2.0 Labs Last Labs Laboratory Tests Test 12/01/16 10:57 12/01/16 12:03 12/01/16 15:03 12/01/16 16:30 Glucose (Fingerstick) 267mg/dL (70-99) 366mg/dL (70-99) 583mg/dL (70-99) 563mg/dL (70-99) Test 12/01/16 17:54 12/01/16 19:37 12/01/16 22:23 12/02/16 00:14 Glucose (Fingerstick) 507mg/dL (70-99) 473mg/dL (70-99) 435mg/dL (70-99) 385mg/dL (70-99) Test 12/02/16 02:46 12/02/16 03:27 12/02/16 04:10 12/02/16 04:14 Glucose (Fingerstick) 246mg/dL (70-99) 211mg/dL (70-99) Heparin Anti-Xa Act, Unfractionated 0.32IU/mL (0.30-0.70) Sodium Level 132mmol/L (136-145) Potassium Level 4.3mmol/L (3.5-5.1) Chloride Level 90mmol/L (98-107) Carbon Dioxide Level 25mmol/L (21-32) Anion Gap 17 (6-14) Blood Urea Nitrogen 74mg/dL (7-20) Creatinine 8.2mg/dL (0.6-1.0) Estimated GFR (Cockcroft-Gault) 4.9 Glucose Level 246mg/dL (70-99) Calcium Level 8.5mg/dL (8.5-10.1) Phosphorus Level 6.4mg/dL (2.6-4.7) Magnesium Level 2.4mg/dL (1.8-2.4) Albumin 3.3g/dL (3.4-5.0) Prothrombin Time 24.5SEC (11.7-14.0) Prothromb Time International Ratio 2.4 (0.8-1.1) Test 12/02/16 06:51 12/02/16 07:57 12/02/16 08:51 12/02/16 10:01 Glucose (Fingerstick) 139mg/dL (70-99) 128mg/dL (70-99) 152mg/dL (70-99) 162mg/dL (70-99) Test 12/02/16 11:32 12/02/16 15:14 12/02/16 20:49 12/03/16 03:43 Glucose (Fingerstick) 187mg/dL (70-99) 362mg/dL (70-99) 358mg/dL (70-99) Prothrombin Time 29.8SEC (11.7-14.0) Prothromb Time International Ratio 3.1 (0.8-1.1) Heparin Anti-Xa Act, Unfractionated < 0.10IU/mL (0.30-0.70) Sodium Level 125mmol/L (136-145) Potassium Level 6.2mmol/L (3.5-5.1) Chloride Level 87mmol/L (98-107) Carbon Dioxide Level 24mmol/L (21-32) Anion Gap 14 (6-14) Blood Urea Nitrogen 93mg/dL (7-20) Creatinine 10.6mg/dL (0.6-1.0) Estimated GFR (Cockcroft-Gault) 3.6 Glucose Level 431mg/dL (70-99) Calcium Level 8.6mg/dL (8.5-10.1) Phosphorus Level 6.0mg/dL (2.6-4.7) Albumin 3.1g/dL (3.4-5.0) Test 12/03/16 04:48 12/03/16 08:25 Glucose (Fingerstick) 474mg/dL (70-99) Glucose Level 627mg/dL (70-99) Laboratory Tests Test 12/02/16 10:01 12/02/16 11:32 12/02/16 15:14 12/02/16 20:49 Glucose (Fingerstick) 162mg/dL (70-99) 187mg/dL (70-99) 362mg/dL (70-99) 358mg/dL (70-99) Test 12/03/16 03:43 12/03/16 04:48 12/03/16 08:25 Prothrombin Time 29.8SEC (11.7-14.0) Prothromb Time International Ratio 3.1 (0.8-1.1) Heparin Anti-Xa Act, Unfractionated < 0.10IU/mL (0.30-0.70) Sodium Level 125mmol/L (136-145) Potassium Level 6.2mmol/L (3.5-5.1) Chloride Level 87mmol/L (98-107) Carbon Dioxide Level 24mmol/L (21-32) Anion Gap 14 (6-14) Blood Urea Nitrogen 93mg/dL (7-20) Creatinine 10.6mg/dL (0.6-1.0) Estimated GFR (Cockcroft-Gault) 3.6 Glucose Level 431mg/dL (70-99) 627mg/dL (70-99) Calcium Level 8.6mg/dL (8.5-10.1) Phosphorus Level 6.0mg/dL (2.6-4.7) Albumin 3.1g/dL (3.4-5.0) Glucose (Fingerstick) 474mg/dL (70-99) Assessment Assessment Problems Medical Problems: (1) Dialysis AV fistula malfunction Status: Acute Problems: Plan Plan of Care Problems Medical Problems: (1) Dialysis AV fistula malfunction Status: Acute NATHALY BENTLEY MD December 03, 2016 09:59
[2016-12-03] MEDS ORDERED: INSULIN ASPART 300 UNITS/3 ML INSULN.PEN SQ ONE (10:00)
[2016-12-03] MEDS ORDERED: IOHEXOL 240 MG/ML 50ML VIAL. PO ONE (10:15)
[2016-12-03] MEDS: NON FORMULARY ITEM SQ SCH ×2 (10:30→21:00)
--- NOTE | 2016-12-03 12:06 | PDOC ---
PROGRESS NOTES Chief Complaint Chief Complaint cc: gram clot A/P Mechanical Mitral valve DM uncontrolled, THROMBOSED LEFT ARM BB GRAFT s/p thrombolysis ESRD-OP SCHEDULE MWF ANEMIA S/P TEMP HD CATHETER CAD Plan She continue to have high blood sugars, despite increased in oral and IV medicaitns, clinically looks stable, no signs of infections, will do work up for such as UA, Blood cx, CT abdomen, cxr. Increase Lantus with SSI S/P thrombolysis uneventful INR therapeutic, INR goal 2.5-3.5 Hemodialysis labs reviewed History of Present Illness History of Present Illness NO BLEEDING NO FEVER Vitals Vitals Vital Signs Date Time Temp Pulse Resp B/P Pulse Ox O2 Delivery O2 Flow Rate FiO2 12/03/16 07:30 Nasal Cannula 2.0 12/03/16 07:00 98.2 69 22 141/53 91 98.2 Physical Exam General: Alert, Oriented X3, Cooperative, Other (obese) Heart: Regular rate, Normal S1, Normal S2, Other Lungs: Clear Abdomen: Normal bowel sounds, Soft, No tenderness Extremities: Other Skin: No breakdown Labs LABS Laboratory Tests Test 12/02/16 15:14 12/02/16 20:49 12/03/16 03:43 12/03/16 04:48 Glucose (Fingerstick) 362mg/dL (70-99) 358mg/dL (70-99) 474mg/dL (70-99) Prothrombin Time 29.8SEC (11.7-14.0) Prothromb Time International Ratio 3.1 (0.8-1.1) Heparin Anti-Xa Act, Unfractionated < 0.10IU/mL (0.30-0.70) Sodium Level 125mmol/L (136-145) Potassium Level 6.2mmol/L (3.5-5.1) Chloride Level 87mmol/L (98-107) Carbon Dioxide Level 24mmol/L (21-32) Anion Gap 14 (6-14) Blood Urea Nitrogen 93mg/dL (7-20) Creatinine 10.6mg/dL (0.6-1.0) Estimated GFR (Cockcroft-Gault) 3.6 Glucose Level 431mg/dL (70-99) Calcium Level 8.6mg/dL (8.5-10.1) Phosphorus Level 6.0mg/dL (2.6-4.7) Albumin 3.1g/dL (3.4-5.0) Test 12/03/16 08:25 Glucose Level 627mg/dL (70-99) Assessment and Plan Assessmemt and Plan Problems Medical Problems: (1) Dialysis AV fistula malfunction Status: Acute Problems: Comment Review of Relevant I have reviewed the following items sofi (where applicable) has been applied. Labs Laboratory Tests Test 12/01/16 15:03 12/01/16 16:30 12/01/16 17:54 12/01/16 19:37 Glucose (Fingerstick) 583mg/dL (70-99) 563mg/dL (70-99) 507mg/dL (70-99) 473mg/dL (70-99) Test 12/01/16 22:23 12/02/16 00:14 12/02/16 02:46 12/02/16 03:27 Glucose (Fingerstick) 435mg/dL (70-99) 385mg/dL (70-99) 246mg/dL (70-99) Heparin Anti-Xa Act, Unfractionated 0.32IU/mL (0.30-0.70) Sodium Level 132mmol/L (136-145) Potassium Level 4.3mmol/L (3.5-5.1) Chloride Level 90mmol/L (98-107) Carbon Dioxide Level 25mmol/L (21-32) Anion Gap 17 (6-14) Blood Urea Nitrogen 74mg/dL (7-20) Creatinine 8.2mg/dL (0.6-1.0) Estimated GFR (Cockcroft-Gault) 4.9 Glucose Level 246mg/dL (70-99) Calcium Level 8.5mg/dL (8.5-10.1) Phosphorus Level 6.4mg/dL (2.6-4.7) Magnesium Level 2.4mg/dL (1.8-2.4) Albumin 3.3g/dL (3.4-5.0) Test 12/02/16 04:10 12/02/16 04:14 12/02/16 06:51 12/02/16 07:57 Prothrombin Time 24.5SEC (11.7-14.0) Prothromb Time International Ratio 2.4 (0.8-1.1) Glucose (Fingerstick) 211mg/dL (70-99) 139mg/dL (70-99) 128mg/dL (70-99) Test 12/02/16 08:51 12/02/16 10:01 12/02/16 11:32 12/02/16 15:14 Glucose (Fingerstick) 152mg/dL (70-99) 162mg/dL (70-99) 187mg/dL (70-99) 362mg/dL (70-99) Test 12/02/16 20:49 12/03/16 03:43 12/03/16 04:48 12/03/16 08:25 Glucose (Fingerstick) 358mg/dL (70-99) 474mg/dL (70-99) Prothrombin Time 29.8SEC (11.7-14.0) Prothromb Time International Ratio 3.1 (0.8-1.1) Heparin Anti-Xa Act, Unfractionated < 0.10IU/mL (0.30-0.70) Sodium Level 125mmol/L (136-145) Potassium Level 6.2mmol/L (3.5-5.1) Chloride Level 87mmol/L (98-107) Carbon Dioxide Level 24mmol/L (21-32) Anion Gap 14 (6-14) Blood Urea Nitrogen 93mg/dL (7-20) Creatinine 10.6mg/dL (0.6-1.0) Estimated GFR (Cockcroft-Gault) 3.6 Glucose Level 431mg/dL (70-99) 627mg/dL (70-99) Calcium Level 8.6mg/dL (8.5-10.1) Phosphorus Level 6.0mg/dL (2.6-4.7) Albumin 3.1g/dL (3.4-5.0) Laboratory Tests Test 12/02/16 15:14 12/02/16 20:49 12/03/16 03:43 12/03/16 04:48 Glucose (Fingerstick) 362mg/dL (70-99) 358mg/dL (70-99) 474mg/dL (70-99) Prothrombin Time 29.8SEC (11.7-14.0) Prothromb Time International Ratio 3.1 (0.8-1.1) Heparin Anti-Xa Act, Unfractionated < 0.10IU/mL (0.30-0.70) Sodium Level 125mmol/L (136-145) Potassium Level 6.2mmol/L (3.5-5.1) Chloride Level 87mmol/L (98-107) Carbon Dioxide Level 24mmol/L (21-32) Anion Gap 14 (6-14) Blood Urea Nitrogen 93mg/dL (7-20) Creatinine 10.6mg/dL (0.6-1.0) Estimated GFR (Cockcroft-Gault) 3.6 Glucose Level 431mg/dL (70-99) Calcium Level 8.6mg/dL (8.5-10.1) Phosphorus Level 6.0mg/dL (2.6-4.7) Albumin 3.1g/dL (3.4-5.0) Test 12/03/16 08:25 Glucose Level 627mg/dL (70-99) Microbiology 11/24/16 Urine Culture - Final, Complete 11/24/16 Urine Culture Result 1 (ELEAZAR) - Final, Complete Medications Current Medications Ondansetron HCl (Zofran) 4 mg PRN Q8HRS PRN IV NAUSEA/VOMITING; Start 11/23/16 at 21:00; Stop 11/24/16 at 07:25; Status DC Morphine Sulfate 2 mg PRN Q2HR PRN IV PAIN; Start 11/23/16 at 21:00; Stop 11/24 at 20:59; Status DC Acetaminophen (Tylenol) 650 mg PRN Q4HRS PRN PO FEVER Last administered on 11/24 08:46; Start 11/23/16 at 21:00; Stop 11/24/16 at 20:59; Status DC Furosemide (Lasix) 100 mg 1X ONCE IVP Last administered on 11/24/16 01:15; Start 11/23/16 at 23:15; Stop 11/23/16 at 23:17; Status DC Levothyroxine Sodium (Synthroid) 75 mcg DAILY07 PO Last administered on 06:00; Start 11/24/16 at 07:00 Pantoprazole Sodium (Protonix) 40 mg BIDAC PO Last administered on 12/02/16 16 :30; Start 11/24/16 at 07:30 Warfarin Sodium (Coumadin) 1 mg DAILY16 PO ; Start 11/24/16 at 16:00; Stop 11/25 at 09:01; Status DC Warfarin Sodium (Coumadin) 2 mg DAILY16 PO Last administered on 11/24/16 22:38 ; Start 11/24/16 at 16:00; Stop 11/25/16 at 09:01; Status DC Vitamin D (Vitamin D3) 2,000 unit DAILY PO Last administered on 12/02/16 07:58 ; Start 11/24/16 at 09:00 Insulin Detemir (Levemir) 66 units QHS SQ Last administered on 11/28/16 20:45 ; Start 11/24/16 at 21:00; Stop 11/30/16 at 20:55; Status DC Insulin Aspart (Novolog) 20 units TIDAC SQ Last administered on 11/28/16 17:57 ; Start 11/24/16 at 07:30; Stop 11/30/16 at 06:26; Status DC Atorvastatin Calcium (Lipitor) 40 mg HS PO Last administered on 12/02/16 21:45 ; Start 11/24/16 at 21:00 Warfarin Sodium (Coumadin Per Physician) 1 each PRN DAILY PRN MC SEE COMMENTS Last administered on 11/24/16 15:33; Start 11/24/16 at 16:00; Stop 11/25/16 at 09:01; Status DC Ondansetron HCl (Zofran) 4 mg PRN Q6HRS PRN IV NAUSEA/VOMITING Last administered on 12/03/16 05:52; Start 11/24/16 at 07:23 Insulin Aspart (Novolog) 0-9 UNITS TIDWMEALS SQ Last administered on 12/02/16 16:35; Start 11/24/16 at 08:00 Dextrose (Dextrose 50%-Water Syringe) 12.5 gm PRN Q15MIN PRN IV SEE COMMENTS; Start 11/24/16 at 07:30; Stop 11/29/16 at 04:44; Status DC Darbepoetin Surendra (Aranesp) 60 mcg WEEKLYHS SQ Last administered on 12/01/16 20 :44; Start 11/24/16 at 21:00 Heparin Sodium (Porcine) (Heparin Sodium) 10,000 unit STK-MED ONCE .ROUTE ; Start 11/24/16 at 16:58; Stop 11/24/16 at 16:59; Status DC Lidocaine/Sodium Bicarbonate 20 ml 20 ml STK-MED ONCE IJ ; Start 11/24/16 at 16: 58; Stop 11/24/16 at 16:59; Status DC Heparin Sodium/ Sodium Chloride 500 ml @ As Directed STK-MED ONCE .ROUTE ; Start 11/24/16 at 16:58; Stop 11/24/16 at 16:59; Status DC Lidocaine/Sodium Bicarbonate (Buffered Lidocaine 1%) 3 ml 1X ONCE IJ Last administered on 11/24/16 17:44; Start 11/24/16 at 17:15; Stop 11/24/16 at 17:16 ; Status DC Heparin Sodium/ Sodium Chloride 60 unit 1X ONCE IV Last administered on 17:15; Start 11/24/16 at 17:15; Stop 11/24/16 at 17:16; Status DC Heparin Sodium (Porcine) (Heparin Sodium) 2,500 unit 1X ONCE INT CAT Last administered on 11/24/16 17:15; Start 11/24/16 at 17:15; Stop 11/24/16 at 17:16 ; Status DC Sodium Chloride (Normal Saline Flush) 10 ml 1X PRN PRN IV AP catheter pack; Start 11/24/16 at 23:45; Stop 11/25/16 at 23:44; Status DC Sodium Chloride 10 ml 10 ml 1X PRN PRN IV UTILITY OPERATOR YARN catheter pack; Start 11/24/16 at 23:45; Stop 11/25/16 at 23:44; Status DC Sodium Chloride (Iv Sodium Chloride 0.9% 1000ml Bag) 1,000 ml @ 400 mls/hr Q2H30M PRN IV PATENCY; Start 11/24/16 at 23:45; Stop 11/25/16 at 11:44; Status DC Info (PHARMACY MONITORING -- do not chart) 1 each PRN DAILY PRN MC SEE COMMENTS ; Start 11/24/16 at 23:45; Stop 11/26/16 at 07:32; Status DC Acetaminophen/ Hydrocodone Bitart (Lortab 5/325) 1 tab PRN Q4HRS PRN PO PAIN Last administered on 12/03/16 04:56; Start 11/25/16 at 05:15 Insulin Aspart (Novolog) 9 units TIDAC SQ Last administered on 11/28/16 09:18 ; Start 11/25/16 at 05:15; Stop 11/28/16 at 14:10; Status DC Phytonadione (Mephyton) 5 mg 1X ONCE PO Last administered on 11/25/16 12:15; Start 11/25/16 at 11:00; Stop 11/25/16 at 11:01; Status DC Diphenhydramine HCl 25 mg 25 mg PRN Q6HRS PRN IVP ITCHING Last administered on 11/26/16 15:55; Start 11/25/16 at 18:15 Sodium Chloride (Iv Sodium Chloride 0.9% 1000ml Bag) 1,000 ml @ 1,000 mls/hr Q1H PRN IV hypotension; Start 11/26/16 at 07:26; Stop 11/26/16 at 13:25; Status DC Sodium Chloride (Normal Saline Flush) 10 ml 1X PRN PRN IV AP catheter pack; Start 11/26/16 at 07:30; Stop 11/27/16 at 07:29; Status DC Sodium Chloride 10 ml 10 ml 1X PRN PRN IV UTILITY OPERATOR YARN catheter pack; Start 11/26/16 at 07:30; Stop 11/27/16 at 07:29; Status DC Sodium Chloride (Iv Sodium Chloride 0.9% 1000ml Bag) 1,000 ml @ 400 mls/hr Q2H30M PRN IV PATENCY; Start 11/26/16 at 07:26; Stop 11/26/16 at 19:25; Status DC Info (PHARMACY MONITORING -- do not chart) 1 each PRN DAILY PRN MC SEE COMMENTS ; Start 11/26/16 at 07:30; Status Cancel Lidocaine/Sodium Bicarbonate 20 ml 20 ml STK-MED ONCE IJ ; Start 11/26/16 at 14: 06; Stop 11/26/16 at 14:07; Status DC Heparin Sodium/ Sodium Chloride 500 ml @ As Directed STK-MED ONCE .ROUTE ; Start 11/26/16 at 14:06; Stop 11/26/16 at 14:07; Status DC Iodixanol 100 ml 100 ml STK-MED ONCE .ROUTE ; Start 11/26/16 at 14:07; Stop at 14:08; Status DC Heparin Sodium/ Dextrose 500 ml @ 0 mls/hr CONT PRN IV SEE I/O RECORD Last administered on 12/02/16 01:19; Start 11/26/16 at 15:30; Stop 12/02/16 at 11:50 ; Status DC Heparin Sodium (Porcine) (Heparin Sodium) 2,900 unit PRN Q6HRS PRN IV FOR UFH LEVEL LESS THAN 0.2 Last administered on 11/27/16 07:21; Start 11/26/16 at 15: 30; Stop 12/02/16 at 11:50; Status DC Heparin Sodium (Porcine) (Heparin Sodium) 1,450 unit PRN Q6HRS PRN IV FOR UFH LEVEL 0.2 - 0.29 Last administered on 11/29/16 20:44; Start 11/26/16 at 15:30; Stop 12/02/16 at 11:50; Status DC Warfarin Sodium (Coumadin Per Pharmacy) 1 each PRN DAILY PRN MC PER PROTOCOL Last administered on 12/01/16 13:17; Start 11/26/16 at 15:30; Stop 12/02/16 at 11:50; Status DC Warfarin Sodium (Coumadin) 4 mg 1X WARF ONCE PO ; Start 11/26/16 at 16:00; Stop 11/26/16 at 16:01; Status DC Vitamin B Complex/ Vitamin C (Anahy-Della) 1 tab DAILY PO Last administered on 07:58; Start 11/27/16 at 09:00 Gabapentin (Neurontin) 300 mg HS PO Last administered on 12/02/16 21:45; Start 11/26/16 at 21:00 Insulin Detemir 70 units 70 units DAILY SQ Last administered on 11/28/16 09:19 ; Start 11/27/16 at 09:00; Stop 11/30/16 at 06:31; Status DC Levofloxacin/ Dextrose (LEVAQUIN 500mg PREMIX) 100 ml @ 100 mls/hr Q48H IV Last administered on 11/26/16 20:52; Start 11/26/16 at 20:00; Stop 11/27/16 at 22:48; Status DC Alteplase, Recombinant 4 mg 4 mg 1X ONCE INT CAT Last administered on 13:38; Start 11/27/16 at 08:45; Stop 11/27/16 at 08:46; Status DC Magnesium Sulfate/ Dextrose (Magnesium Sulfate PREMIX 2GM) 50 ml @ 25 mls/hr PRN DAILY PRN IV for Mag < 1.7 on am labs; Start 11/27/16 at 10:15; Stop at 10:54; Status DC Lidocaine/Sodium Bicarbonate 20 ml 20 ml STK-MED ONCE IJ ; Start 11/27/16 at 11: 14; Stop 11/27/16 at 11:15; Status DC Heparin Sodium/ Sodium Chloride 500 ml @ As Directed STK-MED ONCE .ROUTE ; Start 11/27/16 at 11:14; Stop 11/27/16 at 11:15; Status DC Iodixanol (Visipaque 320) 100 ml STK-MED ONCE .ROUTE ; Start 11/27/16 at 11:14; Stop 11/27/16 at 11:15; Status DC Midazolam HCl (Versed) 5 mg STK-MED ONCE .ROUTE ; Start 11/27/16 at 11:29; Stop 11/27/16 at 11:30; Status DC Fentanyl Citrate (Fentanyl 5ml Vial) 250 mcg STK-MED ONCE .ROUTE ; Start at 11:29; Stop 11/27/16 at 11:30; Status DC Heparin Sodium/ Sodium Chloride 1,000 unit 1X ONCE IART Last administered on 13:39; Start 11/27/16 at 11:45; Stop 11/27/16 at 11:46; Status DC Lidocaine/Sodium Bicarbonate (Buffered Lidocaine 1%) 20 ml 1X ONCE IJ Last administered on 11/27/16 13:40; Start 11/27/16 at 11:45; Stop 11/27/16 at 11:46 ; Status DC Midazolam HCl (Versed) 5 mg 1X ONCE IV Last administered on 11/27/16 13:41; Start 11/27/16 at 11:45; Stop 11/27/16 at 11:46; Status DC Fentanyl Citrate (Fentanyl 5ml Vial) 250 mcg 1X ONCE IV Last administered on 13:41; Start 11/27/16 at 11:45; Stop 11/27/16 at 11:46; Status DC Iodixanol (Visipaque 320) 100 ml 1X ONCE IART Last administered on 11/27/16 13:39; Start 11/27/16 at 11:45; Stop 11/27/16 at 11:46; Status DC Info (Do NOT chart on this entry -- for MONITORING) 1 each PRN DAILY PRN MC SEE COMMENTS; Start 11/27/16 at 11:45; Stop 11/29/16 at 11:44; Status DC Heparin Sodium (Porcine) (Heparin Sodium) 5,000 unit 1X ONCE IV Last administered on 11/27/16 13:48; Start 11/27/16 at 13:30; Stop 11/27/16 at 13:31 ; Status DC Info (Anti-Coagulation Monitoring By Pharmacy) 1 each PRN DAILY PRN MC SEE COMMENTS Last administered on 12/01/16 13:32; Start 11/27/16 at 13:30; Stop 12/03/16 at 12:02; Status DC Warfarin Sodium (Coumadin) 5 mg 1X WARF ONCE PO Last administered on 15:50; Start 11/27/16 at 16:00; Stop 11/27/16 at 16:01; Status DC Insulin Aspart 10 units 10 units 1X ONCE SQ Last administered on 11/27/16 16: 16; Start 11/27/16 at 16:15; Stop 11/27/16 at 16:16; Status DC Sodium Chloride 1,000 ml @ 1,000 mls/hr Q1H PRN IV hypotension; Start 11/28/16 at 08:45; Stop 11/28/16 at 14:44; Status DC Albumin Human (Albuminar) 200 ml @ 200 mls/hr 1X PRN PRN IV Hypotension; Start 11/28/16 at 08:45; Stop 11/28/16 at 14:44; Status DC Acetaminophen (Tylenol) 500 mg 1X PRN PRN PO MILD PAIN / TEMP; Start 11/28/16 at 08:45; Stop 11/29/16 at 08:44; Status DC Diphenhydramine HCl (Benadryl) 25 mg 1X PRN PRN IV ITCHING; Start 11/28/16 at 08:45; Stop 11/29/16 at 08:44; Status DC Diphenhydramine HCl (Benadryl) 25 mg 1X PRN PRN IV ITCHING; Start 11/28/16 at 08:45; Stop 11/29/16 at 08:44; Status DC Labetalol HCl (Normodyne) 10 mg PRN Q1HR PRN IVP SBP > 180; Start 11/28/16 at 08:45; Stop 11/29/16 at 08:44; Status DC Clonidine HCl 0.1 mg 0.1 mg 1X PRN PRN PO SBP > 180; Start 11/28/16 at 08:45; Stop 11/29/16 at 08:44; Status DC Sodium Chloride (Iv Sodium Chloride 0.9% 1000ml Bag) 1,000 ml @ 400 mls/hr Q2H30M PRN IV PATENCY; Start 11/28/16 at 08:45; Stop 11/28/16 at 20:44; Status DC Info (PHARMACY MONITORING -- do not chart) 1 each PRN DAILY PRN MC SEE COMMENTS ; Start 11/28/16 at 08:45 Lidocaine HCl (Xylocaine-Mpf 1% Vial) 2 ml STK-MED ONCE .ROUTE ; Start 11/28/16 at 09:00; Stop 11/28/16 at 09:01; Status DC Lidocaine HCl (Xylocaine-Mpf 1% Vial) 2 ml 1X ONCE INJ Last administered on 10:15; Start 11/28/16 at 10:15; Stop 11/28/16 at 10:16; Status DC Warfarin Sodium (Coumadin) 7.5 mg 1X WARF ONCE PO Last administered on 17:50; Start 11/28/16 at 16:00; Stop 11/28/16 at 16:01; Status DC Warfarin Sodium (Coumadin Per Pharmacy) 1 each PRN DAILY PRN MC SEE COMMENTS; Start 11/28/16 at 16:00; Status Cancel Diphenhydramine HCl 25 mg 25 mg 1X ONCE PO Last administered on 11/28/16 22: 57; Start 11/28/16 at 23:00; Stop 11/28/16 at 23:01; Status DC Insulin Human Regular/Sodium Chloride (Novolin R Vial/ Iv Normal Saline 150ml) 151.5 ml @ 0 mls/hr CONT PRN IV SEE I/O RECORD Last administered on 12/02/16 02:54; Start 11/29/16 at 04:45 Dextrose 12.5 gm 12.5 gm PRN Q15MIN PRN IV LOW BLOOD SUGAR; Start 11/29/16 at 04:45 Magnesium Sulfate/ Dextrose (Magnesium Sulfate PREMIX 2GM) 50 ml @ 25 mls/hr PRN DAILY PRN IV for Mag < 1.7 on am labs; Start 11/29/16 at 11:00 Warfarin Sodium (Coumadin) 7.5 mg 1X WARF ONCE PO Last administered on 18:06; Start 11/29/16 at 16:00; Stop 11/29/16 at 16:01; Status DC Insulin Detemir (Levemir) 100 units 1X ONCE SQ Last administered on 11/30/16 06:39; Start 11/30/16 at 07:00; Stop 11/30/16 at 07:01; Status DC Insulin Aspart (Novolog) 40 units TIDAC SQ Last administered on 12/03/16 10:30 ; Start 11/30/16 at 07:30 Insulin Detemir 70 units 70 units DAILY SQ ; Start 12/01/16 at 09:00; Stop 12/01 at 09:00; Status DC Sodium Chloride 1,000 ml @ 1,000 mls/hr Q1H PRN IV hypotension; Start 11/30/16 at 07:32; Stop 11/30/16 at 13:31; Status DC Albumin Human (Albuminar) 200 ml @ 200 mls/hr 1X PRN PRN IV Hypotension; Start 11/30/16 at 07:45; Stop 11/30/16 at 13:44; Status DC Acetaminophen (Tylenol) 500 mg 1X PRN PRN PO MILD PAIN / TEMP; Start 11/30/16 at 07:45; Stop 12/01/16 at 07:44; Status DC Diphenhydramine HCl (Benadryl) 25 mg 1X PRN PRN IV ITCHING; Start 11/30/16 at 07:45; Stop 12/01/16 at 07:44; Status DC Diphenhydramine HCl (Benadryl) 25 mg 1X PRN PRN IV ITCHING; Start 11/30/16 at 07:45; Stop 12/01/16 at 07:44; Status DC Labetalol HCl (Normodyne) 10 mg PRN Q1HR PRN IVP SBP > 180; Start 11/30/16 at 07:45; Stop 12/01/16 at 07:44; Status DC Clonidine HCl 0.1 mg 0.1 mg 1X PRN PRN PO SBP > 180; Start 11/30/16 at 07:45; Stop 12/01/16 at 07:44; Status DC Sodium Chloride (Iv Sodium Chloride 0.9% 1000ml Bag) 1,000 ml @ 400 mls/hr Q2H30M PRN IV PATENCY; Start 11/30/16 at 07:32; Stop 11/30/16 at 19:31; Status DC Info 1 each 1 each PRN DAILY PRN MC SEE COMMENTS; Start 11/30/16 at 07:45; Status UNV Magnesium Sulfate/ Dextrose (Magnesium Sulfate PREMIX 2GM) 50 ml @ 25 mls/hr 1X ONCE IV Last administered on 11/30/16 23:58; Start 11/30/16 at 14:00; Stop 11/30/16 at 15:59; Status DC Warfarin Sodium (Coumadin) 3 mg 1X WARF ONCE PO Last administered on 22:03; Start 11/30/16 at 16:00; Stop 11/30/16 at 16:01; Status DC Non-Formulary Medication 70 ea DAILY SQ Last administered on 12/02/16 07:58; Start 12/01/16 at 09:00; Stop 12/03/16 at 09:54; Status DC Non-Formulary Medication 66 ea QHS SQ ; Start 11/30/16 at 21:00; Stop 11/30/16 at 21:00; Status DC Non-Formulary Medication 66 ea QHS SQ Last administered on 12/02/16 21:59; Start 11/30/16 at 21:00; Stop 12/03/16 at 09:54; Status DC Warfarin Sodium (Coumadin) 3 mg 1X WARF ONCE PO Last administered on 15:39; Start 12/01/16 at 16:00; Stop 12/01/16 at 16:01; Status DC Insulin Aspart (Novolog) 20 units 1X ONCE SQ Last administered on 12/01/16 15 :26; Start 12/01/16 at 15:30; Stop 12/01/16 at 15:31; Status DC Glimepiride (Amaryl) 4 mg DAILY PO Last administered on 12/02/16 07:58; Start 12/01/16 at 18:30 Insulin Human Regular (Novolin R Vial) 20 unit 1X ONCE IV Last administered on 12/01/16 18:38; Start 12/01/16 at 18:15; Stop 12/01/16 at 18:23; Status DC Insulin Aspart (Novolog) 20 units 1X ONCE SQ Last administered on 12/01/16 20 :58; Start 12/01/16 at 20:30; Stop 12/01/16 at 20:31; Status DC Insulin Aspart (Novolog) 30 units 1X ONCE SQ Last administered on 12/01/16 23 :12; Start 12/01/16 at 23:00; Stop 12/01/16 at 23:01; Status DC Insulin Aspart (Novolog) 30 units 1X ONCE SQ Last administered on 12/02/16 01 :14; Start 12/02/16 at 01:00; Stop 12/02/16 at 01:01; Status DC Calcium Acetate (Phoslo) 1,334 mg TIDWMEALS PO Last administered on 12/02/16 16:32; Start 12/02/16 at 12:00 Fluconazole (Diflucan) 100 mg DAILY PO ; Start 12/03/16 at 09:00; Stop 12/03/16 at 09:00; Status DC Warfarin Sodium (Coumadin Per Pharmacy) 1 each PRN DAILY PRN MC SEE COMMENTS Last administered on 12/02/16 14:36; Start 12/02/16 at 14:30 Warfarin Sodium (Coumadin) 3 mg 1X WARF ONCE PO Last administered on 16:31; Start 12/02/16 at 16:00; Stop 12/02/16 at 16:01; Status DC Insulin Aspart (Novolog) 10 units 1X ONCE SQ Last administered on 12/02/16 22 :07; Start 12/02/16 at 21:30; Stop 12/02/16 at 21:31; Status DC Non-Formulary Medication 80 ea BID SQ Last administered on 12/03/16 10:30; Start 12/03/16 at 09:47 Insulin Aspart (Novolog) 15 units 1X ONCE SQ Last administered on 12/03/16 10: 31; Start 12/03/16 at 10:00; Stop 12/03/16 at 10:01; Status DC Iohexol (Omnipaque 240 Mg/ml) 30 ml 1X ONCE PO ; Start 12/03/16 at 10:15; Stop 12/03/16 at 10:16; Status DC Active Scripts Active Reported Nitrofurantoin (Nitrofurantoin Macrocrystal) 100 Mg Capsule 1 Cap PO BID Vitamin D2 (Ergocalciferol (Vitamin D2)) 50,000 Unit Capsule 1 Cap PO WEEKLY Gabapentin 300 Mg Capsule 300 Mg PO HS Nephro-Della Tablet (Folic Acid/Vitamin B Comp W-C) 0.8 Mg Tablet 1 Tab PO DAILY Humalog (Insulin Lispro) 100 Unit/1 Ml Vial 20 Unit SQ TIDAC Levothyroxine Sodium 75 Mcg Tablet 75 Mcg PO DAILYAC Levemir (Insulin Detemir) 100 Unit/1 Ml Vial 66 Unit SQ QHS Levemir (Insulin Detemir) 100 Unit/1 Ml Vial 70 Unit SQ DAILY D3-2000 (Cholecalciferol (Vitamin D3)) 2,000 Unit Capsule 2,000 Unit PO DAILY Pantoprazole Sodium 40 Mg Tablet.dr 40 Mg PO BID Warfarin Sodium 2 Mg Tablet 2 Mg PO DAILY Warfarin Sodium 1 Mg Tablet 1 Mg PO DAILY Crestor (Rosuvastatin Calcium) 10 Mg Tablet 10 Mg PO DAILY 30 Days Vitals/I & O Vital Sign - Last 24 Hours 12/02/16 12/02/16 12/02/16 12/02/16 15:00 19:00 20:00 21:58 Temp 98.3 98.3 Pulse 74 76 Resp B/P 133/72 134/60 Pulse Ox 98 95 O2 Delivery Room Air Room Air Room Air Room Air 12/02/16 12/03/16 12/03/16 12/03/16 22:59 03:00 04:56 07:00 Temp 98.5 98.7 98.2 98.5 98.7 98.2 Pulse 76 89 69 Resp 19 B/P 149/68 122/46 141/53 Pulse Ox 93 95 91 O2 Delivery Room Air Room Air Room Air Room Air 12/03/16 07:30 O2 Delivery Nasal Cannula O2 Flow Rate 2.0 Intake and Output 12/02/16 12/02/16 12/03/16 14:59 22:59 06:59 Intake Total 660 ml Output Total 120 ml Balance 540 ml Nutrition Consultation Dietary Evaluation: Recommendations by RD: Dietary education by RD, Increase Calorie Intake, Protein supplementation Comments: Calistaasource renal BID for increased nutrient needs on HD Provided handout on renal diet and left at pt bedside Expected Outcomes/Goals: to meet >75% est nutr needs- met, goal ongoing Malnutrition Findings: Weight Status: Morbidly Obese AJ LOEPZ MD December 03, 2016 12:06
[2016-12-03 15:00] VITALS: BP 109/51
--- NOTE | 2016-12-03 15:10 | RAD ---
Indication shortness of breath. A single view of the chest was obtained and is compared to an exam 11/24/2016. Postoperative changes are noted. There is generalized cardiomegaly similar to the previous exam. Gross congestive heart failure is not seen. There is a left hilar density. This may represent a vascular confluence. Other etiologies are not entirely excluded. (No pathology in this area is suggested on the previous plain film exam). If mediastinal pathology is clinically suspect a CT examination could be performed. Acute parenchymal infiltrate in either lung is not seen. IMPRESSION: Cardiomegaly, similar. No acute finding apparent in either lung. Parahilar density on the left probably representing a vascular confluence. See above discussion
--- NOTE | 2016-12-03 15:24 | RAD ---
Indication assess for potential abscess. Abdominal pain. Axial images were obtained. Oral contrast was administered. IV contrast was not. Note is made of a previous exam 07/09/2013. The lung bases are clear. There several abdominal wall hernias containing bowel. All appear uncomplicated. There is no evidence of mechanical obstruction. The liver appears unremarkable. The spleen appears normal. The gallbladder is grossly normal. No adrenal masses are seen. There is some scarring associated with the left kidney. A small mass is noted off the caudal aspect of the right kidney appearing unchanged. The pancreas appears unremarkable. No adrenal pathology is seen. Acute finding in the abdomen is not apparent. In the pelvis no acute finding is seen. There is some scarring seen associated with the abdominal wall. The appearance is similar to the previous exam. A fluid collection, suggesting abscess, in the abdomen or pelvis is not seen. IMPRESSION: No acute finding seen in the abdomen or pelvis. Ventral abdominal wall hernias containing bowel and appearing uncomplicated PQRS Compliance Statement: One or more of the following individualized dose reduction techniques were utilized for this examination: 1. Automated exposure control 2. Adjustment of the mA and/or kV according to patient size 3. Use of iterative reconstruction technique
[2016-12-03] MEDS ORDERED: WARFARIN 2 MG TABLET. PO ONE (16:00)
[2016-12-03 19:00] VITALS: BP 121/37
[2016-12-03] MEDS: ATORVASTATIN CALCIUM 40 MG TABLET. PO SCH (21:20)
[2016-12-03] MEDS: GABAPENTIN 300 MG CAPSULE. PO SCH (21:20)
[2016-12-03 23:00] VITALS: BP 99/51
[2016-12-04 03:00] VITALS: BP 104/53
[2016-12-04 07:00] VITALS: BP 96/45
[2016-12-04 08:02] LABS: CALCIUM 8.7 mg/dL (8.5-10.1); CREATININE 6.6 mg/dL (0.6-1.0); GFR 6.2; PHOSPHORUS 5.4 mg/dL (2.6-4.7); POTASSIUM 4.5 mmol/L (3.5-5.1)
[2016-12-04 08:04] LABS: INR 2.7 (0.8-1.1)
[2016-12-04] MEDS: CALCIUM ACETATE 667 MG CAPSULE PO SCH ×2 (08:51→12:03)
[2016-12-04] MEDS: CHOLECALCIFEROL (VITAMIN D3) 1,000 UNIT TABLET PO SCH (08:51)
[2016-12-04] MEDS: FOLIC/VIT B COMP W-C (RENAL) TABLET. PO SCH (08:52)
[2016-12-04] MEDS: LEVOTHYROXINE 75 MCG TABLET PO SCH (08:52)
[2016-12-04] MEDS: GLIMEPIRIDE 2 MG TABLET. PO SCH (08:52)
[2016-12-04] MEDS: PANTOPRAZOLE 40 MG TABLET.DR. PO SCH (08:52)
[2016-12-04] MEDS: NON FORMULARY ITEM SQ SCH (08:53)
[2016-12-04] MEDS: INSULIN ASPART 300 UNITS/3 ML INSULN.PEN SQ SCH ×4 (09:53→12:08)
[2016-12-04 10:23] LABS: BILIRUBIN,URINE SMALL (NEG); GLUCOSE,URINE NEGATIVE (NEG); NITRITE,URINE NEGATIVE (NEG); PH,URINE 5.5; PROTEIN,URINE >=300 mg/dL (NEG-TRACE); UROBILINOGEN,URINE 0.2 mg/dL (0.2 mg/dL)
[2016-12-04] MEDS ORDERED: INSU100V SQ (10:30)
[2016-12-04] MEDS ORDERED: INSU100I13 SQ (10:30)
[2016-12-04 10:47] LABS: BACTERIA,URINE 0 /HPF (0-FEW); RBC,URINE 0 /HPF (0-2); SQUAMOUS EPITHELIAL CELL,UR FEW /LPF; WBC,URINE TNTC /HPF (0-4); YEAST,URINE PRESENT /HPF
[2016-12-04 10:56] VITALS: BP 176/72
--- NOTE | 2016-12-04 11:10 | PDOC ---
SUBJECTIVE ROS ESRD DOing and feeling well today; feels ready to go home CVS: no Orthopnea, no CP RESP: no SOB, no GARCIA GI: no Nausea, no Vomiting : no Dysuria, no Urgency OBJECTIVE Vital Signs Vital Signs Date Time Temp Pulse Resp B/P Pulse Ox O2 Delivery O2 Flow Rate FiO2 12/04/16 10:56 97.7 90 22 176/72 99 Nasal Cannula 2.0 97.7 I & 0 Intake and Output 12/04/16 07:00 Intake Total 240 ml Balance 240 ml Intake Oral 240 ml # Voids 4 PHYSICAL EXAM Physical Exam GEN: Awake, Oriented x 3, In no distress EYES: Vision Unchanged, Conjunctiva Normal EN: No EN Drainage, Mucous Membranes moist NECK: no JVD, min JVP, Supple, no Thyromegaly CVS: S1S2, ? Murmur, No Gallop, No Rub,tr Edema RESP: no Rales, no Rhonchi,no Acc. Muscle Use GI: BS + ve, NO Bruit, Non Tender, Non Distended - obese : no CVA tenderness, no Suprapubic Tenderness DIAGNOSIS/ASSESSMENT Assessment & Plan ESRD: Current fluid and E-lyte status does not necessitate emergent need for dialysis. Will re-evaluate for dialysis in the am and continue on MWF schedule. ANEMIA; Aranesp as ordered, Transfuse with next HD as needed HTN: (with occ Hypotension) BP are done on the calf and labile based on dependency; Current BP meds as reviewed. See orders for changes. Clotted AV Access - s/p Declott and worked well so far. Probably needs new AV Access per IR - Vasc surgery eval as OP ^ed Phos - better with ^ed binders RA HYpoxia - for 6min walk - do not feel it is related to Fluid overload Discussed Plan of Care with pt at bedside COMMENT/RELEVANT DATA Meds Current Medications Medications (Trade) Dose Ordered Sig/Kiet Start Time Stop Time Status Last Admin Dose Admin Acetaminophen (Tylenol) 500 mg 1X PRN PRN 11/30/16 07:45 12/01/16 07:44 DC Acetaminophen/ Hydrocodone Bitart (Lortab 5/325) 1 tab PRN Q4HRS PRN 11/25/16 05:15 12/03/16 23:30 1 TAB Albumin Human (Albuminar) 200 ml @ 200 mls/hr 1X PRN PRN 11/30/16 07:45 11/30/16 13:44 DC Alteplase, Recombinant (Cathflo) 4 mg 1X ONCE 11/27/16 08:45 11/27/16 08:46 DC 11/27/16 13:38 4 MG Atorvastatin Calcium (Lipitor) 40 mg HS 11/24/16 21:00 12/03/16 21:20 40 MG Calcium Acetate (Phoslo) 1,334 mg TIDWMEALS 12/02/16 12:00 12/04/16 08:51 1,334 MG Clonidine HCl (Catapres) 0.1 mg 1X PRN PRN 11/28/16 08:45 11/29/16 08:44 DC Clonidine HCl 0.1 mg 0.1 mg 1X PRN PRN 11/30/16 07:45 12/01/16 07:44 DC Darbepoetin Surendra (Aranesp) 60 mcg WEEKLYHS 11/24/16 21:00 12/01/16 20:44 60 MCG Dextrose (Dextrose 50%-Water Syringe) 12.5 gm PRN Q15MIN PRN 11/29/16 04:45 Diphenhydramine HCl (Benadryl) 25 mg 1X PRN PRN 11/30/16 07:45 12/01/16 07:44 DC Diphenhydramine HCl 25 mg 25 mg 1X ONCE 11/28/16 23:00 11/28/16 23:01 DC 11/28/16 22:57 25 MG Fentanyl Citrate (Fentanyl 5ml Vial) 250 mcg 1X ONCE 11/27/16 11:45 11/27/16 11:46 DC 11/27/16 13:41 225 MCG Fluconazole (Diflucan) 100 mg DAILY 12/03/16 09:00 12/03/16 09:00 DC Furosemide (Lasix) 100 mg 1X ONCE 11/23/16 23:15 11/23/16 23:17 DC 11/24/16 01:15 100 MG Gabapentin 300 mg 300 mg HS 11/26/16 21:00 12/03/16 21:20 300 MG Glimepiride (Amaryl) 4 mg DAILY 12/01/16 18:30 12/04/16 08:52 4 MG Heparin Sodium (Porcine) (Heparin Sodium) 5,000 unit 1X ONCE 11/27/16 13:30 11/27/16 13:31 DC 11/27/16 13:48 5,000 UNIT Heparin Sodium/ Dextrose 500 ml @ 0 mls/hr CONT PRN 11/26/16 15:30 12/02/16 11:50 DC 12/02/16 01:19 0 MLS/HR Heparin Sodium/ Sodium Chloride 1,000 unit 1X ONCE 11/27/16 11:45 11/27/16 11:46 DC 11/27/16 13:39 1,000 UNIT Info (Anti-Coagulation Monitoring By Pharmacy) 1 each PRN DAILY PRN 11/27/16 13:30 12/03/16 12:02 DC 12/01/16 13:32 1 EACH Info (Do NOT chart on this entry -- for MONITORING) 1 each PRN DAILY PRN 11/27/16 11:45 11/29/16 11:44 DC Info (PHARMACY MONITORING -- do not chart) 1 each PRN DAILY PRN 11/28/16 08:45 Info 1 each 1 each PRN DAILY PRN 11/30/16 07:45 UNV Insulin Aspart (Novolog) 15 units 1X ONCE 12/03/16 10:00 12/03/16 10:01 DC 12/03/16 10:31 15 UNITS Insulin Detemir (Levemir) 100 units 1X ONCE 11/30/16 07:00 11/30/16 07:01 DC 11/30/16 06:39 100 UNITS Insulin Detemir 70 units 70 units DAILY 12/01/16 09:00 12/01/16 09:00 DC Insulin Human Regular (Novolin R Vial) 20 unit 1X ONCE 12/01/16 18:15 12/01/16 18:23 DC 12/01/16 18:38 20 UNIT Insulin Human Regular/Sodium Chloride (Novolin R Vial/ Iv Normal Saline 150ml) 151.5 ml @ 0 mls/hr CONT PRN 11/29/16 04:45 12/02/16 02:54 24.8 MLS/HR Iodixanol (Visipaque 320) 100 ml 1X ONCE 11/27/16 11:45 11/27/16 11:46 DC 11/27/16 13:39 85 ML Iodixanol 100 ml 100 ml STK-MED ONCE 11/26/16 14:07 11/26/16 14:08 DC Iohexol (Omnipaque 240 Mg/ml) 30 ml 1X ONCE 12/03/16 10:15 12/03/16 10:16 DC 12/03/16 15:08 30 ML Labetalol HCl (Normodyne) 10 mg PRN Q1HR PRN 11/30/16 07:45 12/01/16 07:44 DC Levofloxacin/ Dextrose (LEVAQUIN 500mg PREMIX) 100 ml @ 100 mls/hr Q48H 11/26/16 20:00 11/27/16 22:48 DC 11/26/16 20:52 100 MLS/HR Levothyroxine Sodium (Synthroid) 75 mcg DAILY07 11/24/16 07:00 12/04/16 08:52 75 MCG Lidocaine HCl (Xylocaine-Mpf 1% Vial) 2 ml 1X ONCE 11/28/16 10:15 11/28/16 10:16 DC 11/28/16 10:15 2 ML Lidocaine/Sodium Bicarbonate (Buffered Lidocaine 1%) 20 ml 1X ONCE 11/27/16 11:45 11/27/16 11:46 DC 11/27/16 13:40 3 ML Magnesium Sulfate/ Dextrose (Magnesium Sulfate PREMIX 2GM) 50 ml @ 25 mls/hr 1X ONCE 11/30/16 14:00 11/30/16 15:59 DC 11/30/16 23:58 25 MLS/HR Midazolam HCl (Versed) 5 mg 1X ONCE 11/27/16 11:45 11/27/16 11:46 DC 11/27/16 13:41 4 MG Morphine Sulfate 2 mg PRN Q2HR PRN 11/23/16 21:00 11/24/16 20:59 DC Non-Formulary Medication 80 ea BID 12/03/16 09:47 12/04/16 08:53 80 EA Ondansetron HCl (Zofran) 4 mg PRN Q6HRS PRN 11/24/16 07:23 12/03/16 15:32 4 MG Pantoprazole Sodium (Protonix) 40 mg BIDAC 11/24/16 07:30 12/04/16 08:52 40 MG Phytonadione (Mephyton) 5 mg 1X ONCE 11/25/16 11:00 11/25/16 11:01 DC 11/25/16 12:15 5 MG Sodium Chloride (Iv Sodium Chloride 0.9% 1000ml Bag) 1,000 ml @ 400 mls/hr Q2H30M PRN 11/30/16 07:32 11/30/16 19:31 DC Sodium Chloride (Normal Saline Flush) 10 ml 1X PRN PRN 11/26/16 07:30 11/27/16 07:29 DC Vitamin B Complex/ Vitamin C (Anahy-Della) 1 tab DAILY 11/27/16 09:00 12/04/16 08:52 1 TAB Vitamin D (Vitamin D3) 2,000 unit DAILY 11/24/16 09:00 12/04/16 08:51 2,000 UNIT Warfarin Sodium (Coumadin Per Pharmacy) 1 each PRN DAILY PRN 12/02/16 14:30 12/03/16 14:03 1 EACH Warfarin Sodium (Coumadin Per Physician) 1 each PRN DAILY PRN 11/24/16 16:00 11/25/16 09:01 DC 11/24/16 15:33 1 EACH Warfarin Sodium (Coumadin) 2 mg 1X WARF ONCE 12/03/16 16:00 12/03/16 16:01 DC 12/03/16 17:42 1 MG Lab Laboratory Tests Test 12/03/16 12:21 12/03/16 14:09 12/03/16 15:19 12/03/16 16:47 Glucose (Fingerstick) 160mg/dL (70-99) 151mg/dL (70-99) 143mg/dL (70-99) 184mg/dL (70-99) Test 12/03/16 21:21 12/04/16 06:50 12/04/16 07:02 12/04/16 07:17 Glucose (Fingerstick) 211mg/dL (70-99) 253mg/dL (70-99) Prothrombin Time 27.0SEC (11.7-14.0) Prothromb Time International Ratio 2.7 (0.8-1.1) Sodium Level 134mmol/L (136-145) Potassium Level 4.5mmol/L (3.5-5.1) Chloride Level 95mmol/L (98-107) Carbon Dioxide Level 29mmol/L (21-32) Anion Gap 10 (6-14) Blood Urea Nitrogen 48mg/dL (7-20) Creatinine 6.6mg/dL (0.6-1.0) Estimated GFR (Cockcroft-Gault) 6.2 Glucose Level 257mg/dL (70-99) Calcium Level 8.7mg/dL (8.5-10.1) Phosphorus Level 5.4mg/dL (2.6-4.7) Albumin 3.0g/dL (3.4-5.0) Urine Collection Type Unknown Urine Color Yellow Urine Clarity Turbid Urine pH 5.5 Urine Specific [place] 1.025 Urine Protein >=300mg/dL (NEG-TRACE) Urine Glucose (UA) Negativemg/dL (NEG) Urine Ketones (Stick) Tracemg/dL (NEG) Urine Blood Large (NEG) Urine Nitrite Negative (NEG) Urine Bilirubin Small (NEG) Urine Urobilinogen Dipstick 0.2mg/dL (0.2 mg/dL) Urine Leukocyte Esterase Large (NEG) Urine RBC 0/HPF (0-2) Urine WBC Tntc/HPF (0-4) Urine Squamous Epithelial Cells Few/LPF Urine Bacteria 0/HPF (0-FEW) Urine Yeast Present/HPF Test 12/04/16 10:30 Glucose (Fingerstick) 453mg/dL (70-99) NATHALY BENTLEY MD December 04, 2016 11:10
--- NOTE | 2016-12-04 14:15 | PDOC ---
PROGRESS NOTES Chief Complaint Chief Complaint cc: gram clot A/P Mechanical Mitral valve DM uncontrolled, THROMBOSED LEFT ARM BB GRAFT s/p thrombolysis ESRD-OP SCHEDULE MWF ANEMIA S/P TEMP HD CATHETER CAD Plan She continue to have high blood sugars, despite increased dose Lantus and meal dose insulin, no source of infections seen, UA, negative, Blood cx- no growth so far, , CT abdomen- negative, , cxr - negative,. At Lantus 80 BID with 40 NovoLog with meals. stopped insulin drip. S/P thrombolysis uneventful INR therapeutic, INR goal 2.5-3.5, heparin gtt stopped. Hemodialysis labs reviewed anticipated DC today. History of Present Illness History of Present Illness NO BLEEDING NO FEVER Vitals Vitals Vital Signs Date Time Temp Pulse Resp B/P Pulse Ox O2 Delivery O2 Flow Rate FiO2 12/04/16 10:56 97.7 90 22 176/72 99 Nasal Cannula 2.0 97.7 Physical Exam General: Alert, Oriented X3, Cooperative, Other (obese) Heart: Regular rate, Normal S1, Normal S2, Other Lungs: Clear Abdomen: Normal bowel sounds, Soft, No tenderness Extremities: Other Skin: No breakdown Labs LABS Laboratory Tests Test 12/03/16 15:19 12/03/16 16:47 12/03/16 21:21 12/04/16 06:50 Glucose (Fingerstick) 143mg/dL (70-99) 184mg/dL (70-99) 211mg/dL (70-99) Prothrombin Time 27.0SEC (11.7-14.0) Prothromb Time International Ratio 2.7 (0.8-1.1) Sodium Level 134mmol/L (136-145) Potassium Level 4.5mmol/L (3.5-5.1) Chloride Level 95mmol/L (98-107) Carbon Dioxide Level 29mmol/L (21-32) Anion Gap 10 (6-14) Blood Urea Nitrogen 48mg/dL (7-20) Creatinine 6.6mg/dL (0.6-1.0) Estimated GFR (Cockcroft-Gault) 6.2 Glucose Level 257mg/dL (70-99) Calcium Level 8.7mg/dL (8.5-10.1) Phosphorus Level 5.4mg/dL (2.6-4.7) Albumin 3.0g/dL (3.4-5.0) Test 12/04/16 07:02 12/04/16 07:17 12/04/16 10:30 Glucose (Fingerstick) 253mg/dL (70-99) 453mg/dL (70-99) Urine Collection Type Unknown Urine Color Yellow Urine Clarity Turbid Urine pH 5.5 Urine Specific Grace 1.025 Urine Protein >=300mg/dL (NEG-TRACE) Urine Glucose (UA) Negativemg/dL (NEG) Urine Ketones (Stick) Tracemg/dL (NEG) Urine Blood Large (NEG) Urine Nitrite Negative (NEG) Urine Bilirubin Small (NEG) Urine Urobilinogen Dipstick 0.2mg/dL (0.2 mg/dL) Urine Leukocyte Esterase Large (NEG) Urine RBC 0/HPF (0-2) Urine WBC Tntc/HPF (0-4) Urine Squamous Epithelial Cells Few/LPF Urine Bacteria 0/HPF (0-FEW) Urine Yeast Present/HPF Assessment and Plan Assessmemt and Plan Problems Medical Problems: (1) Dialysis AV fistula malfunction Status: Acute Problems: Comment Review of Relevant I have reviewed the following items sofi (where applicable) has been applied. Labs Laboratory Tests Test 12/02/16 15:14 12/02/16 20:49 12/03/16 03:43 12/03/16 04:48 Glucose (Fingerstick) 362mg/dL (70-99) 358mg/dL (70-99) 474mg/dL (70-99) Prothrombin Time 29.8SEC (11.7-14.0) Prothromb Time International Ratio 3.1 (0.8-1.1) Heparin Anti-Xa Act, Unfractionated < 0.10IU/mL (0.30-0.70) Sodium Level 125mmol/L (136-145) Potassium Level 6.2mmol/L (3.5-5.1) Chloride Level 87mmol/L (98-107) Carbon Dioxide Level 24mmol/L (21-32) Anion Gap 14 (6-14) Blood Urea Nitrogen 93mg/dL (7-20) Creatinine 10.6mg/dL (0.6-1.0) Estimated GFR (Cockcroft-Gault) 3.6 Glucose Level 431mg/dL (70-99) Calcium Level 8.6mg/dL (8.5-10.1) Phosphorus Level 6.0mg/dL (2.6-4.7) Albumin 3.1g/dL (3.4-5.0) Test 12/03/16 08:25 12/03/16 12:21 12/03/16 14:09 12/03/16 15:19 Glucose Level 627mg/dL (70-99) Glucose (Fingerstick) 160mg/dL (70-99) 151mg/dL (70-99) 143mg/dL (70-99) Test 12/03/16 16:47 12/03/16 21:21 12/04/16 06:50 12/04/16 07:02 Glucose (Fingerstick) 184mg/dL (70-99) 211mg/dL (70-99) 253mg/dL (70-99) Prothrombin Time 27.0SEC (11.7-14.0) Prothromb Time International Ratio 2.7 (0.8-1.1) Sodium Level 134mmol/L (136-145) Potassium Level 4.5mmol/L (3.5-5.1) Chloride Level 95mmol/L (98-107) Carbon Dioxide Level 29mmol/L (21-32) Anion Gap 10 (6-14) Blood Urea Nitrogen 48mg/dL (7-20) Creatinine 6.6mg/dL (0.6-1.0) Estimated GFR (Cockcroft-Gault) 6.2 Glucose Level 257mg/dL (70-99) Calcium Level 8.7mg/dL (8.5-10.1) Phosphorus Level 5.4mg/dL (2.6-4.7) Albumin 3.0g/dL (3.4-5.0) Test 12/04/16 07:17 12/04/16 10:30 Urine Collection Type Unknown Urine Color Yellow Urine Clarity Turbid Urine pH 5.5 Urine Specific Grace 1.025 Urine Protein >=300mg/dL (NEG-TRACE) Urine Glucose (UA) Negativemg/dL (NEG) Urine Ketones (Stick) Tracemg/dL (NEG) Urine Blood Large (NEG) Urine Nitrite Negative (NEG) Urine Bilirubin Small (NEG) Urine Urobilinogen Dipstick 0.2mg/dL (0.2 mg/dL) Urine Leukocyte Esterase Large (NEG) Urine RBC 0/HPF (0-2) Urine WBC Tntc/HPF (0-4) Urine Squamous Epithelial Cells Few/LPF Urine Bacteria 0/HPF (0-FEW) Urine Yeast Present/HPF Glucose (Fingerstick) 453mg/dL (70-99) Laboratory Tests Test 12/03/16 15:19 12/03/16 16:47 12/03/16 21:21 12/04/16 06:50 Glucose (Fingerstick) 143mg/dL (70-99) 184mg/dL (70-99) 211mg/dL (70-99) Prothrombin Time 27.0SEC (11.7-14.0) Prothromb Time International Ratio 2.7 (0.8-1.1) Sodium Level 134mmol/L (136-145) Potassium Level 4.5mmol/L (3.5-5.1) Chloride Level 95mmol/L (98-107) Carbon Dioxide Level 29mmol/L (21-32) Anion Gap 10 (6-14) Blood Urea Nitrogen 48mg/dL (7-20) Creatinine 6.6mg/dL (0.6-1.0) Estimated GFR (Cockcroft-Gault) 6.2 Glucose Level 257mg/dL (70-99) Calcium Level 8.7mg/dL (8.5-10.1) Phosphorus Level 5.4mg/dL (2.6-4.7) Albumin 3.0g/dL (3.4-5.0) Test 12/04/16 07:02 12/04/16 07:17 12/04/16 10:30 Glucose (Fingerstick) 253mg/dL (70-99) 453mg/dL (70-99) Urine Collection Type Unknown Urine Color Yellow Urine Clarity Turbid Urine pH 5.5 Urine Specific Grace 1.025 Urine Protein >=300mg/dL (NEG-TRACE) Urine Glucose (UA) Negativemg/dL (NEG) Urine Ketones (Stick) Tracemg/dL (NEG) Urine Blood Large (NEG) Urine Nitrite Negative (NEG) Urine Bilirubin Small (NEG) Urine Urobilinogen Dipstick 0.2mg/dL (0.2 mg/dL) Urine Leukocyte Esterase Large (NEG) Urine RBC 0/HPF (0-2) Urine WBC Tntc/HPF (0-4) Urine Squamous Epithelial Cells Few/LPF Urine Bacteria 0/HPF (0-FEW) Urine Yeast Present/HPF Microbiology 12/03/16 Blood Culture - Preliminary, Resulted NO GROWTH AFTER 1 DAY 11/24/16 Urine Culture - Final, Complete 11/24/16 Urine Culture Result 1 (ELEAZAR) - Final, Complete Medications Current Medications Ondansetron HCl (Zofran) 4 mg PRN Q8HRS PRN IV NAUSEA/VOMITING; Start 11/23/16 at 21:00; Stop 11/24/16 at 07:25; Status DC Morphine Sulfate 2 mg PRN Q2HR PRN IV PAIN; Start 11/23/16 at 21:00; Stop 11/24 at 20:59; Status DC Acetaminophen (Tylenol) 650 mg PRN Q4HRS PRN PO FEVER Last administered on 11/24 08:46; Start 11/23/16 at 21:00; Stop 11/24/16 at 20:59; Status DC Furosemide (Lasix) 100 mg 1X ONCE IVP Last administered on 11/24/16 01:15; Start 11/23/16 at 23:15; Stop 11/23/16 at 23:17; Status DC Levothyroxine Sodium (Synthroid) 75 mcg DAILY07 PO Last administered on 08:52; Start 11/24/16 at 07:00 Pantoprazole Sodium (Protonix) 40 mg BIDAC PO Last administered on 12/04/16 08: 52; Start 11/24/16 at 07:30 Warfarin Sodium (Coumadin) 1 mg DAILY16 PO ; Start 11/24/16 at 16:00; Stop 11/25 at 09:01; Status DC Warfarin Sodium (Coumadin) 2 mg DAILY16 PO Last administered on 11/24/16 22:38 ; Start 11/24/16 at 16:00; Stop 11/25/16 at 09:01; Status DC Vitamin D (Vitamin D3) 2,000 unit DAILY PO Last administered on 12/04/16 08:51 ; Start 11/24/16 at 09:00 Insulin Detemir (Levemir) 66 units QHS SQ Last administered on 11/28/16 20:45 ; Start 11/24/16 at 21:00; Stop 11/30/16 at 20:55; Status DC Insulin Aspart (Novolog) 20 units TIDAC SQ Last administered on 11/28/16 17:57 ; Start 11/24/16 at 07:30; Stop 11/30/16 at 06:26; Status DC Atorvastatin Calcium (Lipitor) 40 mg HS PO Last administered on 12/03/16 21:20 ; Start 11/24/16 at 21:00 Warfarin Sodium (Coumadin Per Physician) 1 each PRN DAILY PRN MC SEE COMMENTS Last administered on 11/24/16 15:33; Start 11/24/16 at 16:00; Stop 11/25/16 at 09:01; Status DC Ondansetron HCl (Zofran) 4 mg PRN Q6HRS PRN IV NAUSEA/VOMITING Last administered on 12/03/16 15:32; Start 11/24/16 at 07:23 Insulin Aspart (Novolog) 0-9 UNITS TIDWMEALS SQ Last administered on 12/04/16 12:07; Start 11/24/16 at 08:00 Dextrose (Dextrose 50%-Water Syringe) 12.5 gm PRN Q15MIN PRN IV SEE COMMENTS; Start 11/24/16 at 07:30; Stop 11/29/16 at 04:44; Status DC Darbepoetin Surendra (Aranesp) 60 mcg WEEKLYHS SQ Last administered on 12/01/16 20 :44; Start 11/24/16 at 21:00 Heparin Sodium (Porcine) (Heparin Sodium) 10,000 unit STK-MED ONCE .ROUTE ; Start 11/24/16 at 16:58; Stop 11/24/16 at 16:59; Status DC Lidocaine/Sodium Bicarbonate 20 ml 20 ml STK-MED ONCE IJ ; Start 11/24/16 at 16: 58; Stop 11/24/16 at 16:59; Status DC Heparin Sodium/ Sodium Chloride 500 ml @ As Directed STK-MED ONCE .ROUTE ; Start 11/24/16 at 16:58; Stop 11/24/16 at 16:59; Status DC Lidocaine/Sodium Bicarbonate (Buffered Lidocaine 1%) 3 ml 1X ONCE IJ Last administered on 11/24/16 17:44; Start 11/24/16 at 17:15; Stop 11/24/16 at 17:16 ; Status DC Heparin Sodium/ Sodium Chloride 60 unit 1X ONCE IV Last administered on 17:15; Start 11/24/16 at 17:15; Stop 11/24/16 at 17:16; Status DC Heparin Sodium (Porcine) (Heparin Sodium) 2,500 unit 1X ONCE INT CAT Last administered on 11/24/16 17:15; Start 11/24/16 at 17:15; Stop 11/24/16 at 17:16 ; Status DC Sodium Chloride (Normal Saline Flush) 10 ml 1X PRN PRN IV AP catheter pack; Start 11/24/16 at 23:45; Stop 11/25/16 at 23:44; Status DC Sodium Chloride 10 ml 10 ml 1X PRN PRN IV RN INTEGRATED catheter pack; Start 11/24/16 at 23:45; Stop 11/25/16 at 23:44; Status DC Sodium Chloride (Iv Sodium Chloride 0.9% 1000ml Bag) 1,000 ml @ 400 mls/hr Q2H30M PRN IV PATENCY; Start 11/24/16 at 23:45; Stop 11/25/16 at 11:44; Status DC Info (PHARMACY MONITORING -- do not chart) 1 each PRN DAILY PRN MC SEE COMMENTS ; Start 11/24/16 at 23:45; Stop 11/26/16 at 07:32; Status DC Acetaminophen/ Hydrocodone Bitart (Lortab 5/325) 1 tab PRN Q4HRS PRN PO PAIN Last administered on 12/03/16 23:30; Start 11/25/16 at 05:15 Insulin Aspart (Novolog) 9 units TIDAC SQ Last administered on 11/28/16 09:18 ; Start 11/25/16 at 05:15; Stop 11/28/16 at 14:10; Status DC Phytonadione (Mephyton) 5 mg 1X ONCE PO Last administered on 11/25/16 12:15; Start 11/25/16 at 11:00; Stop 11/25/16 at 11:01; Status DC Diphenhydramine HCl 25 mg 25 mg PRN Q6HRS PRN IVP ITCHING Last administered on 11/26/16 15:55; Start 11/25/16 at 18:15 Sodium Chloride (Iv Sodium Chloride 0.9% 1000ml Bag) 1,000 ml @ 1,000 mls/hr Q1H PRN IV hypotension; Start 11/26/16 at 07:26; Stop 11/26/16 at 13:25; Status DC Sodium Chloride (Normal Saline Flush) 10 ml 1X PRN PRN IV AP catheter pack; Start 11/26/16 at 07:30; Stop 11/27/16 at 07:29; Status DC Sodium Chloride 10 ml 10 ml 1X PRN PRN IV RN INTEGRATED catheter pack; Start 11/26/16 at 07:30; Stop 11/27/16 at 07:29; Status DC Sodium Chloride (Iv Sodium Chloride 0.9% 1000ml Bag) 1,000 ml @ 400 mls/hr Q2H30M PRN IV PATENCY; Start 11/26/16 at 07:26; Stop 11/26/16 at 19:25; Status DC Info (PHARMACY MONITORING -- do not chart) 1 each PRN DAILY PRN MC SEE COMMENTS ; Start 11/26/16 at 07:30; Status Cancel Lidocaine/Sodium Bicarbonate 20 ml 20 ml STK-MED ONCE IJ ; Start 11/26/16 at 14: 06; Stop 11/26/16 at 14:07; Status DC Heparin Sodium/ Sodium Chloride 500 ml @ As Directed STK-MED ONCE .ROUTE ; Start 11/26/16 at 14:06; Stop 11/26/16 at 14:07; Status DC Iodixanol 100 ml 100 ml STK-MED ONCE .ROUTE ; Start 11/26/16 at 14:07; Stop at 14:08; Status DC Heparin Sodium/ Dextrose 500 ml @ 0 mls/hr CONT PRN IV SEE I/O RECORD Last administered on 12/02/16 01:19; Start 11/26/16 at 15:30; Stop 12/02/16 at 11:50 ; Status DC Heparin Sodium (Porcine) (Heparin Sodium) 2,900 unit PRN Q6HRS PRN IV FOR UFH LEVEL LESS THAN 0.2 Last administered on 11/27/16 07:21; Start 11/26/16 at 15: 30; Stop 12/02/16 at 11:50; Status DC Heparin Sodium (Porcine) (Heparin Sodium) 1,450 unit PRN Q6HRS PRN IV FOR UFH LEVEL 0.2 - 0.29 Last administered on 11/29/16 20:44; Start 11/26/16 at 15:30; Stop 12/02/16 at 11:50; Status DC Warfarin Sodium (Coumadin Per Pharmacy) 1 each PRN DAILY PRN MC PER PROTOCOL Last administered on 12/01/16 13:17; Start 11/26/16 at 15:30; Stop 12/02/16 at 11:50; Status DC Warfarin Sodium (Coumadin) 4 mg 1X WARF ONCE PO ; Start 11/26/16 at 16:00; Stop 11/26/16 at 16:01; Status DC Vitamin B Complex/ Vitamin C (Anahy-Della) 1 tab DAILY PO Last administered on 08:52; Start 11/27/16 at 09:00 Gabapentin (Neurontin) 300 mg HS PO Last administered on 12/03/16 21:20; Start 11/26/16 at 21:00 Insulin Detemir 70 units 70 units DAILY SQ Last administered on 11/28/16 09:19 ; Start 11/27/16 at 09:00; Stop 11/30/16 at 06:31; Status DC Levofloxacin/ Dextrose (LEVAQUIN 500mg PREMIX) 100 ml @ 100 mls/hr Q48H IV Last administered on 11/26/16 20:52; Start 11/26/16 at 20:00; Stop 11/27/16 at 22:48; Status DC Alteplase, Recombinant 4 mg 4 mg 1X ONCE INT CAT Last administered on 13:38; Start 11/27/16 at 08:45; Stop 11/27/16 at 08:46; Status DC Magnesium Sulfate/ Dextrose (Magnesium Sulfate PREMIX 2GM) 50 ml @ 25 mls/hr PRN DAILY PRN IV for Mag < 1.7 on am labs; Start 11/27/16 at 10:15; Stop at 10:54; Status DC Lidocaine/Sodium Bicarbonate 20 ml 20 ml STK-MED ONCE IJ ; Start 11/27/16 at 11: 14; Stop 11/27/16 at 11:15; Status DC Heparin Sodium/ Sodium Chloride 500 ml @ As Directed STK-MED ONCE .ROUTE ; Start 11/27/16 at 11:14; Stop 11/27/16 at 11:15; Status DC Iodixanol (Visipaque 320) 100 ml STK-MED ONCE .ROUTE ; Start 11/27/16 at 11:14; Stop 11/27/16 at 11:15; Status DC Midazolam HCl (Versed) 5 mg STK-MED ONCE .ROUTE ; Start 11/27/16 at 11:29; Stop 11/27/16 at 11:30; Status DC Fentanyl Citrate (Fentanyl 5ml Vial) 250 mcg STK-MED ONCE .ROUTE ; Start at 11:29; Stop 11/27/16 at 11:30; Status DC Heparin Sodium/ Sodium Chloride 1,000 unit 1X ONCE IART Last administered on 13:39; Start 11/27/16 at 11:45; Stop 11/27/16 at 11:46; Status DC Lidocaine/Sodium Bicarbonate (Buffered Lidocaine 1%) 20 ml 1X ONCE IJ Last administered on 11/27/16 13:40; Start 11/27/16 at 11:45; Stop 11/27/16 at 11:46 ; Status DC Midazolam HCl (Versed) 5 mg 1X ONCE IV Last administered on 11/27/16 13:41; Start 11/27/16 at 11:45; Stop 11/27/16 at 11:46; Status DC Fentanyl Citrate (Fentanyl 5ml Vial) 250 mcg 1X ONCE IV Last administered on 13:41; Start 11/27/16 at 11:45; Stop 11/27/16 at 11:46; Status DC Iodixanol (Visipaque 320) 100 ml 1X ONCE IART Last administered on 11/27/16 13:39; Start 11/27/16 at 11:45; Stop 11/27/16 at 11:46; Status DC Info (Do NOT chart on this entry -- for MONITORING) 1 each PRN DAILY PRN MC SEE COMMENTS; Start 11/27/16 at 11:45; Stop 11/29/16 at 11:44; Status DC Heparin Sodium (Porcine) (Heparin Sodium) 5,000 unit 1X ONCE IV Last administered on 11/27/16 13:48; Start 11/27/16 at 13:30; Stop 11/27/16 at 13:31 ; Status DC Info (Anti-Coagulation Monitoring By Pharmacy) 1 each PRN DAILY PRN MC SEE COMMENTS Last administered on 12/01/16 13:32; Start 11/27/16 at 13:30; Stop 12/03/16 at 12:02; Status DC Warfarin Sodium (Coumadin) 5 mg 1X WARF ONCE PO Last administered on 15:50; Start 11/27/16 at 16:00; Stop 11/27/16 at 16:01; Status DC Insulin Aspart 10 units 10 units 1X ONCE SQ Last administered on 11/27/16 16: 16; Start 11/27/16 at 16:15; Stop 11/27/16 at 16:16; Status DC Sodium Chloride 1,000 ml @ 1,000 mls/hr Q1H PRN IV hypotension; Start 11/28/16 at 08:45; Stop 11/28/16 at 14:44; Status DC Albumin Human (Albuminar) 200 ml @ 200 mls/hr 1X PRN PRN IV Hypotension; Start 11/28/16 at 08:45; Stop 11/28/16 at 14:44; Status DC Acetaminophen (Tylenol) 500 mg 1X PRN PRN PO MILD PAIN / TEMP; Start 11/28/16 at 08:45; Stop 11/29/16 at 08:44; Status DC Diphenhydramine HCl (Benadryl) 25 mg 1X PRN PRN IV ITCHING; Start 11/28/16 at 08:45; Stop 11/29/16 at 08:44; Status DC Diphenhydramine HCl (Benadryl) 25 mg 1X PRN PRN IV ITCHING; Start 11/28/16 at 08:45; Stop 11/29/16 at 08:44; Status DC Labetalol HCl (Normodyne) 10 mg PRN Q1HR PRN IVP SBP > 180; Start 11/28/16 at 08:45; Stop 11/29/16 at 08:44; Status DC Clonidine HCl 0.1 mg 0.1 mg 1X PRN PRN PO SBP > 180; Start 11/28/16 at 08:45; Stop 11/29/16 at 08:44; Status DC Sodium Chloride (Iv Sodium Chloride 0.9% 1000ml Bag) 1,000 ml @ 400 mls/hr Q2H30M PRN IV PATENCY; Start 11/28/16 at 08:45; Stop 11/28/16 at 20:44; Status DC Info (PHARMACY MONITORING -- do not chart) 1 each PRN DAILY PRN MC SEE COMMENTS ; Start 11/28/16 at 08:45 Lidocaine HCl (Xylocaine-Mpf 1% Vial) 2 ml STK-MED ONCE .ROUTE ; Start 11/28/16 at 09:00; Stop 11/28/16 at 09:01; Status DC Lidocaine HCl (Xylocaine-Mpf 1% Vial) 2 ml 1X ONCE INJ Last administered on 10:15; Start 11/28/16 at 10:15; Stop 11/28/16 at 10:16; Status DC Warfarin Sodium (Coumadin) 7.5 mg 1X WARF ONCE PO Last administered on 17:50; Start 11/28/16 at 16:00; Stop 11/28/16 at 16:01; Status DC Warfarin Sodium (Coumadin Per Pharmacy) 1 each PRN DAILY PRN MC SEE COMMENTS; Start 11/28/16 at 16:00; Status Cancel Diphenhydramine HCl 25 mg 25 mg 1X ONCE PO Last administered on 11/28/16 22: 57; Start 11/28/16 at 23:00; Stop 11/28/16 at 23:01; Status DC Insulin Human Regular/Sodium Chloride (Novolin R Vial/ Iv Normal Saline 150ml) 151.5 ml @ 0 mls/hr CONT PRN IV SEE I/O RECORD Last administered on 12/02/16 02:54; Start 11/29/16 at 04:45 Dextrose 12.5 gm 12.5 gm PRN Q15MIN PRN IV LOW BLOOD SUGAR; Start 11/29/16 at 04:45 Magnesium Sulfate/ Dextrose (Magnesium Sulfate PREMIX 2GM) 50 ml @ 25 mls/hr PRN DAILY PRN IV for Mag < 1.7 on am labs; Start 11/29/16 at 11:00 Warfarin Sodium (Coumadin) 7.5 mg 1X WARF ONCE PO Last administered on 18:06; Start 11/29/16 at 16:00; Stop 11/29/16 at 16:01; Status DC Insulin Detemir (Levemir) 100 units 1X ONCE SQ Last administered on 11/30/16 06:39; Start 11/30/16 at 07:00; Stop 11/30/16 at 07:01; Status DC Insulin Aspart (Novolog) 40 units TIDAC SQ Last administered on 12/04/16t 12:08 ; Start 11/30/16 at 07:30 Insulin Detemir 70 units 70 units DAILY SQ ; Start 12/01/16 at 09:00; Stop 12/01 at 09:00; Status DC Sodium Chloride 1,000 ml @ 1,000 mls/hr Q1H PRN IV hypotension; Start 11/30/16 at 07:32; Stop 11/30/16 at 13:31; Status DC Albumin Human (Albuminar) 200 ml @ 200 mls/hr 1X PRN PRN IV Hypotension; Start 11/30/16 at 07:45; Stop 11/30/16 at 13:44; Status DC Acetaminophen (Tylenol) 500 mg 1X PRN PRN PO MILD PAIN / TEMP; Start 11/30/16 at 07:45; Stop 12/01/16 at 07:44; Status DC Diphenhydramine HCl (Benadryl) 25 mg 1X PRN PRN IV ITCHING; Start 11/30/16 at 07:45; Stop 12/01/16 at 07:44; Status DC Diphenhydramine HCl (Benadryl) 25 mg 1X PRN PRN IV ITCHING; Start 11/30/16 at 07:45; Stop 12/01/16 at 07:44; Status DC Labetalol HCl (Normodyne) 10 mg PRN Q1HR PRN IVP SBP > 180; Start 11/30/16 at 07:45; Stop 12/01/16 at 07:44; Status DC Clonidine HCl 0.1 mg 0.1 mg 1X PRN PRN PO SBP > 180; Start 11/30/16 at 07:45; Stop 12/01/16 at 07:44; Status DC Sodium Chloride (Iv Sodium Chloride 0.9% 1000ml Bag) 1,000 ml @ 400 mls/hr Q2H30M PRN IV PATENCY; Start 11/30/16 at 07:32; Stop 11/30/16 at 19:31; Status DC Info 1 each 1 each PRN DAILY PRN MC SEE COMMENTS; Start 11/30/16 at 07:45; Status UNV Magnesium Sulfate/ Dextrose (Magnesium Sulfate PREMIX 2GM) 50 ml @ 25 mls/hr 1X ONCE IV Last administered on 11/30/16 23:58; Start 11/30/16 at 14:00; Stop 11/30/16 at 15:59; Status DC Warfarin Sodium (Coumadin) 3 mg 1X WARF ONCE PO Last administered on 22:03; Start 11/30/16 at 16:00; Stop 11/30/16 at 16:01; Status DC Non-Formulary Medication 70 ea DAILY SQ Last administered on 12/02/16 07:58; Start 12/01/16 at 09:00; Stop 12/03/16 at 09:54; Status DC Non-Formulary Medication 66 ea QHS SQ ; Start 11/30/16 at 21:00; Stop 11/30/16 at 21:00; Status DC Non-Formulary Medication 66 ea QHS SQ Last administered on 12/02/16 21:59; Start 11/30/16 at 21:00; Stop 12/03/16 at 09:54; Status DC Warfarin Sodium (Coumadin) 3 mg 1X WARF ONCE PO Last administered on 15:39; Start 12/01/16 at 16:00; Stop 12/01/16 at 16:01; Status DC Insulin Aspart (Novolog) 20 units 1X ONCE SQ Last administered on 12/01/16 15 :26; Start 12/01/16 at 15:30; Stop 12/01/16 at 15:31; Status DC Glimepiride (Amaryl) 4 mg DAILY PO Last administered on 12/04/16 08:52; Start 12/01/16 at 18:30 Insulin Human Regular (Novolin R Vial) 20 unit 1X ONCE IV Last administered on 12/01/16 18:38; Start 12/01/16 at 18:15; Stop 12/01/16 at 18:23; Status DC Insulin Aspart (Novolog) 20 units 1X ONCE SQ Last administered on 12/01/16 20 :58; Start 12/01/16 at 20:30; Stop 12/01/16 at 20:31; Status DC Insulin Aspart (Novolog) 30 units 1X ONCE SQ Last administered on 12/01/16 23 :12; Start 12/01/16 at 23:00; Stop 12/01/16 at 23:01; Status DC Insulin Aspart (Novolog) 30 units 1X ONCE SQ Last administered on 12/02/16 01 :14; Start 12/02/16 at 01:00; Stop 12/02/16 at 01:01; Status DC Calcium Acetate (Phoslo) 1,334 mg TIDWMEALS PO Last administered on 12/04/16 12 :03; Start 12/02/16 at 12:00 Fluconazole (Diflucan) 100 mg DAILY PO ; Start 12/03/16 at 09:00; Stop 12/03/16 at 09:00; Status DC Warfarin Sodium (Coumadin Per Pharmacy) 1 each PRN DAILY PRN MC SEE COMMENTS Last administered on 12/03/16 14:03; Start 12/02/16 at 14:30 Warfarin Sodium (Coumadin) 3 mg 1X WARF ONCE PO Last administered on 16:31; Start 12/02/16 at 16:00; Stop 12/02/16 at 16:01; Status DC Insulin Aspart (Novolog) 10 units 1X ONCE SQ Last administered on 12/02/16 22 :07; Start 12/02/16 at 21:30; Stop 12/02/16 at 21:31; Status DC Non-Formulary Medication 80 ea BID SQ Last administered on 12/04/16 08:53; Start 12/03/16 at 09:47 Insulin Aspart (Novolog) 15 units 1X ONCE SQ Last administered on 12/03/16 10: 31; Start 12/03/16 at 10:00; Stop 12/03/16 at 10:01; Status DC Iohexol (Omnipaque 240 Mg/ml) 30 ml 1X ONCE PO Last administered on 12/03/16 15:08; Start 12/03/16 at 10:15; Stop 12/03/16 at 10:16; Status DC Warfarin Sodium (Coumadin) 2 mg 1X WARF ONCE PO Last administered on 12/03/16 17:42; Start 12/03/16 at 16:00; Stop 12/03/16 at 16:01; Status DC Active Scripts Active Lantus Solostar (Insulin Glargine,Hum.rec.anlog) 100 Unit/1 Ml Insuln.pen 80 Unit SQ BID Humalog (Insulin Lispro) 100 Unit/1 Ml Vial 40 Unit SQ TIDAC 30 Days Reported Nitrofurantoin (Nitrofurantoin Macrocrystal) 100 Mg Capsule 1 Cap PO BID Vitamin D2 (Ergocalciferol (Vitamin D2)) 50,000 Unit Capsule 1 Cap PO WEEKLY Gabapentin 300 Mg Capsule 300 Mg PO HS Nephro-Della Tablet (Folic Acid/Vitamin B Comp W-C) 0.8 Mg Tablet 1 Tab PO DAILY Levothyroxine Sodium 75 Mcg Tablet 75 Mcg PO DAILYAC Levemir (Insulin Detemir) 100 Unit/1 Ml Vial 66 Unit SQ QHS Levemir (Insulin Detemir) 100 Unit/1 Ml Vial 70 Unit SQ DAILY D3-2000 (Cholecalciferol (Vitamin D3)) 2,000 Unit Capsule 2,000 Unit PO DAILY Pantoprazole Sodium 40 Mg Tablet.dr 40 Mg PO BID Warfarin Sodium 2 Mg Tablet 2 Mg PO DAILY Warfarin Sodium 1 Mg Tablet 1 Mg PO DAILY Crestor (Rosuvastatin Calcium) 10 Mg Tablet 10 Mg PO DAILY 30 Days Vitals/I & O Vital Sign - Last 24 Hours 12/03/16 12/03/16 12/03/16 12/03/16 15:00 19:00 20:00 23:00 Temp 98.0 98.1 97.5 98.0 98.1 97.5 Pulse 83 89 86 Resp 20 16 16 B/P 109/51 121/37 99/51 Pulse Ox 92 94 91 O2 Delivery Room Air Room Air 12/03/16 12/04/16 12/04/16 12/04/16 23:30 03:00 07:00 07:50 Temp 98.4 96.6 98.4 96.6 Pulse 82 84 Resp 16 22 B/P 104/53 96/45 Pulse Ox 94 93 91 O2 Delivery Nasal Cannula Nasal Cannula Nasal Cannula O2 Flow Rate 2.0 2.0 2.0 12/04/16 10:56 Temp 97.7 97.7 Pulse 90 Resp 22 B/P 176/72 Pulse Ox 99 O2 Delivery Nasal Cannula O2 Flow Rate 2.0 Intake and Output 12/03/16 12/03/16 12/04/16 15:00 23:00 07:00 Intake Total 240 ml Balance 240 ml Nutrition Consultation Dietary Evaluation: Recommendations by RD: Dietary education by RD, Increase Calorie Intake, Protein supplementation Comments: Hugo renal BID for increased nutrient needs on HD Provided handout on renal diet and left at pt bedside Expected Outcomes/Goals: to meet >75% est nutr needs- met, goal ongoing Malnutrition Findings: Weight Status: Morbidly Obese AJ LOPEZ MD December 04, 2016 14:15
[2016-12-04 15:03] VITALS: BP 165/68
[2016-12-04] MEDS ORDERED: WARFARIN 2.5 MG TABLET. PO ONE (16:00)
--- NOTE | 2016-12-05 09:30 | PDOC ---
Provider Note Provider Note Called Pt and informed about test results, Pt is taking 80 units of Lantus twice a day with 40 NovoLog TID, despite that BS more than 400. I recommend her to call endocrinology office, present back to the hospital either to [facility] or [facility] . Pt says she will think about it. AJ LOPEZ MD December 05, 2016 09:30
--- NOTE | 2016-12-05 13:23 | DS ---
DATE OF DISCHARGE: 12/04/2016 DISCHARGE DIAGNOSES: 1. Diabetes mellitus, uncontrolled, unclear etiology. 2. Thrombosis of the left arm graft, status post thrombolysis, uneventful. 3. End-stage renal disease, on hemodialysis. 4. Anemia due to chronic disease. 5. Status post temporary hemodialysis catheter. 6. Coronary artery disease. 7. Mechanical mitral valve. BRIEF HOSPITAL COURSE: A 66-year-old female patient admitted to the hospital for clotting for AV access, she underwent uneventful clot thrombolysis by vacular surgery however, due to her mechanical mitral valve, her hospital course has been complicated. The patient was initially given thrombolytics and vitamin K and the oral anticoagulation was stopped for few days for procedure. Later, she was treated heparin and warfarin. Also, during hospitalization, the patient's blood sugars were not controlled and she was requiring 80 units of Lantus b.i.d. despite that she is getting 40 units of NovoLog 3 times a day with SSI. Despite that, her blood sugars are running around 300s She was put on insulin drip several times and no infectious process was noted. CT of the abdomen, no acute process seen. Chest x-ray, no acute process seen. CBC and BMP within normal limits. Urinalysis within normal limits. On physical examination, no sources of obvious infection was seen. She denies any complaints of UTI. As patient stayed here for a long time, due to her request, I send her home with instructions and medications. The patient was given instructions such as monitoring an INR very closely at home, also blood sugar logs she should maintain at home and call primary care doctor and employee benefits manager. Today, she deemed hemodynamically stable and sent home with prescriptions. DISCHARGE EXAMINATION: Please see my progress note. DISCHARGE CONDITION: Stable. PROGNOSIS: Good. FOLLOWUP: With the primary care doctor, Endocrinology, and Vascular Surgery. MEDICATIONS: Reviewed and reconciled. Please see MRAD. DIET: Renal diet. Total time spent for discharge is 32 minutes for patient education, counseling, and coordination of care. AJ LOPEZ MD DR: ASIA/catie JOB#: [id number] / [id number] I did make her call today, pt says her Blood sugars still high, she will make a call to endocrinology, and will make a decision to either come back to [facility] or going to [facility]. BETO
== END 2016-12-04 17:00 | disposition home or self-care (01) | DRG 252 ==
LOC: ER 17:18 → 5 SOUTH 20:44
PROVIDERS: ADMIT Internal Medicine; ATTEND Internal Medicine
PROC: 5A1D60Z (ICD-10-PCS; 2016-11-25)
PROC: 02HV33Z Insertion of Infusion Device into Superior Vena Cava, Percutaneous Approach (ICD-10-PCS; 2016-11-25)
PROC: B5181ZA Fluoroscopy of Superior Vena Cava using Low Osmolar Contrast, Guidance (ICD-10-PCS; 2016-11-25)
PROC: 30233L1 Transfusion of Nonautologous Fresh Plasma into Peripheral Vein, Percutaneous Approach (ICD-10-PCS; 2016-11-25)
PROC: 30233K1 Transfusion of Nonautologous Frozen Plasma into Peripheral Vein, Percutaneous Approach (ICD-10-PCS; 2016-11-25)
PROC: 057 Upper Veins, Dilation (ICD-10-PCS; principal; 2016-11-29)
PROC: 037 Upper Arteries, Dilation (ICD-10-PCS; 2016-11-29)
PROC: 3E03317 Introduction of Other Thrombolytic into Peripheral Vein, Percutaneous Approach (ICD-10-PCS; 2016-11-29)
PROC: B51W1ZZ Fluoroscopy of Dialysis Shunt/Fistula using Low Osmolar Contrast (ICD-10-PCS; 2016-11-29)
DX: T82.868A Thrombosis due to vascular prosthetic devices, implants and grafts, initial encounter (principal); I50.33 Acute on chronic diastolic (congestive) heart failure; N18.6 End stage renal disease; I13.2 Hypertensive heart and chronic kidney disease with heart failure and with stage 5 chronic kidney disease, or end stage renal disease; Z68.41 Body mass index [BMI] 40.0-44.9, adult; E87.2 Acidosis; E66.01 Morbid (severe) obesity due to excess calories; D64.9 Anemia, unspecified; D72.829 Elevated white blood cell count, unspecified; E03.9 Hypothyroidism, unspecified; E11.22 Type 2 diabetes mellitus with diabetic chronic kidney disease; E11.65 Type 2 diabetes mellitus with hyperglycemia; I05.0 Rheumatic mitral stenosis; E78.5 Hyperlipidemia, unspecified; K59.00 Constipation, unspecified; Y83.2 Surgical operation with anastomosis, bypass or graft as the cause of abnormal reaction of the patient, or of later complication, without mention of misadventure at the time of the procedure; Y71.2 Prosthetic and other implants, materials and accessory cardiovascular devices associated with adverse incidents; K57.90 Diverticulosis of intestine, part unspecified, without perforation or abscess without bleeding; E21.3 Hyperparathyroidism, unspecified; I25.10 Atherosclerotic heart disease of native coronary artery without angina pectoris; Z95.1 Presence of aortocoronary bypass graft; Z95.2 Presence of prosthetic heart valve; Z99.2 Dependence on renal dialysis; Z87.440 Personal history of urinary (tract) infections; Z90.710 Acquired absence of both cervix and uterus
CPT/HCPCS: 36415; 36556; 36901; 36906; 71010; 74176; 76937; 77001; 80048; 80051; 80069; 81001; 82040; 82310; 82565; 82947; 83735; 84100; 84520; 85018; 85027; 85520; 85610; 86850; 86900; 86901; 86927; 87040; 87086; 94620; A4215; C1713; C1757; C1758; C1769; C1892; C1894; J0881; J1200; J1815; J1956; J2250; J2405; J2997; J3010; J7060; P9017; Q0163; Q9966; 99285-25